=== PATIENT | female | born 1930 | race African-American/Black ===

== ENCOUNTER 2016-06-20 17:00 | Inpatient (IN) | payer OTHER, MEDICARE ==
--- NOTE | 2016-06-20 17:12 | PDOC ---
History of Present Illness - General History Source: Patient, Family, Old Records Exam Limitations: No Limitations <Ronda Ledbetter - Last Filed: 06/20/16 18:15> - General History Source: Patient, Care Provider, Family Exam Limitations: No Limitations - History of Present Illness Initial Comments: 06/20/16 18:24 The patient is a 86 year old female sent to the ED by her PCP, with a significant past medical history of hypertension, hyperlipidemia, diabetes, spinal stenosis, CHF, OH(1994) and DVT(on coumadin, but stopped treatment for the past 3 days due to upcoming procedure), who presents to the emergency department complaining of chest pain, shortness of breath, coughing, and generalized weakness for 1 week. The patient reports the pain is more pronounced on the left side than on the right side. She states the pain radiates into the right arm. She rates the pain as a 6/10, and reports associated tightness in her chest. The patient denies any diaphoresis or palpitations. As per daughters the patient presented to [facility] 6 days ago, for new onset of tremors in her face and hands, and was diagnosed with a UTI. The daughters report the patient has been experiencing increased weakness since February, and a progressively worsening cough for 1 week. The daughters state the patient was able to walk with a walker for the past 3 months ; however, lately she has not been able to stand and has a shuffled gait. They report the patient initially had a dry cough, but is now coughing up green sputum. They report presenting to her PCP, Dr. Bragg, with similar symptoms yesterday, where she was diagnosed with bronchitis. The patient reports decreased appetite and increased desire to sleep. She reports 2 episodes of black tarry diarrhea several days ago, and states she takes iron supplements. The patient reports vomiting, fever, and chills (5 days ago), but denies any headache or dizziness. The patient denies abdominal pain, nausea, constipation, dysuria, or changes in urination patterns. Allergies: Codeine Past Surgical History: None reported. Social History: Non-smoker. Denies alcohol or drug use. PCP: Dr. Mario Bragg ([phone]) Analysis Intern: Dr. Schofield <Valentina Abreu - Last Filed: 01/31/17 20:59> - General Chief Complaint: Weakness Stated Complaint: WEAKNESS Past History - Past Medical History Cardiac Disorders: Yes Diabetes: Yes HTN: Yes Hypercholesterolemia: Yes - Psycho/Social/Smoking Cessation Hx Suicidal Ideation: No Smoking History: Never smoked <Ronda Ledbetter - Last Filed: 06/20/16 18:15> <Valentina Abreu - Last Filed: 06/20/16 20:59> - Past Medical History Allergies/Adverse Reactions: Allergies Allergy/AdvReac Type Severity Reaction Status Date / Time codeine Allergy Verified 06/20/16 17:08 Home Medications: Ambulatory Orders Acetaminophen [Tylenol -] 1,000 mg PO TID PRN 06/20/16 Albuterol Sulfate Inhaler - [Ventolin Hfa Inhaler -] 1 - 2 inh PO QID PRN Amlodipine Besylate 10 mg PO DAILY 06/20/16 Cholecalciferol (Vitamin D3) [Vitamin D3] 2,000 unit PO DAILY 06/20/16 Diclofenac Sodium [Voltaren] 1 applic TP ASDIR 06/20/16 Donepezil HCl [Aricept] 10 mg PO DAILY 06/20/16 Ferrous Sulfate 325 mg PO DAILY 06/20/16 Furosemide [Lasix -] 40 mg PO DAILY 06/20/16 Gabapentin 100 mg PO TID 06/20/16 Glipizide/Metformin HCl [Glipizide-Metformin 5-500 mg] 1 each PO BID 06/20/16 Hydralazine HCl [Apresoline -] 25 mg PO BID 06/20/16 Hydroxychloroquine Sulfate 200 mg PO BID 06/20/16 Insulin Glargine,Hum.rec.anlog [Lantus Solostar PEN (NF)] 10 units SQ HS Labetalol HCl 300 mg PO BID 06/20/16 Lisinopril 10 mg PO DAILY 06/20/16 Simvastatin 20 mg PO DAILY 06/20/16 Warfarin Sodium [Coumadin] 5 mg PO DAILY 06/20/16 Review of Systems - Review of Systems Able to Perform ROS?: Yes Comments:: 06/20/16 18:25 GENERAL/CONSTITUTIONAL: +Fever, +chills, +generalized weakness. HEAD, EYES, EARS, NOSE AND THROAT: No change in vision. No ear pain or discharge. No sore throat. CARDIOVASCULAR: +Chest pain, +shortness of breath. RESPIRATORY: +Cough No wheezing or hemoptysis. GASTROINTESTINAL: +Vomiting, +diarrhea . No nausea or constipation. GENITOURINARY: No dysuria, frequency, or change in urination. MUSCULOSKELETAL: No joint or muscle swelling or pain. No neck or back pain. SKIN: No rash NEUROLOGIC: No headache, vertigo, loss of consciousness, or change in strength/ sensation. ENDOCRINE: No increased thirst. No abnormal weight change. HEMATOLOGIC/LYMPHATIC: +History of upper GI bleed. No anemia or history of blood clots. ALLERGIC/IMMUNOLOGIC: No hives or skin allergy. <Valentina Abreu - Last Filed: 06/20/16 20:59> *Physical Exam - Vital Signs Last Vital Signs Temp Pulse Resp BP Pulse Ox 98.5 F 82 16 140/53 94 L 06/20/16 17:00 06/20/16 17:00 06/20/16 17:00 06/20/16 17:00 06/20/16 17:00 - Physical Exam Comments: 06/20/16 18:25 GENERAL: Awake, alert, and fully oriented, in no acute distress HEAD: No signs of trauma EYES: PERRLA, EOMI, sclera anicteric, conjunctiva clear ENT: Auricles normal inspection, hearing grossly normal, nares patent, oropharynx clear without exudates. Moist mucosa NECK: Normal ROM, supple, no lymphadenopathy, JVD, or masses LUNGS: +Diffuse crackles bilaterally with expiratory wheezing, and fair air movement. HEART: Regular rate and rhythm, normal S1 and S2, no murmurs, rubs or gallops ABDOMEN: Soft, nontender, normoactive bowel sounds. No guarding, no rebound. No masses EXTREMITIES: Normal range of motion, no edema. No clubbing or cyanosis. No cords, erythema, or tenderness NEUROLOGICAL: Cranial nerves II through XII grossly intact. Normal speech. SKIN: Warm, Dry, normal turgor, no rashes or lesions noted. <Valentina Abreu - Last Filed: 06/20/16 20:59> Heart Score/ECG Review - ECG Impressions Comment:: 06/20/16 18:30 Vent. Rate: 80 bpm IMPRESSION: No old EKG for comparison. LVH by voltage. ST segment depression in 1 L v4-v6, with occasional PVC. <Valentina Abreu - Last Filed: 06/20/16 20:59> ED Treatment Course - LABORATORY CBC & Chemistry Diagram: 06/20/16 17:45 <Ronda Ledbetter - Last Filed: 06/20/16 18:15> - LABORATORY CBC & Chemistry Diagram: 06/20/16 17:45 06/20/16 17:45 - ADDITIONAL ORDERS Additional order review: 06/20/16 17:45 RBC 3.90 MCV 80.7 MCHC 31.3 L RDW 17.3 H D MPV 8.3 Neutrophils % 83.1 H Lymphocytes % 8.8 Monocytes % 7.8 Eosinophils % 0.1 Basophils % 0.2 - RADIOLOGY Radiograph Interpretation: 06/20/16 18:35 EXAM: CXR INTERPRETED BY: Dr. Conner REVIEWED BY: Dr. Ledbetter IMPRESSION: Mild enlargement of the cardiac silhouette likely due to magnification without evidence of acute lung disease. EXAM: HEAD CT INTERPRETED BY: Dr. Conner REVIEWED BY: Dr. Ledbetter IMPRESSION: Moderate atrophy and chronic microvascular ischemic changes without evidence of acute intracranial pathology. <Valentina Abreu - Last Filed: 06/20/16 20:59> Medical Decision Making - Medical Decision Making 06/20/16 18:15 86-year-old female with history of hypertension, diabetes, OH years ago, CHF F with diastolic dysfunction and DVTon Coumadin but has not taken it for the past several days due to an upcoming procedure presents to the emergency department with generalized weakness, shortness of breath, cough and chest pain ; she also had "facial twitching" 5 days ago. Differential diagnosis includes but is not limited to: Pneumonia, influenza, CHF, ACS, anemia, electrolyte abnormality, toxic/metabolic derangement, dehydration, UTI. Plan: 1. EKG 2. Labs 3. Chest x-ray 4. Urine 5. CT head to address this questionable seizure-like activity 6. Observe and reevaluate <Ronda Ledbetter - Last Filed: 06/20/16 18:15> - Medical Decision Making 06/20/16 19:42 First call placed to Dr. Schofield at 19:38. Case discussed with Dr. Matta at 19:42. <Valentina Abreu - Last Filed: 06/20/16 20:59> *DC/Admit/Observation/Transfer - Attestations Physician Attestion: 06/20/16 18:17 I, Dr. Ronda Ledbetter, attest that the scribes documentation that appears above has been prepared under my direction and personally reviewed by me in its entirety. I confirmed that the note above accurately reflects all work, treatment, procedures, and medical decision-making performed by me. <Ronda Ledbetter - Last Filed: 06/20/16 18:15> - Attestations Scribe Attestion: 06/20/16 18:29 Documentation prepared by Valentina Abreu, acting as medical physiologist for Ronda Ledbetter MD. <Valentina Abreu - Last Filed: 06/20/16 20:59> Diagnosis at time of Disposition: Weakness generalized, Shortness of breath, Hyponatremia, Hyperglycemia, Dehydration - Discharge Dispostion Condition at time of disposition: Stable - Referrals Referrals: Mario Bragg MD [Primary Care Provider] -
[2016-06-20 17:19] VITALS: BMI 33.0
[2016-06-20 18:19] LABS: BASOPHIL 0.2 % (0-2.0); EOSINOPHIL 0.1 % (0-4.5); MCH 25.3 pg (25.7-33.7); MCHC 31.3 g/dl (32.0-36.0); MEAN CELL VOLUME 80.7 fl (80-96); MEAN PLT VOLUME 8.3 fl (7.5-11.1); NEUTROPHILS 83.1 % (42.8-82.8); PLATELET COUNT 214 K/MM3 (134-434); RDW 17.3 % (11.6-15.6); WHITE BLOOD COUNT 11.5 K/mm3 (4.0-10.0)
[2016-06-20] MEDS ORDERED: ALBUTEROL SO4 0.083% IH SOL 2.5 MG/3 ML VIAL.NEB. NEB ONE ×2 (18:21→18:31)
[2016-06-20] MEDS ORDERED: IPRATROPIUM BR 0.02% 0.5 MG/2.5 ML VIAL.NEB. NEB ONE ×2 (18:21→18:31)
[2016-06-20] MEDS ORDERED: ACETAMINOPHEN 500 MG TABLET (FP) PO ONE (18:38)
[2016-06-20] MEDS ORDERED: ACETAMINOPHEN 325 MG TABLET (FP) ONE (18:41)
[2016-06-20 18:43] LABS: BILIRUBIN,TOTAL 0.2 mg/dl (0.2-1.0); CALCIUM 8.2 mg/dl (8.4-10.2); CREATININE 1.7 mg/dl (0.6-1.3); TOT PROT 6.3 g/dl (6.4-8.3)
[2016-06-20 18:51] LABS: CPK(DFH) 67 IU/L (26-140)
[2016-06-20 18:57] LABS: TROPONIN I (DFP) < 0.03 ng/ml (0.03-0.50)
[2016-06-20] MEDS ORDERED: SODIUM CHLORIDE 1,000 ML IV STA (19:04)
[2016-06-20 19:10] LABS: INR 2.12 (0.82-1.09); PROTHROMBIN TIME (PATIENT) 23.1 SEC (10.2-13.0)
[2016-06-20 19:12] LABS: URINE APPEARANCE Clear; URINE BILIRUBIN Negative (NEGATIVE); URINE BLOOD Negative (NEGATIVE); URINE GLUCOSE (UA) Trace (NEGATIVE); URINE KETONE Negative (NEGATIVE); URINE LEUK ESTERASE Negative (NEGATIVE); URINE NITRITE Negative (NEGATIVE); URINE UROBILINOGEN 0.2 E.U/dl (0.2-1.0)
[2016-06-20 19:13] LABS: URINE COLOR YELLOW; URINE PROTEIN 1+ (NEGATIVE)
--- NOTE | 2016-06-20 19:18 | PDOC ---
*Physical Exam - Vital Signs Last Vital Signs Temp Pulse Resp BP Pulse Ox 98.5 F 82 16 140/53 94 L 06/20/16 17:00 06/20/16 17:00 06/20/16 17:00 06/20/16 17:00 06/20/16 17:00 Heart Score/ECG Review - History History: Slightly suspicious - Electrocardiogram EKG: Non specific repolarization disturbance - Age Age: >/= 65 - Risk Factors Risk Factors Heart Score: Yes Hx Hypercholesterolemia, Yes Hx Hypertension, Yes Hx Diabetes Based on the list above the patient has:: >/=3 risk factors or Hx atherosclerotic disease - Troponin Troponin: </= normal limit - Score Heart Score - Total: 5 ED Treatment Course - LABORATORY CBC & Chemistry Diagram: 06/20/16 17:45 06/20/16 17:45 - ADDITIONAL ORDERS Additional order review: Laboratory Results 06/20/16 06/20/16 17:45 17:45 Sodium 131 L Potassium 3.9 Chloride 98 Carbon Dioxide 20 L D Anion Gap 13 BUN 50 H D Creatinine 1.7 H D Creat Clearance w eGFR 28.63 Random Glucose 374 H* D Calcium 8.2 L Total Bilirubin 0.2 AST 21 ALT 19 Alkaline Phosphatase 84 Creatine Kinase 67 Troponin I < 0.03 L Total Protein 6.3 L Albumin 3.0 L 06/20/16 17:45 RBC 3.90 MCV 80.7 MCHC 31.3 L RDW 17.3 H D MPV 8.3 Neutrophils % 83.1 H Lymphocytes % 8.8 Monocytes % 7.8 Eosinophils % 0.1 Basophils % 0.2 - Medications Given in the ED: ED Medications Discontinued Medications Generic Name Dose Route Start Last Admin Trade Name Teresa PRN Reason Stop Dose Admin Acetaminophen 1,000 mg 06/20/16 18:38 06/20/16 18:55 Tylenol - PO 06/20/16 18:39 1,000 mg ONCE ONE Administration Albuterol Sulfate 1 amp 06/20/16 18:21 06/20/16 18:30 Ventolin 0.083% Nebulizer Soln - NEB 06/20/16 18:22 1 amp ONCE ONE Administration Ipratropium Chana 1 amp 06/20/16 18:21 06/20/16 18:30 Atrovent 0.02% Nebulizer - NEB 06/20/16 18:22 1 amp ONCE ONE Administration Progress Note - Progress Note Progress Note: Care of this patient was transferred to sc from Dr. Ledbetter at 19:00 hrs. This is an 86-year-old female whose family brought her in because they were concerned that she was not doing well. Patient was noted to be somewhat lethargic on arrival here with a low-grade temp. Patient does have a mildly elevated white count with mild left shift. Patient's O2 sats are little on the low side however her chest x-ray was read as no acute disease. Patient is a little hyponatremic. Patient's glucose is elevated. Patient's urinalysis shows no infection. Patient's BUN and creatinine are mildly elevated she does not have a history of underlying renal insufficiency so most likely this is secondary to some dehydration which is probably contributing to her lethargy as well. Patient also at her baseline does have a history of some congestive heart failure. Patient will be admitted to an inpatient MedSurg bed. Antibiotics are not given at this time as I do not have an obvious source. Patient is being hydrated. Patient's cardiogram shows some lateral ischemic changes uncertain if these are new or old as we don't have one to compare it to so presume that it may be new the patient may well need to be admitted to a telemetry bed and ruled out. Patient will be admitted to the hospitalist service. Discussed admission with the hospitalist Dr. Cole from the hospitalist service. Patient will be admitted to a cardiac telemetry bed either here or at [facility]. Case Preparer And Liner is Kanwal. Discussed admission with DR. Matta who is covering for [facility]. Dr. Matta accepted pt to a cardiac tele bed. *DC/Admit/Observation/Transfer Diagnosis at time of Disposition: Weakness generalized, Shortness of breath, Hyponatremia, Hyperglycemia, Dehydration - Discharge Dispostion Condition at time of disposition: Stable Admit: Yes - Referrals Referrals: Mario Bragg MD [Primary Care Provider] - - Patient Instructions - Post Discharge Activity
[2016-06-20] MEDS ORDERED: INSULIN REGULAR HUMAN 100 UNITS/ML *VIAL IVPUSH ONE (19:32)
[2016-06-20] MEDS ORDERED: INSULIN REGULAR HUMAN 100 UNITS/ML *VIAL ONE (19:33)
[2016-06-20] MEDS ORDERED: HEMOQUE TEST 1 EACH EACH ONE ×2 (20:43→20:47)
[2016-06-20] MEDS ORDERED: SODIUM CHLORIDE 1,000 ML IV ONE (21:06)
--- NOTE | 2016-06-20 21:32 | HP ---
CHIEF COMPLAINT: chest pain/cough PCP: Sirisha HISTORY OF PRESENT ILLNESS: This is a 86 year old female with PMH HTN, HLD, DM, spinal stenosis, CHF, CO, DVT who presents with chest pain, SOB, cough, and weakness x 1 week. She was seen last week in [facility] ER and tx for a UTI, but upon review of lab results , Dr Grimm stopped antibiotic (nitrofurantoin) as no UTI noted as per family. Pt also reports LBM since Sunday, slightly better today, but still persisting. Pt reports cough was initially nonproductive, but now with greenish phlegm. Family and pt report subjective fever and chills over the past few days. Pt denies abdominal pain, nausea. ER course was notable for: (1) WBC 11.5 (2) CXR no acute disease (3) troponin negative Recent Travel: pt denies PAST MEDICAL HISTORY: HTN HLD DM spinal stenosis CHF CO DVT PAST SURGICAL HISTORY: B/L TKR R foot thrombectomy hysterectomy B/L cataracts Social History: Smoking: Quit 1994, 21pack years Alcohol: pt denies Drugs: pt denies Family History: mother age 61, HTN, DM, heart disease father in his 70s, DM, HTN sister age 55, unknown brother 60s, DM brother age 63, CA, unkown type, DM, HTN brother 50s, DM, Stomach CA brother 40s, throat CA 3 living siblings all with DM, HTN Allergies codeine Allergy (Verified 06/20/16 17:08) HOME MEDICATIONS: 3 Medication Instructions Recorded Acetaminophen [Tylenol -] 1,000 mg PO TID PRN 06/20/16 Albuterol Sulfate Inhaler - 1 - 2 inh PO QID PRN 06/20/16 [Ventolin Hfa Inhaler -] Amlodipine Besylate 10 mg PO DAILY 06/20/16 Cholecalciferol (Vitamin D3) 2,000 unit PO DAILY 06/20/16 [Vitamin D3] Diclofenac Sodium [Voltaren] 1 applic TP ASDIR 06/20/16 Donepezil HCl [Aricept] 10 mg PO DAILY 06/20/16 Ferrous Sulfate 325 mg PO DAILY 06/20/16 Furosemide [Lasix -] 40 mg PO DAILY 06/20/16 Gabapentin 100 mg PO TID 06/20/16 Glipizide/Metformin HCl 1 each PO BID 06/20/16 [Glipizide-Metformin 5-500 mg] Hydralazine HCl [Apresoline -] 25 mg PO BID 06/20/16 Hydroxychloroquine Sulfate 200 mg PO BID 06/20/16 Insulin Glargine,Hum.rec.anlog 10 units SQ HS 06/20/16 [Lantus Solostar PEN (NF)] Labetalol HCl 300 mg PO BID 06/20/16 Lisinopril 10 mg PO DAILY 06/20/16 Simvastatin 20 mg PO DAILY 06/20/16 Warfarin Sodium [Coumadin] 5 mg PO DAILY 06/20/16 REVIEW OF SYSTEMS CONSTITUTIONAL: Present:fever, chills Absent: diaphoresis, generalized weakness, malaise, loss of appetite, weight change HEENT: Absent: rhinorrhea, nasal congestion, throat pain, throat swelling, difficulty swallowing, mouth swelling, ear pain, eye pain, visual changes CARDIOVASCULAR: Present: chest pain Absent: syncope, palpitations, irregular heart rate, lightheadedness, peripheral edema RESPIRATORY: Present: cough, shortness of breath Absent: dyspnea with exertion, orthopnea, wheezing, stridor, hemoptysis GASTROINTESTINAL: Present: diarrhea Absent: abdominal pain, abdominal distension, nausea, vomiting, constipation, melena, hematochezia GENITOURINARY: Absent: dysuria, frequency, urgency, hesitancy, hematuria, flank pain, genital pain MUSCULOSKELETAL: Absent: myalgia, arthralgia, joint swelling, back pain, neck pain SKIN: Absent: rash, itching, pallor HEMATOLOGIC/IMMUNOLOGIC: Absent: easy bleeding, easy bruising, lymphadenopathy, frequent infections ENDOCRINE: Absent: unexplained weight gain, unexplained weight loss, heat intolerance, cold intolerance NEUROLOGIC: Absent: headache, focal weakness or paresthesias, dizziness, unsteady gait, seizure, mental status changes, bladder or bowel incontinence PSYCHIATRIC: Absent: anxiety, depression, suicidal or homicidal ideation, hallucinations. PHYSICAL EXAMINATION Vital Signs - 24 hr 3 06/20/16 06/20/16 06/20/16 17:00 17:05 20:38 Temperature 98.5 F 98.6 F Pulse Rate 82 75 Pulse Rate [ 68 Left Apical] Respiratory 16 18 Rate Blood Pressure 140/53 Blood Pressure 143/55 [Right Arm] O2 Sat by Pulse 94 L 98 99 Oximetry (%) 3 06/20/16 21:04 Temperature 98.6 F Pulse Rate 68 Pulse Rate [ Left Apical] Respiratory 18 Rate Blood Pressure 143/55 Blood Pressure [Right Arm] O2 Sat by Pulse Oximetry (%) GENERAL: Awake, alert, and fully oriented, in no acute distress. HEAD: Normal with no signs of trauma. EYES: Pupils equal, round and reactive to light, extraocular movements intact, sclera anicteric, conjunctiva clear. No lid lag. EARS, NOSE, THROAT: Ears normal, nares patent, oropharynx clear without exudates. Moist mucous membranes. NECK: Normal range of motion, supple without lymphadenopathy, JVD, or masses. LUNGS: Breath sounds equal. No accessory muscle use. + expiratory wheeze all lung trivedi, fine crackles bilat bases. HEART: Regular rate and rhythm, normal S1 and S2 without murmur, rub or gallop. ABDOMEN: Soft, nontender, not distended, normoactive bowel sounds, no guarding, no rebound, no masses. No hepatomegaly or splenomegaly. MUSCULOSKELETAL: Normal range of motion at all joints. No bony deformities or tenderness. No CVA tenderness. UPPER EXTREMITIES: 2+ pulses, warm, well-perfused. No cyanosis. No clubbing. Cap refill <2 seconds. No peripheral edema. LOWER EXTREMITIES: 2+ pulses, warm, well-perfused. No calf tenderness. No peripheral edema. NEUROLOGICAL: Cranial nerves II-XII intact. Normal speech. Normal gait. PSYCHIATRIC: Cooperative. Good eye contact. Appropriate mood and affect. SKIN: Warm, dry, normal turgor, no rashes or lesions noted. Laboratory Results - last 24 hr 3 06/20/16 06/20/16 06/20/16 17:45 17:45 17:45 WBC 11.5 H D RBC 3.90 Hgb 9.8 L D Hct 31.5 L MCV 80.7 MCHC 31.3 L RDW 17.3 H D Plt Count 214 MPV 8.3 Neutrophils % 83.1 H Lymphocytes % 8.8 Monocytes % 7.8 Eosinophils % 0.1 Basophils % 0.2 INR 2.12 H Sodium Potassium Chloride Carbon Dioxide Anion Gap BUN Creatinine Creat Clearance w eGFR Random Glucose Lactic Acid Calcium Total Bilirubin AST ALT Alkaline Phosphatase Creatine Kinase 67 Troponin I < 0.03 L B-Natriuretic Peptide Total Protein Albumin Urine Color Urine Appearance Urine pH Ur Specific [place] Urine Protein Urine Glucose (UA) Urine Ketones Urine Blood Urine Nitrite Urine Bilirubin Urine Urobilinogen Ur Leukocyte Esterase 3 06/20/16 06/20/16 06/20/16 17:45 17:45 18:30 WBC RBC Hgb Hct MCV MCHC RDW Plt Count MPV Neutrophils % Lymphocytes % Monocytes % Eosinophils % Basophils % INR Sodium 131 L Potassium 3.9 Chloride 98 Carbon Dioxide 20 L D Anion Gap 13 BUN 50 H D Creatinine 1.7 H D Creat Clearance w eGFR 28.63 Random Glucose 374 H* D Lactic Acid 1.612 Calcium 8.2 L Total Bilirubin 0.2 AST 21 ALT 19 Alkaline Phosphatase 84 Creatine Kinase Troponin I B-Natriuretic Peptide 1617.86 H Total Protein 6.3 L Albumin 3.0 L Urine Color Yellow Urine Appearance Clear Urine pH 5.0 Ur Specific [place] >= 1.030 H Urine Protein 1+ H Urine Glucose (UA) Trace Urine Ketones Negative Urine Blood Negative Urine Nitrite Negative Urine Bilirubin Negative Urine Urobilinogen 0.2 e.u/dl Ur Leukocyte Esterase Negative CXR: Impression: Mild enlargement of the cardiac silhouette likely due to magnification without evidence of acute lung disease. CT Head: Impression: Moderate atrophy and chronic microvascular ischemic changes without evidence of acute intracranial pathology. Correlate clinically to determine further evaluation and workup ECG: Sinus rhythm with PAC, rate 79, QTC 415, T wave inversions lead 1, v4-v6, flattended lead 2, no old ECG available for comparison ASSESSMENT/PLAN: 86 year old female with PMH HTN, HLD, DM, spinal stenosis, CHF, CO, DVT who presents with chest pain, SOB, cough, and weakness x 1 week. She is being admitted for further evaluation. Community acquired pneumonia - despite no acute changes on xray, clinically present on exam, likely xray lag - ceftriaxone and zithromax ordered - duoneb q6h for wheezing - consider steroids if no improvement, would defer if possible due to DM Chest pain - troponin neg x 1 - heart score 6, cardiology consult ordered, Dr Matta spoken to by ED MD as per note - trend trop x 2 more - echo ordered - repeat ECG in am HTN/CHF - cont home meds, BP stable - echo ordered DVT - restart warfarin as pt will not undergo planned epidural due to hospitalization - monitor INR daily on zithromax DM - hold oral hypoglycemics - home lantus changed to formulary levemir - FSBS TIDAC and HS with novolog sliding scale FEN - NS @ 100ml/hr x 1 liter - Repeat labs in am - sodium controlled/diabetic diet as tolerated Dispo: pt currently requires inpatient care. Visit type - Emergency Visit Emergency Visit: Yes ED Registration Date: 06/20/16 Care time: The patient presented to the Emergency Department on the above date and was hospitalized for further evaluation of their emergent condition. - New Patient This patient is new to me today: Yes Date on this admission: 06/20/16 - Critical Care Critical Care patient: No
[2016-06-20] MEDS ORDERED: CEFTRIAXONE 50 ML IVPB ONE (22:43)
[2016-06-20] MEDS ORDERED: AZITHROMYCIN IVPB 250 ML IVPB ONE (22:43)
[2016-06-20 23:11] LABS: URINE BACTERIA FEW /hpf (NEGATIVE); URINE RBC 0-1 /hpf (0-3); URINE WBC 0-2 (3-5)
[2016-06-20] MEDS: INSULIN DETEMIR 100 UNITS/ML MDV SQ SCH (23:32)
[2016-06-20] MEDS: GABAPENTIN 100 MG CAPSULE (FP) PO SCH (23:33)
[2016-06-20] MEDS: WARFARIN NA 5 MG TABLET (UD) PO SCH (23:33)
[2016-06-20] MEDS: ALBUTEROL SO4 2.5/IPRATROPIUM 0.5 INH SOL 3 ML VIAL.NEB. NEB SCH (23:56)
[2016-06-21 00:58] LABS: TROPONIN I < 0.02 ng/ml (0.00-0.05)
[2016-06-21] MEDS: GABAPENTIN 100 MG CAPSULE (FP) PO SCH ×3 (06:00→21:23)
[2016-06-21] MEDS: INSULIN SLIDING SCALE (NOVOLOG) 1 VIAL SQ SCH ×4 (06:02→21:24)
[2016-06-21] MEDS: ALBUTEROL SO4 2.5/IPRATROPIUM 0.5 INH SOL 3 ML VIAL.NEB. NEB SCH ×3 (06:15→18:10)
[2016-06-21 07:41] LABS: INR 2.36 (0.82-1.09); PROTHROMBIN TIME (PATIENT) 26.4 SEC (9.98-11.88)
[2016-06-21 07:42] LABS: TROPONIN I < 0.02 ng/ml (0.00-0.05)
[2016-06-21 07:54] LABS: MCH 26.4 pg (25.7-33.7); MEAN CELL VOLUME 82.4 fl (80-96); MEAN PLT VOLUME 8.1 fl (7.5-11.1); PLATELET COUNT 177 K/MM3 (134-434); RDW 17.8 % (11.6-15.6); WHITE BLOOD COUNT 11.1 K/mm3 (4.0-10.0)
[2016-06-21 07:55] LABS: BASOPHIL 0.1 % (0-2.0); EOSINOPHIL 0.1 % (0-4.5); NEUTROPHILS 80.7 % (42.8-82.8)
[2016-06-21] MEDS ORDERED: PT OWN MED DRAWER 7, Y5N ONE ×2 (10:15→21:19)
[2016-06-21] MEDS: LABETALOL HCL 100 MG TABLET (FP) PO SCH ×2 (10:22→21:24)
[2016-06-21] MEDS: hydrALAZINE HCL 25 MG TABLET (FP) PO SCH ×2 (10:22→21:23)
[2016-06-21] MEDS: CHOLECALCIFEROL (VITAMIN D3) 1,000 UNIT TABLET (FP) PO SCH (10:22)
[2016-06-21] MEDS: LISINOPRIL 10 MG TABLET (FP) PO SCH (10:22)
[2016-06-21] MEDS: HYDROXYCHLOROQUINE SO4 200 MG TABLET (FP) PO SCH ×2 (10:22→21:23)
[2016-06-21] MEDS: FUROSEMIDE 40 MG TABLET (FP) PO SCH (10:22)
[2016-06-21] MEDS: DONEPEZIL HCL 10 MG TABLET (FP) PO SCH (10:22)
[2016-06-21] MEDS: FERROUS SO4 325 MG TABLET (FP) PO SCH (10:22)
[2016-06-21] MEDS: amLODIPine BESYLATE 10 MG TABLET (FP) PO SCH (10:22)
[2016-06-21 11:31] LABS: ANION GAP 12 (8-16); CO2 24 mmol/L (21-32); CREATININE 1.3 mg/dL (0.55-1.02); GLUCOSE,RANDOM 90 mg/dL (74-106); MAGNESIUM 1.9 mg/dL (1.8-2.4); PHOSPHOROUS 2.8 mg/dL (2.5-4.9)
--- NOTE | 2016-06-21 12:25 | CON.CARD ---
Cardiology Consult (text) - Consultation Consultation Note: cc: sob, cough hpi: 86 f hx cad s/p mi 1994, htn, hld, dm, anemia (avm's), dchf, remote dvt on ac here with sob, cough. Past week she has had progressive cough and chest congestion. Cough mildly productive. [place] chills at home as well, did not check temp. With deep breaths or cough has pain in left lower chest/rib cage. No palps, dizzy, loc, pnd, orthopnea, le edema. Being treated for pna here. Sees dr river for cardio. pmh: per hpi psh: nc social: ex tob fam: no premature cad, scd ros: per hpi; no nvd, rash, muscle pain, hematuria, gib, mcadams, vision changes meds: Medication Instructions Recorded Acetaminophen [Tylenol -] 1,000 mg PO TID PRN 06/20/16 Albuterol Sulfate Inhaler - 1 - 2 inh PO QID PRN 06/20/16 [Ventolin Hfa Inhaler -] Amlodipine Besylate 10 mg PO DAILY 06/20/16 Cholecalciferol (Vitamin D3) 2,000 unit PO DAILY 06/20/16 [Vitamin D3] Diclofenac Sodium [Voltaren] 1 applic TP ASDIR 06/20/16 Donepezil HCl [Aricept] 10 mg PO DAILY 06/20/16 Ferrous Sulfate 325 mg PO DAILY 06/20/16 Furosemide [Lasix -] 40 mg PO DAILY 06/20/16 Gabapentin 100 mg PO TID 06/20/16 Glipizide/Metformin HCl 1 each PO BID 06/20/16 [Glipizide-Metformin 5-500 mg] Hydralazine HCl [Apresoline -] 25 mg PO BID 06/20/16 Hydroxychloroquine Sulfate 200 mg PO BID 06/20/16 Insulin Glargine,Hum.rec.anlog 10 units SQ HS 06/20/16 [Lantus Solostar PEN (NF)] Labetalol HCl 300 mg PO BID 06/20/16 Lisinopril 10 mg PO DAILY 06/20/16 Simvastatin 20 mg PO DAILY 06/20/16 Warfarin Sodium [Coumadin] 5 mg PO DAILY 06/20/16 pe: Vital Signs Period Temp Pulse Resp BP Sys/Curry Pulse Ox Last 24 Hr 98.0 F-98.6 F 62-82 16-18 105-143/46-55 94-99 nad, no jvd rrr s1s2 no mrg ; +chest wall tenderness that reproduces her cp scattered rhonchi, +wheeze bl, nl eff aaox3 no le e/c/c abd nt nd pos bs no jaundice diaphoresis pos dp pt no carotid bruits Laboratory Last Values WBC 11.1 K/mm3 (4.0-10.0) H 06/21/16 06:05 RBC 3.67 M/mm3 (3.60-5.2) 06/21/16 06:05 Hgb 9.7 GM/dL (10.7-15.3) L 06/21/16 06:05 Hct 30.3 % (32.4-45.2) L 06/21/16 06:05 MCV 82.4 fl (80-96) 06/21/16 06:05 MCHC 32.0 g/dl (32.0-36.0) 06/21/16 06:05 RDW 17.8 % (11.6-15.6) H 06/21/16 06:05 Plt Count 177 K/MM3 (134-434) 06/21/16 06:05 MPV 8.1 fl (7.5-11.1) 06/21/16 06:05 Neutrophils % 80.7 % (42.8-82.8) 06/21/16 06:05 Lymphocytes % 11.0 % (8-40) 06/21/16 06:05 Monocytes % 8.1 % (3.8-10.2) 06/21/16 06:05 Eosinophils % 0.1 % (0-4.5) 06/21/16 06:05 Basophils % 0.1 % (0-2.0) 06/21/16 06:05 INR 2.36 (0.82-1.09) H 06/21/16 06:05 Sodium 141 mmol/L (136-145) 06/21/16 06:05 Potassium 3.4 mmol/L (3.5-5.1) L 06/21/16 06:05 Chloride 105 mmol/L (98-107) 06/21/16 06:05 Carbon Dioxide 24 mmol/L (21-32) 06/21/16 06:05 Anion Gap 12 (8-16) 06/21/16 06:05 BUN 38 mg/dL (7-18) H 06/21/16 06:05 Creatinine 1.3 mg/dL (0.55-1.02) H 06/21/16 06:05 Creat Clearance w eGFR 28.63 (>60) 06/20/16 17:45 POC Glucometer 109 UNITS (()) 06/21/16 05:54 Random Glucose 90 mg/dL (74-106) 06/21/16 06:05 Hemoglobin A1c % 8.1 % (4.8-6.0) H D 06/21/16 06:05 Lactic Acid 1.612 mmol/L (0.4-2.0) 06/20/16 17:45 Calcium 8.0 mg/dL (8.5-10.1) L 06/21/16 06:05 Phosphorus 2.8 mg/dL (2.5-4.9) 06/21/16 06:05 Magnesium 1.9 mg/dL (1.8-2.4) 06/21/16 06:05 Total Bilirubin 0.2 mg/dl (0.2-1.0) 06/20/16 17:45 AST 21 U/L (10-42) 06/20/16 17:45 ALT 19 U/L (10-40) 06/20/16 17:45 Alkaline Phosphatase 84 U/L (32-92) 06/20/16 17:45 Creatine Kinase 81 IU/L (26-192) 06/21/16 06:05 Troponin I < 0.02 ng/ml (0.00-0.05) 06/21/16 06:05 B-Natriuretic Peptide 1617.86 pg/ml (5-450) H 06/20/16 17:45 Total Protein 6.3 g/dl (6.4-8.3) L 06/20/16 17:45 Albumin 3.0 g/dl (3.5-5.0) L 06/20/16 17:45 Urine Color Yellow 06/20/16 18:30 Urine Appearance Clear 06/20/16 18:30 Urine pH 5.0 (4.5-8) 06/20/16 18:30 Ur Specific [place] >= 1.030 (1.005-1.025) H 06/20/16 18:30 Urine Protein 1+ (NEGATIVE) H 06/20/16 18:30 Urine Glucose (UA) Trace (NEGATIVE) 06/20/16 18:30 Urine Ketones Negative (NEGATIVE) 06/20/16 18:30 Urine Blood Negative (NEGATIVE) 06/20/16 18:30 Urine Nitrite Negative (NEGATIVE) 06/20/16 18:30 Urine Bilirubin Negative (NEGATIVE) 06/20/16 18:30 Urine Urobilinogen 0.2 e.u/dl (0.2-1.0) 06/20/16 18:30 Ur Leukocyte Esterase Negative (NEGATIVE) 06/20/16 18:30 Urine RBC 0-1 /hpf (0-3) 06/20/16 18:30 Urine WBC 0-2 (3-5) 06/20/16 18:30 Ur Epithelial Cells Few /HPF 06/20/16 18:30 Urine Bacteria Few /hpf (NEGATIVE) 06/20/16 18:30 ecg 06/20/16: sr, pvc, nl intervals, twi v4-v6, i avl, no st changes, no sig change from 04/20/16 ecg cxr: clear lungs mibi 04/2016: no ischemia, lvef 75% echo 04/2016: tds; mild lvh, lvef>70%, g2dd, nl rv, mod lae, mild tr, mild-mod phtn sleep study 04/2016: no [facility] tele: sr, occ pvcs, brief atrial run, nsvt 7 beats a/p: 86 f hx cad s/p mi 1994, htn, hld, dm, anemia (avm's), dchf, remote dvt on ac here with sob, cough. sob: -no signs of vol overload or acs -recent mibi w/o ischemia, recent echo with nl lvef/no sig valve abnormality -symptoms seem to be due to uri/pna, would cont with abx per primary team chest pain: -very MSK in nature, seems related to coughing -ce's neg x3, no signs acs -ecg with twi's but these are old and have been seen on 04/20/16 office ecg as well -recent mibi w/o ischemia -monitor cp as pna/cough improves -monitor on tele for now cad s/p remote [place]: -stable, as above -cont home jeremy, ccb, bb, statin -no asa, on ac for dvt htn: -cont home meds hld: -cont statin diastolic chf: -stable, no signs vol overload -cont home lasix as doing -baseline office bun/cr was 23/1.19 in 05/2016, slightly higher now, possibly related to infection/poor po intake. monitor cr, if remains above baseline can hold lasix temporarily remote dvt: -on lifelong ac
--- NOTE | 2016-06-21 13:25 | EKG ---
Test Reason : Blood Pressure : / mmHG Vent. Rate : 079 BPM Atrial Rate : 079 BPM P-R Int : 170 ms QRS Dur : 092 ms QT Int : 362 ms P-R-T Axes : 056 018 149 degrees QTc Int : 415 ms SINUS RHYTHM WITH PREMATURE ATRIAL COMPLEXES WITH ABERRANT CONDUCTION ABNORMAL ECG NO PREVIOUS ECGS AVAILABLE Confirmed by CARMITA FIGUEROA MD ([id number]) on 06/21/2016 1:24:44 PM Referred By: MD LONGORIA Confirmed By:CARMITA FIGUEROA MD
[2016-06-21] MEDS: POTASSIUM CHLORIDE TABS 20 MEQ TABLET.ER (FP) PO SCH ×2 (15:06→18:47)
[2016-06-21] MEDS ORDERED: ALBUTEROL SO4 0.083% IH SOL 2.5 MG/3 ML VIAL.NEB. NEB PRN (15:26)
[2016-06-21] MEDS ORDERED: methylPREDNISolone NA SUCC 125 MG/2 ML VIAL IVPB ONE (16:09)
[2016-06-21] MEDS: WARFARIN NA 5 MG TABLET (UD) PO SCH (17:27)
[2016-06-21 19:21] LABS: MCH 26.3 pg (25.7-33.7); MCHC 32.2 g/dl (32.0-36.0); MEAN CELL VOLUME 81.6 fl (80-96); MEAN PLT VOLUME 7.9 fl (7.5-11.1); PLATELET COUNT 182 K/MM3 (134-434); RDW 18.4 % (11.6-15.6); WHITE BLOOD COUNT 12.7 K/mm3 (4.0-10.0)
[2016-06-21 20:18] LABS: PLATELET ESTIMATE ADEQUATE (NORMAL)
[2016-06-21 21:00] LABS: ALBUMIN 2.5 g/dl (3.4-5.0); BILIRUBIN,TOTAL 0.2 mg/dL (0.2-1.0); CALCIUM 8.1 mg/dL (8.5-10.1); CREATININE 1.2 mg/dL (0.55-1.02); MAGNESIUM 1.8 mg/dL (1.8-2.4); TOT PROT 5.8 g/dl (6.4-8.2)
[2016-06-21] MEDS ORDERED: INSULIN (NOVOLOG) ASPART 100 UNITS/ML 10ML VIAL ONE (21:19)
[2016-06-21] MEDS: ATORVASTATIN CA 10 MG TABLET (FP) PO SCH (21:23)
[2016-06-21] MEDS: CEFTRIAXONE 50 ML IVPB SCH (21:24)
[2016-06-21] MEDS: AZITHROMYCIN IVPB 250 ML IVPB SCH (21:24)
[2016-06-21] MEDS: INSULIN DETEMIR 100 UNITS/ML MDV SQ SCH (21:24)
--- NOTE | 2016-06-21 21:44 | PN ---
Physical Exam: SUBJECTIVE: Patient seen and examined at bedside. Feels tired and SOB. OBJECTIVE: Vital Signs Period Temp Pulse Resp BP Sys/Curry Pulse Ox Last 24 Hr 98.0 F-98.5 F 62-72 18-18 105-145/46-58 95-97 GENERAL: The patient is awake, alert, and fully oriented, in no acute distress. HEAD: Normal with no signs of trauma. EYES: PERRL, extraocular movements intact, sclera anicteric, conjunctiva clear. No ptosis. LUNGS: Diffuse inspiratory an expiratory wheezing and rhonchi. HEART: Regular rate and rhythm, S1, S2 without murmur, rub or gallop. ABDOMEN: Soft, nontender, nondistended, normoactive bowel sounds, no guarding, no rebound NEUROLOGICAL: Cranial nerves II through XII grossly intact. Normal speech, gait not observed. Laboratory Results - last 24 hr 06/21/16 06/21/16 06/21/16 00:10 05:54 06:05 WBC RBC Hgb Hct MCV MCHC RDW Plt Count MPV Neutrophils % Lymphocytes % Monocytes % Eosinophils % Basophils % Band Neutrophils Platelet Estimate RBC Morphology INR 2.36 H Sodium Potassium Chloride Carbon Dioxide Anion Gap BUN Creatinine Creat Clearance w eGFR POC Glucometer 109 Random Glucose Hemoglobin A1c % Calcium Phosphorus Magnesium Total Bilirubin AST ALT Alkaline Phosphatase Creatine Kinase 61 Troponin I < 0.02 Total Protein Albumin 06/21/16 06/21/16 06/21/16 06:05 06:05 06:05 WBC 11.1 H RBC 3.67 Hgb 9.7 L Hct 30.3 L MCV 82.4 MCHC 32.0 RDW 17.8 H Plt Count 177 MPV 8.1 Neutrophils % 80.7 Lymphocytes % 11.0 Monocytes % 8.1 Eosinophils % 0.1 Basophils % 0.1 Band Neutrophils Platelet Estimate RBC Morphology INR Sodium 141 Potassium 3.4 L Chloride 105 Carbon Dioxide 24 Anion Gap 12 BUN 38 H Creatinine 1.3 H Creat Clearance w eGFR POC Glucometer Random Glucose 90 Hemoglobin A1c % 8.1 H D Calcium 8.0 L Phosphorus 2.8 Magnesium 1.9 Total Bilirubin AST ALT Alkaline Phosphatase Creatine Kinase 81 Troponin I < 0.02 Total Protein Albumin 06/21/16 06/21/16 06/21/16 12:13 16:46 19:05 WBC 12.7 H RBC 3.49 L Hgb 9.2 L Hct 28.5 L MCV 81.6 MCHC 32.2 RDW 18.4 H Plt Count 182 MPV 7.9 Neutrophils % 83.0 H Lymphocytes % 10.0 Monocytes % 4.0 Eosinophils % Basophils % Band Neutrophils 3.0 Platelet Estimate Adequate RBC Morphology Appears normal INR Sodium Potassium Chloride Carbon Dioxide Anion Gap BUN Creatinine Creat Clearance w eGFR POC Glucometer 125 203 Random Glucose Hemoglobin A1c % Calcium Phosphorus Magnesium Total Bilirubin AST ALT Alkaline Phosphatase Creatine Kinase Troponin I Total Protein Albumin 06/21/16 06/21/16 19:05 20:38 WBC RBC Hgb Hct MCV MCHC RDW Plt Count MPV Neutrophils % Lymphocytes % Monocytes % Eosinophils % Basophils % Band Neutrophils Platelet Estimate RBC Morphology INR Sodium 141 Potassium 4.5 D Chloride 109 H Carbon Dioxide 22 Anion Gap 10 BUN 36 H Creatinine 1.2 H Creat Clearance w eGFR 42.80 POC Glucometer 219 Random Glucose 230 H D Hemoglobin A1c % Calcium 8.1 L Phosphorus Magnesium 1.8 Total Bilirubin 0.2 AST 18 ALT 21 Alkaline Phosphatase 86 Creatine Kinase Troponin I Total Protein 5.8 L Albumin 2.5 L Active Medications Generic Name Dose Route Start Last Admin Trade Name Freq PRN Reason Stop Dose Admin Albuterol Sulfate 1 amp 06/21/16 15:26 Ventolin 0.083% Nebulizer Soln - NEB Q4H PRN SHORT OF BREATH/WHEEZING Albuterol/Ipratropium 1 amp 06/21/16 00:00 06/21/16 18:10 Duoneb - NEB 1 amp QIDR MIKE Administration Amlodipine Besylate 10 mg 06/21/16 10:00 06/21/16 10:22 Norvasc - PO 10 mg DAILY MIKE Administration Atorvastatin Calcium 10 mg 06/21/16 22:00 06/21/16 21:23 Lipitor - PO 10 mg HS MIKE Administration Cholecalciferol 2,000 unit 06/21/16 10:00 06/21/16 10:22 Vitamin D3 - PO 2,000 unit DAILY MIKE Administration Donepezil HCl 10 mg 06/21/16 10:00 06/21/16 10:22 Aricept - PO 10 mg DAILY MIKE Administration Ferrous Sulfate 325 mg 06/21/16 10:00 06/21/16 10:22 Feosol - PO 325 mg DAILY MIKE Administration Furosemide 40 mg 06/21/16 10:00 06/21/16 10:22 Lasix - PO 40 mg DAILY MIKE Administration Gabapentin 100 mg 06/20/16 22:45 06/21/16 21:23 Neurontin - PO 100 mg TID MIKE Administration Hydralazine HCl 25 mg 06/21/16 10:00 06/21/16 21:23 Apresoline - PO 25 mg BID MIKE Administration Hydroxychloroquine Sulfate 200 mg 06/21/16 10:00 06/21/16 21:23 Plaquenil - PO 200 mg BID MIKE Administration Azithromycin 250 mls @ 250 mls/hr 06/21/16 22:00 06/21/16 21:24 Zithromax 500mg Ivpb (Pre-Docked) IVPB 250 mls/hr HS MIKE Administration Ceftriaxone Sodium 50 mls @ 100 mls/hr 06/21/16 22:00 06/21/16 21:24 Rocephin 1gm Ivpb (Pre-Docked) IVPB 100 mls/hr HS MIKE Administration Insulin Aspart 1 vial 06/21/16 07:00 06/21/16 21:24 Novolog Vial Sliding Scale - SQ 3 units ACHS MIKE Administration Protocol Insulin Detemir 10 units 06/20/16 22:45 06/21/16 21:24 Levemir Vial SQ 10 units HS [facility] Administration Labetalol HCl 300 mg 06/21/16 10:00 06/21/16 21:24 Normodyne - PO 300 mg BID MIKE Administration Lisinopril 10 mg 06/21/16 10:00 06/21/16 10:22 Prinivil PO 10 mg DAILY MIKE Administration Warfarin Sodium 5 mg 06/20/16 22:45 06/21/16 17:27 Coumadin - PO 5 mg DAILY@1800 MIKE Administration ASSESSMENT/PLAN: 86 year-old female with a PMH of HTN, HLD, CAD s/p [place], diastolic HF, anemia ( AVMs), DM, RA, spinal stenosis, h/o DVT on coumadin. Admitted for productive cough, SOB, and weakness x 1 week. Pneumonia --coughing up yellow green sputum, mild leukocytosis --azithromycin (day #1) and ceftriaxone (day #1) --duonebs QID scheduled --albuterol nebs PRN --will give solumedrol 125mg x 1 Chest pain r/o ACS - troponin neg x 1; two pending - ECG not suggestive of acute ischemic event - echo ordered - telemetry monitoring - cardiology consult requested Diastolic heart failure, chronic --continue Lasix Hypertension --BP well-controlled --continue lisinopril, labetalol, amlodipine, hydralazine, lasix Hyperlipidemia --continue Lipitor h/o DVT - restart warfarin DM - hold oral hypoglycemics - home lantus changed to formulary levemir - FSBS TIDAC and HS with novolog sliding scale FEN - NS @ 100ml/hr x 1 liter - Repeat labs in am - sodium controlled/diabetic diet as tolerated Dispo: pt currently requires inpatient care. Visit type - Emergency Visit Emergency Visit: Yes ED Registration Date: 06/20/16 Care time: The patient presented to the Emergency Department on the above date and was hospitalized for further evaluation of their emergent condition. - New Patient This patient is new to me today: Yes Date on this admission: 06/22/16 - Critical Care Critical Care patient: No
[2016-06-22] MEDS: ALBUTEROL SO4 2.5/IPRATROPIUM 0.5 INH SOL 3 ML VIAL.NEB. NEB SCH ×5 (00:16→23:10)
[2016-06-22] MEDS: GABAPENTIN 100 MG CAPSULE (FP) PO SCH ×3 (05:34→21:32)
[2016-06-22] MEDS ORDERED: INSULIN (NOVOLOG) ASPART 100 UNITS/ML 10ML VIAL ONE ×2 (06:18→12:27)
[2016-06-22] MEDS: INSULIN SLIDING SCALE (NOVOLOG) 1 VIAL SQ SCH ×4 (06:21→21:32)
[2016-06-22 07:24] LABS: BASOPHIL 0.1 % (0-2.0); MCH 26.9 pg (25.7-33.7); MCHC 32.8 g/dl (32.0-36.0); MEAN CELL VOLUME 81.9 fl (80-96); MEAN PLT VOLUME 8.2 fl (7.5-11.1); NEUTROPHILS 90.9 % (42.8-82.8); PLATELET COUNT 180 K/MM3 (134-434); WHITE BLOOD COUNT 10.7 K/mm3 (4.0-10.0)
[2016-06-22 08:04] LABS: ALBUMIN 2.5 g/dl (3.4-5.0); BILIRUBIN,TOTAL 0.2 mg/dL (0.2-1.0); CALCIUM 8.2 mg/dL (8.5-10.1); CREATININE 1.2 mg/dL (0.55-1.02); TOT PROT 5.8 g/dl (6.4-8.2)
[2016-06-22] MEDS: LABETALOL HCL 100 MG TABLET (FP) PO SCH ×2 (10:21→21:31)
[2016-06-22] MEDS: DONEPEZIL HCL 10 MG TABLET (FP) PO SCH (10:21)
[2016-06-22] MEDS: hydrALAZINE HCL 25 MG TABLET (FP) PO SCH ×2 (10:21→21:31)
[2016-06-22] MEDS: CHOLECALCIFEROL (VITAMIN D3) 1,000 UNIT TABLET (FP) PO SCH (10:22)
[2016-06-22] MEDS: amLODIPine BESYLATE 10 MG TABLET (FP) PO SCH (10:22)
[2016-06-22] MEDS: FERROUS SO4 325 MG TABLET (FP) PO SCH (10:22)
[2016-06-22] MEDS: HYDROXYCHLOROQUINE SO4 200 MG TABLET (FP) PO SCH ×2 (10:24→21:32)
[2016-06-22] MEDS: LISINOPRIL 10 MG TABLET (FP) PO SCH (10:24)
[2016-06-22] MEDS ORDERED: PT OWN MED DRAWER 7, Y5N ONE ×3 (10:24→21:27)
--- NOTE | 2016-06-22 10:27 | PN ---
Progress Note (short form) - Note Progress Note: s: no cp palps dizzy; sob and cough better o: Vital Signs Period Temp Pulse Resp BP Sys/Curry Pulse Ox Last 24 Hr 98.1 F-98.5 F 69-82 18-20 123-149/47-70 95-97 nad, no jvd rrr s1s2 no mrg ; +chest wall tenderness that reproduces her cp scattered rhonchi, +wheeze bl, nl eff aaox3 no le e/c/c no jaundice diaphoresis Current Medications Generic Name Dose Route Start Last Admin Trade Name Freq PRN Reason Stop Dose Admin Albuterol Sulfate 1 amp 06/21/16 15:26 Ventolin 0.083% Nebulizer Soln - NEB Q4H PRN SHORT OF BREATH/WHEEZING Albuterol/Ipratropium 1 amp 06/21/16 00:00 06/22/16 06:04 Duoneb - NEB 1 amp QIDR MIKE Administration Amlodipine Besylate 10 mg 06/21/16 10:00 06/21/16 10:22 Norvasc - PO 10 mg DAILY MIKE Administration Atorvastatin Calcium 10 mg 06/21/16 22:00 06/21/16 21:23 Lipitor - PO 10 mg HS MIKE Administration Cholecalciferol 2,000 unit 06/21/16 10:00 06/21/16 10:22 Vitamin D3 - PO 2,000 unit DAILY MIKE Administration Donepezil HCl 10 mg 06/21/16 10:00 06/21/16 10:22 Aricept - PO 10 mg DAILY MIKE Administration Ferrous Sulfate 325 mg 06/21/16 10:00 06/21/16 10:22 Feosol - PO 325 mg DAILY MIKE Administration Furosemide 40 mg 06/21/16 10:00 06/21/16 10:22 Lasix - PO 40 mg DAILY MIKE Administration Gabapentin 100 mg 06/20/16 22:45 06/22/16 05:34 Neurontin - PO 100 mg TID MIKE Administration Hydralazine HCl 25 mg 06/21/16 10:00 06/21/16 21:23 Apresoline - PO 25 mg BID MIKE Administration Hydroxychloroquine Sulfate 200 mg 06/21/16 10:00 06/21/16 21:23 Plaquenil - PO 200 mg BID MIKE Administration Azithromycin 250 mls @ 250 mls/hr 06/21/16 22:00 02/01/17 21:24 Zithromax 500mg Ivpb (Pre-Docked) IVPB 250 mls/hr HS MIKE Administration Ceftriaxone Sodium 50 mls @ 100 mls/hr 06/21/16 22:00 06/21/16 21:24 Rocephin 1gm Ivpb (Pre-Docked) IVPB 100 mls/hr HS MIKE Administration Insulin Aspart 1 vial 06/21/16 07:00 06/22/16 06:21 Novolog Vial Sliding Scale - SQ 4 units ACHS MIKE Administration Protocol Insulin Detemir 10 units 06/20/16 22:45 06/21/16 21:24 Levemir Vial SQ 10 units HS MIKE Administration Labetalol HCl 300 mg 06/21/16 10:00 06/21/16 21:24 Normodyne - PO 300 mg BID MIKE Administration Lisinopril 10 mg 06/21/16 10:00 06/21/16 10:22 Prinivil PO 10 mg DAILY MIKE Administration Warfarin Sodium 5 mg 06/20/16 22:45 06/21/16 17:27 Coumadin - PO 5 mg DAILY@1800 MIKE Administration CBC, BMP 06/22/16 06:00 06/22/16 06:00 ecg 06/20/16: sr, pvc, nl intervals, twi v4-v6, i avl, no st changes, no sig change from 04/20/16 ecg cxr: clear lungs mibi 04/2016: no ischemia, lvef 75% echo 04/2016: tds; mild lvh, lvef>70%, g2dd, nl rv, mod lae, mild tr, mild-mod phtn echo 06/2016: nl lv/rv, aiden, mild mr, sev tr, rvsp 40-50 sleep study 04/2016: no [facility] tele: sr, occ pvcs, brief atrial run a/p: 86 f hx cad s/p mi 1994, htn, hld, dm, anemia (avm's), dchf, remote dvt on ac here with sob, cough. sob: -no signs of vol overload or acs -recent mibi w/o ischemia, recent echo with nl lvef/no sig valve abnormality ( echo here reports severe TR, will review) -symptoms seem to be due to uri/pna, would cont with abx per primary team chest pain: -very MSK in nature, seems related to coughing -ce's neg x3, no signs acs -ecg with twi's but these are old and have been seen on 04/20/16 office ecg as well -recent mibi w/o ischemia cad s/p remote [place]: -stable, as above -cont home jeremy, ccb, bb, statin -no asa, on ac for dvt htn: -cont home meds hld: -cont statin diastolic chf: -stable, no signs vol overload -cont home lasix as doing remote dvt: -on lifelong ac can dc tele
[2016-06-22 16:05] LABS: INR 2.85 (0.82-1.09)
--- NOTE | 2016-06-22 16:10 | PN ---
Physical Exam: SUBJECTIVE: Patient seen and examined at bedside. Feels better. Was oob to chair , walking back and forth to bathroom. OBJECTIVE: Vital Signs Period Temp Pulse Resp BP Sys/Curry Pulse Ox Last 24 Hr 98.1 F-98.4 F 69-82 18-20 123-152/45-73 95-96 GENERAL: The patient is awake, alert, and fully oriented, in no acute distress. HEAD: Normal with no signs of trauma. EYES: PERRL, extraocular movements intact, sclera anicteric, conjunctiva clear. No ptosis. LUNGS: Diffuse inspiratory an expiratory wheezing and rhonchi. HEART: Regular rate and rhythm, S1, S2 without murmur, rub or gallop. ABDOMEN: Soft, nontender, nondistended, normoactive bowel sounds, no guarding, no rebound NEUROLOGICAL: Cranial nerves II through XII grossly intact. Normal speech, gait not observed. Laboratory Results - last 24 hr 06/21/16 06/21/16 06/21/16 16:46 19:05 19:05 WBC 12.7 H RBC 3.49 L Hgb 9.2 L Hct 28.5 L MCV 81.6 MCHC 32.2 RDW 18.4 H Plt Count 182 MPV 7.9 Neutrophils % 83.0 H Lymphocytes % 10.0 Monocytes % 4.0 Eosinophils % Basophils % Band Neutrophils 3.0 Platelet Estimate Adequate RBC Morphology Appears normal Sodium 141 Potassium 4.5 D Chloride 109 H Carbon Dioxide 22 Anion Gap 10 BUN 36 H Creatinine 1.2 H Creat Clearance w eGFR 42.80 POC Glucometer 203 Random Glucose 230 H D Calcium 8.1 L Magnesium 1.8 Total Bilirubin 0.2 AST 18 ALT 21 Alkaline Phosphatase 86 Total Protein 5.8 L Albumin 2.5 L 06/21/16 06/22/16 06/22/16 20:38 05:31 06:00 WBC 10.7 H RBC 3.42 L Hgb 9.2 L Hct 28.0 L MCV 81.9 MCHC 32.8 RDW 18.0 H Plt Count 180 MPV 8.2 Neutrophils % 90.9 H Lymphocytes % 7.2 L D Monocytes % 1.8 L Eosinophils % 0.0 D Basophils % 0.1 Band Neutrophils Platelet Estimate RBC Morphology Sodium Potassium Chloride Carbon Dioxide Anion Gap BUN Creatinine Creat Clearance w eGFR POC Glucometer 219 282 Random Glucose Calcium Magnesium Total Bilirubin AST ALT Alkaline Phosphatase Total Protein Albumin 06/22/16 06/22/16 06:00 12:25 WBC RBC Hgb Hct MCV MCHC RDW Plt Count MPV Neutrophils % Lymphocytes % Monocytes % Eosinophils % Basophils % Band Neutrophils Platelet Estimate RBC Morphology Sodium 138 Potassium 4.6 Chloride 106 Carbon Dioxide 22 Anion Gap 10 BUN 35 H Creatinine 1.2 H Creat Clearance w eGFR 42.80 POC Glucometer 315 Random Glucose 286 H D Calcium 8.2 L Magnesium 2.0 Total Bilirubin 0.2 AST 13 L D ALT 19 Alkaline Phosphatase 87 Total Protein 5.8 L Albumin 2.5 L Active Medications Generic Name Dose Route Start Last Admin Trade Name Freq PRN Reason Stop Dose Admin Albuterol Sulfate 1 amp 06/21/16 15:26 Ventolin 0.083% Nebulizer Soln - NEB Q4H PRN SHORT OF BREATH/WHEEZING Albuterol/Ipratropium 1 amp 06/21/16 00:00 06/22/16 11:10 Duoneb - NEB 1 amp QIDR MIKE Administration Amlodipine Besylate 10 mg 06/21/16 10:00 06/22/16 10:22 Norvasc - PO 10 mg DAILY MIKE Administration Atorvastatin Calcium 10 mg 06/21/16 22:00 06/21/16 21:23 Lipitor - PO 10 mg HS MIKE Administration Cholecalciferol 2,000 unit 06/21/16 10:00 06/22/16 10:22 Vitamin D3 - PO 2,000 unit DAILY MIKE Administration Donepezil HCl 10 mg 06/21/16 10:00 06/22/16 10:21 Aricept - PO 10 mg DAILY MIKE Administration Ferrous Sulfate 325 mg 06/21/16 10:00 06/22/16 10:22 Feosol - PO 325 mg DAILY MIKE Administration Furosemide 40 mg 06/21/16 10:00 06/21/16 10:22 Lasix - PO 40 mg DAILY MIKE Administration Gabapentin 100 mg 06/20/16 22:45 06/22/16 14:55 Neurontin - PO 100 mg TID MIKE Administration Hydralazine HCl 25 mg 06/21/16 10:00 06/22/16 10:21 Apresoline - PO 25 mg BID MIKE Administration Hydroxychloroquine Sulfate 200 mg 06/21/16 10:00 06/22/16 10:24 Plaquenil - PO 200 mg BID MIKE Administration Azithromycin 250 mls @ 250 mls/hr 06/21/16 22:00 06/21/16 21:24 Zithromax 500mg Ivpb (Pre-Docked) IVPB 250 mls/hr HS MIKE Administration Ceftriaxone Sodium 50 mls @ 100 mls/hr 06/21/16 22:00 06/21/16 21:24 Rocephin 1gm Ivpb (Pre-Docked) IVPB 100 mls/hr HS MIKE Administration Insulin Aspart 1 vial 06/21/16 07:00 06/22/16 12:43 Novolog Vial Sliding Scale - SQ 5 units ACHS MIKE Administration Protocol Insulin Detemir 10 units 06/20/16 22:45 06/21/16 21:24 Levemir Vial SQ 10 units HS MIKE Administration Labetalol HCl 300 mg 06/21/16 10:00 06/22/16 10:21 Normodyne - PO 300 mg BID MIKE Administration Lisinopril 10 mg 06/21/16 10:00 06/22/16 10:24 Prinivil PO 10 mg DAILY MIKE Administration Warfarin Sodium 5 mg 06/20/16 22:45 06/21/16 17:27 Coumadin - PO 5 mg DAILY@1800 MIKE Administration Imaging 06/20/16 ECG: sr, pvc, nl intervals, twi v4-v6, i avl, no st changes, no sig change from 04/20/16 ecg 06/20/16 CXR: unremarkable 06/20/16 CT head: no acute process 04/2016 MIBI: no ischemia, LVE 75% 04/2016 Echo: mild lvh, lvef>70%, g2dd, nl rv, mod lae, mild tr, mild-mod phtn 06/21/16 Echo: LV nl, RV nl, BLAE, mild MR, severe TR, RSVP 40-50, mild PI ASSESSMENT/PLAN 86 year-old female with a PMH of HTN, HLD, CAD s/p [place], diastolic HF, anemia ( AVMs), DM, RA, spinal stenosis, h/o DVT on coumadin. Admitted for productive cough, SOB, and weakness x 1 week. Pneumonia --coughing up yellow green sputum, mild leukocytosis --azithromycin (day #2) and ceftriaxone (day #2) --duonebs QID scheduled --albuterol nebs PRN --will give solumedrol 125mg x 1 UTI --UC growing LFGNB >100k Diarrhea --C.diff antigen positive, toxin negative Chest pain --ACS ruled out; troponins neg x 3; recent MIBI without ischemia; ECG not suggetive of acute ischemic event --Echo from 2 months ago showed no significant valve abnormality, stress yesterday showed severe TR; cardiology will review --can d/c tele per cardiology CAD s/p remote [place] --continue lisinopril, labetolol, amlodipine, hydralazine Diastolic heart failure, chronic --continue Lasix Hypertension --BP well-controlled --continue lisinopril, labetalol, amlodipine, hydralazine, lasix Hyperlipidemia --continue Lipitor h/o DVT on lifetime anticoagulation - INR therapeutic 2.82 - continue warfarin IDDM --continue Levemir --Novolog sliding scale coverage F/E/N - PO intake adequate - Electrolytes: replete as indicated - Nutrition: sodium/diabetic DVT prophylaxis: theraeutic on warfarin, oob, ambulation Rehab PT eval Daily PT Dispo: continues to require inpatient care. Full Code. Visit type - Emergency Visit Emergency Visit: Yes ED Registration Date: 06/20/16 Care time: The patient presented to the Emergency Department on the above date and was hospitalized for further evaluation of their emergent condition. - New Patient This patient is new to me today: No - Critical Care Critical Care patient: No
[2016-06-22] MEDS: WARFARIN NA 5 MG TABLET (UD) PO SCH (17:20)
--- NOTE | 2016-06-22 17:47 | CONSULT ---
Consult Consult Specialty:: infectious diseases Reason for Consultation:: pna,uti - History of Present Illness Chief Complaint: difficuilty in breathing History of Present Illness: his is a 86 year old female with PMH HTN, HLD, DM, spinal stenosis, CHF, [place], DVT who presents with chest pain, SOB, cough, and weakness x 1 week. She was seen last week in [facility] ER and tx for a UTI, but upon review of lab results , primary doctor as no UTI noted as per family. Pt also reports LBM since Sunday, slightly better today, but still persisting. Pt reports cough was initially nonproductive, but now with greenish phlegm. Family and pt report subjective fever and chills over the past few days. Pt denies abdominal pain, nausea. patient and daughter in the room and according to them they said that on discharge patient did not feel any better and cough increased and her sputum turned greenish patient now feels better and her urine does show she has uti no other issues and patient cough is still present but breathing has improved - History Source History Provided By: Patient, Family Member Limitations to Obtaining History: No Limitations - Alcohol/Substance Use Hx Alcohol Use: No - Smoking History Smoking history: Former smoker Have you smoked in the past 12 months: No If you are a former smoker, when did you quit?: 20 years ago Home Medications - Allergies Allergies/Adverse Reactions: Allergies Allergy/AdvReac Type Severity Reaction Status Date / Time codeine Allergy Verified 06/20/16 17:08 - Home Medications Home Medications: Ambulatory Orders Acetaminophen [Tylenol -] 1,000 mg PO TID PRN 06/20/16 Albuterol Sulfate Inhaler - [Ventolin Hfa Inhaler -] 1 - 2 inh PO QID PRN Amlodipine Besylate 10 mg PO DAILY 06/20/16 Cholecalciferol (Vitamin D3) [Vitamin D3] 2,000 unit PO DAILY 06/20/16 Diclofenac Sodium [Voltaren] 1 applic TP ASDIR 06/20/16 Donepezil HCl [Aricept] 10 mg PO DAILY 06/20/16 Ferrous Sulfate 325 mg PO DAILY 06/20/16 Furosemide [Lasix -] 40 mg PO DAILY 06/20/16 Gabapentin 100 mg PO TID 06/20/16 Glipizide/Metformin HCl [Glipizide-Metformin 5-500 mg] 1 each PO BID 06/20/16 Hydralazine HCl [Apresoline -] 25 mg PO BID 06/20/16 Hydroxychloroquine Sulfate 200 mg PO BID 06/20/16 Insulin Glargine,Hum.rec.anlog [Lantus Solostar PEN (NF)] 10 units SQ HS Labetalol HCl 300 mg PO BID 06/20/16 Lisinopril 10 mg PO DAILY 06/20/16 Simvastatin 20 mg PO DAILY 06/20/16 Warfarin Sodium [Coumadin] 5 mg PO DAILY 06/20/16 Review of Systems - Review of Systems Constitutional: reports: No Symptoms Eyes: reports: No Symptoms HENT: reports: No Symptoms Neck: reports: No Symptoms Cardiovascular: reports: No Symptoms Respiratory: reports: Cough, SOB on Exertion, Other Gastrointestinal: reports: No Symptoms Genitourinary: reports: No Symptoms Breasts: reports: No Symptoms Reported Musculoskeletal: reports: No Symptoms Integumentary: reports: No Symptoms Neurological: reports: No Symptoms Endocrine: reports: No Symptoms Hematology/Lymphatic: reports: No Symptoms Psychiatric: reports: No Symptoms Physical Exam Vital Signs: Vital Signs Temperature 98.2 F 06/22/16 14:00 Pulse Rate 78 06/22/16 14:00 Respiratory Rate 18 06/22/16 14:00 Blood Pressure 126/45 06/22/16 14:00 O2 Sat by Pulse Oximetry (%) 96 06/22/16 09:00 Constitutional: Yes: Well Nourished, Calm, Mild Distress, Obese Eyes: Yes: Conjunctiva Clear HENT: Yes: Atraumatic Neck: Yes: Supple, Trachea Midline Cardiovascular: Yes: Regular Rate and Rhythm Respiratory: Yes: Regular, On Nasal O2, Poor Air Entry (lower lobes), Rhonchi Gastrointestinal: Yes: Normal Bowel Sounds, Soft Musculoskeletal: Yes: WNL Extremities: Yes: WNL Integumentary: Yes: WNL Neurological: Yes: Alert, Oriented Psychiatric: Yes: Alert, Oriented Labs: CBC, BMP 06/22/16 06:00 06/22/16 06:00 Imaging - Results Chest X-ray: Report Reviewed, Image Reviewed Cat Scan: Report Reviewed, Image Reviewed Assessment/Plan 86 year old female with PMH HTN, HLD, DM, spinal stenosis, CHF, [place], DVT who presents with chest pain, SOB, cough, and weakness x 1 week. pneumonia Chest pain HTN/CHF DM UTI leukocytosis patient has been started on ceftriaxone and zithro plan I agree wiht the choice of abx will wait to see what organism shows if patients wbc goes up or spikes fever then we should switch to zosyn from ceftriaxone
[2016-06-22] MEDS: ATORVASTATIN CA 10 MG TABLET (FP) PO SCH (21:31)
[2016-06-22] MEDS: CEFTRIAXONE 50 ML IVPB SCH (21:31)
[2016-06-22] MEDS: INSULIN DETEMIR 100 UNITS/ML MDV SQ SCH (21:32)
[2016-06-22] MEDS: AZITHROMYCIN IVPB 250 ML IVPB SCH (21:32)
[2016-06-22] MEDS: VANCOMYCIN 250 MG/5 ML ORAL SOLUTION PO SCH ×2 (23:02→23:04)
[2016-06-23] MEDS: GABAPENTIN 100 MG CAPSULE (FP) PO SCH ×3 (05:20→21:22)
[2016-06-23] MEDS: VANCOMYCIN 250 MG/5 ML ORAL SOLUTION PO SCH ×4 (05:20→23:24)
[2016-06-23] MEDS ORDERED: INSULIN (NOVOLOG) ASPART 100 UNITS/ML 10ML VIAL ONE ×2 (06:03→12:34)
[2016-06-23] MEDS: INSULIN SLIDING SCALE (NOVOLOG) 1 VIAL SQ SCH ×4 (06:05→21:23)
[2016-06-23] MEDS: ALBUTEROL SO4 2.5/IPRATROPIUM 0.5 INH SOL 3 ML VIAL.NEB. NEB SCH ×4 (06:19→23:27)
[2016-06-23 07:12] LABS: BASOPHIL 0.1 % (0-2.0); MCH 26.1 pg (25.7-33.7); MCHC 32.1 g/dl (32.0-36.0); MEAN CELL VOLUME 81.5 fl (80-96); MEAN PLT VOLUME 8.1 fl (7.5-11.1); PLATELET COUNT 209 K/MM3 (134-434); RDW 17.9 % (11.6-15.6); WHITE BLOOD COUNT 13.3 K/mm3 (4.0-10.0)
[2016-06-23 07:34] LABS: ALBUMIN 2.3 g/dl (3.4-5.0); CALCIUM 8.1 mg/dL (8.5-10.1)
[2016-06-23 07:35] LABS: INR 3.93 (0.82-1.09); PROTHROMBIN TIME (PATIENT) 44.5 SEC (9.98-11.88)
[2016-06-23 07:39] LABS: BILIRUBIN,TOTAL 0.3 mg/dL (0.2-1.0); CREATININE 1.1 mg/dL (0.55-1.02); TOT PROT 5.6 g/dl (6.4-8.2)
[2016-06-23] MEDS ORDERED: PIPERACILLIN/TAZOB 3.375 GM/50 ML PRE-DOCKED IVPB ONE (09:00)
--- NOTE | 2016-06-23 10:11 | PN ---
Progress Note (short form) - Note Progress Note: s: no cp palps dizzy; sob and cough better but now with diarrhea o: Vital Signs Period Temp Pulse Resp BP Sys/Curry Pulse Ox Last 24 Hr 97.6 F-98.2 F 60-78 18-20 120-127/45-79 96 nad, no jvd rrr s1s2 no mrg ; +chest wall tenderness that reproduces her cp scattered rhonchi, +mild wheeze bl, nl eff aaox3 no le e/c/c no jaundice diaphoresis Current Medications Generic Name Dose Route Start Last Admin Trade Name Freq PRN Reason Stop Dose Admin Albuterol Sulfate 1 amp 06/21/16 15:26 Ventolin 0.083% Nebulizer Soln - NEB Q4H PRN SHORT OF BREATH/WHEEZING Albuterol/Ipratropium 1 amp 06/21/16 00:00 06/23/16 06:19 Duoneb - NEB 1 amp QIDR MIKE Administration Amlodipine Besylate 10 mg 06/21/16 10:00 06/22/16 10:22 Norvasc - PO 10 mg DAILY MIKE Administration Atorvastatin Calcium 10 mg 06/21/16 22:00 06/22/16 21:31 Lipitor - PO 10 mg HS MIKE Administration Cholecalciferol 2,000 unit 06/21/16 10:00 06/22/16 10:22 Vitamin D3 - PO 2,000 unit DAILY MIKE Administration Donepezil HCl 10 mg 06/21/16 10:00 06/22/16 10:21 Aricept - PO 10 mg DAILY MIKE Administration Ferrous Sulfate 325 mg 06/21/16 10:00 06/22/16 10:22 Feosol - PO 325 mg DAILY MIKE Administration Furosemide 40 mg 06/21/16 10:00 06/21/16 10:22 Lasix - PO 40 mg DAILY MIKE Administration Gabapentin 100 mg 06/20/16 22:45 06/23/16 05:20 Neurontin - PO 100 mg TID MIKE Administration Hydralazine HCl 25 mg 06/21/16 10:00 06/22/16 21:31 Apresoline - PO 25 mg BID MIKE Administration Hydroxychloroquine Sulfate 200 mg 06/21/16 10:00 06/22/16 21:32 Plaquenil - PO 200 mg BID MIKE Administration Insulin Aspart 1 vial 06/21/16 07:00 06/23/16 06:05 Novolog Vial Sliding Scale - SQ 3 units ACHS MIKE Administration Protocol Insulin Detemir 10 units 06/20/16 22:45 06/22/16 21:32 Levemir Vial SQ 10 units HS MIKE Administration Labetalol HCl 300 mg 06/21/16 10:00 06/22/16 21:31 Normodyne - PO 300 mg BID MIKE Administration Lisinopril 10 mg 06/21/16 10:00 06/22/16 10:24 Prinivil PO 10 mg DAILY MIKE Administration Piperacillin Sod/Tazobactam Sod 3.375 gm 06/23/16 18:00 Zosyn 3.375gm Ivpb (Pre-Docked) IVPB Q8H-IV MIKE Vancomycin HCl 125 mg 06/23/16 00:00 06/23/16 05:20 Vancomycin Oral Solution PO 125 mg Q6HPO MIKE Administration Warfarin Sodium 5 mg 06/20/16 22:45 06/22/16 17:20 Coumadin - PO 5 mg DAILY@1800 MIKE Administration CBC, BMP 06/23/16 05:35 06/23/16 05:35 ecg 06/20/16: sr, pvc, nl intervals, twi v4-v6, i avl, no st changes, no sig change from 04/20/16 ecg cxr: clear lungs mibi 04/2016: no ischemia, lvef 75% echo 04/2016: tds; mild lvh, lvef>70%, g2dd, nl rv, mod lae, mild tr, mild-mod phtn echo 06/2016: nl lv/rv, aiden, mild mr, sev tr, rvsp 40-50....TR moderate on my review sleep study 04/2016: no [facility] tele: sr a/p: 86 f hx cad s/p mi 1994, htn, hld, dm, anemia (avm's), dchf, remote dvt on ac here with sob, cough. sob: -no signs of vol overload or acs -recent mibi w/o ischemia, recent echo with nl lvef/no sig valve abnormality ( echo here reports severe TR, but upon my review appears only moderate) -symptoms seem to be due to uri/pna, would cont with abx per primary team chest pain: -very MSK in nature, seems related to coughing -ce's neg x3, no signs acs -ecg with twi's but these are old and have been seen on 04/20/16 office ecg as well -recent mibi w/o ischemia cad s/p remote [place]: -stable, as above -cont home jeremy, ccb, bb, statin -no asa, on ac for dvt htn: -cont home meds hld: -cont statin diastolic chf: -stable, no signs vol overload -cont home lasix as doing remote dvt: -on lifelong ac can dc tele
[2016-06-23] MEDS: DONEPEZIL HCL 10 MG TABLET (FP) PO SCH (10:17)
[2016-06-23] MEDS: amLODIPine BESYLATE 10 MG TABLET (FP) PO SCH (10:17)
[2016-06-23] MEDS: CHOLECALCIFEROL (VITAMIN D3) 1,000 UNIT TABLET (FP) PO SCH (10:17)
[2016-06-23] MEDS: LABETALOL HCL 100 MG TABLET (FP) PO SCH ×2 (10:17→21:22)
[2016-06-23] MEDS: LISINOPRIL 10 MG TABLET (FP) PO SCH (10:17)
[2016-06-23] MEDS: HYDROXYCHLOROQUINE SO4 200 MG TABLET (FP) PO SCH ×2 (10:18→21:22)
[2016-06-23] MEDS: hydrALAZINE HCL 25 MG TABLET (FP) PO SCH ×2 (10:28→21:21)
[2016-06-23] MEDS: FERROUS SO4 325 MG TABLET (FP) PO SCH (10:28)
--- NOTE | 2016-06-23 16:38 | PN ---
Physical Exam: SUBJECTIVE: Patient seen and examined oob to chair. Feeling better but still difficult to take a deep breath. OBJECTIVE: Vital Signs Period Temp Pulse Resp BP Sys/Curry Pulse Ox Last 24 Hr 97.6 F-98.2 F 54-71 20-56 119-156/48-79 96 GENERAL: The patient is awake, alert, and fully oriented, in no acute distress. HEAD: Normal with no signs of trauma. EYES: PERRL, extraocular movements intact, sclera anicteric, conjunctiva clear. No ptosis. LUNGS: Expiratory wheezing, no rhonchi HEART: Regular rate and rhythm, S1, S2 without murmur, rub or gallop. ABDOMEN: Soft, nontender, nondistended, normoactive bowel sounds, no guarding, no rebound NEUROLOGICAL: Cranial nerves II through XII grossly intact. Normal speech, gait not observed. Laboratory Results - last 24 hr 06/22/16 06/22/16 06/23/16 17:10 21:30 05:35 WBC 13.3 H RBC 3.29 L Hgb 8.6 L Hct 26.8 L MCV 81.5 MCHC 32.1 RDW 17.9 H Plt Count 209 MPV 8.1 Neutrophils % 83.0 H Lymphocytes % 10.6 D Monocytes % 6.3 D Eosinophils % 0.0 Basophils % 0.1 INR Sodium Potassium Chloride Carbon Dioxide Anion Gap BUN Creatinine Creat Clearance w eGFR POC Glucometer 311 346 Random Glucose Calcium Magnesium Total Bilirubin AST ALT Alkaline Phosphatase Total Protein Albumin 06/23/16 06/23/16 06/23/16 05:35 05:35 05:59 WBC RBC Hgb Hct MCV MCHC RDW Plt Count MPV Neutrophils % Lymphocytes % Monocytes % Eosinophils % Basophils % INR 3.93 H D Sodium 140 Potassium 4.6 Chloride 106 Carbon Dioxide 23 Anion Gap 11 BUN 30 H Creatinine 1.1 H Creat Clearance w eGFR 47.32 POC Glucometer 235 Random Glucose 242 H Calcium 8.1 L Magnesium 2.0 Total Bilirubin 0.3 D AST 14 L ALT 20 Alkaline Phosphatase 78 Total Protein 5.6 L Albumin 2.3 L 06/23/16 12:11 WBC RBC Hgb Hct MCV MCHC RDW Plt Count MPV Neutrophils % Lymphocytes % Monocytes % Eosinophils % Basophils % INR Sodium Potassium Chloride Carbon Dioxide Anion Gap BUN Creatinine Creat Clearance w eGFR POC Glucometer 170 Random Glucose Calcium Magnesium Total Bilirubin AST ALT Alkaline Phosphatase Total Protein Albumin Active Medications Generic Name Dose Route Start Last Admin Trade Name Freq PRN Reason Stop Dose Admin Albuterol Sulfate 1 amp 06/21/16 15:26 Ventolin 0.083% Nebulizer Soln - NEB Q4H PRN SHORT OF BREATH/WHEEZING Albuterol/Ipratropium 1 amp 06/21/16 00:00 06/23/16 11:22 Duoneb - NEB 1 amp QIDR MIKE Administration Amlodipine Besylate 10 mg 06/21/16 10:00 06/23/16 10:17 Norvasc - PO 10 mg DAILY MIKE Administration Atorvastatin Calcium 10 mg 06/21/16 22:00 06/22/16 21:31 Lipitor - PO 10 mg HS MIKE Administration Cholecalciferol 2,000 unit 06/21/16 10:00 06/23/16 10:17 Vitamin D3 - PO 2,000 unit DAILY MIKE Administration Donepezil HCl 10 mg 06/21/16 10:00 06/23/16 10:17 Aricept - PO 10 mg DAILY MIKE Administration Ferrous Sulfate 325 mg 06/21/16 10:00 06/23/16 10:28 Feosol - PO 325 mg DAILY MIKE Administration Furosemide 40 mg 06/21/16 10:00 06/21/16 10:22 Lasix - PO 40 mg DAILY MIKE Administration Gabapentin 100 mg 06/20/16 22:45 06/23/16 14:07 Neurontin - PO 100 mg TID MIKE Administration Hydralazine HCl 25 mg 06/21/16 10:00 06/23/16 10:28 Apresoline - PO 25 mg BID MIKE Administration Hydroxychloroquine Sulfate 200 mg 06/21/16 10:00 06/23/16 10:18 Plaquenil - PO 200 mg BID MIKE Administration Insulin Aspart 1 vial 06/21/16 07:00 06/23/16 12:38 Novolog Vial Sliding Scale - SQ 2 units ACHS MIKE Administration Protocol Insulin Detemir 10 units 06/20/16 22:45 06/22/16 21:32 Levemir Vial SQ 10 units HS MIKE Administration Labetalol HCl 300 mg 06/21/16 10:00 06/23/16 10:17 Normodyne - PO 300 mg BID MIKE Administration Lisinopril 10 mg 06/21/16 10:00 06/23/16 10:17 Prinivil PO 10 mg DAILY MIKE Administration Piperacillin Sod/Tazobactam Sod 3.375 gm 06/23/16 18:00 Zosyn 3.375gm Ivpb (Pre-Docked) IVPB Q8H-IV MIKE Vancomycin HCl 125 mg 06/23/16 00:00 06/23/16 12:39 Vancomycin Oral Solution PO 125 mg Q6HPO MIKE Administration ASSESSMENT/PLAN: Imaging 06/20/16 ECG: sr, pvc, nl intervals, twi v4-v6, i avl, no st changes, no sig change from 04/20/16 ecg 06/20/16 CXR: unremarkable 06/20/16 CT head: no acute process 04/2016 MIBI: no ischemia, LVE 75% 04/2016 Echo: mild lvh, lvef>70%, g2dd, nl rv, mod lae, mild tr, mild-mod phtn 06/21/16 Echo: LV nl, RV nl, BLAE, mild MR, moderate TR, RSVP 40-50, mild PI (see Dr. Matta's note dated today) ASSESSMENT/PLAN 86 year-old female with a PMH of HTN, HLD, CAD s/p [place], diastolic HF, anemia ( AVMs), DM, RA, spinal stenosis, h/o DVT on coumadin. Admitted for productive cough, SOB, and weakness x 1 week. Pneumonia --afebrile, WBC trending up 10.7-->13.3k --switch to Zosyn (day #1) --duonebs QID scheduled --albuterol nebs PRN E. coli UTI --continue Zosyn Diarrhea --C.diff antigen positive, toxin negative; start PO vanco since patient is on antibiotics Chest pain --ACS ruled out; troponins neg x 3; recent MIBI without ischemia; ECG not suggetive of acute ischemic event --Echo from 2 months ago showed no significant valve abnormality, stress yesterday showed severe TR; cardiology will review CAD s/p remote [place] --continue lisinopril, labetolol, amlodipine, hydralazine Diastolic heart failure, chronic --continue Lasix Hypertension --BP well-controlled --continue lisinopril, labetalol, amlodipine, hydralazine, lasix Hyperlipidemia --continue Lipitor 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 Full Code. Visit type - Emergency Visit Emergency Visit: Yes ED Registration Date: 06/20/16 Care time: The patient presented to the Emergency Department on the above date and was hospitalized for further evaluation of their emergent condition. - New Patient This patient is new to me today: No - Critical Care Critical Care patient: No
[2016-06-23] MEDS ORDERED: PT OWN MED DRAWER 7, Y5N ONE ×3 (17:36→22:56)
[2016-06-23] MEDS: AZITHROMYCIN 250 MG TABLET (FP) PO SCH (17:37)
--- NOTE | 2016-06-23 17:41 | PN ---
Progress Note, Physician History of Present Illness: patient still with lot of cough still c/o dirrhoea breathing better still very weak - Current Medication List Current Medications: Active Medications Albuterol Sulfate (Ventolin 0.083% Nebulizer Soln -) 1 amp NEB Q4H PRN PRN Reason: SHORT OF BREATH/WHEEZING Albuterol/Ipratropium (Duoneb -) 1 amp NEB QIDR [facility] Last Admin: 06/23/16 11:22 Dose: 1 amp Amlodipine Besylate (Norvasc -) 10 mg PO DAILY [facility] Last Admin: 06/23/16 10:17 Dose: 10 mg Atorvastatin Calcium (Lipitor -) 10 mg PO HS [facility] Last Admin: 06/22/16 21:31 Dose: 10 mg Azithromycin (Zithromax -) 500 mg PO DAILY [facility] Stop: 06/25/16 10:01 Cholecalciferol (Vitamin D3 -) 2,000 unit PO DAILY [facility] Last Admin: 06/23/16 10:17 Dose: 2,000 unit Ferrous Sulfate (Feosol -) 325 mg PO DAILY [facility] Last Admin: 06/23/16 10:28 Dose: 325 mg Furosemide (Lasix -) 40 mg PO DAILY [facility] Last Admin: 06/21/16 10:22 Dose: 40 mg Gabapentin (Neurontin -) 100 mg PO TID [facility] Last Admin: 06/23/16 14:07 Dose: 100 mg Hydralazine HCl (Apresoline -) 25 mg PO BID [facility] Last Admin: 06/23/16 10:28 Dose: 25 mg Hydroxychloroquine Sulfate (Plaquenil -) 200 mg PO BID [facility] Last Admin: 06/23/16 10:18 Dose: 200 mg Insulin Aspart (Novolog Vial Sliding Scale -) 1 vial SQ [facility] PRN Reason: Protocol Last Admin: 06/23/16 12:38 Dose: 2 units Insulin Detemir (Levemir Vial) 10 units SQ HS [facility] Last Admin: 06/22/16 21:32 Dose: 10 units Labetalol HCl (Normodyne -) 300 mg PO BID [facility] Last Admin: 06/23/16 10:17 Dose: 300 mg Lisinopril (Prinivil) 10 mg PO DAILY [facility] Last Admin: 06/23/16 10:17 Dose: 10 mg Piperacillin Sod/Tazobactam Sod (Zosyn 3.375gm Ivpb (Pre-Docked)) 3.375 gm IVPB Q8H-IV MIKE Vancomycin HCl (Vancomycin Oral Solution) 125 mg PO Q6HPO MIKE Last Admin: 06/23/16 12:39 Dose: 125 mg - Objective Vital Signs: Vital Signs Temperature 98.0 F 06/23/16 14:00 Pulse Rate 59 L 06/23/16 14:00 Respiratory Rate 56 H 06/23/16 14:00 Blood Pressure 119/54 06/23/16 14:00 O2 Sat by Pulse Oximetry (%) 96 06/22/16 21:00 Constitutional: Yes: No Distress, Calm, Obese Cardiovascular: Yes: Regular Rate and Rhythm Respiratory: Yes: Regular, On Nasal O2, Poor Air Entry, Rhonchi Gastrointestinal: Yes: Normal Bowel Sounds Musculoskeletal: Yes: WNL Extremities: Yes: WNL Neurological: Yes: Alert, Oriented Psychiatric: Yes: Alert Labs: CBC, BMP 06/23/16 05:35 06/23/16 05:35 INR, PTT INR 3.93 (0.82-1.09) H D 06/23/16 05:35 Assessment/Plan 86 year old female with PMH HTN, HLD, DM, spinal stenosis, CHF, [place], DVT who presents with chest pain, SOB, cough, and weakness x 1 week. pneumonia Chest pain HTN/CHF DM UTI leukocytosis wbc has increased plan agree with zosyn continue current mgmt i think we should start po vanc as patient having dirrhoea and is on abx monitor for fever or increase in wbc
[2016-06-23] MEDS ORDERED: PIPERACILLIN/TAZOB 3.375 GM/50 ML PRE-DOCKED IVPB SCH (18:00)
[2016-06-23] MEDS: PIPERACILLIN/TAZOB 3.375 GM 50 ML IVPB SCH (18:11)
[2016-06-23] MEDS: ATORVASTATIN CA 10 MG TABLET (FP) PO SCH (21:21)
[2016-06-23] MEDS: INSULIN DETEMIR 100 UNITS/ML MDV SQ SCH (21:22)
[2016-06-24] MEDS: PIPERACILLIN/TAZOB 3.375 GM 50 ML IVPB SCH ×3 (01:22→17:14)
[2016-06-24] MEDS: INSULIN SLIDING SCALE (NOVOLOG) 1 VIAL SQ SCH ×4 (06:01→22:57)
[2016-06-24] MEDS ORDERED: PT OWN MED DRAWER 7, Y5N ONE ×3 (06:05→21:58)
[2016-06-24] MEDS: ALBUTEROL SO4 2.5/IPRATROPIUM 0.5 INH SOL 3 ML VIAL.NEB. NEB SCH ×4 (06:07→23:45)
[2016-06-24] MEDS: VANCOMYCIN 250 MG/5 ML ORAL SOLUTION PO SCH ×3 (06:09→17:14)
[2016-06-24] MEDS: GABAPENTIN 100 MG CAPSULE (FP) PO SCH ×3 (06:09→22:01)
[2016-06-24 07:33] LABS: BASOPHIL 0.1 % (0-2.0); EOSINOPHIL 0.6 % (0-4.5); MCH 26.5 pg (25.7-33.7); MCHC 32.2 g/dl (32.0-36.0); MEAN CELL VOLUME 82.4 fl (80-96); MEAN PLT VOLUME 7.6 fl (7.5-11.1); NEUTROPHILS 72.1 % (42.8-82.8); PLATELET COUNT 230 K/MM3 (134-434); RDW 17.6 % (11.6-15.6); WHITE BLOOD COUNT 8.9 K/mm3 (4.0-10.0)
[2016-06-24 07:46] LABS: ALBUMIN 2.3 g/dl (3.4-5.0); BILIRUBIN,TOTAL 0.2 mg/dL (0.2-1.0); CALCIUM 8.2 mg/dL (8.5-10.1); CREATININE 1.1 mg/dL (0.55-1.02); TOT PROT 5.6 g/dl (6.4-8.2)
[2016-06-24 07:53] LABS: INR 4.58 (0.82-1.09)
--- NOTE | 2016-06-24 08:19 | PN ---
Physical Exam: SUBJECTIVE: Patient seen and examined at bedside. Patient huddled under covers, feels "chilled." Had 3 diarrheal movements today, last one was large and watery green. OBJECTIVE: Vital Signs Period Temp Pulse Resp BP Sys/Curry Pulse Ox Last 24 Hr 97.6 F-99 F 54-60 20-56 119-156/51-65 GENERAL: The patient is awake, alert, and fully oriented, in no acute distress. HEAD: Normal with no signs of trauma. EYES: PERRL, extraocular movements intact, sclera anicteric, conjunctiva clear. No ptosis. LUNGS: Diffuse expiratory wheezing and rhonchi HEART: Regular rate and rhythm, S1, S2 without murmur, rub or gallop. ABDOMEN: Soft, nontender, nondistended, normoactive bowel sounds, no guarding, no rebound NEUROLOGICAL: Cranial nerves II through XII grossly intact. Normal speech, gait not observed. Laboratory Results - last 24 hr 06/23/16 06/23/16 06/23/16 05:35 12:11 17:30 WBC RBC Hgb Hct MCV MCHC RDW Plt Count MPV Neutrophils % Lymphocytes % Monocytes % Eosinophils % Basophils % INR 3.93 H D Sodium Potassium Chloride Carbon Dioxide Anion Gap BUN Creatinine Creat Clearance w eGFR POC Glucometer 170 186 Random Glucose Calcium Magnesium Total Bilirubin AST ALT Alkaline Phosphatase Total Protein Albumin 06/23/16 06/24/16 06/24/16 21:04 05:24 06:00 WBC 8.9 D RBC 3.48 L Hgb 9.2 L Hct 28.7 L MCV 82.4 MCHC 32.2 RDW 17.6 H Plt Count 230 MPV 7.6 Neutrophils % 72.1 Lymphocytes % 17.5 D Monocytes % 9.7 Eosinophils % 0.6 D Basophils % 0.1 INR Sodium Potassium Chloride Carbon Dioxide Anion Gap BUN Creatinine Creat Clearance w eGFR POC Glucometer 264 88 Random Glucose Calcium Magnesium Total Bilirubin AST ALT Alkaline Phosphatase Total Protein Albumin 06/24/16 06/24/16 06:00 06:00 WBC RBC Hgb Hct MCV MCHC RDW Plt Count MPV Neutrophils % Lymphocytes % Monocytes % Eosinophils % Basophils % INR 4.58 H* Sodium 143 Potassium 4.6 Chloride 109 H Carbon Dioxide 24 Anion Gap 10 BUN 26 H Creatinine 1.1 H Creat Clearance w eGFR 47.32 POC Glucometer Random Glucose 76 D Calcium 8.2 L Magnesium 2.0 Total Bilirubin 0.2 D AST 28 D ALT 33 D Alkaline Phosphatase 81 Total Protein 5.6 L Albumin 2.3 L Active Medications Generic Name Dose Route Start Last Admin Trade Name Freq PRN Reason Stop Dose Admin Albuterol Sulfate 1 amp 06/21/16 15:26 Ventolin 0.083% Nebulizer Soln - NEB Q4H PRN SHORT OF BREATH/WHEEZING Albuterol/Ipratropium 1 amp 06/21/16 00:00 06/24/16 06:07 Duoneb - NEB 1 amp QIDR MIKE Administration Amlodipine Besylate 10 mg 06/21/16 10:00 06/23/16 10:17 Norvasc - PO 10 mg DAILY MIKE Administration Atorvastatin Calcium 10 mg 06/21/16 22:00 06/23/16 21:21 Lipitor - PO 10 mg HS MIKE Administration Azithromycin 500 mg 06/23/16 17:15 06/23/16 17:37 Zithromax - PO 06/25/16 10:01 500 mg DAILY MIKE Administration Cholecalciferol 2,000 unit 06/21/16 10:00 06/23/16 10:17 Vitamin D3 - PO 2,000 unit DAILY MIKE Administration Ferrous Sulfate 325 mg 06/21/16 10:00 06/23/16 10:28 Feosol - PO 325 mg DAILY MIKE Administration Furosemide 40 mg 06/21/16 10:00 06/21/16 10:22 Lasix - PO 40 mg DAILY MIKE Administration Gabapentin 100 mg 06/20/16 22:45 06/24/16 06:09 Neurontin - PO 100 mg TID MIKE Administration Hydralazine HCl 25 mg 06/21/16 10:00 06/23/16 21:21 Apresoline - PO 25 mg BID MIKE Administration Hydroxychloroquine Sulfate 200 mg 06/21/16 10:00 06/23/16 21:22 Plaquenil - PO 200 mg BID MIKE Administration Piperacillin Sod/Tazobactam Sod 50 mls @ 100 mls/hr 06/23/16 18:00 06/24/16 01: 22 Zosyn 3.375gm Ivpb (Pre-Docked) IVPB 100 mls/hr Q8H-IV MIKE Administration Insulin Aspart 1 vial 06/21/16 07:00 02/04/17 06:01 Novolog Vial Sliding Scale - SQ Not Given ACHS [facility] Protocol Insulin Detemir 10 units 06/20/16 22:45 06/23/16 21:22 Levemir Vial SQ 10 units HS MIKE Administration Labetalol HCl 300 mg 06/21/16 10:00 06/23/16 21:22 Normodyne - PO 300 mg BID MIKE Administration Lisinopril 10 mg 06/21/16 10:00 06/23/16 10:17 Prinivil PO 10 mg DAILY MIKE Administration Vancomycin HCl 125 mg 06/23/16 00:00 06/24/16 06:09 Vancomycin Oral Solution PO 125 mg Q6HPO MIKE Administration ASSESSMENT/PLAN: Imaging 06/20/16 ECG: sr, pvc, nl intervals, twi v4-v6, i avl, no st changes, no sig change from 04/20/16 ecg 06/20/16 CXR: unremarkable 06/20/16 CT head: no acute process 04/2016 MIBI: no ischemia, LVE 75% 04/2016 Echo: mild lvh, lvef>70%, g2dd, nl rv, mod lae, mild tr, mild-mod phtn 06/21/16 Echo: LV nl, RV nl, BLAE, mild MR, moderate TR, RSVP 40-50, mild PI (see Dr. Matta's note dated today) ASSESSMENT/PLAN 86 year-old female with a PMH of HTN, HLD, CAD s/p [place], diastolic HF, anemia ( AVMs), DM, RA, spinal stenosis, h/o DVT on coumadin. Admitted for productive cough, SOB, and weakness x 1 week. Pneumonia --afebrile, WBC wnl --continue Zosyn (day #3) --duonebs QID scheduled --albuterol nebs PRN E. 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 Full Code. Visit type - Emergency Visit Emergency Visit: Yes ED Registration Date: 06/20/16 Care time: The patient presented to the Emergency Department on the above date and was hospitalized for further evaluation of their emergent condition. - New Patient This patient is new to me today: No - Critical Care Critical Care patient: No
[2016-06-24] MEDS: FLUTICASONE/SALMETEROL 100 MCG/50 MCG DISKUS IH SCH ×2 (10:43→22:49)
[2016-06-24] MEDS: LISINOPRIL 10 MG TABLET (FP) PO SCH (10:46)
[2016-06-24] MEDS: FERROUS SO4 325 MG TABLET (FP) PO SCH (10:46)
[2016-06-24] MEDS: CHOLECALCIFEROL (VITAMIN D3) 1,000 UNIT TABLET (FP) PO SCH (10:46)
[2016-06-24] MEDS: AZITHROMYCIN 250 MG TABLET (FP) PO SCH (10:46)
[2016-06-24] MEDS: FUROSEMIDE 40 MG TABLET (FP) PO SCH (10:47)
[2016-06-24] MEDS: LABETALOL HCL 100 MG TABLET (FP) PO SCH ×2 (10:47→22:01)
[2016-06-24] MEDS: amLODIPine BESYLATE 10 MG TABLET (FP) PO SCH (10:47)
[2016-06-24] MEDS: hydrALAZINE HCL 25 MG TABLET (FP) PO SCH ×2 (10:47→22:01)
[2016-06-24] MEDS: HYDROXYCHLOROQUINE SO4 200 MG TABLET (FP) PO SCH ×2 (10:52→22:08)
[2016-06-24] MEDS ORDERED: INSULIN (NOVOLOG) ASPART 100 UNITS/ML 10ML VIAL ONE ×2 (11:56→22:30)
--- NOTE | 2016-06-24 12:33 | PN ---
Progress Note (short form) - Note Progress Note: CC: sob s: no palps dizzy; sob and cough, diarrhea better. still with ttp of chest wall. ambulating. o: Current Medications Albuterol Sulfate (Ventolin 0.083% Nebulizer Soln -) 1 amp NEB Q4H PRN PRN Reason: SHORT OF BREATH/WHEEZING Albuterol/Ipratropium (Duoneb -) 1 amp NEB QIDR [facility] Last Admin: 06/24/16 06:07 Dose: 1 amp Amlodipine Besylate (Norvasc -) 10 mg PO DAILY [facility] Last Admin: 06/24/16 10:47 Dose: 10 mg Atorvastatin Calcium (Lipitor -) 10 mg PO HS [facility] Last Admin: 06/23/16 21:21 Dose: 10 mg Azithromycin (Zithromax -) 500 mg PO DAILY [facility] Stop: 06/25/16 10:01 Last Admin: 06/24/16 10:46 Dose: 500 mg Cholecalciferol (Vitamin D3 -) 2,000 unit PO DAILY [facility] Last Admin: 06/24/16 10:46 Dose: 2,000 unit Ferrous Sulfate (Feosol -) 325 mg PO DAILY [facility] Last Admin: 06/24/16 10:46 Dose: 325 mg Furosemide (Lasix -) 40 mg PO DAILY [facility] Last Admin: 06/24/16 10:47 Dose: 40 mg Gabapentin (Neurontin -) 100 mg PO TID [facility] Last Admin: 06/24/16 06:09 Dose: 100 mg Hydralazine HCl (Apresoline -) 25 mg PO BID [facility] Last Admin: 06/24/16 10:47 Dose: 25 mg Hydroxychloroquine Sulfate (Plaquenil -) 200 mg PO BID [facility] Last Admin: 06/24/16 10:52 Dose: 200 mg Piperacillin Sod/Tazobactam Sod (Zosyn 3.375gm Ivpb (Pre-Docked)) 50 mls @ 100 mls/hr IVPB Q8H-IV [facility] Last Admin: 06/24/16 10:43 Dose: 100 mls/hr Insulin Aspart (Novolog Vial Sliding Scale -) 1 vial SQ ACHS [facility] PRN Reason: Protocol Last Admin: 06/24/16 12:19 Dose: Not Given Insulin Detemir (Levemir Vial) 10 units SQ [facility] Last Admin: 06/23/16 21:22 Dose: 10 units Labetalol HCl (Normodyne -) 300 mg PO BID [facility] Last Admin: 06/24/16 10:47 Dose: 300 mg Lisinopril (Prinivil) 10 mg PO DAILY [facility] Last Admin: 06/24/16 10:46 Dose: 10 mg Fluticasone/Salmeterol (Advair 100mcg/50mcg -) 1 puff IH BID [facility] Last Admin: 06/24/16 10:43 Dose: 1 puff Vancomycin HCl (Vancomycin Oral Solution) 125 mg PO Q6HPO [facility] Last Admin: 06/24/16 12:12 Dose: 125 mg Vital Signs - 24 hr 06/23/16 06/23/16 06/23/16 14:00 18:00 21:00 Temperature 98.0 F 98.7 F 97.6 F Pulse Rate 59 L 60 54 L Respiratory 56 H 20 20 Rate Blood Pressure 119/54 145/51 06/24/16 06/24/16 05:00 10:00 Temperature 99 F 98.2 F Pulse Rate 58 L 62 Respiratory 20 20 Rate Blood Pressure 132/57 157/59 Intake & Output 06/22/16 06/23/16 06/24/16 06/25/16 07:59 07:59 07:59 07:59 Intake Total 490 420 Balance 490 420 nad, no jvd rrr s1s2 no mrg ; +chest wall tenderness that reproduces her cp scattered rhonchi, +mild wheeze bl, nl eff aaox3 no le e/c/c no jaundice diaphoresis CBC, BMP 06/24/16 06:00 06/24/16 06:00 Laboratory Tests 06/24/16 06/24/16 06:00 06:00 INR 4.58 H* Magnesium 2.0 Total Bilirubin 0.2 D AST 28 D ALT 33 D Alkaline Phosphatase 81 Albumin 2.3 L ecg 06/20/16: sr, pvc, nl intervals, twi v4-v6, i avl, no st changes, no sig change from 04/20/16 ecg cxr: clear lungs mibi 04/2016: no ischemia, lvef 75% echo 04/2016: tds; mild lvh, lvef>70%, g2dd, nl rv, mod lae, mild tr, mild-mod phtn echo 06/2016: nl lv/rv, aiden, mild mr, sev tr, rvsp 40-50....TR moderate on my review sleep study 04/2016: no [facility] tele: sr/sb. 2 episodes of SVT (one initiated by NSVT) a/p: 86 f hx cad s/p mi 1994, htn, hld, dm, anemia (avm's), dchf, remote dvt on ac here with sob, cough. sob: -no signs of vol overload or acs -recent mibi w/o ischemia, recent echo with nl lvef/no sig valve abnormality ( echo here reports severe TR, but upon my review appears only moderate) -symptoms seem to be due to uri/pna, would cont with abx per primary team chest pain: -very MSK in nature, seems related to coughing -ce's neg x3, no signs acs -ecg with twi's but these are old and have been seen on 04/20/16 office ecg as well -recent mibi w/o ischemia cad s/p remote [place]: -stable, as above -cont home jeremy, ccb, bb, statin -no asa, on ac for dvt htn: -cont home meds hld: -cont statin diastolic chf: -stable, no signs vol overload -resumed home lasix. remote dvt: -on lifelong ac can dc tele
--- NOTE | 2016-06-24 18:12 | PN ---
Progress Note, Physician History of Present Illness: says breathing is better dirrhoea - Current Medication List Current Medications: Active Medications Albuterol Sulfate (Ventolin 0.083% Nebulizer Soln -) 1 amp NEB Q4H PRN PRN Reason: SHORT OF BREATH/WHEEZING Albuterol/Ipratropium (Duoneb -) 1 amp NEB QIDR [facility] Last Admin: 06/24/16 17:26 Dose: 1 amp Amlodipine Besylate (Norvasc -) 10 mg PO DAILY [facility] Last Admin: 06/24/16 10:47 Dose: 10 mg Atorvastatin Calcium (Lipitor -) 10 mg PO HS [facility] Last Admin: 06/23/16 21:21 Dose: 10 mg Azithromycin (Zithromax -) 500 mg PO DAILY [facility] Stop: 06/25/16 10:01 Last Admin: 06/24/16 10:46 Dose: 500 mg Cholecalciferol (Vitamin D3 -) 2,000 unit PO DAILY [facility] Last Admin: 06/24/16 10:46 Dose: 2,000 unit Ferrous Sulfate (Feosol -) 325 mg PO DAILY [facility] Last Admin: 06/24/16 10:46 Dose: 325 mg Furosemide (Lasix -) 40 mg PO DAILY [facility] Last Admin: 06/24/16 10:47 Dose: 40 mg Gabapentin (Neurontin -) 100 mg PO TID [facility] Last Admin: 06/24/16 14:13 Dose: 100 mg Hydralazine HCl (Apresoline -) 25 mg PO BID [facility] Last Admin: 06/24/16 10:47 Dose: 25 mg Hydroxychloroquine Sulfate (Plaquenil -) 200 mg PO BID [facility] Last Admin: 06/24/16 10:52 Dose: 200 mg Piperacillin Sod/Tazobactam Sod (Zosyn 3.375gm Ivpb (Pre-Docked)) 50 mls @ 100 mls/hr IVPB Q8H-IV [facility] Last Admin: 06/24/16 17:14 Dose: 100 mls/hr Insulin Aspart (Novolog Vial Sliding Scale -) 1 vial SQ ACHS [facility] PRN Reason: Protocol Last Admin: 06/24/16 17:14 Dose: 4 units Insulin Detemir (Levemir Vial) 10 units SQ HS [facility] Last Admin: 06/23/16 21:22 Dose: 10 units Labetalol HCl (Normodyne -) 300 mg PO BID [facility] Last Admin: 06/24/16 10:47 Dose: 300 mg Lisinopril (Prinivil) 10 mg PO DAILY [facility] Last Admin: 06/24/16 10:46 Dose: 10 mg Fluticasone/Salmeterol (Advair 100mcg/50mcg -) 1 puff IH BID [facility] Last Admin: 06/24/16 10:43 Dose: 1 puff Vancomycin HCl (Vancomycin Oral Solution) 125 mg PO Q6HPO [facility] Last Admin: 06/24/16 17:14 Dose: 125 mg - Objective Vital Signs: Vital Signs Temperature 98.4 F 06/24/16 17:00 Pulse Rate 61 06/24/16 14:28 Respiratory Rate 16 06/24/16 14:28 Blood Pressure 125/47 06/24/16 14:28 O2 Sat by Pulse Oximetry (%) 96 06/22/16 21:00 Constitutional: Yes: Calm, Mild Distress Cardiovascular: Yes: Regular Rate and Rhythm Respiratory: Yes: Regular, Poor Air Entry, Rhonchi Gastrointestinal: Yes: Normal Bowel Sounds, Soft Musculoskeletal: Yes: WNL Extremities: Yes: WNL Neurological: Yes: Alert, Oriented Psychiatric: Yes: Alert Labs: CBC, BMP 06/24/16 06:00 06/24/16 06:00 INR, PTT INR 4.58 (0.82-1.09) H* 06/24/16 06:00 Assessment/Plan 86 year old female with PMH HTN, HLD, DM, spinal stenosis, CHF, [place], DVT who presents with chest pain, SOB, cough, and weakness x 1 week. pneumonia Chest pain HTN/CHF DM UTI leukocytosis wbc has increased plan continue zosyn wbc has normalized patient going for ct of the abd will see what it shows
[2016-06-24] MEDS ORDERED: DEXTROSE 50%-WATER 50 ML DISP.SYRIN IVPUSH ONE (20:26)
[2016-06-24] MEDS ORDERED: DEXTROSE 50%-WATER 50 ML DISP.SYRIN ONE (20:28)
[2016-06-24] MEDS: ATORVASTATIN CA 10 MG TABLET (FP) PO SCH (22:02)
[2016-06-24 22:34] LABS: CALCIUM 8.9 mg/dL (8.5-10.1); CREATININE 1.1 mg/dL (0.55-1.02)
[2016-06-24] MEDS: INSULIN DETEMIR 100 UNITS/ML MDV SQ SCH (22:57)
[2016-06-25] MEDS: VANCOMYCIN 250 MG/5 ML ORAL SOLUTION PO SCH ×4 (00:23→17:05)
[2016-06-25] MEDS: PIPERACILLIN/TAZOB 3.375 GM 50 ML IVPB SCH ×4 (01:11→17:07)
[2016-06-25] MEDS ORDERED: PT OWN MED DRAWER 7, Y5N ONE ×4 (04:44→16:59)
[2016-06-25] MEDS: GABAPENTIN 100 MG CAPSULE (FP) PO SCH ×3 (05:11→21:46)
[2016-06-25] MEDS: ALBUTEROL SO4 2.5/IPRATROPIUM 0.5 INH SOL 3 ML VIAL.NEB. NEB SCH ×3 (06:01→17:10)
[2016-06-25] MEDS: INSULIN SLIDING SCALE (NOVOLOG) 1 VIAL SQ SCH ×4 (06:36→21:50)
[2016-06-25] MEDS ORDERED: INSULIN (NOVOLOG) ASPART 100 UNITS/ML 10ML VIAL ONE (06:39)
[2016-06-25 07:58] LABS: INR 3.86 (0.82-1.09); PROTHROMBIN TIME (PATIENT) 43.6 SEC (9.98-11.88)
[2016-06-25] MEDS: CHOLECALCIFEROL (VITAMIN D3) 1,000 UNIT TABLET (FP) PO SCH (09:21)
[2016-06-25] MEDS: LISINOPRIL 10 MG TABLET (FP) PO SCH (09:21)
[2016-06-25] MEDS: FUROSEMIDE 40 MG TABLET (FP) PO SCH (09:21)
[2016-06-25] MEDS: hydrALAZINE HCL 25 MG TABLET (FP) PO SCH ×2 (09:21→21:46)
[2016-06-25] MEDS: FERROUS SO4 325 MG TABLET (FP) PO SCH (09:21)
[2016-06-25] MEDS: AZITHROMYCIN 250 MG TABLET (FP) PO SCH (09:21)
[2016-06-25] MEDS: amLODIPine BESYLATE 10 MG TABLET (FP) PO SCH (09:21)
[2016-06-25] MEDS: HYDROXYCHLOROQUINE SO4 200 MG TABLET (FP) PO SCH ×2 (09:21→21:43)
[2016-06-25] MEDS: LABETALOL HCL 100 MG TABLET (FP) PO SCH ×2 (09:21→21:46)
[2016-06-25] MEDS: FLUTICASONE/SALMETEROL 100 MCG/50 MCG DISKUS IH SCH ×2 (09:22→21:50)
--- NOTE | 2016-06-25 13:12 | PN ---
Progress Note (short form) - Note Progress Note: CC: sob s: no palps dizzy; sob and cough, diarrhea better. still with ttp of chest wall. ambulating. o: Current Medications Albuterol Sulfate (Ventolin 0.083% Nebulizer Soln -) 1 amp NEB Q4H PRN PRN Reason: SHORT OF BREATH/WHEEZING Albuterol/Ipratropium (Duoneb -) 1 amp NEB QIDR [facility] Last Admin: 06/25/16 12:28 Dose: 1 amp Amlodipine Besylate (Norvasc -) 10 mg PO DAILY [facility] Last Admin: 06/25/16 09:21 Dose: 10 mg Atorvastatin Calcium (Lipitor -) 10 mg PO HS [facility] Last Admin: 06/24/16 22:02 Dose: 10 mg Cholecalciferol (Vitamin D3 -) 2,000 unit PO DAILY [facility] Last Admin: 06/25/16 09:21 Dose: 2,000 unit Ferrous Sulfate (Feosol -) 325 mg PO DAILY [facility] Last Admin: 06/25/16 09:21 Dose: 325 mg Furosemide (Lasix -) 40 mg PO DAILY [facility] Last Admin: 06/25/16 09:21 Dose: 40 mg Gabapentin (Neurontin -) 100 mg PO TID [facility] Last Admin: 06/25/16 05:11 Dose: 100 mg Hydralazine HCl (Apresoline -) 25 mg PO BID [facility] Last Admin: 06/25/16 09:21 Dose: 25 mg Hydroxychloroquine Sulfate (Plaquenil -) 200 mg PO BID [facility] Last Admin: 06/25/16 09:21 Dose: 200 mg Piperacillin Sod/Tazobactam Sod (Zosyn 3.375gm Ivpb (Pre-Docked)) 50 mls @ 100 mls/hr IVPB Q8H-IV [facility] Last Admin: 06/25/16 09:21 Dose: 100 mls/hr Insulin Aspart (Novolog Vial Sliding Scale -) 1 vial SQ ACHS [facility] PRN Reason: Protocol Last Admin: 06/25/16 11:15 Dose: 2 units Insulin Detemir (Levemir Vial) 10 units SQ HS [facility] Last Admin: 06/24/16 22:57 Dose: 10 units Labetalol HCl (Normodyne -) 300 mg PO BID [facility] Last Admin: 06/25/16 09:21 Dose: 300 mg Lisinopril (Prinivil) 10 mg PO DAILY [facility] Last Admin: 06/25/16 09:21 Dose: 10 mg Fluticasone/Salmeterol (Advair 100mcg/50mcg -) 1 puff IH BID [facility] Last Admin: 06/25/16 09:22 Dose: 1 puff Vancomycin HCl (Vancomycin Oral Solution) 125 mg PO Q6HPO [facility] Last Admin: 06/25/16 11:15 Dose: 125 mg Vital Signs - 24 hr 06/24/16 06/24/16 06/24/16 14:28 17:00 18:00 Temperature 97.7 F 98.4 F 98.3 F Pulse Rate 61 62 Respiratory 16 18 Rate Blood Pressure 125/47 140/56 O2 Sat by Pulse Oximetry (%) 06/24/16 06/24/16 06/25/16 21:00 23:00 06:08 Temperature 98.1 F 98.1 F Pulse Rate 62 62 Respiratory 18 18 18 Rate Blood Pressure 135/60 116/42 O2 Sat by Pulse Oximetry (%) 06/25/16 09:00 Temperature Pulse Rate Respiratory Rate Blood Pressure O2 Sat by Pulse 100 Oximetry (%) Intake & Output 06/23/16 06/24/16 06/25/16 06/26/16 07:59 07:59 07:59 07:59 Intake Total 420 1470 Balance 420 1470 nad, no jvd rrr s1s2 no mrg ; +chest wall tenderness that reproduces her cp scattered rhonchi, +mild wheeze bl, nl eff aaox3 no le e/c/c no jaundice diaphoresis no CBC, BMP Laboratory Tests 06/25/16 06:00 INR 3.86 H ecg 06/20/16: sr, pvc, nl intervals, twi v4-v6, i avl, no st changes, no sig change from 04/20/16 ecg cxr: clear lungs mibi 04/2016: no ischemia, lvef 75% echo 04/2016: tds; mild lvh, lvef>70%, g2dd, nl rv, mod lae, mild tr, mild-mod phtn echo 06/2016: nl lv/rv, aiden, mild mr, sev tr, rvsp 40-50....TR moderate on my review sleep study 04/2016: no [facility] tele: sr/sb. 2 episodes of SVT (one initiated by NSVT) a/p: 86 f hx cad s/p mi 1994, htn, hld, dm, anemia (avm's), dchf, remote dvt on ac here with sob, cough. sob: -no signs of vol overload or acs -recent mibi w/o ischemia, recent echo with nl lvef/no sig valve abnormality ( echo here reports severe TR, but upon my review appears only moderate) -symptoms seem to be due to uri/pna, would cont with abx per primary team chest pain: -very MSK in nature, seems related to coughing -ce's neg x3, no signs acs -ecg with twi's but these are old and have been seen on 04/20/16 office ecg as well -recent mibi w/o ischemia cad s/p remote [place]: -stable, as above -cont home jeremy, ccb, bb, statin -no asa, on ac for dvt htn: -cont home meds hld: -cont statin diastolic chf: -stable, no signs vol overload - home lasix resumed. remote dvt: -on lifelong ac. INR dosing per pmd. remains supratherapeutic
--- NOTE | 2016-06-25 15:03 | PN ---
Physical Exam: SUBJECTIVE: Patient seen and examined oob to chair. Has been oob most of today, feels much stronger. Diarrhea resolving. OBJECTIVE: Vital Signs Period Temp Pulse Resp BP Sys/Curry Pulse Ox Last 24 Hr 98.1 F-98.4 F 62-63 18-18 116-140/42-60 100 GENERAL: The patient is awake, alert, and fully oriented, in no acute distress. HEAD: Normal with no signs of trauma. EYES: PERRL, extraocular movements intact, sclera anicteric, conjunctiva clear. No ptosis. LUNGS: Mild expiratory wheezing, improved HEART: Regular rate and rhythm, S1, S2 without murmur, rub or gallop. ABDOMEN: Soft, nontender, nondistended, normoactive bowel sounds, no guarding, no rebound NEUROLOGICAL: Cranial nerves II through XII grossly intact. Normal speech, gait not observed. Laboratory Results - last 24 hr 06/24/16 06/24/16 06/24/16 17:01 20:18 21:08 INR Sodium Potassium Chloride Carbon Dioxide Anion Gap BUN Creatinine POC Glucometer 254 46 160 Random Glucose Calcium 06/24/16 06/24/16 06/25/16 21:50 22:33 01:21 INR Sodium 139 Potassium 4.3 Chloride 105 Carbon Dioxide 26 Anion Gap 8 BUN 24 H Creatinine 1.1 H POC Glucometer 184 305 Random Glucose 102 D Calcium 8.9 06/25/16 06/25/16 06/25/16 04:52 06:00 11:11 INR 3.86 H Sodium Potassium Chloride Carbon Dioxide Anion Gap BUN Creatinine POC Glucometer 178 206 Random Glucose Calcium Active Medications Generic Name Dose Route Start Last Admin Trade Name Freq PRN Reason Stop Dose Admin Albuterol Sulfate 1 amp 06/21/16 15:26 Ventolin 0.083% Nebulizer Soln - NEB Q4H PRN SHORT OF BREATH/WHEEZING Albuterol/Ipratropium 1 amp 06/21/16 00:00 06/25/16 12:28 Duoneb - NEB 1 amp QIDR [facility] Administration Amlodipine Besylate 10 mg 06/21/16 10:00 06/25/16 09:21 Norvasc - PO 10 mg DAILY [facility] Administration Atorvastatin Calcium 10 mg 06/21/16 22:00 06/24/16 22:02 Lipitor - PO 10 mg HS [facility] Administration Cholecalciferol 2,000 unit 06/21/16 10:00 06/25/16 09:21 Vitamin D3 - PO 2,000 unit DAILY [facility] Administration Ferrous Sulfate 325 mg 06/21/16 10:00 06/25/16 09:21 Feosol - PO 325 mg DAILY [facility] Administration Furosemide 40 mg 06/21/16 10:00 06/25/16 09:21 Lasix - PO 40 mg DAILY [facility] Administration Gabapentin 100 mg 06/20/16 22:45 06/25/16 05:11 Neurontin - PO 100 mg TID [facility] Administration Hydralazine HCl 25 mg 06/21/16 10:00 06/25/16 09:21 Apresoline - PO 25 mg BID [facility] Administration Hydroxychloroquine Sulfate 200 mg 06/21/16 10:00 06/25/16 09:21 Plaquenil - PO 200 mg BID [facility] Administration Piperacillin Sod/Tazobactam Sod 50 mls @ 100 mls/hr 06/23/16 18:00 06/25/16 09: 21 Zosyn 3.375gm Ivpb (Pre-Docked) IVPB 100 mls/hr Q8H-IV [facility] Administration Insulin Aspart 1 vial 06/21/16 07:00 06/25/16 11:15 Novolog Vial Sliding Scale - SQ 2 units ACHS [facility] Administration Protocol Insulin Detemir 10 units 06/20/16 22:45 06/24/16 22:57 Levemir Vial SQ 10 units HS [facility] Administration Labetalol HCl 300 mg 06/21/16 10:00 06/25/16 09:21 Normodyne - PO 300 mg BID [facility] Administration Lisinopril 10 mg 06/21/16 10:00 06/25/16 09:21 Prinivil PO 10 mg DAILY [facility] Administration Fluticasone/Salmeterol 1 puff 06/24/16 10:00 06/25/16 09:22 Advair 100mcg/50mcg - IH 1 puff BID [facility] Administration Vancomycin HCl 125 mg 06/23/16 00:00 06/25/16 11:15 Vancomycin Oral Solution PO 125 mg Q6HPO [facility] Administration Imaging 06/20/16 ECG: sr, pvc, nl intervals, twi v4-v6, i avl, no st changes, no sig change from 04/20/16 ecg 06/20/16 CXR: unremarkable 06/20/16 CT head: no acute process 04/2016 MIBI: no ischemia, LVE 75% 04/2016 Echo: mild lvh, lvef>70%, g2dd, nl rv, mod lae, mild tr, mild-mod phtn 06/21/16 Echo: LV nl, RV nl, BLAE, mild MR, moderate TR, RSVP 40-50, mild PI (see Dr. Matta's note) ASSESSMENT/PLAN 86 year-old female with a PMH of HTN, HLD, CAD s/p [place], diastolic HF, anemia ( AVMs), DM, RA, spinal stenosis, h/o DVT on coumadin. Admitted for productive cough, SOB, and weakness x 1 week. Pneumonia, improved --clinically improved --afebrile, WBC wnl --completed 5 days of Zosyn; start PO azithro --duonebs QID scheduled --albuterol nebs PRN E. coli UTI --completed Zosyn x 5 days Diarrhea, improved --1 episode overnight, two small ones today --C.diff antigen positive, toxin negative --CTAP shows small segment of transverse colon that might be thickened, possible localized colitis --continue PO vanco Chest pain --ACS ruled out; troponins neg x 3; recent MIBI without ischemia; ECG not suggestive of acute ischemic event CAD s/p remote [place] --continue lisinopril, labetolol, amlodipine Diastolic heart failure, chronic --continue Lasix Hypertension --BP well-controlled --continue lisinopril, labetalol, amlodipine, hydralazine, lasix Hyperlipidemia --continue Lipitor 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 Needs PT eval and pre-post assessment. Full Code. Visit type - Emergency Visit Emergency Visit: Yes ED Registration Date: 06/20/16 Care time: The patient presented to the Emergency Department on the above date and was hospitalized for further evaluation of their emergent condition. - New Patient This patient is new to me today: No - Critical Care Critical Care patient: No
--- NOTE | 2016-06-25 17:53 | PN ---
Progress Note, Physician History of Present Illness: stable c/o weakness - Current Medication List Current Medications: Active Medications Albuterol Sulfate (Ventolin 0.083% Nebulizer Soln -) 1 amp NEB Q4H PRN PRN Reason: SHORT OF BREATH/WHEEZING Albuterol/Ipratropium (Duoneb -) 1 amp NEB QIDR [facility] Last Admin: 06/25/16 17:10 Dose: 1 amp Amlodipine Besylate (Norvasc -) 10 mg PO DAILY [facility] Last Admin: 06/25/16 09:21 Dose: 10 mg Amoxicillin/Clavulanate Potassium (Augmentin - 500mg Tablet) 1 tab PO BID@0800, 1730 [facility] Atorvastatin Calcium (Lipitor -) 10 mg PO HS [facility] Last Admin: 06/24/16 22:02 Dose: 10 mg Cholecalciferol (Vitamin D3 -) 2,000 unit PO DAILY [facility] Last Admin: 06/25/16 09:21 Dose: 2,000 unit Ferrous Sulfate (Feosol -) 325 mg PO DAILY [facility] Last Admin: 06/25/16 09:21 Dose: 325 mg Furosemide (Lasix -) 40 mg PO DAILY [facility] Last Admin: 06/25/16 09:21 Dose: 40 mg Gabapentin (Neurontin -) 100 mg PO TID [facility] Last Admin: 06/25/16 15:35 Dose: 100 mg Hydralazine HCl (Apresoline -) 25 mg PO BID [facility] Last Admin: 06/25/16 09:21 Dose: 25 mg Hydroxychloroquine Sulfate (Plaquenil -) 200 mg PO BID [facility] Last Admin: 06/25/16 09:21 Dose: 200 mg Piperacillin Sod/Tazobactam Sod (Zosyn 3.375gm Ivpb (Pre-Docked)) 50 mls @ 100 mls/hr IVPB Q8H-IV [facility] Last Admin: 06/25/16 17:07 Dose: Not Given Insulin Aspart (Novolog Vial Sliding Scale -) 1 vial SQ ACHS [facility] PRN Reason: Protocol Last Admin: 06/25/16 17:07 Dose: 4 units Insulin Detemir (Levemir Vial) 10 units SQ HS [facility] Last Admin: 06/24/16 22:57 Dose: 10 units Labetalol HCl (Normodyne -) 300 mg PO BID [facility] Last Admin: 06/25/16 09:21 Dose: 300 mg Lisinopril (Prinivil) 10 mg PO DAILY [facility] Last Admin: 06/25/16 09:21 Dose: 10 mg Fluticasone/Salmeterol (Advair 100mcg/50mcg -) 1 puff IH BID [facility] Last Admin: 06/25/16 09:22 Dose: 1 puff Vancomycin HCl (Vancomycin Oral Solution) 125 mg PO Q6HPO [facility] Last Admin: 06/25/16 17:05 Dose: 125 mg - Objective Vital Signs: Vital Signs Temperature 98.0 F 06/25/16 14:00 Pulse Rate 62 06/25/16 14:00 Respiratory Rate 18 06/25/16 14:00 Blood Pressure 116/49 06/25/16 14:00 O2 Sat by Pulse Oximetry (%) 100 06/25/16 09:00 Constitutional: Yes: No Distress, Calm HENT: Yes: Atraumatic, Normocephalic Neck: Yes: Supple Cardiovascular: Yes: Regular Rate and Rhythm Gastrointestinal: Yes: Normal Bowel Sounds, Soft Musculoskeletal: Yes: WNL Extremities: Yes: WNL Labs: CBC, BMP 06/24/16 06:00 06/24/16 21:50 INR, PTT INR 3.86 (0.82-1.09) H 06/25/16 06:00 Assessment/Plan 86 year old female with PMH HTN, HLD, DM, spinal stenosis, CHF, [place], DVT who presents with chest pain, SOB, cough, and weakness x 1 week. pneumonia Chest pain HTN/CHF DM UTI leukocytosis wbc has increased plan changed abx to oral complete zithromax course of 5 days
[2016-06-25] MEDS: ATORVASTATIN CA 10 MG TABLET (FP) PO SCH (21:46)
[2016-06-25] MEDS: INSULIN DETEMIR 100 UNITS/ML MDV SQ SCH (21:47)
[2016-06-26] MEDS: ALBUTEROL SO4 2.5/IPRATROPIUM 0.5 INH SOL 3 ML VIAL.NEB. NEB SCH ×3 (00:05→11:53)
[2016-06-26] MEDS: VANCOMYCIN 250 MG/5 ML ORAL SOLUTION PO SCH ×3 (01:35→12:45)
[2016-06-26] MEDS: PIPERACILLIN/TAZOB 3.375 GM 50 ML IVPB SCH (04:45)
[2016-06-26] MEDS: GABAPENTIN 100 MG CAPSULE (FP) PO SCH ×2 (06:02→13:22)
[2016-06-26] MEDS: INSULIN SLIDING SCALE (NOVOLOG) 1 VIAL SQ SCH ×2 (06:04→12:27)
[2016-06-26] MEDS ORDERED: PT OWN MED DRAWER 7, Y5N ONE ×3 (06:06→12:07)
[2016-06-26 07:38] LABS: BASOPHIL 0.2 % (0-2.0); EOSINOPHIL 1.2 % (0-4.5); MCH 26.3 pg (25.7-33.7); MCHC 32.4 g/dl (32.0-36.0); MEAN CELL VOLUME 81.2 fl (80-96); MEAN PLT VOLUME 7.6 fl (7.5-11.1); NEUTROPHILS 69.4 % (42.8-82.8); PLATELET COUNT 241 K/MM3 (134-434); RDW 17.8 % (11.6-15.6); WHITE BLOOD COUNT 10.1 K/mm3 (4.0-10.0)
[2016-06-26 07:51] LABS: INR 2.5 (0.82-1.09)
[2016-06-26] MEDS ORDERED: AMOX TR/POT CLAV 500MG/125MG TABLETS (FP) PO SCH (08:00)
[2016-06-26 08:06] LABS: CALCIUM 8.4 mg/dL (8.5-10.1)
--- NOTE | 2016-06-26 09:03 | PN ---
Progress Note, Physician Chief Complaint: cp, sob, cough History of Present Illness: coughing still; not sob. no more cp. no leg swelling - Current Medication List Current Medications: Active Medications Albuterol Sulfate (Ventolin 0.083% Nebulizer Soln -) 1 amp NEB Q4H PRN PRN Reason: SHORT OF BREATH/WHEEZING Albuterol/Ipratropium (Duoneb -) 1 amp NEB QIDR [facility] Last Admin: 06/26/16 06:32 Dose: 1 amp Amlodipine Besylate (Norvasc -) 10 mg PO DAILY [facility] Last Admin: 06/25/16 09:21 Dose: 10 mg Amoxicillin/Clavulanate Potassium (Augmentin - 500mg Tablet) 1 tab PO BID@0800, 1730 [facility] Atorvastatin Calcium (Lipitor -) 10 mg PO HS [facility] Last Admin: 06/25/16 21:46 Dose: 10 mg Azithromycin (Zithromax -) 500 mg PO DAILY [facility] Stop: 06/27/16 10:01 Cholecalciferol (Vitamin D3 -) 2,000 unit PO DAILY [facility] Last Admin: 06/25/16 09:21 Dose: 2,000 unit Ferrous Sulfate (Feosol -) 325 mg PO DAILY [facility] Last Admin: 06/25/16 09:21 Dose: 325 mg Furosemide (Lasix -) 40 mg PO DAILY [facility] Last Admin: 06/25/16 09:21 Dose: 40 mg Gabapentin (Neurontin -) 100 mg PO TID [facility] Last Admin: 06/26/16 06:02 Dose: 100 mg Hydralazine HCl (Apresoline -) 25 mg PO BID [facility] Last Admin: 06/25/16 21:46 Dose: 25 mg Hydroxychloroquine Sulfate (Plaquenil -) 200 mg PO BID [facility] Last Admin: 06/25/16 21:43 Dose: 200 mg Insulin Aspart (Novolog Vial Sliding Scale -) 1 vial SQ ACHS [facility] PRN Reason: Protocol Last Admin: 06/26/16 06:04 Dose: Not Given Insulin Detemir (Levemir Vial) 10 units SQ HS [facility] Last Admin: 06/25/16 21:47 Dose: 10 units Labetalol HCl (Normodyne -) 300 mg PO BID [facility] Last Admin: 06/25/16 21:46 Dose: 300 mg Lisinopril (Prinivil) 10 mg PO DAILY [facility] Last Admin: 06/25/16 09:21 Dose: 10 mg Fluticasone/Salmeterol (Advair 100mcg/50mcg -) 1 puff IH BID [facility] Last Admin: 06/25/16 21:50 Dose: 1 puff Vancomycin HCl (Vancomycin Oral Solution) 125 mg PO Q6HPO [facility] Last Admin: 06/26/16 06:02 Dose: 125 mg - Objective Vital Signs: Vital Signs Temperature 98.1 F 06/26/16 06:00 Pulse Rate 88 06/26/16 06:00 Respiratory Rate 18 06/25/16 22:00 Blood Pressure 121/64 06/26/16 06:00 O2 Sat by Pulse Oximetry (%) 97 06/25/16 21:00 Constitutional: Yes: Well Nourished, No Distress, Calm Cardiovascular: Yes: Regular Rate and Rhythm, S1, S2. No: Gallop, Murmur Respiratory: Yes: Regular, Wheezes. No: Accessory Muscle Use, Rales Extremities: No: Cold Edema: No Neurological: Yes: Alert, Oriented Psychiatric: No: Agitated Labs: CBC, BMP 06/26/16 06:20 06/26/16 06:20 INR, PTT INR 2.50 (0.82-1.09) H D 06/26/16 06:20 Assessment/Plan Echo 06/2016: nl lv/rv, aiden, mild mr, sev tr, rvsp 40-50....TR moderate on my review Mibi 04/2016: no ischemia, lvef 75% a/p: 86 f hx cad s/p mi 1994, htn, hld, dm, anemia (avm's), dchf, remote dvt on ac here with sob, cough. sob: -no signs of vol overload or acs -recent mibi w/o ischemia, recent echo with nl lvef/no sig valve abnormality ( echo here reports severe TR, but upon my review appears only moderate) -symptoms seem to be due to uri/pna, would cont with abx per primary team-- improving chest pain: -very MSK in nature, related to coughing--resolved with improvement in coughing fits -ce's neg x3, no signs acs -ecg with twi's that are not new -recent mibi w/o ischemia -no further workup indicated cad s/p remote AK: -stable, as above -cont home jeremy, ccb, bb, statin -no asa, on ac for dvt htn: -cont home meds hld: -cont statin diastolic chf: -stable, no signs vol overload here - home lasix resumed. remote dvt: -on lifelong ac. - inr was high, now 2.5--resume prior coumadin dose and close inr f/u OFF TELE
[2016-06-26] MEDS ORDERED: AZITHROMYCIN 250 MG TABLET (FP) PO SCH (10:00)
--- NOTE | 2016-06-26 10:19 | DS ---
[id number] Rate 18 06/25/16 22:00 Blood Pressure 121/64 06/26/16 06:00 O2 Sat by Pulse Oximetry (%) 97 06/25/16 21:00 Findings/Remarks: GENERAL: The patient is awake, alert, and fully oriented, in no acute distress. HEAD: Normal with no signs of trauma. EYES: PERRL, extraocular movements intact, sclera anicteric, conjunctiva clear. No ptosis. LUNGS: Mild expiratory wheezing, improved HEART: Regular rate and rhythm, S1, S2 without murmur, rub or gallop. ABDOMEN: Soft, nontender, nondistended, normoactive bowel sounds, no guarding, no rebound NEUROLOGICAL: Cranial nerves II through XII grossly intact. Normal speech, gait not observed. Labs: CBC, BMP 06/26/16 06:20 06/26/16 06:20 Discharge Summary Reason For Visit: CHEST PAIN Current Active Problems Dehydration (Acute) Hyperglycemia (Acute) Hyponatremia (Acute) Shortness of breath (Acute) Weakness generalized (Acute) Hospital Course: This is an 86 year old female with PMHx of HTN, hyperlipidemia, DM, spinal stenosis, CHF, NV, DVT who presented to the ED with chest pain, shortness of breath, cough, weakness x1 week. 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 This discharge took 35 minutes to complete. Condition: Improved - Instructions Diet, Activity, Other Instructions: Please return to the ED with new, persistent, or worsening symptoms. Please follow-up with providers as indicated. Referrals: Carmelo Schofield MD [Staff Physician] - 1 Week Mario Bragg MD [Primary Care Provider] - 1 Week Disposition: VNS/HOME HEALTH CARE - Home Medications Comprehensive Discharge Medication List: Ambulatory Orders Acetaminophen [Tylenol -] 1,000 mg PO TID PRN 06/20/16 Albuterol Sulfate Inhaler - [Ventolin Hfa Inhaler -] 1 - 2 inh PO QID PRN Amlodipine Besylate 10 mg PO DAILY 06/20/16 Cholecalciferol (Vitamin D3) [Vitamin D3] 2,000 unit PO DAILY 06/20/16 Diclofenac Sodium [Voltaren] 1 applic TP ASDIR 06/20/16 Donepezil HCl [Aricept] 10 mg PO DAILY 06/20/16 Ferrous Sulfate 325 mg PO DAILY 06/20/16 Furosemide [Lasix -] 40 mg PO DAILY 06/20/16 Gabapentin 100 mg PO TID 06/20/16 Glipizide/Metformin HCl [Glipizide-Metformin 5-500 mg] 1 each PO BID 06/20/16 Hydralazine HCl [Apresoline -] 25 mg PO BID 06/20/16 Hydroxychloroquine Sulfate 200 mg PO BID 06/20/16 Insulin Glargine,Hum.rec.anlog [Lantus Solostar PEN (NF)] 10 units SQ HS Labetalol HCl 300 mg PO BID 06/20/16 Lisinopril 10 mg PO DAILY 06/20/16 Simvastatin 20 mg PO DAILY 06/20/16 Warfarin Sodium [Coumadin] 5 mg PO DAILY 06/20/16 This patient is new to me today: Yes Date on this admission: 06/25/16 Emergency Visit: Yes ED Registration Date: 06/20/16 Care time: The patient presented to the Emergency Department on the above date and was hospitalized for further evaluation of their emergent condition. Critical Care patient: No - Discharge Referral Referred to [facility] Yes Physician Referral: Mario Bragg MD (Int Med)
[2016-06-26] MEDS: LABETALOL HCL 100 MG TABLET (FP) PO SCH (10:34)
[2016-06-26] MEDS: FUROSEMIDE 40 MG TABLET (FP) PO SCH (10:34)
[2016-06-26] MEDS: amLODIPine BESYLATE 10 MG TABLET (FP) PO SCH (10:35)
[2016-06-26] MEDS: hydrALAZINE HCL 25 MG TABLET (FP) PO SCH (10:35)
[2016-06-26] MEDS: FLUTICASONE/SALMETEROL 100 MCG/50 MCG DISKUS IH SCH (10:35)
[2016-06-26] MEDS: CHOLECALCIFEROL (VITAMIN D3) 1,000 UNIT TABLET (FP) PO SCH (10:35)
[2016-06-26] MEDS: HYDROXYCHLOROQUINE SO4 200 MG TABLET (FP) PO SCH (10:35)
[2016-06-26] MEDS: LISINOPRIL 10 MG TABLET (FP) PO SCH (10:35)
[2016-06-26] MEDS: FERROUS SO4 325 MG TABLET (FP) PO SCH (10:35)
[2016-06-26 12:41] VITALS: BP 176/65; PULSE 74; TEMP 97.7
== END 2016-06-26 14:00 | disposition home health service (06) | DRG 194 ==
LOC: FER 17:00 → FM/S 20:24 → UNDOADMIN 20:24 → J4S 22:35
PROVIDERS: ADMIT Internal Medicine; ATTEND Registered Nurse
DX: J18.9 Pneumonia, unspecified organism (principal); N39.0 Urinary tract infection, site not specified; I50.32 Chronic diastolic (congestive) heart failure; E87.1 Hypo-osmolality and hyponatremia; R19.7 Diarrhea, unspecified; E11.9 Type 2 diabetes mellitus without complications; E86.0 Dehydration; Z79.01 Long term (current) use of anticoagulants; B96.20 Unspecified Escherichia coli [E. coli] as the cause of diseases classified elsewhere; Z79.84 Long term (current) use of oral hypoglycemic drugs; I11.0 Hypertensive heart disease with heart failure; Z87.891 Personal history of nicotine dependence; Z86.718 Personal history of other venous thrombosis and embolism; I25.10 Atherosclerotic heart disease of native coronary artery without angina pectoris; I25.2 Old myocardial infarction; E78.5 Hyperlipidemia, unspecified; D64.9 Anemia, unspecified
CPT/HCPCS: 36415; 70450-TC; 71010-TC; 74176-TC; 80048; 80053; 81003; 81015; 82550; 83036; 83605; 83735; 83880; 84100; 84484; 85025; 85610; 87040; 87045; 87046; 87070; 87081; 87086; 87186; 87205; 87254; 87324; 87449; 87804; 93005; 93306-TC; 94640; 94761; 97116-GP; 97161-GP; 99284-25

== ENCOUNTER 2017-11-23 20:05 | Emergency (ER) | payer OTHER, MEDICARE ==
--- NOTE | 2017-11-23 20:35 | PDOC ---
History of Present Illness - General History Source: Patient Exam Limitations: No Limitations - History of Present Illness Initial Comments: 11/24/17 00:02 The patient is an 87 year old female accompanied with her daughter, with a significant past medical history of hypertension, hyperlipidemia, diabetes, CHF , ND(1994), anemia, DVT(on Coumadin), spinal stenosis, left kidney mass, rheumatoid arthritis, and chronic bilateral lower extremity edema who presents to the emergency department for evaluation of right leg pain and swelling. She reports a 3 week history of worsening bilateral lower extremity swelling. The patient reports moderate right leg pain, radiating to her foot from her knee. She denies any modifying factors. She notes that her left leg normally hurts, but over the last few days she developed worsening right leg pain which prompted her to visit the emergency department for further evaluation secondary to her history of DVT on the right leg. Pt has recent decrease in dose of coumadin because she is anemic. The patients daughter notes she is seeing GI specialist for recent GI bleeding. As per daughter at bedside, Dr. Schofield has recently changed medication in an attempt to reduce bilateral lower extremity swelling. The patient denies chest pain, shortness of breath, headache, increase in cough , recent travel, and long period of immobilization. Denies fever, chills, nausea , vomiting, and any urinary/bowel symptoms. Denies history of gout and any changes in activity. Allergy: Codeine Social History: No reported alcohol, cigarette, or drug use. Surgical History: Bilateral knee replacement. PCP: Dr. Jerry Manager Life: Dr. Schofield <Arin Schmitt - Last Filed: 11/24/17 00:02> <Alma Mayers - Last Filed: 11/24/17 06:42> - General Stated Complaint: SWOLLEN LEGS Time Seen by Provider: 11/23/17 20:34 Past History <Arin Schmitt - Last Filed: 11/24/17 00:02> - Past Medical History Anemia: Yes Cardiac Disorders: Yes ([place]) CHF: Yes Diabetes: Yes HTN: Yes Hypercholesterolemia: Yes - Surgical History Orthopedic Surgery: Yes (bilateral knee replacement) - Suicide/Smoking/Psychosocial Hx Smoking History: Former smoker Have you smoked in the past 12 months: No If you are a former smoker, when did you quit?: many years ago Hx Alcohol Use: No Drug/Substance Use Hx: No Substance Use Type: None Hx Substance Use Treatment: No <Alma Mayers - Last Filed: 11/24/17 06:42> - Past Medical History Allergies/Adverse Reactions: Allergies Allergy/AdvReac Type Severity Reaction Status Date / Time codeine Allergy Verified 11/23/17 20:37 Home Medications: Ambulatory Orders Cholecalciferol (Vitamin D3) [Vitamin D3] 2,000 unit PO DAILY 06/20/16 Ferrous Sulfate 325 mg PO DAILY 06/20/16 Furosemide [Lasix -] 80 mg PO DAILY 06/20/16 Gabapentin 100 mg PO TID 06/20/16 Hydroxychloroquine Sulfate 400 mg PO BID 06/20/16 hydrALAZINE HCL [Apresoline -] 25 mg PO BID 06/20/16 Labetalol HCl 200 mg PO BID tablet 09/07/16 Simvastatin 10 mg PO DAILY tablet 09/07/16 Diclofenac Sodium [Voltaren] 0 gm TP ASDIR 03/19/17 Insulin Glargine,Hum.rec.anlog [Lantus Solostar PEN -] 0 units SQ ASDIR PRN Lisinopril [Prinivil] 10 mg PO DAILY 03/19/17 Prednisone 5 mg PO ASDIR PRN 03/19/17 Warfarin Sodium [Coumadin] 5 mg PO DAILY 03/19/17 levETIRAcetam [Keppra -] 125 mg PO BID 03/19/17 Pantoprazole Sodium [Protonix -] 40 mg PO DAILY #28 tab 03/23/17 Review of Systems - Review of Systems Able to Perform ROS?: Yes Comments:: GENERAL/CONSTITUTIONAL: No fever or chills. No weakness. HEAD, EYES, EARS, NOSE AND THROAT: No change in vision. No ear pain or discharge. No sore throat. CARDIOVASCULAR: No chest pain or shortness of breath. RESPIRATORY: No cough, wheezing, or hemoptysis. GASTROINTESTINAL: No nausea, vomiting, diarrhea or constipation. GENITOURINARY: No dysuria, frequency, or change in urination. MUSCULOSKELETAL: (+)right leg pain. (+)Bilateral leg swelling. (+)Left back discomfort. SKIN: No rash NEUROLOGIC: No headache, vertigo, loss of consciousness, or change in strength/ sensation. ENDOCRINE: No increased thirst. No abnormal weight change. HEMATOLOGIC/LYMPHATIC: No anemia, easy bleeding, or history of blood clots. ALLERGIC/IMMUNOLOGIC: No hives or skin allergy. <Arin Schmitt - Last Filed: 11/24/17 00:02> *Physical Exam - Vital Signs Last Vital Signs Temp Pulse Resp BP Pulse Ox 98.6 F 64 18 164/69 100 11/23/17 20:37 11/23/17 20:37 11/23/17 20:37 11/23/17 20:37 11/23/17 20:37 - Physical Exam Comments: GENERAL: Awake, alert, and fully oriented, in no acute distress HEAD: No signs of trauma EYES: PERRLA, EOMI, sclera anicteric, conjunctiva clear ENT: Auricles normal inspection, hearing grossly normal, nares patent, oropharynx clear without exudates. Moist mucosa NECK: Normal ROM, supple, no lymphadenopathy, JVD, or masses LUNGS: Breath sounds equal, clear to auscultation bilaterally. No wheezes, and no crackles HEART: Regular rate and rhythm, normal S1 and S2, no murmurs, rubs or gallops ABDOMEN: Soft, nontender, normoactive bowel sounds. No guarding, no rebound. No masses BACK: (+)Kypho scoliosis. EXTREMITIES: (+)2+ pitting edema bilaterally.(+)Fullness behind left popliteal fossa. Normal range of motion. NEUROLOGICAL: Cranial nerves II through XII grossly intact. Normal speech. SKIN: Warm, Dry, normal turgor, no rashes or lesions noted. <Arin Schmitt - Last Filed: 11/24/17 00:02> Medical Decision Making - Medical Decision Making 11/24/17 06:40 Pt comes with lower ext pitting edema bilat. She is worried that she has a blood clot. Exam is normal. No redness and minimal swelling, symmetric bilaterally. Duplex dopplers bilat are normal. Pt has no evidence of blood clot. She was reassured and asked to follow with her PMD. Incidentally, she has a cyst in the left popliteal fossa. Stable for d/c home. <Alma Mayers - Last Filed: 11/24/17 06:42> *DC/Admit/Observation/Transfer - Attestations Scribe Attestion: Documentation prepared by Arin Schmitt, acting as medical cash poster for Alma Mayers MD. <Arin Schmitt - Last Filed: 11/24/17 00:02> - Discharge Dispostion Decision to Admit order: No <Alma Mayers - Last Filed: 11/24/17 06:42> Diagnosis at time of Disposition: Edema extremities - Discharge Dispostion Disposition: HOME Condition at time of disposition: Stable - Referrals Referrals: Michelle Jerry MD [Primary Care Provider] - - Patient Instructions Printed Discharge Instructions: DI for Dependent Edema, DI for Peripheral Edema -- Bilateral
[2017-11-23 20:39] VITALS: BP 164/69; PULSE 64; TEMP 98.6; BMI 35.7
== END 2017-11-24 00:36 | disposition home or self-care (01) ==
LOC: JER 20:05
DX: R60.0 Localized edema (principal); M71.22 Synovial cyst of popliteal space [Baker], left knee; I25.2 Old myocardial infarction; I10 Essential (primary) hypertension; I50.9 Heart failure, unspecified; E11.9 Type 2 diabetes mellitus without complications; Z79.4 Long term (current) use of insulin; D64.9 Anemia, unspecified; E78.5 Hyperlipidemia, unspecified; N28.89 Other specified disorders of kidney and ureter; M06.9 Rheumatoid arthritis, unspecified; Z86.718 Personal history of other venous thrombosis and embolism; Z79.01 Long term (current) use of anticoagulants; Z88.8 Allergy status to other drugs, medicaments and biological substances
CPT/HCPCS: 93970-TC; 99283-25

== ENCOUNTER 2017-11-28 18:01 | Observation (INO) | payer OTHER, MEDICARE ==
--- NOTE | 2017-11-28 18:25 | PDOC ---
Rapid Medical Evaluation Time Seen by Provider: 11/28/17 18:20 Medical Evaluation: Allergies Allergy/AdvReac Type Severity Reaction Status Date / Time codeine Allergy Verified 11/23/17 20:37 I have performed a brief in-person evaluation of this patient. The patient presents with a chief complaint of: tingling in left arm for the past 2 days, worse today. fatigue today Pertinent physical exam findings: no facial drooping. No slurred speech. Normal roving winder strength in left hand I have ordered the following: EKG, labs, UA The patient will proceed to the ED for further evaluation. Discharge Disposition - Diagnosis Numbness and tingling in left arm - Referrals - Patient Instructions - Post Discharge Activity
--- NOTE | 2017-11-28 20:19 | PDOC ---
Attending Attestation - HPI HPI: 11/28/17 23:45 The patient is a 87 year old female with a significant PMH of dementia, hypertension, hyperlipidemia, arthritis, diabetes, CHF, VT, DVT(on coumadin), spinal stenosis,chronic bilateral lower extremity edema and left kidney mass, who presents to the emergency department with 3 days of left arm tingling and numbness. The patient reports that the feeling in her left arm feels like pins and needles. She states that she has a greater numbing sensation in her fingers than in her arm. The patient reports that she has had a similar episode like this in the past but it was when she was started on Kepra. The patient reports that she has been experiencing some weakness and she states that she noticed some left arm shaking about 2 weeks ago. The patient also reports having some vision change in her left eye that she describes as blurry. The patient denies any other symptoms. She denies any ever, chills, nausea, vomit, diarrhea, constipation or urinary symptoms. She denies any chest pain, shortness of breath , headache and dizziness. The patient denies any other complaints. Allergies:Codeine PCP: Dr. Jerry - Physicial Exam PE: 11/28/17 23:45 GENERAL: (+)pleasantly demented. Awake, alert, and fully oriented, in no acute distress HEAD: No signs of trauma EYES: PERRLA, EOMI, sclera anicteric, conjunctiva clear ENT: Auricles normal inspection, hearing grossly normal, nares patent, oropharynx clear without exudates. Moist mucosa NECK: Normal ROM, supple, no lymphadenopathy, JVD, or masses LUNGS: Breath sounds equal, clear to auscultation bilaterally. No wheezes, and no crackles HEART: Regular rate and rhythm, normal S1 and S2, no murmurs, rubs or gallops ABDOMEN: Soft, nontender, normoactive bowel sounds. No guarding, no rebound. No masses EXTREMITIES:(+)left arm strength 4 out of 5. Normal range of motion, no edema. No clubbing or cyanosis. No cords, erythema, or tenderness NEUROLOGICAL: (+)paraspinal and cervical spine tenderness. Cranial nerves II through XII grossly intact. Normal speech, normal gait SKIN: Warm, Dry, normal turgor, no rashes or lesions noted. Documentation prepared by Angelina Mae, acting as medical biller/coder for Minoo Elmore MD. <Angelina Mae - Last Filed: 11/28/17 23:45> - Resident Resident Name: Medina Lindsay - ED Attending Attestation I have performed the following: I have examined & evaluated the patient, The case was reviewed & discussed with the resident, I agree w/resident's findings & plan, Exceptions are as noted - Medical Decision Making 11/28/17 20:16 I, Dr. Minoo Elmore, DO, attest that this document has been prepared under my direction and personally reviewed by me in its entirety. I further attest, that it accurately reflects all work, treatment, procedures and medical decision -making performed by me. 11/28/17 20:16 a/p: 87yo female with L arm paresthesias -atypical for ACS, however will send trops -shaking recently - on keppra for seizures, however currently no shaking -mild weakness/paresthesias - concern for cva -will send labs, ekg, head ct -will monitor and reassess 11/28/17 21:[address] Holland from neurology who will see the patient in consult tonight 11/28/17 21:[address] Jerry who accepts pt to service 11/28/17 22:41 pt with uti on labs will start rocephin small b/l chronic infarcts - no acute infarct 11/28/17 23:[address] jerry to update on inr 1.6 <Minoo Elmore - Last Filed: 11/28/17 23:46>
--- NOTE | 2017-11-28 20:23 | PDOC ---
History of Present Illness - General Chief Complaint: Pain, Acute Stated Complaint: TINGLING SENSATION Time Seen by Provider: 11/28/17 18:20 Past History - Past Medical History Allergies/Adverse Reactions: Allergies Allergy/AdvReac Type Severity Reaction Status Date / Time codeine Allergy Verified 11/28/17 18:26 Home Medications: Ambulatory Orders Cholecalciferol (Vitamin D3) [Vitamin D3] 2,000 unit PO DAILY 06/20/16 Ferrous Sulfate 325 mg PO DAILY 06/20/16 Furosemide [Lasix -] 80 mg PO DAILY 06/20/16 Gabapentin 100 mg PO TID 06/20/16 Hydroxychloroquine Sulfate 400 mg PO BID 06/20/16 hydrALAZINE HCL [Apresoline -] 25 mg PO BID 06/20/16 Labetalol HCl 200 mg PO BID tablet 09/07/16 Simvastatin 10 mg PO DAILY tablet 09/07/16 Diclofenac Sodium [Voltaren] 0 gm TP ASDIR 03/19/17 Insulin Glargine,Hum.rec.anlog [Lantus Solostar PEN -] 0 units SQ ASDIR PRN Lisinopril [Prinivil] 10 mg PO DAILY 03/19/17 Prednisone 5 mg PO ASDIR PRN 03/19/17 Warfarin Sodium [Coumadin] 5 mg PO DAILY 03/19/17 levETIRAcetam [Keppra -] 125 mg PO BID 03/19/17 Pantoprazole Sodium [Protonix -] 40 mg PO DAILY #28 tab 03/23/17 Anemia: Yes Cardiac Disorders: Yes ([place]) COPD: No CHF: Yes Diabetes: Yes HTN: Yes Hypercholesterolemia: Yes - Surgical History Orthopedic Surgery: Yes (bilateral knee replacement) - Suicide/Smoking/Psychosocial Hx Smoking History: Never smoked Have you smoked in the past 12 months: No If you are a former smoker, when did you quit?: many years ago Information on smoking cessation initiated: No Hx Alcohol Use: No Drug/Substance Use Hx: No Substance Use Type: None Hx Substance Use Treatment: No *Physical Exam - Vital Signs Last Vital Signs Temp Pulse Resp BP Pulse Ox 98.0 F 62 16 142/66 100 11/28/17 18:24 11/28/17 18:24 11/28/17 18:24 11/28/17 18:24 11/28/17 18:24 ED Treatment Course - LABORATORY CBC & Chemistry Diagram: 11/28/17 21:07 Medical Decision Making - Medical Decision Making Keiry Zheng is an 87yo woman with a PMh of CHF, h/o [place], h/o seizures, h/o DVT on warfarin, DM, RA, dementia, and chronic anemia who presents today complaining of left arm tingling and weakness for 2 days. She says that the tingling has remained constant and unchanged during this time, but she also felt fatigued today and was brought to the ED by her daughter. She also endorses a feeling of weakness when asked, though per her daughter she was not complaining of this previously. Per Ms Zheng and her daughter, she is compliant with her medications and reports her blood glucose twice daily to her daughters. Symptoms are vague and could be neurologic including seizure or stroke, cardiac , musculoskeletal, or secondary to her diabetes, or related to an infectious process such as a UTI. - CBC, CMP, PTT, PT/INR, EKG, CT head, and UA ordered. - Exam unconcerning, no left sided weakness or facial droop, no slurred speech, no focal neurological deficits Will reasses and monitor labs. 11/28/17 22:25 CT head completed. Reviewed, no obvious pathology, radiology read pending. Labs drawn and pending. UA positive for leuk esterase Neurology consulted for LUE paresthesias. Plan to admit to obs for additional workup and evaluation once lab results return. Discussed with Dr Elmore. *DC/Admit/Observation/Transfer Diagnosis at time of Disposition: Numbness and tingling in left arm, Paresthesia of left arm - Discharge Dispostion Decision to Admit order: Yes - Referrals Referrals: Michelle Jerry MD [Primary Care Provider] - - Patient Instructions - Post Discharge Activity
[2017-11-28 21:48] LABS: URINE APPEARANCE CLEAR; URINE BILIRUBIN NEGATIVE (<2.0 mg/dL); URINE COLOR STRAW; URINE GLUCOSE (UA) NEGATIVE (NEGATIVE); URINE KETONE NEGATIVE (NEGATIVE); URINE NITRITE NEGATIVE (NEGATIVE); URINE PROTEIN NEGATIVE (NEGATIVE); URINE UROBILINOGEN NEGATIVE mg/dL (0.2-1.0)
[2017-11-28 21:50] LABS: URINE LEUK ESTERASE 2+ (NEGATIVE)
[2017-11-28 22:01] LABS: ALBUMIN 3.3 g/dl (3.4-5.0); ANION GAP 8 (8-16); BILIRUBIN,TOTAL 0.4 mg/dL (0.2-1.0); BLOOD UREA NITROGEN 18 mg/dL (7-18); CALCIUM 8.3 mg/dL (8.5-10.1); CHLORIDE 109 mmol/L (98-107); CO2 25 mmol/L (21-32); CREATININE 1.3 mg/dL (0.55-1.02); GLUCOSE,RANDOM 63 mg/dL (74-106); POTASSIUM 4.2 mmol/L (3.5-5.1); SGOT/AST 23 U/L (15-37); SGPT/ALT 19 U/L (12-78); SODIUM 142 mmol/L (136-145); TOT PROT 6.5 g/dl (6.4-8.2)
[2017-11-28 22:03] LABS: ALK PHOS 104 U/L (45-117)
[2017-11-28 22:33] LABS: EPI CELLS RARE /HPF (FEW); URINE BACTERIA FEW /hpf (NONE SEEN)
[2017-11-28] MEDS ORDERED: CEFTRIAXONE 1 GM in DEXTROSE 5%-WATER - 100 ML IVPB ONE (22:41)
[2017-11-28 22:56] LABS: BASO % 0.9 % (0-2.0); HEMATOCRIT 30.5 % (32.4-45.2); HEMOGLOBIN 9.5 GM/dL (10.7-15.3); LYMPH % 38.4 % (8-40); MCH 24.4 pg (25.7-33.7); MCHC 31.2 g/dl (32.0-36.0); MEAN CELL VOLUME 78.2 fl (80-96); MEAN PLT VOLUME 7.6 fl (7.5-11.1); MONO % 10.1 % (3.8-10.2); NEUT % 50.6 % (42.8-82.8); PLATELET COUNT 293 K/MM3 (134-434); RBC 3.91 M/mm3 (3.60-5.2); RDW 17.6 % (11.6-15.6); WHITE BLOOD COUNT 6.1 K/mm3 (4.0-10.0)
--- NOTE | 2017-11-28 23:03 | CON.NEURO ---
Consult Consult Specialty:: NEUROLOGY-NELL [facility] Reason for Consultation:: LUE numbness/tingling - History of Present Illness History of Present Illness: Keiry Zheng is an 87yo woman with a PMh of CHF, h/o RI, h/o seizures, h/o DVT on warfarin, DM, RA, dementia, and chronic anemia who presents today complaining of left arm tingling and weakness for 2 days. She says that the tingling has remained constant and unchanged during this time, but she also felt fatigued today and was brought to the ED by her daughter. She also endorses a feeling of weakness when asked, though per her daughter she was not complaining of this previously. Pt. tells me x 2 days she has had both numbness and tingling in her entire left arm, denies face/arm tingling(has intermittent paresthesias in left lat.foreleg intermittently x years due to "sciatica". She denies neck pain, ambulates with walker due to knee arthritis. Per Ms Zheng and her daughter, she is compliant with her medications and reports her blood glucose twice daily to her daughters. Symptoms are vague and could be neurologic including seizure or stroke, cardiac , musculoskeletal, or secondary to her diabetes, or related to an infectious process such as a UTI. - CBC, CMP, PTT, PT/INR, EKG, CT head, and UA ordered. - Exam unconcerning, no left sided weakness or facial droop, no slurred speech, no focal neurological deficits Will reasses and monitor labs. 11/28/17 22:25 CT head completed. Reviewed, no obvious pathology, radiology read pending. Labs drawn and pending. UA positive for leuk esterase Neurology consulted for LUE paresthesias. Plan to admit to obs for additional workup and evaluation once lab results return. - Past Medical History Cardio/Vascular: Yes: CHF, Deep Vein Thrombosis, HTN, Hyperlipdemia Endocrine: Yes: Diabetes Mellitus - Alcohol/Substance Use Hx Alcohol Use: No - Smoking History Smoking history: Never smoked Have you smoked in the past 12 months: No If you are a former smoker, when did you quit?: many years ago Home Medications - Allergies Allergies/Adverse Reactions: Allergies Allergy/AdvReac Type Severity Reaction Status Date / Time codeine Allergy Verified 11/28/17 18:26 - Home Medications Home Medications: Ambulatory Orders Cholecalciferol (Vitamin D3) [Vitamin D3] 2,000 unit PO DAILY 06/20/16 Ferrous Sulfate 325 mg PO DAILY 06/20/16 Furosemide [Lasix -] 80 mg PO DAILY 06/20/16 Gabapentin 100 mg PO TID 06/20/16 Hydroxychloroquine Sulfate 400 mg PO BID 06/20/16 hydrALAZINE HCL [Apresoline -] 25 mg PO BID 06/20/16 Labetalol HCl 200 mg PO BID tablet 09/07/16 Simvastatin 10 mg PO DAILY tablet 09/07/16 Diclofenac Sodium [Voltaren] 0 gm TP ASDIR 03/19/17 Insulin Glargine,Hum.rec.anlog [Lantus Solostar PEN -] 0 units SQ ASDIR PRN Lisinopril [Prinivil] 10 mg PO DAILY 03/19/17 Prednisone 5 mg PO ASDIR PRN 03/19/17 Warfarin Sodium [Coumadin] 5 mg PO DAILY 03/19/17 levETIRAcetam [Keppra -] 125 mg PO BID 03/19/17 Pantoprazole Sodium [Protonix -] 40 mg PO DAILY #28 tab 03/23/17 Physical Exam-Neuro Vital Signs: Vital Signs Temperature 98.0 F 11/28/17 18:24 Pulse Rate 62 11/28/17 18:24 Respiratory Rate 16 11/28/17 18:24 Blood Pressure 142/66 11/28/17 18:24 O2 Sat by Pulse Oximetry (%) 100 11/28/17 18:24 Labs: CBC, BMP 11/28/17 21:07 - Neuro Exam Level Of Consciousness: Yes: Alert, Oriented to Person, Oriented to Place Eyes: Yes: PERRL (No field cut) Cranial Nerves II-XII Intact: Yes DTR's: 0 Left Achilles (absent bilat knee jerks), 0 Right Achilles, 1+ Left Bicep, 1+ Right Bicep, 1+ Left Tricep, 1+ Right Tricep, 1+ Left Brachioradialis , 1+ Right Brachioradialis Babinski: Absent Response to light touch: Abnormal (diminished touch/pin entire left arm) Motor Strength: 4/5: Left Leg, Right Leg (testing of leg strength limited secondary to bilat knee pain), 5/5: Left Arm, Right Arm Gait: Deferred Imaging - Results Cat Scan: Report Reviewed (Chronic bilat. b/g infarcts, small amount of pvwmd. No acute infarct noted.) Assessment/Plan Pt. with multipole risk factors now with left arm sensory symptoms x 2 days, no new motor deficit. DDx. includes pure sensory right sided lacunar infarct, cervical radiculopathy. Suggest: MRI brain Cont. Coumadin. UTI being rx. I am not sure (neither is her daughter who i spoke to of why she is on Keppra, unclear what type of sz. she has, this is a very small dose of Keppra-would cont. for now, will call her PMD tomorrow for details). Further managemnet after MRI. Thank you, Rhona Holland MD
[2017-11-28] MEDS ORDERED: CEFTRIAXONE 1 GM/50 ML BAG ONE (23:17)
[2017-11-28 23:31] LABS: INR 1.6 (0.82-1.09); PROTHROMBIN TIME (PATIENT) 18.1 SEC (9.7-13.0)
[2017-11-28 23:34] LABS: ACTIVATED PTT 30.6 SECONDS (25.2-36.5)
[2017-11-29 04:37] VITALS: BMI 35.9
--- NOTE | 2017-11-29 09:22 | HP ---
Admitting History and Physical - Admission Chief Complaint: LUE paresthesias and weakness with mobilization History of Present Illness: 87 yo female with PMH of RA and dvt, was brought to ER by daughter for complaints of pain and weakness of the left upper extremity. The symptoms started 2 days prior to her presentation to ER and there is no increase or decrease in the intensity of her symptoms since then. Associated with the weakness the patient is complaining of left shoulder pain and inability to move the left upper extremity. The mobilization of the left shoulder increases the patient's paresthesias. Upon the patient's presentation to ER the stroke work up was started. History Source: Patient Limitations to Obtaining History: No Limitations - Past Medical History Cardiovascular: Yes: CHF, Deep Vein Thrombosis, HTN, Hyperlipdemia ...: No Heme/Onc: Yes: Anemia. No: Bleeding Disorder Rheumatology: Yes: Rheumatoid Arthritis Endocrine: Yes: Diabetes Mellitus - Advance Directives Advance Directives: Yes: Health Care Proxy, Living Will - Smoking History Smoking history: Former smoker Have you smoked in the past 12 months: No If you are a former smoker, when did you quit?: 2008 - Alcohol/Substance Use Hx Alcohol Use: No - Social History ADL: Family Assistance Home Medications - Allergies Allergies/Adverse Reactions: Allergies Allergy/AdvReac Type Severity Reaction Status Date / Time codeine Allergy Verified 11/28/17 18:26 - Home Medications Home Medications: Ambulatory Orders Cholecalciferol (Vitamin D3) [Vitamin D3] 4,000 unit PO DAILY 06/20/16 Ferrous Sulfate 325 mg PO DAILY 06/20/16 Hydroxychloroquine Sulfate 400 mg PO Q2D 06/20/16 hydrALAZINE HCL [Apresoline -] 25 mg PO BID 06/20/16 Labetalol HCl 200 mg PO BID tablet 09/07/16 Simvastatin 10 mg PO DAILY tablet 09/07/16 Insulin Glargine,Hum.rec.anlog [Lantus Solostar PEN -] 0 units SQ BIDAC PRN Prednisone 5 mg PO DAILY PRN 03/19/17 levETIRAcetam [Keppra -] 125 mg PO BID 03/19/17 Acetaminophen [Tylenol -] 1,000 mg PO Q8H PRN 11/29/17 Ascorbic Acid [C-500] 500 mg PO DAILY 11/29/17 Hydroxychloroquine Sulfate 600 mg PO Q2D 11/29/17 Lisinopril [Zestril] 2.5 mg PO DAILY 11/29/17 Spironolactone 25 mg PO DAILY 11/29/17 Torsemide [Demadex] 10 mg PO DAILY 11/29/17 Tramadol HCl 50 mg PO TID PRN 11/29/17 Warfarin Sodium 3 mg PO DAILY 11/29/17 Warfarin Sodium [Coumadin] 1.5 mg PO WEEKLY 11/29/17 Review of Systems - Review of Systems Constitutional: reports: No Symptoms Eyes: reports: No Symptoms HENT: reports: No Symptoms Neck: reports: No Symptoms Cardiovascular: reports: No Symptoms. denies: Chest Pain, Edema, Palpitations, Shortness of Breath Respiratory: reports: No Symptoms Gastrointestinal: reports: No Symptoms Genitourinary: reports: No Symptoms Integumentary: reports: No Symptoms Endocrine: reports: No Symptoms Psychiatric: reports: No Symptoms Physical Examination Vital Signs: Vital Signs Temperature 98.0 F 11/29/17 06:00 Pulse Rate 76 11/29/17 06:00 Respiratory Rate 20 11/29/17 06:00 Blood Pressure 145/72 11/29/17 06:00 O2 Sat by Pulse Oximetry (%) 97 11/29/17 04:38 Constitutional: Yes: Well Nourished, No Distress Eyes: Yes: Conjunctiva Clear, EOM Intact HENT: Yes: Atraumatic, Normocephalic Neck: Yes: Supple, Trachea Midline Cardiovascular: Yes: Regular Rate and Rhythm, S1, S2 Respiratory: Yes: Regular, CTA Bilaterally Gastrointestinal: Yes: Normal Bowel Sounds, Soft, Abdomen, Obese. No: Hepatomegaly, Splenomegaly ...Rectal Exam: Yes: WNL Breast(s): Yes: WNL Musculoskeletal: Yes: Back Pain, Joint Stiffness, Other (pain to mobilization of the left shoulder, paresthsisas to mobilization of the left shoulder) Extremities: No: Calf Tenderness Edema: No Peripheral Pulses WNL: Yes Neurological: Yes: Alert, Oriented Psychiatric: Yes: Alert, Oriented Labs: CBC, BMP 11/28/17 22:44 11/28/17 21:07 Imaging - Results X-ray: Other (left shoulder DJD and calcifications) Cat Scan: Other (Ct scan of [facility] C spine: multilevel discc hernias, osteophytes retrolisthesis of C3 over C4, and anterolisthesis of C4 over C5) Ultrasound: Other (carotid Doppler on significant stenosis) Other: Other (ECHO: no intracardiac thrombi) Problem List - Problems (1) Radiculitis of left cervical region Assessment/Plan: rule out intracardiac event Ct scan of the brain showed no acute changes 3 days after symptoms started, MRI of the brain is pending carotid Doppler, Echo cardiogram showed no carotid stenosis and respectively no intracardiac thrombus the patient is monitored in the telemetry unit, and no arrhythmias were recorded until now Code(s): M54.12 - RADICULOPATHY, CERVICAL REGION (2) Rheumatoid arthritis Assessment/Plan: with changes od RA and OA in the cervical spine area Code(s): M06.9 - RHEUMATOID ARTHRITIS, UNSPECIFIED Qualifiers: Rheumatoid arthritis location: multiple sites Rheumatoid factor presence: with rheumatoid factor Qualified Code(s): M05.79 - Rheumatoid arthritis with rheumatoid factor of multiple sites without organ or systems involvement (3) IDDM (insulin dependent diabetes mellitus) Assessment/Plan: continue accuchecks AC and HS with regular insulin coverage Code(s): E11.9 - TYPE 2 DIABETES MELLITUS WITHOUT COMPLICATIONS; Z79.4 - SHELTER (CURRENT) USE OF INSULIN (4) Anemia Assessment/Plan: chronic anemia probably a combination of iron deficit due to decreased po intake and and possble chronic loss Code(s): D64.9 - ANEMIA, UNSPECIFIED Qualifiers: Anemia type: iron deficiency Iron deficiency anemia type: chronic blood loss Qualified Code(s): D50.0 - Iron deficiency anemia secondary to blood loss (chronic) (5) H/O deep venous thrombosis Assessment/Plan: continue Coumadin,po, the patient is scheduled for an endoscopy next week and she will put on hold her Coumadin tomorrow Code(s): Z86.718 - PERSONAL HISTORY OF OTHER VENOUS THROMBOSIS AND EMBOLISM (6) HTN (hypertension) Assessment/Plan: blood pressure is controlled n the current medications Code(s): I10 - ESSENTIAL (PRIMARY) HYPERTENSION Qualifiers: Hypertension type: essential hypertension Qualified Code(s): I10 - Essential (primary) hypertension
[2017-11-29] MEDS ORDERED: predniSONE 5 MG TABLET (UD) PO SCH (10:00)
[2017-11-29] MEDS: INSULIN SLIDING SCALE (NOVOLOG) 1 VIAL SQ SCH ×3 (11:00→21:54)
[2017-11-29] MEDS: amLODIPine BESYLATE 10 MG TABLET (FP) PO SCH (11:54)
[2017-11-29] MEDS: HYDROXYCHLOROQUINE SO4 200 MG TABLET (FP) PO SCH (11:55)
[2017-11-29] MEDS: LABETALOL HCL 200 MG TABLET (FP) PO SCH ×2 (11:55→21:53)
[2017-11-29] MEDS: LISINOPRIL 5 MG TABLET (FP) PO SCH (11:55)
[2017-11-29] MEDS: levETIRAcetam 250 MG TABLET (FP) PO SCH ×2 (11:55→21:53)
[2017-11-29] MEDS: hydrALAZINE HCL 25 MG TABLET (FP) PO SCH ×2 (11:56→21:54)
[2017-11-29] MEDS: HEPARIN NA (PORCINE) 5,000 UNITS/ML 1ML VIAL SQ SCH ×2 (11:56→21:54)
--- NOTE | 2017-11-29 12:01 | EKG ---
Test Reason : Blood Pressure : / mmHG Vent. Rate : 057 BPM Atrial Rate : 057 BPM P-R Int : 186 ms QRS Dur : 092 ms QT Int : 422 ms P-R-T Axes : 078 042 123 degrees QTc Int : 410 ms SINUS BRADYCARDIA NONSPECIFIC T WAVE ABNORMALITY ABNORMAL ECG WHEN COMPARED WITH ECG OF 19-MAR-2017 10:55, NO SIGNIFICANT CHANGE WAS FOUND Confirmed by CHAPIN LANDRUM MD ([id number]) on 11/29/2017 12:01:13 PM Referred By: Confirmed By:CHAPIN LANDRUM MD
--- NOTE | 2017-11-29 13:17 | ECHO ---
Name: GUILLEN, RICHARD Exam:Adult Echocardiogram Study Date: 11/29/2017 11:03 AM Reason For Study: TIA Height: 58 in Weight: 171 lb BSA: 1.7 m2 MMode/2D Measurements & Calculations IVSd: 0.77 cm Ao root diam: 2.6 cm LVIDd: 4.3 cm LA dimension: 4.0 cm LVIDs: 2.8 cm LVPWd: 0.81 cm EDV(Teich): 83.8 ml LAV (MOD-bp): 75.0 ml ESV(Teich): 30.5 ml RV S Sumanth: 6.8 cm/sec Doppler Measurements & Calculations MV E max sumanth: 85.9 cm/sec Ao V2 max: 209.6 cm/sec MV A max sumanth: 63.2 cm/sec Ao max P.6 mmHg MV E/A: 1.4 Ao V2 mean: 137.9 cm/sec MV dec time: 0.23 sec Ao mean P.0 mmHg Ao V2 VTI: 50.5 cm LV V1 max P.9 mmHg MR max sumanth: 477.8 cm/sec LV V1 mean P.7 mmHg MR max P.3 mmHg LV V1 max: 110.4 cm/sec LV V1 mean: 77.7 cm/sec LV V1 VTI: 21.6 cm TV V2 max: 366.5 cm/sec TR max sumanth: 307.9 cm/sec TV max P.7 mmHg TR max P.3 mmHg TV V2 mean: 262.1 cm/sec TV mean P.8 mmHg TV V2 VTI: 118.1 cm Med Peak E' Sumanth: 4.0 cm/sec Med E/e': 21.5 Lat Peak E' Sumanth: 3.8 cm/sec Lat E/e': 22.6 Procedure A complete two-dimensional transthoracic echocardiogram was performed (2D, M-mode, Doppler and color flow Doppler). Left Ventricle The left ventricular size, thickness and function are normal. The left ventricular ejection fraction is normal. Ejection Fraction = 60-65%. Left Ventricular Filling pattern is normal for age. Right Ventricle The right ventricle is normal in size and function. Atria The left atrium is mildly dilated. Right atrial size is normal. Mitral Valve There is no mitral regurgitation noted. Tricuspid Valve There is moderate tricuspid regurgitation. There is mild pulmonary hypertension. Aortic Valve The aortic valve is trileaflet. No hemodynamically significant valvular aortic stenosis. No aortic regurgitation is present. Pulmonic Valve There is no pulmonic valvular regurgitation. Great Vessels The aortic root is normal size. Pericardium/Pleura There is no pericardial effusion. Interpretation Summary The left ventricular size, thickness and function are normal. The right ventricle is normal in size and function. The left atrium is mildly dilated. There is moderate tricuspid regurgitation. There is mild pulmonary hypertension. MD Puneet Matta 11/29/2017 01:17 PM
[2017-11-29] MEDS ORDERED: GABAPENTIN 300 MG CAPSULE (FP) PO SCH (14:00)
--- NOTE | 2017-11-29 17:25 | PN ---
Progress Note, Physician Chief Complaint: right arm paresthesias/numnbness History of Present Illness: right arm paresthesias and numbness persist without change. Whole arm, no radicular pattern. No obvious source on ct. - Current Medication List Current Medications: Active Medications Amlodipine Besylate (Norvasc -) 10 mg PO DAILY [facility] Last Admin: 11/29/17 11:54 Dose: 10 mg Atorvastatin Calcium (Lipitor -) 10 mg PO HS MIKE Donepezil HCl (Aricept -) 10 mg PO HS [facility] Heparin Sodium (Porcine) (Heparin -) 5,000 unit SQ BID [facility] Last Admin: 11/29/17 11:56 Dose: 5,000 unit Hydralazine HCl (Apresoline -) 25 mg PO BID [facility] Last Admin: 11/29/17 11:56 Dose: 25 mg Hydroxychloroquine Sulfate (Plaquenil -) 400 mg PO DAILY [facility] Last Admin: 11/29/17 11:55 Dose: 400 mg Insulin Aspart (Novolog Vial Sliding Scale -) 1 vial SQ [facility]; Protocol Last Admin: 11/29/17 11:00 Dose: Not Given Labetalol HCl (Normodyne -) 200 mg PO BID [facility] Last Admin: 11/29/17 11:55 Dose: 200 mg Levetiracetam (Keppra -) 125 mg PO BID [facility] Last Admin: 11/29/17 11:55 Dose: 125 mg Lisinopril (Prinivil) 2.5 mg PO DAILY [facility] Last Admin: 11/29/17 11:55 Dose: 2.5 mg Warfarin Sodium (Coumadin -) 5 mg PO ONCE@1800 ONE Stop: 11/29/17 18:01 - Objective Vital Signs: Vital Signs Temperature 98.4 F 11/29/17 09:14 Pulse Rate 68 11/29/17 09:14 Respiratory Rate 18 11/29/17 09:14 Blood Pressure 150/63 11/29/17 09:14 O2 Sat by Pulse Oximetry (%) 95 11/29/17 09:14 Neurological: Yes: Numbness (right arm, entirety), Tingling ...Motor Strength: WNL Labs: CBC, BMP 11/28/17 22:44 11/28/17 21:07 INR, PTT INR 1.60 (0.82-1.09) H 11/28/17 22:44 - ....Imaging Cat Scan: Report Reviewed, Image Reviewed (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 Await MRI brain ordered by Dr. Holland.
[2017-11-29] MEDS ORDERED: WARFARIN NA 5 MG TABLET (UD) PO ONE ×2 (18:00)
[2017-11-29] MEDS ORDERED: ATORVASTATIN CA 10 MG TABLET (FP) PO SCH (22:00)
[2017-11-29] MEDS ORDERED: DONEPEZIL HCL 10 MG TABLET (FP) PO SCH (22:00)
[2017-11-30] MEDS: INSULIN SLIDING SCALE (NOVOLOG) 1 VIAL SQ SCH (05:59)
[2017-11-30 07:19] LABS: INR 1.58 (0.82-1.09); PROTHROMBIN TIME (PATIENT) 17.9 SEC (9.7-13.0)
[2017-11-30] MEDS ORDERED: PT OWN MED DRAWER 7, Y5N ONE (08:37)
[2017-11-30] MEDS ORDERED: ACETAMINOPHEN 325 MG TABLET (FP) PO PRN (08:48)
[2017-11-30] MEDS: levETIRAcetam 250 MG TABLET (FP) PO SCH (09:26)
[2017-11-30] MEDS: LABETALOL HCL 200 MG TABLET (FP) PO SCH (09:26)
[2017-11-30] MEDS: LISINOPRIL 5 MG TABLET (FP) PO SCH (09:26)
[2017-11-30] MEDS: HYDROXYCHLOROQUINE SO4 200 MG TABLET (FP) PO SCH (09:26)
[2017-11-30] MEDS: HEPARIN NA (PORCINE) 5,000 UNITS/ML 1ML VIAL SQ SCH (09:27)
[2017-11-30] MEDS: hydrALAZINE HCL 25 MG TABLET (FP) PO SCH (09:27)
[2017-11-30] MEDS: amLODIPine BESYLATE 10 MG TABLET (FP) PO SCH (09:27)
[2017-11-30] MEDS ORDERED: ACETAMINOPHEN 500 MG TABLET (FP) PO PRN (09:34)
--- NOTE | 2017-11-30 09:58 | PN ---
Progress Note, Physician Chief Complaint: LEft shoulder and arm pain and left upper extremity paresthesias History of Present Illness: 87 yo female admitted for left upper extremity pain and paresthesias. Because her admission complaints were mostly of weakness and paresthesias acute CVA was ruled out. - Current Medication List Current Medications: Active Medications Acetaminophen (Tylenol -) 650 mg PO Q6H PRN PRN Reason: MODERATE PAIN Acetaminophen (Tylenol -) 1,000 mg PO Q8H PRN PRN Reason: PAIN Amlodipine Besylate (Norvasc -) 10 mg PO DAILY [facility] Last Admin: 11/30/17 09:27 Dose: 10 mg Amlodipine Besylate (Norvasc -) 10 mg PO DAILY [facility] Atorvastatin Calcium (Lipitor -) 10 mg PO HS [facility] Last Admin: 11/29/17 21:53 Dose: 10 mg Donepezil HCl (Aricept -) 10 mg PO HS [facility] Last Admin: 11/29/17 21:54 Dose: 10 mg Donepezil HCl (Aricept -) 10 mg PO DAILY [facility] Heparin Sodium (Porcine) (Heparin -) 5,000 unit SQ BID [facility] Last Admin: 11/30/17 09:27 Dose: 5,000 unit Hydralazine HCl (Apresoline -) 25 mg PO BID [facility] Last Admin: 11/30/17 09:27 Dose: 25 mg Hydralazine HCl (Apresoline -) 25 mg PO BID [facility] Hydroxychloroquine Sulfate (Plaquenil -) 400 mg PO DAILY [facility] Last Admin: 11/30/17 09:26 Dose: 400 mg Hydroxychloroquine Sulfate (Plaquenil -) 400 mg PO Q2D [facility] Hydroxychloroquine Sulfate (Plaquenil -) 600 mg PO Q2D [facility] Insulin Aspart (Novolog Vial Sliding Scale -) 1 vial SQ [facility]; Protocol Last Admin: 11/30/17 05:59 Dose: Not Given Labetalol HCl (Normodyne -) 200 mg PO BID [facility] Last Admin: 11/30/17 09:26 Dose: 200 mg Labetalol HCl (Normodyne -) 200 mg PO BID [facility] Levetiracetam (Keppra -) 125 mg PO BID [facility] Last Admin: 11/30/17 09:26 Dose: 125 mg Levetiracetam (Keppra -) 125 mg PO BID [facility] Lisinopril (Prinivil) 2.5 mg PO DAILY [facility] Last Admin: 11/30/17 09:26 Dose: 2.5 mg Non-Formulary Medication (Ascorbic Acid [C-500]) 500 mg PO DAILY [facility] Non-Formulary Medication (Cholecalciferol (Vitamin D3) [Vitamin D3]) 4,000 unit PO DAILY [facility] Non-Formulary Medication (Ferrous Sulfate [Ferrous Sulfate]) 325 mg PO DAILY [facility] Non-Formulary Medication (Insulin Glargine,Hum.Rec.Anlog) 4 units SQ DAILY@ 0800 [facility] Non-Formulary Medication (Lisinopril [Zestril]) 2.5 mg PO DAILY [facility] Non-Formulary Medication (Simvastatin [Simvastatin]) 10 mg PO DAILY [facility] Spironolactone (Aldactone -) 25 mg PO DAILY [facility] Torsemide (Demadex -) 10 mg PO DAILY [facility] Torsemide (Demadex -) 10 mg PO DAILY [facility] Warfarin Sodium (Coumadin -) 3 mg PO DAILY [facility] - Objective Vital Signs: Vital Signs Temperature 98.2 F 11/30/17 06:00 Pulse Rate 69 11/30/17 06:00 Respiratory Rate 18 11/30/17 06:00 Blood Pressure 134/45 11/30/17 06:00 O2 Sat by Pulse Oximetry (%) 95 11/30/17 01:00 Constitutional: Yes: No Distress, Calm Eyes: Yes: Conjunctiva Clear, EOM Intact HENT: Yes: Atraumatic, Normocephalic Neck: Yes: Supple, Trachea Midline Cardiovascular: Yes: Regular Rate and Rhythm, S1, S2 Respiratory: Yes: Regular, CTA Bilaterally Gastrointestinal: Yes: Normal Bowel Sounds, Soft, Abdomen, Obese. No: Hepatomegaly, Melena, Splenomegaly ...Rectal Exam: Yes: Deferred Breast(s): Yes: WNL Extremities: Yes: Other (pain to mobilization of the left upper extremity). No : Calf Tenderness Edema: No Peripheral Pulses: Left Radial: 2+, Right Radial: 2+ Integumentary: Yes: WNL Neurological: Yes: Alert, Oriented Psychiatric: Yes: Alert, Oriented Labs: CBC, BMP 11/28/17 22:44 11/28/17 21:07 INR, PTT INR 1.58 (0.82-1.09) H 11/30/17 05:30 - ....Imaging MRI: Other (no acuitye intracranial process, empty sella) Problem List - Problems (1) Radiculitis of left cervical region Assessment/Plan: acute cerebrovascula event ruled out, normal MRI of the brain Ct scan of the brain showed no acute changes 3 days after symptoms started, MRI of the brain was negative for acute changes carotid Doppler, Echo cardiogram showed no carotid stenosis and respectively no intracardiac thrombus the patient is monitored in the telemetry unit, and no arrhythmias were recorded until now Code(s): M54.12 - RADICULOPATHY, CERVICAL REGION (2) Rheumatoid arthritis Assessment/Plan: with changes of RA and OA in the cervical spine area or left shoulder MRI of the left shoulder PT /OT as outpatient discharge home today Code(s): M06.9 - RHEUMATOID ARTHRITIS, UNSPECIFIED Qualifiers: Rheumatoid arthritis location: multiple sites Rheumatoid factor presence: with rheumatoid factor Qualified Code(s): M05.79 - Rheumatoid arthritis with rheumatoid factor of multiple sites without organ or systems involvement (3) IDDM (insulin dependent diabetes mellitus) Assessment/Plan: continue accuchecks AC and HS with regular insulin coverage recommend LAntus 4 units daily continue accuchescks Code(s): E11.9 - TYPE 2 DIABETES MELLITUS WITHOUT COMPLICATIONS; Z79.4 - PRISON (CURRENT) USE OF INSULIN (4) Anemia Assessment/Plan: chronic anemia probably a combination of iron deficit due to decreased po intake and and possble chronic loss continue iron supplements Code(s): D64.9 - ANEMIA, UNSPECIFIED Qualifiers: Anemia type: iron deficiency Iron deficiency anemia type: chronic blood loss Qualified Code(s): D50.0 - Iron deficiency anemia secondary to blood loss (chronic) (5) H/O deep venous thrombosis Assessment/Plan: continue Coumadin,po, 5 mg tonight the patient is scheduled for an endoscopy next week and she will put on hold her Coumadin tomorrow Code(s): Z86.718 - PERSONAL HISTORY OF OTHER VENOUS THROMBOSIS AND EMBOLISM (6) HTN (hypertension) Assessment/Plan: blood pressure is controlled n the current medications Code(s): I10 - ESSENTIAL (PRIMARY) HYPERTENSION Qualifiers: Hypertension type: essential hypertension Qualified Code(s): I10 - Essential (primary) hypertension Assessment/Plan 87 yo female, admitted for left shoulder paresthesias ruled out acute cVA. She will be discharged home with OT/ PT and recommendation for a follow up MRI and orthopedy follow up.
[2017-11-30] MEDS ORDERED: PATIENT'S OWN MEDICATION (NON-FORMULARY) (Lisinopril [Zestril] 2.5 MG) PO SCH (10:00)
[2017-11-30] MEDS ORDERED: TORSEMIDE 10 MG TABLET PO SCH ×2 (10:00)
[2017-11-30] MEDS ORDERED: PATIENT'S OWN MEDICATION (NON-FORMULARY) (Simvastatin [Simvastatin] 10 MG) PO SCH (10:00)
[2017-11-30] MEDS ORDERED: HYDROXYCHLOROQUINE SO4 200 MG TABLET (FP) PO SCH ×2 (10:00)
[2017-11-30] MEDS ORDERED: levETIRAcetam 250 MG TABLET (FP) PO SCH (10:00)
[2017-11-30] MEDS ORDERED: SPIRONOLACTONE 25 MG TABLET (FP) PO SCH (10:00)
[2017-11-30] MEDS ORDERED: CHOLECALCIFEROL (VITAMIN D3) 1,000 UNIT TABLET (FP) PO SCH (10:00)
[2017-11-30] MEDS ORDERED: amLODIPine BESYLATE 10 MG TABLET (FP) PO SCH (10:00)
[2017-11-30] MEDS ORDERED: LABETALOL HCL 200 MG TABLET (FP) PO SCH (10:00)
[2017-11-30] MEDS ORDERED: DONEPEZIL HCL 10 MG TABLET (FP) PO SCH (10:00)
--- NOTE | 2017-11-30 10:13 | DS ---
Physical Examination Vital Signs: Vital Signs Temperature 98.2 F 11/30/17 06:00 Pulse Rate 69 11/30/17 06:00 Respiratory Rate 18 11/30/17 06:00 Blood Pressure 134/45 11/30/17 06:00 O2 Sat by Pulse Oximetry (%) 95 11/30/17 01:00 Constitutional: Yes: No Distress, Calm Eyes: Yes: Conjunctiva Clear, EOM Intact HENT: Yes: Atraumatic, Normocephalic Neck: Yes: Supple, Trachea Midline Cardiovascular: Yes: Regular Rate and Rhythm, S1, S2 Respiratory: Yes: Regular, CTA Bilaterally Gastrointestinal: Yes: Normal Bowel Sounds, Soft, Abdomen, Obese. No: Hepatomegaly, Melena, Splenomegaly ...Rectal Exam: Yes: Deferred Musculoskeletal: Yes: Joint Stiffness (left shoudler) Edema: No Peripheral Pulses WNL: Yes Neurological: Yes: Alert, Oriented, Numbness (left upper extremity) Psychiatric: Yes: Alert, Oriented Labs: CBC, BMP 11/28/17 22:44 11/28/17 21:07 Discharge Summary Reason For Visit: PARESTHESIA Current Active Problems Numbness and tingling in left arm (Acute) Paresthesia of left arm (Acute) Radiculitis of left cervical region (Acute) Condition: Fair - Instructions Referrals: Michelle Jerry MD [Primary Care Provider] - Disposition: HOME - Home Medications Comprehensive Discharge Medication List: Ambulatory Orders Cholecalciferol (Vitamin D3) [Vitamin D3] 4,000 unit PO DAILY 06/20/16 Ferrous Sulfate 325 mg PO DAILY 06/20/16 Hydroxychloroquine Sulfate 400 mg PO Q2D 06/20/16 hydrALAZINE HCL [Apresoline -] 25 mg PO BID 06/20/16 Labetalol HCl 200 mg PO BID tablet 09/07/16 Simvastatin 10 mg PO DAILY tablet 09/07/16 Insulin Glargine,Hum.rec.anlog [Lantus Solostar PEN -] 0 units SQ BIDAC PRN Prednisone 5 mg PO DAILY PRN 03/19/17 levETIRAcetam [Keppra -] 125 mg PO BID 03/19/17 Acetaminophen [Tylenol -] 1,000 mg PO Q8H PRN 11/29/17 Ascorbic Acid [C-500] 500 mg PO DAILY 11/29/17 Hydroxychloroquine Sulfate 600 mg PO Q2D 11/29/17 Lisinopril [Zestril] 2.5 mg PO DAILY 11/29/17 Spironolactone 25 mg PO DAILY 11/29/17 Torsemide [Demadex] 10 mg PO DAILY 11/29/17 Tramadol HCl 50 mg PO TID PRN 11/29/17 Warfarin Sodium 3 mg PO DAILY 11/29/17 Warfarin Sodium [Coumadin] 1.5 mg PO WEEKLY 11/29/17
[2017-11-30 10:19] VITALS: BP 147/70; PULSE 66; TEMP 97.8
[2017-11-30] MEDS ORDERED: hydrALAZINE HCL 25 MG TABLET (FP) PO SCH (11:15)
[2017-11-30] MEDS ORDERED: ASCORBIC ACID 500 MG TABLET (FP) PO SCH (11:30)
[2017-11-30] MEDS ORDERED: FERROUS SO4 325 MG TABLET (FP) PO SCH (11:30)
[2017-11-30] MEDS ORDERED: WARFARIN NA 3 MG TABLET PO SCH (18:00)
[2017-12-01] MEDS ORDERED: INSULIN (LEVEMIR) 100 UNITS/ML UNITS SQ SCH (08:00)
== END 2017-11-30 11:37 | disposition home or self-care (01) ==
LOC: JER 18:01 → JERBED 21:49 → UNDOADMOB 11-29 01:33 → JERBED 11-29 01:33 → J4S 11-29 03:30
PROVIDERS: ADMIT Internal Medicine; ATTEND Internal Medicine
PROC: 3E03329 Introduction of Other Anti-infective into Peripheral Vein, Percutaneous Approach (ICD-10-PCS; principal; 2017-11-28)
PROC: 3E013GC Introduction of Other Therapeutic Substance into Subcutaneous Tissue, Percutaneous Approach (ICD-10-PCS; 2017-11-28)
DX: R20.2 Paresthesia of skin (principal); R20.0 Anesthesia of skin; I10 Essential (primary) hypertension; I25.2 Old myocardial infarction; I50.9 Heart failure, unspecified; E11.9 Type 2 diabetes mellitus without complications; E78.5 Hyperlipidemia, unspecified; D50.0 Iron deficiency anemia secondary to blood loss (chronic); M05.79 Rheumatoid arthritis with rheumatoid factor of multiple sites without organ or systems involvement; F03.90 Unspecified dementia, unspecified severity, without behavioral disturbance, psychotic disturbance, mood disturbance, and anxiety; M54.12 Radiculopathy, cervical region; Z86.718 Personal history of other venous thrombosis and embolism; Z86.69 Personal history of other diseases of the nervous system and sense organs; Z79.4 Long term (current) use of insulin; Z88.5 Allergy status to narcotic agent; Z79.01 Long term (current) use of anticoagulants; Z96.653 Presence of artificial knee joint, bilateral
CPT/HCPCS: 36415; 70450-TC; 70551-TC; 72125-TC; 73030-TC-LT-FY; 80053; 81003; 81015; 82550; 82962; 84484; 85025; 85610; 85730; 93005; 93010; 93306-TC; 93880-TC; 96365; 96372; 97116-GP; 97161-GP; 99282-25; G0378; J1644

== ENCOUNTER 2017-12-06 06:55 | Day surgery (SDC) | payer OTHER, MEDICARE ==
[2017-12-06] MEDS ORDERED: LIDOCAINE HCL 2% (20ML MULTI-DOSE VIAL) NR ONE (07:52)
[2017-12-06] MEDS ORDERED: PROPOFOL 20 ML ONE (07:52)
[2017-12-06 08:00] VITALS: BMI 31.2
--- NOTE | 2017-12-06 08:30 | PROC ---
Endoscopy Procedure Endoscopy procedure completed. Please see scanned procedure report.
[2017-12-06 09:14] VITALS: BP 137/54
[2017-12-06 15:59] VITALS: PULSE 61; TEMP 98
--- NOTE | 2017-12-07 18:34 | PATH ---
Surgical Pathology Report Patient Name: RICHARD GUILLEN [facility]. Rec. #: [id number] /Age/Gender: 1930 (Age: 87) / F Account: [id number] Location: U-ENDOSCOPY Taken: 12/06/2017 Received: 12/06/2017 Reported: 12/07/2017 Physicians: Kirby Acosta M.D. 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 Electronically Signed David Hernández M.D. Gross Description Received in formalin, labeled "biopsy duodenal polyp" are 4 pérez, irregular portions of soft tissue ranging from 0.1-0.4 cm. in greatest dimension. The specimens are submitted in toto in one cassette. /12/06/2017 saudi/12/06/2017
== END 2017-12-06 10:30 | disposition home or self-care (01) ==
LOC: JASU-ENDO 06:55
PROVIDERS: ATTEND Internal Medicine Gastroenterology
PROC: 0DB98ZX Excision of Duodenum, Via Natural or Artificial Opening Endoscopic, Diagnostic (ICD-10-PCS; principal; 2017-12-06 08:00)
DX: Z13.810 Encounter for screening for upper gastrointestinal disorder (principal); K29.80 Duodenitis without bleeding; K31.89 Other diseases of stomach and duodenum; K31.7 Polyp of stomach and duodenum; I10 Essential (primary) hypertension; E78.5 Hyperlipidemia, unspecified; I48.91 Unspecified atrial fibrillation; Z90.710 Acquired absence of both cervix and uterus
CPT/HCPCS: 82962; 88305-TC

== ENCOUNTER 2017-12-21 22:21 | Inpatient (IN) | payer OTHER, MEDICARE ==
--- NOTE | 2017-12-21 22:37 | PDOC ---
History of Present Illness - General History Source: Patient Exam Limitations: No Limitations - History of Present Illness Initial Comments: 12/21/17 23:45 The patient is a 87 year old female, with a significant past medical history of mentia, hypertension, hyperlipidemia, arthritis, diabetes, CHF, [place] (1994), DVT( was on Coumadin until yesterday changing to Eliquis), spinal stenosis,chronic bilateral lower extremity edema and left kidney mass, who presents to the emergency department with, 2 weeks of left lower quadrant pain and diarrhea. She reports 5-8 episodes of brown, loose, nonbloody stool. She describes her pain as a constant soreness which is relieved after bowel movements. As per patient, her PCP, Dr. Jerry, advised her to report to the ED for imaging. She denies recent fevers, chills, headache or dizziness. She denies recent nausea, vomit, or constipation. She denies recent dysuria, frequency, urgency or hematuria. She denies recent chest pain or shortness of breath. Allergies: Codeine Past surgical history: Bilateral knee replacement. Hysterectomy. Social history: Nonsmoker. Denies EtOH use and recreational drug use. Primary Care Physician: Dr. Jerry Fleet Director: Dr. Schofield <Rosa Marinelli - Last Filed: 12/22/17 00:08> <Alma Mayers - Last Filed: 12/22/17 20:05> - General Chief Complaint: Pain Stated Complaint: PCP SENT Time Seen by Provider: 12/21/17 22:37 Past History <Rosa Marinelli - Last Filed: 12/22/17 00:08> - Past Medical History Anemia: Yes Cardiac Disorders: Yes ([place], heart murmur, DVT,A.FIBRILLATION) COPD: No CHF: Yes Dementia: Yes Diabetes: Yes GI Disorders: Yes (AVM, GASTRIC ULCER) Disorders: Yes (UTI) HTN: Yes Hypercholesterolemia: Yes - Surgical History Orthopedic Surgery: Yes (bilateral knee replacement) - Suicide/Smoking/Psychosocial Hx Smoking History: Former smoker Have you smoked in the past 12 months: No If you are a former smoker, when did you quit?: 2007 Information on smoking cessation initiated: No Hx Alcohol Use: No Drug/Substance Use Hx: No Substance Use Type: None Hx Substance Use Treatment: No <Alma Mayers - Last Filed: 12/22/17 20:05> - Past Medical History Allergies/Adverse Reactions: Allergies Allergy/AdvReac Type Severity Reaction Status Date / Time codeine Allergy Verified 12/21/17 22:22 Home Medications: Ambulatory Orders Cholecalciferol (Vitamin D3) [Vitamin D3] 4,000 unit PO DAILY 06/20/16 hydrALAZINE HCL [Apresoline -] 25 mg PO BID 06/20/16 Labetalol HCl 200 mg PO BID tablet 09/07/16 Simvastatin 10 mg PO DAILY tablet 09/07/16 levETIRAcetam [Keppra -] 125 mg PO BID 03/19/17 Acetaminophen [Tylenol .Extra-Strength -] 1,000 mg PO Q8H PRN 11/29/17 Hydroxychloroquine Sulfate 600 mg PO Q2D 11/29/17 Lisinopril [Zestril] 2.5 mg PO DAILY 11/29/17 Torsemide [Demadex -] 10 mg PO DAILY tablet 11/30/17 Amlodipine Besylate [Norvasc -] 10 mg PO DAILY 12/22/17 Ferrous Sulfate 325 mg PO AM 12/22/17 Glipizide [Glipizide ER] 2.5 mg PO BID 12/22/17 Hydroxychloroquine Sulfate 400 mg PO Q2D 12/22/17 Prednisone 5 mg PO PRN 12/22/17 Spironolactone 25 mg PO DAILY 12/22/17 Tramadol HCl 50 mg PO TID PRN 12/22/17 Review of Systems - Review of Systems Able to Perform ROS?: Yes Comments:: 12/21/17 23:45 GENERAL/CONSTITUTIONAL: No fever or chills. No weakness. HEAD, EYES, EARS, NOSE AND THROAT: No change in vision. No ear pain or discharge. No sore throat. CARDIOVASCULAR: No chest pain or shortness of breath. RESPIRATORY: No cough, wheezing, or hemoptysis. +GASTROINTESTINAL: Diarrhea. Left, lower quadrant abdominal pain.No nausea, vomiting, or constipation. GENITOURINARY: No dysuria, frequency, or change in urination. MUSCULOSKELETAL: No joint or muscle swelling or pain. No neck or back pain. SKIN: No rash NEUROLOGIC: No headache, vertigo, loss of consciousness, or change in strength/ sensation. ENDOCRINE: No increased thirst. No abnormal weight change. HEMATOLOGIC/LYMPHATIC: No anemia, easy bleeding, or history of blood clots. ALLERGIC/IMMUNOLOGIC: No hives or skin allergy. All Other Systems: Reviewed and Negative <Rosa Marinelli - Last Filed: 12/22/17 00:08> *Physical Exam - Vital Signs Last Vital Signs Temp Pulse Resp BP Pulse Ox 98.7 F 65 18 136/55 100 12/21/17 22:22 12/21/17 22:22 12/21/17 22:22 12/21/17 22:22 12/21/17 22:22 - Physical Exam Comments: 12/22/17 00:08 GENERAL: Awake, alert, and fully oriented, in no acute distress HEAD: No signs of trauma EYES: PERRLA, EOMI, sclera anicteric, conjunctiva clear ENT: Auricles normal inspection, hearing grossly normal, nares patent, oropharynx clear without exudates. Moist mucosa NECK: Normal ROM, supple, no lymphadenopathy, JVD, or masses LUNGS: Breath sounds equal, clear to auscultation bilaterally. No wheezes, and no crackles HEART: Regular rate and rhythm, normal S1 and S2, no murmurs, rubs or gallops +ABDOMEN: LUQ tenderness. Soft, normoactive bowel sounds. No guarding, no rebound. No masses EXTREMITIES: Normal range of motion, no edema. No clubbing or cyanosis. No cords, erythema, or tenderness NEUROLOGICAL: Cranial nerves II through XII grossly intact. Normal speech, normal gait SKIN: Warm, Dry, normal turgor, no rashes or lesions noted. <Rosa Marinelli - Last Filed: 12/22/17 00:08> - Vital Signs Last Vital Signs Temp Pulse Resp BP Pulse Ox 98.7 F 65 18 136/55 100 12/21/17 22:22 12/21/17 22:22 12/21/17 22:22 12/21/17 22:22 12/21/17 22:22 <Alma Mayers - Last Filed: 12/22/17 20:05> ED Treatment Course - LABORATORY CBC & Chemistry Diagram: 12/21/17 23:57 12/21/17 23:57 <Alma Mayers - Last Filed: 12/22/17 20:05> Medical Decision Making - Medical Decision Making 12/22/17 04:48 Pt was to go to CT @2:30; currently 4:30 and I am still awaiting CT scan to happen. 12/22/17 04:55 Pt was sent to the ER by her PMD Dr. Jerry for admission and imaging, as pt has 2 weeks of diarrhea and resulting weight loss and 12/22/17 05:57 Patient Name: RICHARD GUILLEN THIS IS A PRELIMINARY REPORT FROM [facility] DATE OF SERVICE: 2017-12-22 05:02:52 IMAGES: [id number] EXAM: CT ABDOMEN \T\ PELVIS CT W/O CONTR HISTORY: Concern for colitis COMPARISON: None. FINDINGS: Abdomen Liver: Normal Spleen: Normal Pancreas: Normal Gallbladder: Normal Stomach: Normal Small bowel: Some segments of left lower quadrant small bowel appear mildly thickened without pneumatosis or obstruction Large bowel: Some segments of sigmoid colon are subtly thickened without pneumatosis or obstruction Appendix: Normal Adrenals:Normal Kidneys: Normal Vascular: There are moderate atherosclerotic changes in the abdominal aorta Lymphatic: Normal Peritoneal: No free peritoneal air or fluid Pelvis: Uterus: normal Rectum: Normal Bladder: Normal The inferior thorax: Normal General: Skeletal: Normal Abdominal wall: Normal IMPRESSION: Nonspecific enterocolitis Individualized dose optimization techniques were used for this CT. THIS DOCUMENT HAS BEEN ELECTRONICALLY SIGNED 12/22/17 20:04 I spoke to PMD Rosalino who accepts the admission. <Alma Mayers - Last Filed: 12/22/17 20:05> *DC/Admit/Observation/Transfer - Attestations Scribe Attestion: 12/21/17 23:46 Documentation prepared by Rosa Marinelli, acting as medical and scientific illustrator for Alma Mayers MD. <Rosa Marinelli - Last Filed: 12/22/17 00:08> - Discharge Dispostion Decision to Admit order: Yes <Alma Mayers - Last Filed: 12/22/17 20:05> Diagnosis at time of Disposition: Colitis, Weight loss, Intractable diarrhea - Discharge Dispostion Condition at time of disposition: Guarded
[2017-12-22 00:42] LABS: BASO % 0.8 % (0-2.0); HEMATOCRIT 26.2 % (32.4-45.2); HEMOGLOBIN 8.2 GM/dL (10.7-15.3); LYMPH % 27.4 % (8-40); MCH 23.7 pg (25.7-33.7); MCHC 31.3 g/dl (32.0-36.0); MEAN CELL VOLUME 75.7 fl (80-96); MEAN PLT VOLUME 8.2 fl (7.5-11.1); MONO % 9.2 % (3.8-10.2); NEUT % 62.6 % (42.8-82.8); PLATELET COUNT 246 K/MM3 (134-434); RBC 3.46 M/mm3 (3.60-5.2); RDW 17.7 % (11.6-15.6); WHITE BLOOD COUNT 6.4 K/mm3 (4.0-10.0)
[2017-12-22 00:44] LABS: URINE APPEARANCE CLEAR; URINE BILIRUBIN NEGATIVE (<2.0 mg/dL); URINE COLOR LTYELLOW; URINE GLUCOSE (UA) NEGATIVE (NEGATIVE); URINE KETONE NEGATIVE (NEGATIVE); URINE LEUK ESTERASE NEGATIVE (NEGATIVE); URINE NITRITE NEGATIVE (NEGATIVE); URINE PROTEIN NEGATIVE (NEGATIVE); URINE UROBILINOGEN NEGATIVE mg/dL (0.2-1.0)
[2017-12-22 01:04] LABS: ALBUMIN 3.2 g/dl (3.4-5.0); ALK PHOS 91 U/L (45-117); ANION GAP 8 (8-16); BILIRUBIN,TOTAL 0.2 mg/dL (0.2-1.0); BLOOD UREA NITROGEN 39 mg/dL (7-18); CALCIUM 8.3 mg/dL (8.5-10.1); CHLORIDE 112 mmol/L (98-107); CO2 23 mmol/L (21-32); CREATININE 1.9 mg/dL (0.55-1.02); GLUCOSE,RANDOM 254 mg/dL (74-106); POTASSIUM 4.2 mmol/L (3.5-5.1); SGOT/AST 26 U/L (15-37); SGPT/ALT 20 U/L (12-78); SODIUM 143 mmol/L (136-145); TOT PROT 6.1 g/dl (6.4-8.2)
[2017-12-22 01:15] LABS: INR 2.81 (0.83-1.09); PROTHROMBIN TIME (PATIENT) 31.7 SEC (9.7-13.0)
[2017-12-22] MEDS ORDERED: LABETALOL HCL 200 MG TABLET (FP) PO ONE (07:35)
[2017-12-22] MEDS ORDERED: LISINOPRIL 5 MG TABLET (FP) PO ONE (07:35)
[2017-12-22] MEDS ORDERED: LISINOPRIL 5 MG TABLET (FP) ONE (07:37)
[2017-12-22] MEDS ORDERED: LABETALOL HCL 100 MG TABLET (FP) ONE (07:38)
[2017-12-22] MEDS ORDERED: D5-1/2NS+10 MEQ KCL - 10 MEQ/1,000 ML INFUS.BAG IV SCH (08:45)
[2017-12-22] MEDS ORDERED: HYDROXYCHLOROQUINE SO4 200 MG TABLET (FP) PO SCH ×2 (10:00)
[2017-12-22] MEDS ORDERED: INSULIN REGULAR HUMAN 100 UNITS/ML *VIAL ONE ×2 (11:04→11:09)
[2017-12-22] MEDS: INSULIN SLIDING SCALE (NOVOLOG) 1 VIAL SQ SCH ×3 (11:10→21:25)
[2017-12-22] MEDS: hydrALAZINE HCL 25 MG TABLET (FP) PO SCH ×2 (11:48→21:18)
[2017-12-22] MEDS: HYDROXYCHLOROQUINE SO4 200 MG TABLET (FP) PO SCH (11:48)
--- NOTE | 2017-12-22 17:58 | HP ---
Admitting History and Physical - Admission Chief Complaint: intractable diarrhea for 1 month History of Present Illness: 87 yo female living alone at home, was brought by daughter for diarrhea which did not which did not improve with diet. The patient's medications have been changed recently and it was thought that the diarrhea was due to these changes. There is no fever and no abdominal cramps , The stool did not change in color , there are no mucosities or blood in the stool. History Source: Patient, Family Member Limitations to Obtaining History: No Limitations - Past Medical History Cardiovascular: Yes: CHF, Deep Vein Thrombosis, HTN, Hyperlipdemia ...: No Heme/Onc: Yes: Anemia. No: Bleeding Disorder Rheumatology: Yes: Rheumatoid Arthritis Endocrine: Yes: Diabetes Mellitus - Advance Directives Advance Directives: Yes: Health Care Proxy - Smoking History Smoking history: Former smoker Have you smoked in the past 12 months: No If you are a former smoker, when did you quit?: 2007 - Alcohol/Substance Use Hx Alcohol Use: No - Social History ADL: Family Assistance Home Medications - Allergies Allergies/Adverse Reactions: Allergies Allergy/AdvReac Type Severity Reaction Status Date / Time codeine Allergy Verified 12/21/17 22:22 - Home Medications Home Medications: Ambulatory Orders Cholecalciferol (Vitamin D3) [Vitamin D3] 4,000 unit PO DAILY 06/20/16 hydrALAZINE HCL [Apresoline -] 25 mg PO BID 06/20/16 Labetalol HCl 200 mg PO BID tablet 09/07/16 Simvastatin 10 mg PO DAILY tablet 09/07/16 levETIRAcetam [Keppra -] 125 mg PO BID 03/19/17 Acetaminophen [Tylenol .Extra-Strength -] 1,000 mg PO Q8H PRN 11/29/17 Hydroxychloroquine Sulfate 600 mg PO Q2D 11/29/17 Lisinopril [Zestril] 2.5 mg PO DAILY 11/29/17 Torsemide [Demadex -] 10 mg PO DAILY tablet 11/30/17 Amlodipine Besylate [Norvasc -] 10 mg PO DAILY 12/22/17 Ferrous Sulfate 325 mg PO AM 12/22/17 Glipizide [Glipizide ER] 2.5 mg PO BID 12/22/17 Hydroxychloroquine Sulfate 400 mg PO Q2D 12/22/17 Prednisone 5 mg PO PRN 12/22/17 Spironolactone 25 mg PO DAILY 12/22/17 Tramadol HCl 50 mg PO TID PRN 12/22/17 Review of Systems - Review of Systems Constitutional: reports: Lethargy, Unintentional Wgt. Loss, Weakness. denies: Loss of Appetite Eyes: reports: No Symptoms HENT: reports: No Symptoms Neck: reports: No Symptoms Cardiovascular: reports: No Symptoms Gastrointestinal: reports: Diarrhea. denies: Abdominal Pain, Nausea, Rectal Bleeding, Vomiting Breasts: reports: No Symptoms Reported Physical Examination Vital Signs: Vital Signs Temperature 98.0 F 12/22/17 15:05 Pulse Rate 58 L 12/22/17 15:05 Respiratory Rate 16 12/22/17 15:05 Blood Pressure 147/56 12/22/17 15:05 O2 Sat by Pulse Oximetry (%) 100 12/22/17 15:31 Constitutional: Yes: Calm Eyes: Yes: Conjunctiva Clear, EOM Intact HENT: Yes: Atraumatic, Normocephalic Neck: Yes: Supple, Trachea Midline Cardiovascular: Yes: Regular Rate and Rhythm, S1, S2 Respiratory: Yes: Regular, CTA Bilaterally Gastrointestinal: Yes: Normal Bowel Sounds, Soft, Abdomen, Obese, Tenderness ( in zhen left lower quadrant and left upper quadrant). No: Hepatomegaly, Melena, Palpable Mass, Splenomegaly Musculoskeletal: No: Joint Stiffness Extremities: No: Calf Tenderness Edema: No Peripheral Pulses WNL: Yes Integumentary: Yes: WNL Neurological: Yes: Alert, Oriented Psychiatric: Yes: Alert, Oriented Labs: CBC, BMP 12/21/17 23:57 12/21/17 23:57 Imaging - Results Cat Scan: Other (CT scan of zhen abdomne: limited study,colitis) Problem List - Problems (1) Colitis Assessment/Plan: limited started Levaquin and Metronidazole iv antibiotic liquid diet iv hydration repeat MAgnesium and CMP in am Code(s): K52.9 - NONINFECTIVE GASTROENTERITIS AND COLITIS, UNSPECIFIED (2) Weight loss Assessment/Plan: secondary to dehydration Code(s): R63.4 - ABNORMAL WEIGHT LOSS (3) Acute on chronic diastolic (congestive) heart failure Assessment/Plan: patient is getting a limitted amount of fluids and has diarrhea, hold diuretic for now and repeat blood tests in am Code(s): I50.33 - ACUTE ON CHRONIC DIASTOLIC (CONGESTIVE) HEART FAILURE (4) Anemia Assessment/Plan: iron supplements are on hold due to diarrhea Code(s): D64.9 - ANEMIA, UNSPECIFIED Qualifiers: Anemia type: iron deficiency Iron deficiency anemia type: chronic blood loss Qualified Code(s): D50.0 - Iron deficiency anemia secondary to blood loss (chronic) (5) DVT prophylaxis Assessment/Plan: was on Coumadin and will start Eliquis 2.5 mg po bod in 2 days monitor INR until below 1.6 and start n Eliquis Code(s): [id number] - (6) H/O deep venous thrombosis Assessment/Plan: 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
[2017-12-22] MEDS ORDERED: PT OWN MED DRAWER 7, Y5N ONE (21:02)
[2017-12-22] MEDS: LABETALOL HCL 100 MG TABLET (FP) PO SCH (21:18)
[2017-12-23] MEDS: INSULIN SLIDING SCALE (NOVOLOG) 1 VIAL SQ SCH ×4 (06:16→21:10)
[2017-12-23] MEDS ORDERED: PT OWN MED DRAWER 7, Y5N ONE ×2 (07:00→10:52)
[2017-12-23 07:59] LABS: BASO % 0.8 % (0-2.0); HEMATOCRIT 25.5 % (32.4-45.2); LYMPH % 31.9 % (8-40); MCH 23.9 pg (25.7-33.7); MCHC 31.5 g/dl (32.0-36.0); MEAN CELL VOLUME 75.9 fl (80-96); MONO % 10.1 % (3.8-10.2); NEUT % 57.2 % (42.8-82.8); PLATELET COUNT 210 K/MM3 (134-434); RBC 3.35 M/mm3 (3.60-5.2); RDW 17.1 % (11.6-15.6); WHITE BLOOD COUNT 5.4 K/mm3 (4.0-10.0)
[2017-12-23 08:40] LABS: CHLORIDE 112 mmol/L (98-107); POTASSIUM 4.3 mmol/L (3.5-5.1); SODIUM 143 mmol/L (136-145)
[2017-12-23 08:57] LABS: ALBUMIN 2.9 g/dl (3.4-5.0); ALK PHOS 89 U/L (45-117); ANION GAP 10 (8-16); BILIRUBIN,TOTAL 0.3 mg/dL (0.2-1.0); BLOOD UREA NITROGEN 20 mg/dL (7-18); CALCIUM 8.5 mg/dL (8.5-10.1); CO2 21 mmol/L (21-32); CREATININE 1.3 mg/dL (0.55-1.02); GLUCOSE,RANDOM 111 mg/dL (74-106); SGOT/AST 20 U/L (15-37); SGPT/ALT 17 U/L (12-78); TOT PROT 5.5 g/dl (6.4-8.2)
--- NOTE | 2017-12-23 08:58 | EKG ---
Test Reason : Blood Pressure : / mmHG Vent. Rate : 072 BPM Atrial Rate : 072 BPM P-R Int : 184 ms QRS Dur : 092 ms QT Int : 366 ms P-R-T Axes : 082 029 148 degrees QTc Int : 400 ms NORMAL SINUS RHYTHM T WAVE ABNORMALITY, CONSIDER LATERAL ISCHEMIA ABNORMAL ECG WHEN COMPARED WITH ECG OF 28-NOV-2017 23:02, NO SIGNIFICANT CHANGE WAS FOUND Confirmed by CAROLINA PUGA, CARMITA ([id number]) on 12/23/2017 8:58:25 AM Referred By: Confirmed By:CARMITA FIGUEROA MD
[2017-12-23] MEDS ORDERED: HYDROXYCHLOROQUINE SO4 200 MG TABLET (FP) PO SCH (10:00)
[2017-12-23] MEDS: LISINOPRIL 5 MG TABLET (FP) PO SCH (11:32)
[2017-12-23] MEDS: LABETALOL HCL 100 MG TABLET (FP) PO SCH ×2 (11:32→21:10)
[2017-12-23] MEDS: HYDROXYCHLOROQUINE SO4 200 MG TABLET (FP) PO SCH (11:33)
[2017-12-23] MEDS: hydrALAZINE HCL 25 MG TABLET (FP) PO SCH ×2 (11:33→21:10)
--- NOTE | 2017-12-23 17:24 | PN ---
Progress Note, Physician Chief Complaint: Patient had numerous bowel movements since am , approximately 5 associated with left lower quadrant discomfort and increased has. History of Present Illness: Pateint admited for intractabel diarrhea, and colitis had inceased diarrhea today . She feels fatigued and weak - Current Medication List Current Medications: Active Medications Apixaban (Eliquis -) 2.5 mg PO BID [facility] Hydralazine HCl (Apresoline -) 25 mg PO BID [facility] Last Admin: 12/23/17 11:33 Dose: 25 mg Hydroxychloroquine Sulfate (Plaquenil -) 400 mg PO DAILY [facility] Last Admin: 12/23/17 11:33 Dose: 400 mg Metronidazole (Flagyl 500mg Premixed Ivpb -) 500 mg in 100 mls @ 100 mls/hr IVPB Q6H-IV [facility] Last Admin: 12/23/17 15:53 Dose: 100 mls/hr Levofloxacin (Levaquin 250 Mg Premixed Ivpb -) 250 mg in 50 mls @ 50 mls/hr IVPB DAILY [facility]; Protocol Last Admin: 12/23/17 11:32 Dose: 50 mls/hr Potassium Chloride/Dextrose/Sod Cl (D5-1/2ns+10 Meq Kcl -) 10 meq in 1,000 mls @ 42 mls/hr IV ASDIR [facility] Insulin Aspart (Novolog Vial Sliding Scale -) 1 vial SQ ACHS [facility]; Protocol Last Admin: 12/23/17 12:33 Dose: Not Given Labetalol HCl (Normodyne -) 300 mg PO BID [facility] Last Admin: 12/23/17 11:32 Dose: 300 mg Lisinopril (Prinivil) 2.5 mg PO DAILY [facility] Last Admin: 12/23/17 11:32 Dose: 2.5 mg - Objective Vital Signs: Vital Signs Temperature 99.0 F 12/23/17 15:14 Pulse Rate 67 12/23/17 15:14 Respiratory Rate 18 12/23/17 15:14 Blood Pressure 136/46 12/23/17 15:14 O2 Sat by Pulse Oximetry (%) 100 12/23/17 09:00 Constitutional: Yes: No Distress, Calm Eyes: Yes: Conjunctiva Clear, EOM Intact HENT: Yes: Atraumatic, Normocephalic Neck: Yes: Supple, Trachea Midline Cardiovascular: Yes: Regular Rate and Rhythm, S1, S2 Respiratory: Yes: Regular, CTA Bilaterally Gastrointestinal: Yes: Normal Bowel Sounds, Soft, Abdomen, Obese, Tenderness ( left upper an dlower quadrant) Musculoskeletal: Yes: Joint Stiffness (left shoulder) Extremities: No: Calf Tenderness Labs: CBC, BMP 12/23/17 06:15 12/23/17 06:15 INR, PTT INR 2.81 (0.83-1.09) H 12/21/17 23:57 Problem List - Problems (1) Colitis Assessment/Plan: limited started Levaquin and Metronidazole iv antibiotic liquid diet iv hydration repeat MAgnesium and CMP in am Code(s): K52.9 - NONINFECTIVE GASTROENTERITIS AND COLITIS, UNSPECIFIED (2) Intractable diarrhea Code(s): R19.7 - DIARRHEA, UNSPECIFIED (3) Acute on chronic diastolic (congestive) heart failure Assessment/Plan: pateint is getting a limitted amount of fluids and has diarrhea, hold diuretic for now and repeat blood tests in am Code(s): I50.33 - ACUTE ON CHRONIC DIASTOLIC (CONGESTIVE) HEART FAILURE (4) Anemia Assessment/Plan: iron supplements are on hold due to diarrhea Code(s): D64.9 - ANEMIA, UNSPECIFIED Qualifiers: Anemia type: iron deficiency Iron deficiency anemia type: chronic blood loss Qualified Code(s): D50.0 - Iron deficiency anemia secondary to blood loss (chronic) (5) H/O deep venous thrombosis Assessment/Plan: had repeated episodes in the past and requires intermediate manager anticoagulation will start Eliquis in am 2.5v mg po bid Code(s): Z86.718 - PERSONAL HISTORY OF OTHER VENOUS THROMBOSIS AND EMBOLISM (6) Hyperglycemia Assessment/Plan: accuchecks AV and HS with reduced insulin coverage Code(s): R73.9 - HYPERGLYCEMIA, UNSPECIFIED (7) Rheumatoid arthritis Assessment/Plan: on Plaquenil according to her Rheumatologit's recommnedations, the dose of 600 mg daily may need to be adjusted Code(s): M06.9 - RHEUMATOID ARTHRITIS, UNSPECIFIED Qualifiers: Rheumatoid arthritis location: multiple sites Rheumatoid factor presence: with rheumatoid factor Qualified Code(s): M05.79 - Rheumatoid arthritis with rheumatoid factor of multiple sites without organ or systems involvement
[2017-12-23] MEDS: D5-1/2NS+10 MEQ KCL - 10 MEQ/1,000 ML INFUS.BAG IV SCH (17:30)
[2017-12-24] MEDS: INSULIN SLIDING SCALE (NOVOLOG) 1 VIAL SQ SCH ×4 (06:17→22:13)
[2017-12-24 08:33] LABS: INR 2.19 (0.83-1.09); PROTHROMBIN TIME (PATIENT) 24.7 SEC (9.7-13.0)
[2017-12-24] MEDS ORDERED: APIXABAN 2.5 MG TABLET PO SCH (10:00)
[2017-12-24] MEDS ORDERED: PT OWN MED DRAWER 7, Y5N ONE (10:47)
[2017-12-24] MEDS: HYDROXYCHLOROQUINE SO4 200 MG TABLET (FP) PO SCH (10:57)
[2017-12-24] MEDS: LABETALOL HCL 100 MG TABLET (FP) PO SCH ×2 (10:57→22:10)
[2017-12-24] MEDS: hydrALAZINE HCL 25 MG TABLET (FP) PO SCH ×2 (10:58→22:10)
[2017-12-24] MEDS: LISINOPRIL 5 MG TABLET (FP) PO SCH (10:58)
[2017-12-24 14:15] VITALS: BMI 29.6
[2017-12-24] MEDS: D5-1/2NS+10 MEQ KCL - 10 MEQ/1,000 ML INFUS.BAG IV SCH ×2 (17:46→19:00)
--- NOTE | 2017-12-24 18:34 | PN ---
Progress Note, Physician Chief Complaint: Patient continued to have numerous bowel movements since am, approximately 6. Her left lower quadrant discomfort persists. History of Present Illness: Patient admitted for colitis continues to have diarrhea today . She is fatigued. Stool color seemed to be black in zhen morning according to the patient , the nurse though noticed only dark brown stool . The patent continues to have abdominal pain. - Current Medication List Current Medications: Active Medications Hydralazine HCl (Apresoline -) 25 mg PO BID [facility] Last Admin: 12/24/17 10:58 Dose: 25 mg Hydroxychloroquine Sulfate (Plaquenil -) 400 mg PO DAILY [facility] Last Admin: 12/24/17 10:57 Dose: 400 mg Metronidazole (Flagyl 500mg Premixed Ivpb -) 500 mg in 100 mls @ 100 mls/hr IVPB Q6H-IV [facility] Last Admin: 12/24/17 14:48 Dose: 100 mls/hr Levofloxacin (Levaquin 250 Mg Premixed Ivpb -) 250 mg in 50 mls @ 50 mls/hr IVPB DAILY [facility]; Protocol Last Admin: 12/24/17 10:57 Dose: 50 mls/hr Potassium Chloride/Dextrose/Sod Cl (D5-1/2ns+10 Meq Kcl -) 10 meq in 1,000 mls @ 42 mls/hr IV ASDIR [facility] Last Admin: 12/24/17 17:46 Dose: Not Given Insulin Aspart (Novolog Vial Sliding Scale -) 1 vial SQ ACHS [facility]; Protocol Last Admin: 12/24/17 17:45 Dose: Not Given Labetalol HCl (Normodyne -) 300 mg PO BID [facility] Last Admin: 12/24/17 10:57 Dose: 300 mg Lisinopril (Prinivil) 2.5 mg PO DAILY [facility] Last Admin: 12/24/17 10:58 Dose: 2.5 mg - Objective Vital Signs: Vital Signs Temperature 98.1 F 12/24/17 15:27 Pulse Rate 79 12/24/17 15:27 Respiratory Rate 20 12/24/17 15:27 Blood Pressure 125/56 12/24/17 15:27 O2 Sat by Pulse Oximetry (%) 97 12/24/17 09:00 Constitutional: Yes: No Distress, Calm Eyes: Yes: Conjunctiva Clear, EOM Intact HENT: Yes: Atraumatic, Normocephalic Neck: Yes: Supple, Trachea Midline Cardiovascular: Yes: Regular Rate and Rhythm, S1, S2, Other (systolic murmur in the left 4th intercostal space.) Respiratory: Yes: Regular, CTA Bilaterally Gastrointestinal: Yes: Soft, Abdomen, Obese, Hyperactive Bowel Sounds, Tenderness (in the left upper and lower quadrant and suprapubic area) Breast(s): Yes: WNL Extremities: No: Calf Tenderness Edema: No Peripheral Pulses WNL: Yes Neurological: Yes: Alert, Oriented Psychiatric: Yes: Alert, Oriented Labs: CBC, BMP 12/23/17 06:15 12/23/17 06:15 INR, PTT INR 2.19 (0.83-1.09) H 12/24/17 06:45 Problem List - Problems (1) Colitis Assessment/Plan: limited started Levaquin and Metronidazole iv antibiotic d/c liquid diet NPO iv hydration guaiac all stools start Protonix iv 40 mg daily transfuse 1 unit PRBC GI consult Code(s): K52.9 - NONINFECTIVE GASTROENTERITIS AND COLITIS, UNSPECIFIED (2) Acute on chronic diastolic (congestive) heart failure Assessment/Plan: patient is getting a limitted amount of fluids and has diarrhea, hold diuretic for now and repeat blood tests in am Code(s): I50.33 - ACUTE ON CHRONIC DIASTOLIC (CONGESTIVE) HEART FAILURE (3) DVT prophylaxis Assessment/Plan: stopped Eliquis repeat INR in am Code(s): [id number] - (4) H/O deep venous thrombosis Assessment/Plan: the patient refuses SCD INR therapeutic for now repeat INR in am hold Eliquis Code(s): Z86.718 - PERSONAL HISTORY OF OTHER VENOUS THROMBOSIS AND EMBOLISM (5) Diabetes 1.5, managed as type 2 Assessment/Plan: off Glipizide use reduced insulin coveraget Code(s): E10.9 - TYPE 1 DIABETES MELLITUS WITHOUT COMPLICATIONS (6) Anemia Assessment/Plan: transfuse 1 unit PRBC Code(s): D64.9 - ANEMIA, UNSPECIFIED Qualifiers: Anemia type: iron deficiency
[2017-12-24] MEDS: PANTOPRAZOLE SODIUM 40 MG VIAL IVPUSH SCH (20:29)
[2017-12-24 20:55] LABS: BASO % 0.7 % (0-2.0); HEMATOCRIT 26.6 % (32.4-45.2); HEMOGLOBIN 8.4 GM/dL (10.7-15.3); LYMPH % 29.1 % (8-40); MCH 23.8 pg (25.7-33.7); MCHC 31.5 g/dl (32.0-36.0); MEAN CELL VOLUME 75.4 fl (80-96); MONO % 10.1 % (3.8-10.2); NEUT % 60.1 % (42.8-82.8); PLATELET COUNT 237 K/MM3 (134-434); RBC 3.53 M/mm3 (3.60-5.2); RDW 17.2 % (11.6-15.6); WHITE BLOOD COUNT 6.6 K/mm3 (4.0-10.0)
[2017-12-25] MEDS: D5-1/2NS+10 MEQ KCL - 10 MEQ/1,000 ML INFUS.BAG IV SCH (06:06)
[2017-12-25] MEDS: INSULIN SLIDING SCALE (NOVOLOG) 1 VIAL SQ SCH ×4 (06:07→22:04)
[2017-12-25 09:03] LABS: BASO % 0.4 % (0-2.0); HEMATOCRIT 28.4 % (32.4-45.2); HEMOGLOBIN 9.2 GM/dL (10.7-15.3); LYMPH % 25.3 % (8-40); MCH 24.7 pg (25.7-33.7); MCHC 32.3 g/dl (32.0-36.0); MEAN CELL VOLUME 76.6 fl (80-96); MEAN PLT VOLUME 8.2 fl (7.5-11.1); MONO % 9.7 % (3.8-10.2); NEUT % 64.6 % (42.8-82.8); PLATELET COUNT 164 K/MM3 (134-434); RBC 3.71 M/mm3 (3.60-5.2); RDW 17.2 % (11.6-15.6); WHITE BLOOD COUNT 7.3 K/mm3 (4.0-10.0)
[2017-12-25 09:06] LABS: ALBUMIN 2.9 g/dl (3.4-5.0); ANION GAP 9 (8-16); BLOOD UREA NITROGEN 12 mg/dL (7-18); CALCIUM 8.5 mg/dL (8.5-10.1); CHLORIDE 112 mmol/L (98-107); CO2 21 mmol/L (21-32); GLUCOSE,RANDOM 140 mg/dL (74-106); POTASSIUM 4.6 mmol/L (3.5-5.1); SODIUM 142 mmol/L (136-145)
[2017-12-25 09:09] LABS: ALK PHOS 91 U/L (45-117); BILIRUBIN,TOTAL 0.6 mg/dL (0.2-1.0); CREATININE 1.1 mg/dL (0.55-1.02); SGOT/AST 21 U/L (15-37); SGPT/ALT 16 U/L (12-78); TOT PROT 5.4 g/dl (6.4-8.2)
[2017-12-25] MEDS: hydrALAZINE HCL 25 MG TABLET (FP) PO SCH ×2 (09:50→22:04)
[2017-12-25] MEDS: LABETALOL HCL 100 MG TABLET (FP) PO SCH ×2 (09:50→22:04)
[2017-12-25] MEDS: LISINOPRIL 5 MG TABLET (FP) PO SCH (09:50)
[2017-12-25] MEDS: PANTOPRAZOLE SODIUM 40 MG VIAL IVPUSH SCH (09:51)
[2017-12-25] MEDS: HYDROXYCHLOROQUINE SO4 200 MG TABLET (FP) PO SCH (09:52)
[2017-12-25] MEDS ORDERED: PT OWN MED DRAWER 7, Y5N ONE (13:44)
--- NOTE | 2017-12-25 14:24 | CON.GI ---
Consult Consult Specialty:: GI: For Dr. Acosta who resumes care 12/26 Referred by:: Dr. Jerry Reason for Consultation:: Diarrhea - History of Present Illness Chief Complaint: Diarrhea History of Present Illness: 87F admitted through [facility] for evaluation of diarrhea. Daughter present at bedside. She describes 3 weeks of loose bowel movements throughout the day described. No overt rectal bleeding or melena. She describes occasional abdominal cramping. Diarrhea has not woken her from sleep. She had her diabetic regimen adjusted lately (stoped insulin and started on glybuide per patient and family) however this occurred after the diarrhea began. She also states that the iron supplementation was started some time back and has never caused GI symptoms in the past. She was hospitalized recently however stool C. Diff study was negative on admission. She denies any change in dietary patterns or travel. She denies fevers/chills or unintentional weight loss. In terms of recent GI work-up, she underwent EGD and colonoscopy with Dr. Acosta 03/22/17 for evaluation of anemia: EGD revealed ulcers in the gastric body/ antrum. Biopsies were negative for malignancy or h. pylori. Colonoscopy at the same time led to removal of a right colon tubular adenoma. She had a follow- up EGD with Dr. acosta 12/06/17 that revealed normal esophagus, stomach and small duodenal bulb polyp. 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 An MRI of the abdomen ordered by Dr. Kemal Joe perfomred with and withoout contrast revealed adenomyomatosis of the gallbladder and ? gallbladder polyp, left renal pole cyst, and subscentimeter pancreatic cysts raising the question of an IMPNT of the pancreas. The radiologist recommended a gallbladder US was advised to evaluate gallbladder findings and a repeat MRI in 6 months. There is no family history of colorectal cancer or other GI malignancy. Ms. Zheng describes some loose bowel movements this morning. She received 1 U PRBC for Hgb of 8.1 and appears to have a history of chronic anemia. - History Source History Provided By: Patient, Family Member Limitations to Obtaining History: No Limitations - Past Medical History Cardio/Vascular: Yes: CHF, Deep Vein Thrombosis, HTN, Hyperlipdemia ...: No Rheumatology: Yes: Rheumatoid Arthritis Endocrine: Yes: Diabetes Mellitus - Past Surgical History Past Surgical History: Yes: Hysterectomy (LOREE/BSO), Joint Replacement ( Bilateral TKR) Additional Surgical History: IVC filter - Alcohol/Substance Use Hx Alcohol Use: No - Smoking History Smoking history: Former smoker Have you smoked in the past 12 months: No If you are a former smoker, when did you quit?: 2007 - Social History ADL: Family Assistance Occupation: Unemployed Place of : [place] History of Recent Travel: No Home Medications - Allergies Allergies/Adverse Reactions: Allergies Allergy/AdvReac Type Severity Reaction Status Date / Time codeine Allergy Verified 12/21/17 22:22 - Home Medications Home Medications: Ambulatory Orders Cholecalciferol (Vitamin D3) [Vitamin D3] 4,000 unit PO DAILY 06/20/16 hydrALAZINE HCL [Apresoline -] 25 mg PO BID 06/20/16 Labetalol HCl 200 mg PO BID tablet 09/07/16 Simvastatin 10 mg PO DAILY tablet 09/07/16 levETIRAcetam [Keppra -] 125 mg PO BID 03/19/17 Acetaminophen [Tylenol .Extra-Strength -] 1,000 mg PO Q8H PRN 11/29/17 Hydroxychloroquine Sulfate 600 mg PO Q2D 11/29/17 Lisinopril [Zestril] 2.5 mg PO DAILY 11/29/17 Torsemide [Demadex -] 10 mg PO DAILY tablet 11/30/17 Amlodipine Besylate [Norvasc -] 10 mg PO DAILY 12/22/17 Ferrous Sulfate 325 mg PO AM 12/22/17 Glipizide [Glipizide ER] 2.5 mg PO BID 12/22/17 Hydroxychloroquine Sulfate 400 mg PO Q2D 12/22/17 Prednisone 5 mg PO PRN 12/22/17 Spironolactone 25 mg PO DAILY 12/22/17 Tramadol HCl 50 mg PO TID PRN 12/22/17 Family Disease History - Family Disease History Family Disease History: Other: Father (: 75: PNA), Mother (: 80: CHF) Other Family History: 9 siblings: 1 brother, 1 sister alive. : 1 brother w/ thymus cancer, 2 brother CVA, 1 bother: diabetic complications. No family history of colorectal cancer or other GI malignancy. No family history of IBD Review of Systems - Review of Systems Constitutional: denies: Fever, Unintentional Wgt. Loss Cardiovascular: denies: Chest Pain Respiratory: denies: Cough, SOB Gastrointestinal: reports: Diarrhea. denies: Abdominal Pain, Constipation, Dysphagia, Melena, Rectal Bleeding, Vomiting Physical Exam-GI Vital Signs: Vital Signs Temperature 98.1 F 12/25/17 06:00 Pulse Rate 70 12/25/17 06:00 Respiratory Rate 20 12/25/17 09:00 Blood Pressure 144/50 12/25/17 06:00 O2 Sat by Pulse Oximetry (%) 97 12/25/17 09:00 Constitutional: Yes: Calm Eyes: No: Sclera Icterus Cardiovascular: Yes: Regular Rate and Rhythm, Murmur (2/6 Systolic murmur at RSB ) Respiratory: Yes: CTA Bilaterally Gastrointestinal Inspection: Yes: Scars (2 vertical pelvic surgical scars and 1 horizontal pelvic surgical scar) ...Auscultate: Yes: Normoactive Bowel Sounds ...Palpate: No: Hepatomegaly, Splenomegaly, Tenderness ...Percussion: No: Tympanitic ...Rectal Exam: Yes: Other (+ external skin tags, no masses, no stool / blood / melena in rectal vault) Edema: No (No LE edema) Neurological: Yes: Alert, Oriented Labs: CBC, BMP 12/25/17 07:40 12/25/17 07:40 INR, PTT INR 2.19 (0.83-1.09) H 12/24/17 06:45 Microbiology 12/23/17 18:38 Stool Gram Stain - Neg 12/23/17 18:38 Stool Escherichia coli 0157 Culture - Final NO GROWTH OF VIBRIO SPECIES OBTAINED NO GROWTH OF E COLI 0157 OBTAINED 12/23/17 18:38 Stool Salmonella/Shigella Culture - Preliminary 12/23/17 18:38 Stool Yersinia Culture - Preliminary NO ENTERIC PATHOGENS, 24 HOURS, ON PRIMARY PLATES NO ENTERIC PATHOGENS, 24 HOURS, ON PRIMARY PLATES 12/23/17 18:38 Stool Clostridium difficile Antigen (OBED) - Neg 12/23/17 18:38 Stool Clostridium difficile Toxin Assay - Neg Hepatic Panel Total Bilirubin 0.6 mg/dL (0.2-1.0) 12/25/17 07:40 AST 21 U/L (15-37) 12/25/17 07:40 ALT 16 U/L (12-78) 12/25/17 07:40 Alkaline Phosphatase 91 U/L (45-117) 12/25/17 07:40 Albumin 2.9 g/dl (3.4-5.0) L 12/25/17 07:40 Imaging - Results Cat Scan: Report Reviewed (Reading by Dr. Conner: cannot exclude bowel wall thickening of the mid small bowel / sigmoid colon) MRI: Report Reviewed Problem List - Problems (1) Diarrhea Assessment/Plan: Persistent Diarrhea: Question of thickened small bowel and sigmoid colon on imaging vs. over reading / artifact: ? enterocolitis Medical elimination as feasible Stopped IV Abx for now Stopped PPI Await O&P Await complete stool culture studies Advanced to Full liquids / lactose free diet If continued diarrhea, ? flex sig to evaluate CT scan findings of thickened colon Code(s): R19.7 - DIARRHEA, UNSPECIFIED
--- NOTE | 2017-12-25 17:45 | PN ---
Progress Note, Physician Chief Complaint: Patient had 3 bowel movements today, still has no appetite. Her left lower quadrant discomfort persists. Tolerated full liquid diet. History of Present Illness: Patient admitted for colitis continues to have diarrhea today . She is fatigued The patent continues to have abdominal pain. - Current Medication List Current Medications: Active Medications Hydralazine HCl (Apresoline -) 25 mg PO BID [facility] Last Admin: 12/25/17 09:50 Dose: 25 mg Hydroxychloroquine Sulfate (Plaquenil -) 400 mg PO DAILY [facility] Last Admin: 12/25/17 09:52 Dose: 400 mg Potassium Chloride/Dextrose/Sod Cl (D5-1/2ns+10 Meq Kcl -) 10 meq in 1,000 mls @ 75 mls/hr IV ASDIR [facility] Last Admin: 12/25/17 06:06 Dose: 75 mls/hr Insulin Aspart (Novolog Vial Sliding Scale -) 1 vial SQ ACHS [facility]; Protocol Last Admin: 12/25/17 17:17 Dose: Not Given Labetalol HCl (Normodyne -) 300 mg PO BID [facility] Last Admin: 12/25/17 09:50 Dose: 300 mg Lisinopril (Prinivil) 2.5 mg PO DAILY [facility] Last Admin: 12/25/17 09:50 Dose: 2.5 mg - Objective Vital Signs: Vital Signs Temperature 98.0 F 12/25/17 15:10 Pulse Rate 66 12/25/17 15:10 Respiratory Rate 16 12/25/17 15:10 Blood Pressure 142/53 12/25/17 15:10 O2 Sat by Pulse Oximetry (%) 97 12/25/17 09:00 Constitutional: Yes: No Distress, Calm Eyes: Yes: Conjunctiva Clear, EOM Intact HENT: Yes: Atraumatic, Normocephalic Neck: Yes: Supple, Trachea Midline Cardiovascular: Yes: Regular Rate and Rhythm, S1, S2 Respiratory: Yes: Regular, CTA Bilaterally Gastrointestinal: Yes: Normal Bowel Sounds, Soft, Abdomen, Obese ...Rectal Exam: Yes: Deferred Genitourinary: Yes: WNL Musculoskeletal: Yes: Joint Stiffness (left shoulder) Edema: No Neurological: Yes: Alert, Oriented Psychiatric: Yes: Alert, Oriented Labs: CBC, BMP 12/25/17 07:40 12/25/17 07:40 INR, PTT INR 2.19 (0.83-1.09) H 12/24/17 06:45 Problem List - Problems (1) Colitis Assessment/Plan: limited Levaquin and Metronidazole iv antibiotic were stopped full liquid diet start Protonix iv 40 mg daily Code(s): K52.9 - NONINFECTIVE GASTROENTERITIS AND COLITIS, UNSPECIFIED (2) Acute on chronic diastolic (congestive) heart failure Assessment/Plan: patient is getting a limited amount of fluids and has diarrhea,diuretic on hold Code(s): I50.33 - ACUTE ON CHRONIC DIASTOLIC (CONGESTIVE) HEART FAILURE (3) DVT prophylaxis Assessment/Plan: restart Eliquis repeat INR in am Code(s): [id number] - (4) H/O deep venous thrombosis Assessment/Plan: the patient refuses SCD INR was therapeutic repeat INR in am restart Eliquis Code(s): Z86.718 - PERSONAL HISTORY OF OTHER VENOUS THROMBOSIS AND EMBOLISM (5) Diabetes 1.5, managed as type 2 Assessment/Plan: off Glipizide use reduced insulin coveraget Code(s): E10.9 - TYPE 1 DIABETES MELLITUS WITHOUT COMPLICATIONS (6) Anemia Assessment/Plan: received 1 unit PRBC Code(s): D64.9 - ANEMIA, UNSPECIFIED Qualifiers: Anemia type: iron deficiency
[2017-12-26] MEDS: INSULIN SLIDING SCALE (NOVOLOG) 1 VIAL SQ SCH ×4 (06:46→21:39)
[2017-12-26 07:12] LABS: BASO % 0.5 % (0-2.0); HEMATOCRIT 28.4 % (32.4-45.2); HEMOGLOBIN 9.3 GM/dL (10.7-15.3); LYMPH % 24.1 % (8-40); MCH 25.1 pg (25.7-33.7); MCHC 32.6 g/dl (32.0-36.0); MEAN CELL VOLUME 76.8 fl (80-96); MEAN PLT VOLUME 7.8 fl (7.5-11.1); MONO % 13.5 % (3.8-10.2); NEUT % 61.9 % (42.8-82.8); PLATELET COUNT 193 K/MM3 (134-434); RBC 3.69 M/mm3 (3.60-5.2); RDW 17.5 % (11.6-15.6); WHITE BLOOD COUNT 7.2 K/mm3 (4.0-10.0)
[2017-12-26 07:24] LABS: INR 1.92 (0.83-1.09); PROTHROMBIN TIME (PATIENT) 21.7 SEC (9.7-13.0)
[2017-12-26 08:33] LABS: CHLORIDE 111 mmol/L (98-107); POTASSIUM 4.3 mmol/L (3.5-5.1); SODIUM 140 mmol/L (136-145)
[2017-12-26 08:54] LABS: ALBUMIN 2.9 g/dl (3.4-5.0); ALK PHOS 91 U/L (45-117); ANION GAP 9 (8-16); BILIRUBIN,TOTAL 0.4 mg/dL (0.2-1.0); BLOOD UREA NITROGEN 9 mg/dL (7-18); CALCIUM 8.7 mg/dL (8.5-10.1); CO2 20 mmol/L (21-32); GLUCOSE,RANDOM 122 mg/dL (74-106); SGOT/AST 16 U/L (15-37); SGPT/ALT 14 U/L (12-78); TOT PROT 5.4 g/dl (6.4-8.2)
[2017-12-26] MEDS: LABETALOL HCL 100 MG TABLET (FP) PO SCH ×2 (11:38→21:33)
[2017-12-26] MEDS: APIXABAN 2.5 MG TABLET PO SCH ×2 (11:39→21:33)
[2017-12-26] MEDS: hydrALAZINE HCL 25 MG TABLET (FP) PO SCH ×2 (11:39→21:33)
[2017-12-26] MEDS: LISINOPRIL 5 MG TABLET (FP) PO SCH (11:39)
[2017-12-26] MEDS: HYDROXYCHLOROQUINE SO4 200 MG TABLET (FP) PO SCH (11:40)
--- NOTE | 2017-12-26 13:18 | PN ---
Progress Note, Physician History of Present Illness: Clinically better. NO bms overnight. Had semi-formed stool this am. Stool work up negative so far - Current Medication List Current Medications: Active Medications Apixaban (Eliquis -) 2.5 mg PO BID [facility] Last Admin: 12/26/17 11:39 Dose: 2.5 mg Hydralazine HCl (Apresoline -) 25 mg PO BID [facility] Last Admin: 12/26/17 11:39 Dose: 25 mg Hydroxychloroquine Sulfate (Plaquenil -) 400 mg PO DAILY [facility] Last Admin: 12/26/17 11:40 Dose: 400 mg Insulin Aspart (Novolog Vial Sliding Scale -) 1 vial SQ ACHS [facility]; Protocol Last Admin: 12/26/17 11:58 Dose: Not Given Labetalol HCl (Normodyne -) 300 mg PO BID [facility] Last Admin: 12/26/17 11:38 Dose: 300 mg Lisinopril (Prinivil) 2.5 mg PO DAILY [facility] Last Admin: 12/26/17 11:39 Dose: 2.5 mg - Objective Vital Signs: Vital Signs Temperature 99.2 F 12/26/17 11:53 Pulse Rate 63 12/26/17 11:53 Respiratory Rate 18 12/26/17 11:53 Blood Pressure 152/59 12/26/17 11:53 O2 Sat by Pulse Oximetry (%) 97 12/25/17 21:00 Constitutional: Yes: Well Nourished, No Distress, Calm Eyes: Yes: Conjunctiva Clear HENT: Yes: Atraumatic Neck: Yes: Supple Cardiovascular: Yes: Regular Rate and Rhythm Respiratory: Yes: Regular Gastrointestinal: Yes: Normal Bowel Sounds, Soft. No: Tenderness, Vomiting Labs: CBC, BMP 12/26/17 06:00 12/26/17 07:00 INR, PTT INR 1.92 (0.83-1.09) H 12/26/17 07:00 Laboratory Last Values WBC 7.2 K/mm3 (4.0-10.0) 12/26/17 06:00 RBC 3.69 M/mm3 (3.60-5.2) 12/26/17 06:00 Hgb 9.3 GM/dL (10.7-15.3) L 12/26/17 06:00 Hct 28.4 % (32.4-45.2) L 12/26/17 06:00 MCV 76.8 fl (80-96) L 12/26/17 06:00 MCH 25.1 pg (25.7-33.7) L 12/26/17 06:00 MCHC 32.6 g/dl (32.0-36.0) 12/26/17 06:00 RDW 17.5 % (11.6-15.6) H 12/26/17 06:00 Plt Count 193 K/MM3 (134-434) 12/26/17 06:00 MPV 7.8 fl (7.5-11.1) 12/26/17 06:00 Absolute Neuts (auto) 4.5 # 12/26/17 06:00 Neutrophils % 61.9 % (42.8-82.8) 12/26/17 06:00 Lymphocytes % 24.1 % (8-40) 12/26/17 06:00 Monocytes % 13.5 % (3.8-10.2) H 12/26/17 06:00 Eosinophils % 0.0 % (0-4.5) 12/26/17 06:00 Basophils % 0.5 % (0-2.0) 12/26/17 06:00 Nucleated RBC % 0 % (0-0) 12/26/17 06:00 PT with INR 21.70 SEC (9.7-13.0) H 12/26/17 07:00 INR 1.92 (0.83-1.09) H 12/26/17 07:00 PTT (Actin FS) 35.1 SECONDS (25.2-36.5) 12/21/17 23:57 Sodium 140 mmol/L (136-145) 12/26/17 07:00 Potassium 4.3 mmol/L (3.5-5.1) 12/26/17 07:00 Chloride 111 mmol/L (98-107) H 12/26/17 07:00 Carbon Dioxide 20 mmol/L (21-32) L 12/26/17 07:00 Anion Gap 9 (8-16) 12/26/17 07:00 BUN 9 mg/dL (7-18) 12/26/17 07:00 Creatinine 1.0 mg/dL (0.55-1.02) 12/26/17 07:00 Creat Clearance w eGFR 52.69 (>60) 12/26/17 07:00 POC Glucometer 119 UNITS (80-120) 12/26/17 11:58 Random Glucose 122 mg/dL (74-106) H 12/26/17 07:00 Calcium 8.7 mg/dL (8.5-10.1) 12/26/17 07:00 Magnesium 1.9 mg/dL (1.8-2.4) 12/24/17 06:45 Total Bilirubin 0.4 mg/dL (0.2-1.0) 12/26/17 07:00 AST 16 U/L (15-37) 12/26/17 07:00 ALT 14 U/L (12-78) 12/26/17 07:00 Alkaline Phosphatase 91 U/L (45-117) 12/26/17 07:00 Total Protein 5.4 g/dl (6.4-8.2) L 12/26/17 07:00 Albumin 2.9 g/dl (3.4-5.0) L 12/26/17 07:00 Urine Color Ltyellow 12/22/17 00:20 Urine Appearance Clear 12/22/17 00:20 Urine pH 5.0 (5.0-8.0) D 12/22/17 00:20 Ur Specific Swan 1.012 (1.001-1.035) 12/22/17 00:20 Urine Protein Negative (NEGATIVE) 12/22/17 00:20 Urine Glucose (UA) Negative (NEGATIVE) 12/22/17 00:20 Urine Ketones Negative (NEGATIVE) 12/22/17 00:20 Urine Blood Negative (NEGATIVE) 12/22/17 00:20 Urine Nitrite Negative (NEGATIVE) 12/22/17 00:20 Urine Bilirubin Negative (<2.0 mg/dL) 12/22/17 00:20 Urine Urobilinogen Negative mg/dL (0.2-1.0) 12/22/17 00:20 Ur Leukocyte Esterase Negative (NEGATIVE) 12/22/17 00:20 Blood Type B POSITIVE 12/24/17 19:00 Antibody Screen Negative 12/24/17 19:00 Crossmatch See Detail 12/24/17 19:00 Problem List - Problems (1) Colitis Code(s): K52.9 - NONINFECTIVE GASTROENTERITIS AND COLITIS, UNSPECIFIED Assessment/Plan Improving. Continue current care, BRAT diet and advance as tolerated. Discussed with the patient
--- NOTE | 2017-12-26 20:06 | PN ---
Progress Note, Physician Chief Complaint: Patient had 2 bowel movements explosive and loose. associated with abdominal cramps. She does not feel hungry and she did not have any fever. - Current Medication List Current Medications: Active Medications Apixaban (Eliquis -) 2.5 mg PO BID [facility] Last Admin: 12/26/17 11:39 Dose: 2.5 mg Hydralazine HCl (Apresoline -) 25 mg PO BID [facility] Last Admin: 12/26/17 11:39 Dose: 25 mg Hydroxychloroquine Sulfate (Plaquenil -) 400 mg PO DAILY [facility] Last Admin: 12/26/17 11:40 Dose: 400 mg Insulin Aspart (Novolog Vial Sliding Scale -) 1 vial SQ ACHS [facility]; Protocol Last Admin: 12/26/17 17:40 Dose: Not Given Labetalol HCl (Normodyne -) 300 mg PO BID [facility] Last Admin: 12/26/17 11:38 Dose: 300 mg Lisinopril (Prinivil) 2.5 mg PO DAILY [facility] Last Admin: 12/26/17 11:39 Dose: 2.5 mg - Objective Vital Signs: Vital Signs Temperature 98.8 F 12/26/17 16:30 Pulse Rate 101 H 12/26/17 16:30 Respiratory Rate 20 12/26/17 16:30 Blood Pressure 163/60 12/26/17 16:30 O2 Sat by Pulse Oximetry (%) 97 12/25/17 21:00 Constitutional: Yes: No Distress, Calm Eyes: Yes: Conjunctiva Clear, EOM Intact HENT: Yes: Atraumatic, Normocephalic Neck: Yes: Supple, Trachea Midline Cardiovascular: Yes: Regular Rate and Rhythm, S1, S2 Gastrointestinal: Yes: Normal Bowel Sounds, Soft, Abdomen, Obese. No: Hepatomegaly, Splenomegaly ...Rectal Exam: Yes: Deferred Extremities: No: Calf Tenderness Edema: No Peripheral Pulses WNL: Yes Psychiatric: Yes: Alert, Oriented Labs: CBC, BMP 12/26/17 06:00 12/26/17 07:00 INR, PTT INR 1.92 (0.83-1.09) H 12/26/17 07:00 Problem List - Problems (1) Colitis Assessment/Plan: limited Levaquin and Metronidazole iv antibiotic were stopped full liquid diet on Protonix Code(s): K52.9 - NONINFECTIVE GASTROENTERITIS AND COLITIS, UNSPECIFIED (2) Acute on chronic diastolic (congestive) heart failure Assessment/Plan: patient is getting a limited amount of fluids and has diarrhea,diuretic on hold Code(s): I50.33 - ACUTE ON CHRONIC DIASTOLIC (CONGESTIVE) HEART FAILURE (3) DVT prophylaxis Assessment/Plan: the patient had unprovoked venous embolus and s S/P thrombectomy restart Eliquis Code(s): [id number] - (4) H/O deep venous thrombosis Assessment/Plan: the patient refuses SCD restart Eliquis Code(s): Z86.718 - PERSONAL HISTORY OF OTHER VENOUS THROMBOSIS AND EMBOLISM (5) Diabetes 1.5, managed as type 2 Assessment/Plan: off Glipizide 2.5 mg po bid can restart Glipizide once po resumed 100% Code(s): E10.9 - TYPE 1 DIABETES MELLITUS WITHOUT COMPLICATIONS (6) Anemia Assessment/Plan: received 1 unit PRBC was on iron sulfate which she can restart after resuming po intake Code(s): D64.9 - ANEMIA, UNSPECIFIED Qualifiers: Anemia type: iron deficiency
[2017-12-26] MEDS ORDERED: PT OWN MED DRAWER 7, Y5N ONE (21:38)
[2017-12-26] MEDS ORDERED: INSULIN (NOVOLOG) ASPART 100 UNITS/ML 10ML VIAL ONE (21:39)
[2017-12-27] MEDS: INSULIN SLIDING SCALE (NOVOLOG) 1 VIAL SQ SCH ×4 (07:01→21:07)
[2017-12-27 07:58] LABS: BASO % 0.6 % (0-2.0); EOS % 0.2 % (0-4.5); HEMATOCRIT 29.9 % (32.4-45.2); HEMOGLOBIN 9.7 GM/dL (10.7-15.3); LYMPH % 22.2 % (8-40); MCH 24.9 pg (25.7-33.7); MCHC 32.5 g/dl (32.0-36.0); MEAN CELL VOLUME 76.7 fl (80-96); MEAN PLT VOLUME 7.8 fl (7.5-11.1); MONO % 10.5 % (3.8-10.2); NEUT % 66.5 % (42.8-82.8); PLATELET COUNT 204 K/MM3 (134-434); RBC 3.89 M/mm3 (3.60-5.2); RDW 17.9 % (11.6-15.6); WHITE BLOOD COUNT 7.3 K/mm3 (4.0-10.0)
[2017-12-27 08:05] LABS: INR 1.97 (0.83-1.09); PROTHROMBIN TIME (PATIENT) 22.3 SEC (9.7-13.0)
[2017-12-27 09:10] LABS: ALBUMIN 2.9 g/dl (3.4-5.0); ANION GAP 11 (8-16); BLOOD UREA NITROGEN 13 mg/dL (7-18); CALCIUM 8.6 mg/dL (8.5-10.1); CHLORIDE 110 mmol/L (98-107); CO2 20 mmol/L (21-32); CREATININE 0.9 mg/dL (0.55-1.02); GLUCOSE,RANDOM 103 mg/dL (74-106); POTASSIUM 4.8 mmol/L (3.5-5.1); SGOT/AST 15 U/L (15-37); SGPT/ALT 13 U/L (12-78); SODIUM 141 mmol/L (136-145)
[2017-12-27 09:15] LABS: ALK PHOS 93 U/L (45-117); BILIRUBIN,TOTAL 0.5 mg/dL (0.2-1.0); TOT PROT 5.5 g/dl (6.4-8.2)
[2017-12-27] MEDS ORDERED: PT OWN MED DRAWER 7, Y5N ONE ×3 (09:46→21:09)
[2017-12-27] MEDS: LABETALOL HCL 100 MG TABLET (FP) PO SCH ×2 (09:51→21:05)
[2017-12-27] MEDS: HYDROXYCHLOROQUINE SO4 200 MG TABLET (FP) PO SCH (09:51)
[2017-12-27] MEDS: APIXABAN 2.5 MG TABLET PO SCH (09:51)
[2017-12-27] MEDS: hydrALAZINE HCL 25 MG TABLET (FP) PO SCH ×2 (09:51→21:05)
[2017-12-27] MEDS: LISINOPRIL 5 MG TABLET (FP) PO SCH (09:52)
[2017-12-27] MEDS: CHOLESTYRAMINE/SUCROSE 4 GM PACKET PO SCH ×2 (12:55→21:10)
--- NOTE | 2017-12-27 17:44 | PN ---
Progress Note, Physician Chief Complaint: The patient has h/o CHF, RA, adrenal mass, renal mass, OA, DVT was admitted for acute colitis. She received 3 days of iv antibiotics which were discontinued by gastroenterology. Stool cultures were negative. Since she was NPO most of the days or with very little caloric intake her Glipizide was on hold. Today the patient had 2 semi formed bowel movements. She does not feel hungry and she did not have any fever. Her diet today was advanced to lactose free diet and she tolerated it well. History of Present Illness: Patient admitted for colitis. Her symptoms started approximately 1.5 months ago. She's been off and on different degrees of diet restrictions and she started to improve since yesterday. She is fatigued. The patient continues to have abdominal pain. - Current Medication List Current Medications: Active Medications Apixaban (Eliquis -) 2.5 mg PO BID [facility] Last Admin: 12/27/17 09:51 Dose: 2.5 mg Cholestyramine Resin (Questran Packet -) 4 gm PO BID [facility] Last Admin: 12/27/17 12:55 Dose: 4 gm Hydralazine HCl (Apresoline -) 25 mg PO BID [facility] Last Admin: 12/27/17 09:51 Dose: 25 mg Hydroxychloroquine Sulfate (Plaquenil -) 400 mg PO DAILY [facility] Last Admin: 12/27/17 09:51 Dose: 400 mg Insulin Aspart (Novolog Vial Sliding Scale -) 1 vial SQ [facility]; Protocol Last Admin: 12/27/17 16:42 Dose: Not Given Labetalol HCl (Normodyne -) 300 mg PO BID [facility] Last Admin: 12/27/17 09:51 Dose: 300 mg Lisinopril (Prinivil) 2.5 mg PO DAILY [facility] Last Admin: 12/27/17 09:52 Dose: 2.5 mg - Objective Vital Signs: Vital Signs Temperature 98.0 F 12/27/17 15:05 Pulse Rate 71 12/27/17 15:05 Respiratory Rate 16 12/27/17 15:05 Blood Pressure 158/69 12/27/17 15:05 O2 Sat by Pulse Oximetry (%) 97 12/25/17 21:00 Constitutional: Yes: No Distress, Calm Eyes: Yes: Conjunctiva Clear, EOM Intact HENT: Yes: Atraumatic, Normocephalic Neck: Yes: Supple, Trachea Midline Cardiovascular: Yes: Regular Rate and Rhythm Respiratory: Yes: Regular, CTA Bilaterally Gastrointestinal: Yes: Normal Bowel Sounds, Soft, Tenderness (descending colon and left suprapubic area) ...Rectal Exam: Yes: Deferred Extremities: No: Calf Tenderness Edema: No Peripheral Pulses WNL: Yes Neurological: Yes: Alert, Oriented Psychiatric: Yes: Alert, Oriented Labs: CBC, BMP 12/27/17 07:30 12/27/17 07:30 INR, PTT INR 1.97 (0.83-1.09) H 12/27/17 07:30 Problem List - Problems (1) Colitis Assessment/Plan: limited Levaquin and Metronidazole iv antibiotic were stopped full liquid diet yesterday, was started on lactose free diet today she feels better on Protonix Code(s): K52.9 - NONINFECTIVE GASTROENTERITIS AND COLITIS, UNSPECIFIED (2) Anemia Assessment/Plan: received 1 unit PRBC was on iron sulfate which she can restart after resuming po intake Code(s): D64.9 - ANEMIA, UNSPECIFIED Qualifiers: Anemia type: iron deficiency (3) DVT prophylaxis Assessment/Plan: the patient had unprovoked venous embolus and s S/P thrombectomy restart Eliquis Code(s): [id number] - (4) H/O deep venous thrombosis Assessment/Plan: the patient refuses SCD INR was therapeutic repeat INR in am restart Eliquis Code(s): Z86.718 - PERSONAL HISTORY OF OTHER VENOUS THROMBOSIS AND EMBOLISM (5) Diabetes 1.5, managed as type 2 Assessment/Plan: off Glipizide 2.5 mg po bid can restart Glipizide once po resumed 100% Code(s): E10.9 - TYPE 1 DIABETES MELLITUS WITHOUT COMPLICATIONS (6) CHF (congestive heart failure) Assessment/Plan: stable and chronic with no signs of fludis overload the patient has been off diuretic, HCTZ while NPO Code(s): I50.9 - HEART FAILURE, UNSPECIFIED
[2017-12-27] MEDS ORDERED: INSULIN (NOVOLOG) ASPART 100 UNITS/ML 10ML VIAL ONE (20:44)
[2017-12-28] MEDS: INSULIN SLIDING SCALE (NOVOLOG) 1 VIAL SQ SCH ×4 (06:29→22:34)
[2017-12-28 08:12] LABS: CHLORIDE 113 mmol/L (98-107); POTASSIUM 4.6 mmol/L (3.5-5.1); SODIUM 143 mmol/L (136-145)
[2017-12-28 08:28] LABS: ALBUMIN 2.8 g/dl (3.4-5.0); ALK PHOS 88 U/L (45-117); ANION GAP 11 (8-16); BILIRUBIN,TOTAL 0.5 mg/dL (0.2-1.0); BLOOD UREA NITROGEN 18 mg/dL (7-18); CALCIUM 8.3 mg/dL (8.5-10.1); CO2 19 mmol/L (21-32); CREATININE 1.1 mg/dL (0.55-1.02); GLUCOSE,RANDOM 134 mg/dL (74-106); SGOT/AST 15 U/L (15-37); SGPT/ALT 16 U/L (12-78); TOT PROT 5.4 g/dl (6.4-8.2)
[2017-12-28] MEDS ORDERED: PT OWN MED DRAWER 7, Y5N ONE ×2 (09:18→22:18)
[2017-12-28] MEDS: LABETALOL HCL 100 MG TABLET (FP) PO SCH ×2 (09:21→22:32)
[2017-12-28] MEDS: HYDROXYCHLOROQUINE SO4 200 MG TABLET (FP) PO SCH (09:21)
[2017-12-28] MEDS: LISINOPRIL 5 MG TABLET (FP) PO SCH (09:21)
[2017-12-28] MEDS: hydrALAZINE HCL 25 MG TABLET (FP) PO SCH ×2 (09:21→22:32)
[2017-12-28] MEDS: CHOLESTYRAMINE/SUCROSE 4 GM PACKET PO SCH ×2 (09:22→22:33)
--- NOTE | 2017-12-28 10:51 | PN ---
Progress Note, Physician History of Present Illness: (Covering Dr Jerry) Pt still with lose stool last night and LLQ pain; pt reports no vomitting, no blood in stool. Pt w/o SOB, CP, palp. - Current Medication List Current Medications: Active Medications Apixaban (Eliquis -) 2.5 mg PO BID [facility] Last Admin: 12/27/17 09:51 Dose: 2.5 mg Cholestyramine Resin (Questran Packet -) 4 gm PO BID [facility] Last Admin: 12/28/17 09:22 Dose: 4 gm Hydralazine HCl (Apresoline -) 25 mg PO BID [facility] Last Admin: 12/28/17 09:21 Dose: 25 mg Hydroxychloroquine Sulfate (Plaquenil -) 400 mg PO DAILY [facility] Last Admin: 12/28/17 09:21 Dose: 400 mg Insulin Aspart (Novolog Vial Sliding Scale -) 1 vial SQ [facility]; Protocol Last Admin: 12/28/17 06:29 Dose: Not Given Labetalol HCl (Normodyne -) 300 mg PO BID [facility] Last Admin: 12/28/17 09:21 Dose: 300 mg Lisinopril (Prinivil) 2.5 mg PO DAILY [facility] Last Admin: 12/28/17 09:21 Dose: 2.5 mg - Objective Vital Signs: Vital Signs Temperature 98.4 F 12/28/17 06:00 Pulse Rate 65 12/28/17 06:00 Respiratory Rate 20 12/28/17 06:00 Blood Pressure 148/58 12/28/17 06:00 O2 Sat by Pulse Oximetry (%) 100 12/27/17 21:00 Constitutional: Yes: No Distress, Calm Cardiovascular: Yes: Regular Rate and Rhythm, S1, S2 Respiratory: Yes: Regular, CTA Bilaterally. No: Rales Gastrointestinal: Yes: Normal Bowel Sounds, Soft, Tenderness (midly in LLQ). No : Tenderness, Rebound Edema: No Neurological: Yes: Alert, Oriented Labs: CBC, BMP 12/27/17 07:30 12/28/17 07:00 INR, PTT INR 1.97 (0.83-1.09) H 12/27/17 07:30 Problem List - Problems (1) Acute colitis Code(s): K52.9 - NONINFECTIVE GASTROENTERITIS AND COLITIS, UNSPECIFIED (2) Diabetes mellitus Code(s): E11.9 - TYPE 2 DIABETES MELLITUS WITHOUT COMPLICATIONS (3) Anemia Code(s): D64.9 - ANEMIA, UNSPECIFIED Qualifiers: Anemia type: iron deficiency (4) CHF (congestive heart failure) Code(s): I50.9 - HEART FAILURE, UNSPECIFIED (5) H/O deep venous thrombosis Code(s): Z86.718 - PERSONAL HISTORY OF OTHER VENOUS THROMBOSIS AND EMBOLISM Assessment/Plan Cont current treatment To monitor pt for new episodes of diarrhea To f/u with GI. Consider DC tomorrow if pt w/o diarhea, tolerates PO intake, cleared by GI. (Covering Dr. Jerry)
[2017-12-28] MEDS ORDERED: INSULIN (NOVOLOG) ASPART 100 UNITS/ML 10ML VIAL ONE ×2 (11:57→22:19)
--- NOTE | 2017-12-28 12:19 | PN ---
Progress Note (short form) - Note Progress Note: No BMs overnight and this am. Tolerating diet. Comfortable. OK to d/c home from GI standpoint. Follow up with GI in 1 week. Discussed with the patient. Problem List - Problems (1) Colitis Code(s): K52.9 - NONINFECTIVE GASTROENTERITIS AND COLITIS, UNSPECIFIED
[2017-12-28] MEDS: APIXABAN 2.5 MG TABLET PO SCH (22:33)
[2017-12-29] MEDS: INSULIN SLIDING SCALE (NOVOLOG) 1 VIAL SQ SCH ×2 (06:07→11:54)
[2017-12-29] MEDS ORDERED: PT OWN MED DRAWER 7, Y5N ONE (09:29)
[2017-12-29] MEDS: LISINOPRIL 5 MG TABLET (FP) PO SCH (09:32)
[2017-12-29] MEDS: LABETALOL HCL 100 MG TABLET (FP) PO SCH (09:32)
[2017-12-29] MEDS: HYDROXYCHLOROQUINE SO4 200 MG TABLET (FP) PO SCH (09:33)
[2017-12-29] MEDS: APIXABAN 2.5 MG TABLET PO SCH (09:33)
[2017-12-29] MEDS: hydrALAZINE HCL 25 MG TABLET (FP) PO SCH (09:33)
[2017-12-29] MEDS: CHOLESTYRAMINE/SUCROSE 4 GM PACKET PO SCH (09:34)
[2017-12-29] MEDS ORDERED: INSULIN (NOVOLOG) ASPART 100 UNITS/ML 10ML VIAL ONE (11:51)
--- NOTE | 2017-12-29 11:55 | PN ---
Progress Note, Physician History of Present Illness: (Covering Dr Jerry) Pt normal BM; pt reports no vomitting, no blood in stool; LLQ pain resolving Pt w/o SOB, CP, palpitations, dizziness, STOREY. Pt wants to go home today. - Current Medication List Current Medications: Active Medications Apixaban (Eliquis -) 2.5 mg PO BID [facility] Last Admin: 12/29/17 09:33 Dose: 2.5 mg Cholestyramine Resin (Questran Packet -) 4 gm PO BID [facility] Last Admin: 12/29/17 09:34 Dose: 4 gm Hydralazine HCl (Apresoline -) 25 mg PO BID [facility] Last Admin: 12/29/17 09:33 Dose: 25 mg Hydroxychloroquine Sulfate (Plaquenil -) 400 mg PO DAILY [facility] Last Admin: 12/29/17 09:33 Dose: 400 mg Insulin Aspart (Novolog Vial Sliding Scale -) 1 vial SQ [facility]; Protocol Last Admin: 12/29/17 06:07 Dose: Not Given Labetalol HCl (Normodyne -) 300 mg PO BID [facility] Last Admin: 12/29/17 09:32 Dose: 300 mg Lisinopril (Prinivil) 2.5 mg PO DAILY [facility] Last Admin: 12/29/17 09:32 Dose: 2.5 mg - Objective Vital Signs: Vital Signs Temperature 98.2 F 12/29/17 06:00 Pulse Rate 70 12/29/17 06:00 Respiratory Rate 20 12/29/17 06:00 Blood Pressure 163/68 12/29/17 06:00 O2 Sat by Pulse Oximetry (%) 100 12/28/17 21:00 Constitutional: Yes: No Distress, Calm Cardiovascular: Yes: Regular Rate and Rhythm, S1, S2 Respiratory: Yes: Regular, CTA Bilaterally. No: Rales Gastrointestinal: Yes: Normal Bowel Sounds, Soft, Tenderness. No: Tenderness, Rebound Edema: No Neurological: Yes: Alert, Oriented Labs: CBC, BMP 12/27/17 07:30 12/28/17 07:00 INR, PTT INR 1.97 (0.83-1.09) H 12/27/17 07:30 Problem List - Problems (1) Acute colitis Code(s): K52.9 - NONINFECTIVE GASTROENTERITIS AND COLITIS, UNSPECIFIED (2) Diabetes mellitus Code(s): E11.9 - TYPE 2 DIABETES MELLITUS WITHOUT COMPLICATIONS (3) Anemia Code(s): D64.9 - ANEMIA, UNSPECIFIED Qualifiers: Anemia type: iron deficiency (4) CHF (congestive heart failure) Code(s): I50.9 - HEART FAILURE, UNSPECIFIED (5) H/O deep venous thrombosis Code(s): Z86.718 - PERSONAL HISTORY OF OTHER VENOUS THROMBOSIS AND EMBOLISM Assessment/Plan Cont current treatment GI f/u appreciated. To [place] home. (Covering Dr. Jerry)
--- NOTE | 2017-12-29 12:01 | DS ---
Physical Examination Vital Signs: Vital Signs Temperature 98.2 F 12/29/17 06:00 Pulse Rate 70 12/29/17 06:00 Respiratory Rate 20 12/29/17 06:00 Blood Pressure 163/68 12/29/17 06:00 O2 Sat by Pulse Oximetry (%) 100 12/28/17 21:00 Findings/Remarks: See Progress Note for ROS, PE, Dg. Labs: CBC, BMP 12/27/17 07:30 12/28/17 07:00 Discharge Summary Reason For Visit: COLITIS, INTRACTABLE DIARRHEA Current Active Problems Acute colitis (Acute) Anemia (Acute) CHF (congestive heart failure) (Acute) Colitis (Acute) Diabetes 1.5, managed as type 2 (Acute) Diabetes mellitus (Acute) Diarrhea (Acute) Intractable diarrhea (Acute) Procedures: Principal: Abd/ pelvis CT scan Hospital Course: Pt came to Er with diarrhea, had abd/ pelvis CT scan c/w thickening of sigmoid colon wall. Pt was admitted for acute colitis, started on abtx, seen by GI (Dr. Acosta). Pt improved with abtx; after few days abtx were DC'ed by GI and pt was observed as she had few lose stools (resolved); pt was cleared by GI for DC home with outpatient f/u. Condition: Guarded - Instructions Diet, Activity, Other Instructions: Resume diet. TO follow-up with Dr. Garcia next week Disposition: HOME - Home Medications Comprehensive Discharge Medication List: Ambulatory Orders
[2017-12-29 12:16] VITALS: BP 159/67; PULSE 66; TEMP 97.8
== END 2017-12-29 17:47 | disposition home or self-care (01) | DRG 392 ==
LOC: JER 22:21 → JERBED 12-22 06:17 → J8W 12-22 14:30
PROVIDERS: ADMIT Internal Medicine; ATTEND Internal Medicine
DX: K52.9 Noninfective gastroenteritis and colitis, unspecified (principal); I50.32 Chronic diastolic (congestive) heart failure; E78.5 Hyperlipidemia, unspecified; F03.90 Unspecified dementia, unspecified severity, without behavioral disturbance, psychotic disturbance, mood disturbance, and anxiety; R63.4 Abnormal weight loss; I11.0 Hypertensive heart disease with heart failure; I25.2 Old myocardial infarction; M48.00 Spinal stenosis, site unspecified; D50.0 Iron deficiency anemia secondary to blood loss (chronic); M06.9 Rheumatoid arthritis, unspecified; E86.0 Dehydration; N28.89 Other specified disorders of kidney and ureter; E11.65 Type 2 diabetes mellitus with hyperglycemia; M19.90 Unspecified osteoarthritis, unspecified site; E27.8 Other specified disorders of adrenal gland; I48.91 Unspecified atrial fibrillation; K25.9 Gastric ulcer, unspecified as acute or chronic, without hemorrhage or perforation; Z87.440 Personal history of urinary (tract) infections; Z96.653 Presence of artificial knee joint, bilateral; Z86.718 Personal history of other venous thrombosis and embolism; Z87.891 Personal history of nicotine dependence; Z68.29 Body mass index [BMI] 29.0-29.9, adult
CPT/HCPCS: 36415; 36430; 71045-TC-FY; 74176-TC; 80053; 81003; 82962; 83735; 85025; 85610; 85730; 86850; 86900; 86901; 86922; 87045; 87046; 87177; 87205; 87209; 87324; 87449; 93005; 93010; 97116-GP; 97161-GP; 99285-25; P9038; P9058

== ENCOUNTER 2018-12-14 21:39 | Inpatient (IN) | payer OTHER, MEDICARE ==
[2018-12-14 09:15] LABS: HEMATOCRIT 24.6 % (32.4-45.2); HEMOGLOBIN 7.4 GM/dl (10.7-15.3); MCH 21.1 pg (25.7-33.7); MEAN CELL VOLUME 70.5 fl (80-96); MEAN PLT VOLUME 7.7 fl (7.5-11.1); PLATELET COUNT 305 K/MM3 (134-434); RBC 3.49 M/mm3 (3.60-5.2); RDW 17.6 % (11.6-15.6); WHITE BLOOD COUNT 5.4 K/mm3 (4.0-10.8)
--- NOTE | 2018-12-14 16:29 | ED.PROV ---
Physicial Exam I saw and examined the patient. - Vital Signs Last Vital Signs Temp Pulse Resp BP Pulse Ox 98.0 F 62 19 187/67 H 100 12/14/18 14:33 12/14/18 14:33 12/14/18 14:33 12/14/18 14:33 12/14/18 14:33 Procedures - Central Line Central Line Lumen: triple Central Line Position: internal jugular (R) Anesthesia: 1% Lidocaine Amount of anesthesia (ccs): 3 Complications: none Post Central Line Insertion: sutured, good blood return, position confirmed w/ CXR Critical Care Time/MDM Note - Medical Decision Making Note: 12/14/18 16:24 Initially called to floor by RN this morning for assistance with IV placement. Attempted to both EJVs, unsuccessful (infiltrated each time). I subsequently placed a 20G to L upper arm using ultrasound guidance, however, this line infiltrated as well. Returned to floor at request of Dr. Jerry, as she still does not have access. Exhausted all other options, and therefore I was called to place a central line. I evaluated multiple sites including both femoral veins (they were beneath arteries on ultrasound. Ultimately placed IJ CVC without difficulty using ultrasound guidance. Will confirm with CXR. 12/14/18 17:20 CXR reviewed, line is in place and safe to use. Endorsed to floor team.
[2018-12-14] MEDS: LISINOPRIL 5 MG TABLET (FP) PO SCH (16:45)
[2018-12-14] MEDS: glipiZIDE 5 MG TABLET (FP) PO SCH (16:45)
--- NOTE | 2018-12-14 19:56 | HP ---
Admitting History and Physical - Admission Chief Complaint: dyspnea, and weakness History of Present Illness: 88 yo female with PMH of chronic anemia, GI AVM recurrently bleeding and CHF, developed over the past few days increased dyspnea, and weakness. The patient was on anticoagulation with Eliquis for h/o DVT. Eliquis was held due to the recent drop in Hematocrit. Records that were made available to me in referrnce to the hypercoagulation background are not consistent and each source of information lists a different vascular problem: DVT, right saphenous vein thrombectomy and right peroneal artery stenting for PAD. The patient has poor peripheral vein access and a central line had to be inserted for transfusion. I will investigate the possibility of placing a [place] filter during this admission and discontinuation of chronic anticoagulation. I will discuss with family colonoscopy to possibly cauterize actively bleeding AVM's. Last colonoscopy was 2 years ago, last endoscopy last year identified a gastric benign, non bleeding polyp(Dr. Acosta). History Source: Family Member, Medical Record - Past Medical History Cardiovascular: Yes: CHF, Deep Vein Thrombosis, HTN, Hyperlipdemia, NM Gastrointestinal: Yes: Other (AVM) Renal/: Yes: Other (renal mass) Heme/Onc: Yes: Anemia. No: Bleeding Disorder Rheumatology: Yes: Rheumatoid Arthritis Endocrine: Yes: Diabetes Mellitus - Past Surgical History Past Surgical History: Yes: Hysterectomy (LOREE/BSO), Joint Replacement ( Bilateral TKR) - Smoking History Smoking history: Never smoked Have you smoked in the past 12 months: No If you are a former smoker, when did you quit?: 2007 - Alcohol/Substance Use Hx Alcohol Use: No - Social History ADL: Family Assistance Occupation: Unemployed History of Recent Travel: No Home Medications - Allergies Allergies/Adverse Reactions: Allergies Allergy/AdvReac Type Severity Reaction Status Date / Time codeine Allergy Verified 01/27/18 15:27 - Home Medications Home Medications: Ambulatory Orders Cholecalciferol (Vitamin D3) [Vitamin D3] 4,000 unit PO DAILY 06/20/16 hydrALAZINE HCL [Apresoline -] 25 mg PO BID 06/20/16 Simvastatin 10 mg PO DAILY tablet 09/07/16 levETIRAcetam [Keppra -] 125 mg PO BID 03/19/17 Acetaminophen [Tylenol .Extra-Strength -] 1,000 mg PO Q8H PRN 11/29/17 Hydroxychloroquine Sulfate 600 mg PO Q2D 11/29/17 Lisinopril [Zestril] 10 mg PO DAILY 11/29/17 Torsemide [Demadex -] 10 mg PO DAILY tablet 11/30/17 Amlodipine Besylate [Norvasc -] 2.5 mg PO DAILY 12/22/17 Glipizide [Glipizide ER] 2.5 mg PO BID 12/22/17 Hydroxychloroquine Sulfate 400 mg PO Q2D 12/22/17 Apixaban [Eliquis -] 2.5 mg PO BID tablet 12/29/17 Cholestyramine/Sucrose [Questran Packet -] 4 gm PO BID #20 packet MDD 2 Labetalol HCl [Normodyne -] 300 mg PO BID tablet 12/29/17 Family Disease History - Family Disease History Family Disease History: Other: Father (: 75: PNA), Mother (: 80: CHF) Review of Systems - Review of Systems Constitutional: reports: Weakness Eyes: reports: No Symptoms HENT: reports: No Symptoms Neck: reports: No Symptoms Cardiovascular: reports: Edema, Shortness of Breath. denies: Chest Pain Gastrointestinal: reports: Other (intermittent loose stools) Genitourinary: reports: No Symptoms Musculoskeletal: reports: Extremity Pain (right upper extremity pain) Neurological: reports: Parasthesia (in the lower extremities) Hematology/Lymphatic: reports: No Symptoms Psychiatric: reports: No Symptoms Physical Examination Vital Signs: Vital Signs Temperature 98.0 F 12/14/18 14:33 Pulse Rate 62 12/14/18 14:33 Respiratory Rate 19 12/14/18 14:33 Blood Pressure 187/67 H 12/14/18 14:33 O2 Sat by Pulse Oximetry (%) 100 12/14/18 14:33 Constitutional: Yes: No Distress, Calm Eyes: Yes: Conjunctiva Clear, EOM Intact HENT: Yes: Atraumatic, Normocephalic Cardiovascular: Yes: Regular Rate and Rhythm, S1, S2 Respiratory: Yes: WNL, Regular Gastrointestinal: Yes: Normal Bowel Sounds, Soft. No: Hepatomegaly, Melena, Rectal Bleeding, Splenomegaly, Tenderness ...Rectal Exam: Yes: Deferred Musculoskeletal: Yes: Back Pain, Joint Stiffness, Muscle Weakness Extremities: No: Calf Tenderness Edema: Yes Edema: LLE: 1+, RLE: 1+ Neurological: Yes: Alert, Oriented Labs: CBC, BMP 12/14/18 08:55 Imaging - Results X-ray: Other (apical congestion, bilaterllay, CJV n place, no infiltrates) Problem List - Problems (1) Acute anemia Assessment/Plan: transfuse 2 u PRBC administer LAsix between units GI evaluationmj Code(s): D64.9 - ANEMIA, UNSPECIFIED (2) GI bleed Code(s): K92.2 - GASTROINTESTINAL HEMORRHAGE, UNSPECIFIED Qualifiers: GI bleed type/associated pathology: unspecified gastrointestinal hemorrhage type Qualified Code(s): K92.2 - Gastrointestinal hemorrhage, unspecified (3) Colon AV malformation Assessment/Plan: transfuse monitor CBC. GI eval Code(s): K55.20 - ANGIODYSPLASIA OF COLON WITHOUT HEMORRHAGE (4) H/O deep venous thrombosis Assessment/Plan: off Eliquis Vascular eval for [place] filter Code(s): Z86.718 - PERSONAL HISTORY OF OTHER VENOUS THROMBOSIS AND EMBOLISM (5) CHF (congestive heart failure) Assessment/Plan: continue Torsemide low salt diet Code(s): I50.9 - HEART FAILURE, UNSPECIFIED Qualifiers: Heart failure type: combined systolic and diastolic Heart failure chronicity: chronic Qualified Code(s): I50.42 - Chronic combined systolic ( congestive) and diastolic (congestive) heart failure (6) Diabetes mellitus Assessment/Plan: continue Glipizide Code(s): E11.9 - TYPE 2 DIABETES MELLITUS WITHOUT COMPLICATIONS (7) HTN (hypertension) Assessment/Plan: continue Hydralazine and Labetalol Code(s): I10 - ESSENTIAL (PRIMARY) HYPERTENSION (8) Rheumatoid arthritis Assessment/Plan: on myelosupressive treatment with Hydoxychloroquine to be discussed with Rheumatoogy Code(s): M06.9 - RHEUMATOID ARTHRITIS, UNSPECIFIED
[2018-12-14] MEDS: FUROSEMIDE 40 MG/4 ML INJECTABLE VIAL IVPUSH SCH (20:17)
[~2018-12-14 21:39] MED LIST: LABETALOL HCL 200 MG TABLET (FP) PO STA; hydrALAZINE HCL 25 MG TABLET (FP) PO STA
[2018-12-14] MEDS: hydrALAZINE HCL 25 MG TABLET (FP) PO SCH (23:07)
[2018-12-14] MEDS: levETIRAcetam 250 MG TABLET (FP) PO SCH (23:12)
[2018-12-14] MEDS: HYDROXYCHLOROQUINE SO4 200 MG TABLET (FP) PO SCH (23:13)
[2018-12-14] MEDS: LABETALOL HCL 200 MG TABLET (FP) PO SCH (23:13)
[2018-12-14] MEDS: ATORVASTATIN CA 10 MG TABLET (FP) PO SCH (23:13)
[2018-12-15] MEDS ORDERED: FUROSEMIDE 40 MG/4 ML INJECTABLE VIAL ONE (06:56)
[2018-12-15] MEDS: hydrALAZINE HCL 25 MG TABLET (FP) PO SCH ×3 (06:59→21:12)
[2018-12-15] MEDS: LABETALOL HCL 200 MG TABLET (FP) PO SCH ×3 (06:59→21:13)
[2018-12-15] MEDS: glipiZIDE 5 MG TABLET (FP) PO SCH ×2 (06:59→16:09)
[2018-12-15] MEDS: FUROSEMIDE 40 MG/4 ML INJECTABLE VIAL IVPUSH SCH (07:00)
[2018-12-15] MEDS ORDERED: hydrALAZINE HCL 25 MG TABLET (FP) PO ONE (08:30)
[2018-12-15] MEDS ORDERED: LABETALOL HCL 200 MG TABLET (FP) PO ONE (08:30)
[2018-12-15 09:16] VITALS: BMI 62.8
[2018-12-15] MEDS: levETIRAcetam 250 MG TABLET (FP) PO SCH ×2 (09:53→21:10)
[2018-12-15] MEDS: DONEPEZIL HCL 10 MG TABLET (FP) PO SCH (09:54)
[2018-12-15] MEDS: HYDROXYCHLOROQUINE SO4 200 MG TABLET (FP) PO SCH ×2 (09:54→21:10)
[2018-12-15] MEDS: amLODIPine BESYLATE 10 MG TABLET (FP) PO SCH (09:54)
[2018-12-15] MEDS: FERROUS SO4 325 MG TABLET (FP) PO SCH (09:54)
[2018-12-15] MEDS: LISINOPRIL 5 MG TABLET (FP) PO SCH (09:54)
[2018-12-15] MEDS: TORSEMIDE 10 MG TABLET PO SCH (11:06)
[2018-12-15 12:50] LABS: BASO % 0.4 % (0-2.0); EOS % 0.2 % (0-4.5); HEMATOCRIT 31.8 % (32.4-45.2); HEMOGLOBIN 9.7 GM/dl (10.7-15.3); LYMPH % 15.8 % (8-40); MCH 23.1 pg (25.7-33.7); MCHC 30.5 g/dl (32.0-36.0); MEAN CELL VOLUME 75.9 fl (80-96); MEAN PLT VOLUME 7.9 fl (7.5-11.1); MONO % 9.8 % (3.8-10.2); NEUT % 73.8 % (42.8-82.8); PLATELET COUNT 286 K/MM3 (134-434); RBC 4.19 M/mm3 (3.60-5.2); RDW 19.8 % (11.6-15.6); WHITE BLOOD COUNT 7.3 K/mm3 (4.0-10.8)
[2018-12-15 12:51] LABS: ADD RBC MORPHOLOGY YES
--- NOTE | 2018-12-15 12:54 | PN ---
Progress Note, Physician Chief Complaint: patient feels better, received transfusion, weight 160 lbs History of Present Illness: 88 yo female with PMH of DM type 2, CAD, CHF,colon AVM and RA was admitted for symptomatic anemia. She received 2 u PRBC and now she feels better. PAtient was for many years on chronic anticoagulation for one episode of DVT. She never had a recurrence of the episode. Since this patient is 88 yo , has h/o colon AVM 's and is on Plaquenil I am evaluating the need for chronic anticoagulation versus risk of bleeding and the possibility of placing a [place] filter if necessary. - Current Medication List Current Medications: Active Medications Amlodipine Besylate (Norvasc -) 10 mg PO DAILY [facility] Last Admin: 12/15/18 09:54 Dose: 10 mg Atorvastatin Calcium (Lipitor -) 10 mg PO HS [facility] Last Admin: 12/14/18 23:13 Dose: 10 mg Donepezil HCl (Aricept -) 10 mg PO DAILY [facility] Last Admin: 12/15/18 09:54 Dose: 10 mg Ferrous Sulfate (Feosol -) 325 mg PO DAILY [facility] Last Admin: 12/15/18 09:54 Dose: 325 mg Glipizide (Glucotrol -) 2.5 mg PO BID@0700,1630 [facility] Last Admin: 12/15/18 06:59 Dose: 2.5 mg Hydralazine HCl (Apresoline -) 25 mg PO BID [facility] Last Admin: 12/15/18 09:46 Dose: Not Given Hydroxychloroquine Sulfate (Plaquenil -) 400 mg PO BID [facility] Last Admin: 12/15/18 09:54 Dose: 400 mg Labetalol HCl (Normodyne -) 200 mg PO BID [facility] Last Admin: 12/15/18 09:48 Dose: Not Given Levetiracetam (Keppra -) 125 mg PO BID [facility] Last Admin: 12/15/18 09:53 Dose: 125 mg Lisinopril (Prinivil) 2.5 mg PO DAILY [facility] Last Admin: 12/15/18 09:54 Dose: 2.5 mg Torsemide (Demadex -) 10 mg PO DAILY [facility] Last Admin: 12/15/18 11:06 Dose: 10 mg - Objective Vital Signs: Vital Signs Temperature 98.5 F 12/15/18 09:01 Pulse Rate 64 12/15/18 09:01 Respiratory Rate 20 12/15/18 09:01 Blood Pressure 164/60 12/15/18 09:01 O2 Sat by Pulse Oximetry (%) 100 12/15/18 09:01 Constitutional: Yes: No Distress, Calm Eyes: Yes: Conjunctiva Clear, EOM Intact HENT: Yes: Atraumatic, Normocephalic Neck: Yes: Supple, Trachea Midline Cardiovascular: Yes: Regular Rate and Rhythm, S1, S2 Respiratory: No: On BiPap, SOB Gastrointestinal: Yes: Normal Bowel Sounds, Soft. No: Splenomegaly ...Rectal Exam: Yes: Deferred Extremities: No: Calf Tenderness Edema: Yes Edema: LLE: 1+, RLE: 1+ Neurological: Yes: Alert, Oriented Psychiatric: Yes: Alert, Oriented Labs: CBC, BMP 12/15/18 07:00 Problem List - Problems (1) Acute anemia Assessment/Plan: transfused 2 u PRBC administered LAsix between units GI evaluation in am Code(s): D64.9 - ANEMIA, UNSPECIFIED (2) GI bleed Assessment/Plan: colon AVM, not sure how extensive will obtain record from Natali Acosta's office in am chronic anticoagulation increasing the risk for bleeding Code(s): K92.2 - GASTROINTESTINAL HEMORRHAGE, UNSPECIFIED Qualifiers: GI bleed type/associated pathology: unspecified gastrointestinal hemorrhage type Qualified Code(s): K92.2 - Gastrointestinal hemorrhage, unspecified (3) Colon AV malformation Assessment/Plan: transfused monitor CBC. GI eval Code(s): K55.20 - ANGIODYSPLASIA OF COLON WITHOUT HEMORRHAGE (4) CHF (congestive heart failure) Assessment/Plan: continue Torsemide low salt diet Code(s): I50.9 - HEART FAILURE, UNSPECIFIED Qualifiers: Heart failure type: combined systolic and diastolic Heart failure chronicity: chronic Qualified Code(s): I50.42 - Chronic combined systolic ( congestive) and diastolic (congestive) heart failure (5) H/O deep venous thrombosis Assessment/Plan: off Eliquis, Lovenox 60 mg subcut bid until decision is made regarding anticoagulation Vascular eval for [place] filter Code(s): Z86.718 - PERSONAL HISTORY OF OTHER VENOUS THROMBOSIS AND EMBOLISM (6) Diabetes mellitus Assessment/Plan: continue Glipizide Code(s): E11.9 - TYPE 2 DIABETES MELLITUS WITHOUT COMPLICATIONS (7) HTN (hypertension) Assessment/Plan: continue Hydralazine and Labetalol Code(s): I10 - ESSENTIAL (PRIMARY) HYPERTENSION (8) Rheumatoid arthritis Assessment/Plan: on myelosupressive treatment with Hydoxychloroquine to be discussed with Rheumatology Code(s): M06.9 - RHEUMATOID ARTHRITIS, UNSPECIFIED Qualifiers: Rheumatoid arthritis location: shoulder
[2018-12-15 13:14] LABS: ALBUMIN 3.2 g/dl (3.4-5.0); BILIRUBIN,TOTAL 1.1 mg/dl (0.2-1); CALCIUM 8.4 mg/dl (8.5-10); CREATININE 0.8 mg/dl (0.55-1.3); POTASSIUM 3.6 mmol/L (3.5-5.1)
[2018-12-15 14:16] LABS: ANISOCYTOSIS 2+; OVALOCYTE 2+
[2018-12-15] MEDS: ENOXAPARIN NA (PORCINE) 60 MG/0.6 ML DISP.SYRIN SQ SCH (17:36)
[2018-12-15] MEDS: ATORVASTATIN CA 10 MG TABLET (FP) PO SCH (21:10)
[2018-12-16] MEDS: ENOXAPARIN NA (PORCINE) 60 MG/0.6 ML DISP.SYRIN SQ SCH ×2 (06:06→18:28)
[2018-12-16] MEDS: glipiZIDE 5 MG TABLET (FP) PO SCH ×2 (08:31→17:02)
[2018-12-16] MEDS ORDERED: PT OWN MED DRAWER 7, Y5N ONE (09:29)
[2018-12-16] MEDS: LABETALOL HCL 200 MG TABLET (FP) PO SCH ×2 (10:40→21:50)
[2018-12-16] MEDS: amLODIPine BESYLATE 10 MG TABLET (FP) PO SCH (10:40)
[2018-12-16] MEDS: hydrALAZINE HCL 25 MG TABLET (FP) PO SCH ×2 (10:41→21:49)
[2018-12-16] MEDS: LISINOPRIL 5 MG TABLET (FP) PO SCH (10:42)
[2018-12-16] MEDS: FERROUS SO4 325 MG TABLET (FP) PO SCH (10:42)
[2018-12-16] MEDS: HYDROXYCHLOROQUINE SO4 200 MG TABLET (FP) PO SCH ×2 (10:43→21:50)
[2018-12-16] MEDS: DONEPEZIL HCL 10 MG TABLET (FP) PO SCH (10:43)
[2018-12-16] MEDS: TORSEMIDE 10 MG TABLET PO SCH (10:51)
[2018-12-16] MEDS: TORSEMIDE 5 MG TABLET PO SCH (10:52)
[2018-12-16] MEDS: levETIRAcetam 250 MG TABLET (FP) PO SCH ×3 (12:38→21:49)
--- NOTE | 2018-12-16 14:29 | CONS ---
DATE OF CONSULTATION: DATE OF DICTATION: 12/16/2018 ADMITTING DIAGNOSIS: Blood clot, right lower extremity, with anemia. This is an 88-year-old female, was asked to be seen by me for a possible placement of a filter, and the patient is known to have DVT of the right lower extremity. Either that or the patient had an angioplasty for an embolism, which she is not able to tell me either way and has been on anticoagulation for a long period of time, for over 1 year. The patient now comes in with severe anemia and patient required hospitalization for the anemia, symptomatic. She has received 2 units of packed cells so far. I was asked to see if the patient requires IVC filter. Patient denies any history of pulmonary embolism or history of bleeding. No history of shortness of breath on ambulation. Patient has had bilateral knee replacements done at [facility] and has been doing well with that, able to ambulate with a walker. Besides that, patient is asymptomatic. PHYSICAL EXAMINATION: General: Patient is fully oriented, alert. Cardiovascular: Regular sinus rhythm. No murmurs. Chest: Within normal limits. Abdomen: Soft. Lower Extremities: Bilateral femoral distal pulses are felt, and bilateral knee replacements identified. Both the legs are thin with no evidence of any swelling. There is some mild tenderness in the muscle on the medial aspect of both the legs. At the present time, since the patient has severe bleeding, I would recommend not resuming any anticoagulation, which she has been on for more than 1 year, and probably elastic stockings to prevent any swelling in the future. Since the patient is allergic to ASPIRIN, because of gastritis, even that is out of the question of giving it to her. Patient just asked to ambulate and exercise when in bed. At the present time, I do not recommend putting a filter because it is not a major blood clot and she has been on anticoagulation for over 1 year and with no symptoms of pulmonary embolism. ARNULFO STRONG M.D. [id number]
[2018-12-16] MEDS ORDERED: ACETAMINOPHEN 500 MG TABLET (FP) PO PRN (16:21)
[2018-12-16] MEDS: ATORVASTATIN CA 10 MG TABLET (FP) PO SCH (21:49)
--- NOTE | 2018-12-16 23:19 | PN ---
Progress Note, Physician Chief Complaint: patient is sill weak, received transfusion, complaining of sore throat, weight 160 lbs History of Present Illness: 88 yo female with PMH of DM type 2, CAD, CHF and RA was admitted for symptomatic anemia. She received 2 u PRB. PAtient was for many years on chronic anticoagulation for one episode of "DVT" . Records in [facility] dated back to 2007 do not document any DVT episode. Patient is 88 yo on Plaquenil fro RA and required repeated blood transfusions in the past. I am evaluating the need for chronic anticoagulation versus risk of bleeding and the possibility of placing a [place] filter if necessary. According to [employer] animal nutrition consultant since patient had no recurrence of DVT episodes there is no indication for a [place] filter placement. Hypercoagulable work up is in progress. - Current Medication List Current Medications: Active Medications Acetaminophen (Tylenol -) 500 mg PO Q6H PRN PRN Reason: PAIN LEVEL 7 - 10 Amlodipine Besylate (Norvasc -) 10 mg PO DAILY [facility] Last Admin: 12/16/18 10:40 Dose: 10 mg Atorvastatin Calcium (Lipitor -) 10 mg PO HS [facility] Last Admin: 12/16/18 21:49 Dose: 10 mg Donepezil HCl (Aricept -) 10 mg PO DAILY [facility] Last Admin: 12/16/18 10:43 Dose: 10 mg Enoxaparin Sodium (Lovenox -) 60 mg SQ Q12H [facility] Last Admin: 12/16/18 18:28 Dose: 60 mg Ferrous Sulfate (Feosol -) 325 mg PO DAILY [facility] Last Admin: 12/16/18 10:42 Dose: 325 mg Glipizide (Glucotrol -) 2.5 mg PO BID@0700,1630 [facility] Last Admin: 12/16/18 17:02 Dose: 2.5 mg Hydralazine HCl (Apresoline -) 25 mg PO BID [facility] Last Admin: 12/16/18 21:49 Dose: 25 mg Hydroxychloroquine Sulfate (Plaquenil -) 400 mg PO BID [facility] Last Admin: 12/16/18 21:50 Dose: 400 mg Labetalol HCl (Normodyne -) 200 mg PO BID [facility] Last Admin: 12/16/18 21:50 Dose: 200 mg Levetiracetam (Keppra -) 250 mg PO BID [facility] Last Admin: 12/16/18 21:49 Dose: 250 mg Lisinopril (Prinivil) 2.5 mg PO DAILY [facility] Last Admin: 12/16/18 10:42 Dose: 2.5 mg Torsemide (Demadex -) 10 mg PO DAILY [facility] Last Admin: 12/16/18 10:52 Dose: Not Given - Objective Vital Signs: Vital Signs Temperature 98.4 F 12/16/18 13:49 Pulse Rate 62 12/16/18 13:49 Respiratory Rate 18 12/16/18 13:49 Blood Pressure 141/55 L 12/16/18 13:49 O2 Sat by Pulse Oximetry (%) 99 12/16/18 13:49 Constitutional: Yes: No Distress, Calm Eyes: Yes: Conjunctiva Clear, EOM Intact Cardiovascular: Yes: Regular Rate and Rhythm, S1, S2 Respiratory: Yes: Regular, CTA Bilaterally Gastrointestinal: Yes: Normal Bowel Sounds, Soft, Abdomen, Obese Musculoskeletal: Yes: Muscle Weakness Extremities: No: Calf Tenderness Integumentary: Yes: WNL Psychiatric: Yes: Alert, Oriented Labs: CBC, BMP 12/15/18 07:00 12/15/18 07:00 Problem List - Problems (1) Acute anemia Assessment/Plan: transfused 2 u PRBC administered LAsix between units GI evaluation pending Code(s): D64.9 - ANEMIA, UNSPECIFIED (2) GI bleed Assessment/Plan: obtained record from Natali Acosta's office and there is h/o gastric polyp and intestinal polyp Code(s): K92.2 - GASTROINTESTINAL HEMORRHAGE, UNSPECIFIED Qualifiers: GI bleed type/associated pathology: unspecified gastrointestinal hemorrhage type Qualified Code(s): K92.2 - Gastrointestinal hemorrhage, unspecified (3) CHF (congestive heart failure) Assessment/Plan: low salt diet Lasix 4 mg iv once Code(s): I50.9 - HEART FAILURE, UNSPECIFIED Qualifiers: Heart failure type: combined systolic and diastolic Heart failure chronicity: chronic Qualified Code(s): I50.42 - Chronic combined systolic ( congestive) and diastolic (congestive) heart failure (4) H/O deep venous thrombosis Assessment/Plan: h/o was not confirmed by records from 2007 until present, hypercoaguable work up in progress patient had only an arterial stent of the right peroneal artery off Eliquis, Lovenox 60 mg subcut bid until decision is made regarding anticoagulation Code(s): Z86.718 - PERSONAL HISTORY OF OTHER VENOUS THROMBOSIS AND EMBOLISM (5) Diabetes mellitus Assessment/Plan: continue Glipizide accuchecks Code(s): E11.9 - TYPE 2 DIABETES MELLITUS WITHOUT COMPLICATIONS (6) HTN (hypertension) Code(s): I10 - ESSENTIAL (PRIMARY) HYPERTENSION (7) Rheumatoid arthritis Code(s): M06.9 - RHEUMATOID ARTHRITIS, UNSPECIFIED Qualifiers: Rheumatoid arthritis location: shoulder
[2018-12-17] MEDS: glipiZIDE 5 MG TABLET (FP) PO SCH ×2 (06:39→17:05)
[2018-12-17] MEDS: ENOXAPARIN NA (PORCINE) 60 MG/0.6 ML DISP.SYRIN SQ SCH ×2 (06:39→17:53)
[2018-12-17] MEDS ORDERED: POTASSIUM CHLORIDE ORAL LIQUID 20 MEQ/15 ML PO ONE (08:00)
[2018-12-17] MEDS ORDERED: FUROSEMIDE 40 MG/4 ML INJECTABLE VIAL IVPUSH ONE (08:00)
[2018-12-17] MEDS ORDERED: PT OWN MED DRAWER 7, Y5N ONE (09:01)
[2018-12-17] MEDS: HYDROXYCHLOROQUINE SO4 200 MG TABLET (FP) PO SCH ×2 (09:20→21:09)
[2018-12-17] MEDS: LISINOPRIL 5 MG TABLET (FP) PO SCH (09:21)
[2018-12-17] MEDS: hydrALAZINE HCL 25 MG TABLET (FP) PO SCH ×2 (09:22→21:09)
[2018-12-17] MEDS: amLODIPine BESYLATE 10 MG TABLET (FP) PO SCH (09:26)
[2018-12-17] MEDS: DONEPEZIL HCL 10 MG TABLET (FP) PO SCH (09:26)
[2018-12-17] MEDS: levETIRAcetam 250 MG TABLET (FP) PO SCH ×2 (09:28→21:10)
[2018-12-17] MEDS: FERROUS SO4 325 MG TABLET (FP) PO SCH (09:28)
[2018-12-17] MEDS: LABETALOL HCL 200 MG TABLET (FP) PO SCH ×2 (09:29→21:09)
--- NOTE | 2018-12-17 10:10 | CON.CARD ---
Consult Consult Specialty:: cardiology Referred by:: Medicine Reason for Consultation:: anemia - History of Present Illness Chief Complaint: shortness of breath, fatigue History of Present Illness: 88F h/o anemia, GI AVM, chronic diastolic HF p/w dyspnea, weakness, anemia. Eliquis was held. Still feels short of breath today, received transfusion of PRBC. No chest pain, palps, dizziness, orthopnea. Sees Dr. Schofield for cardio - Past Medical History Cardio/Vascular: Yes: CHF, Deep Vein Thrombosis, HTN, Hyperlipdemia, [place] Gastrointestinal: Yes: Other (AVM) Renal/: Yes: Other (renal mass) ...: No Rheumatology: Yes: Rheumatoid Arthritis Endocrine: Yes: Diabetes Mellitus - Past Surgical History Past Surgical History: Yes: Hysterectomy (LOREE/BSO), Joint Replacement ( Bilateral TKR) - Alcohol/Substance Use Hx Alcohol Use: No - Smoking History Smoking history: Never smoked Have you smoked in the past 12 months: No If you are a former smoker, when did you quit?: 2007 - Social History ADL: Family Assistance Occupation: Unemployed History of Recent Travel: No Home Medications - Allergies Allergies/Adverse Reactions: Allergies Allergy/AdvReac Type Severity Reaction Status Date / Time codeine Allergy Verified 01/27/18 15:27 - Home Medications Home Medications: Ambulatory Orders Cholecalciferol (Vitamin D3) [Vitamin D3] 4,000 unit PO DAILY 06/20/16 hydrALAZINE HCL [Apresoline -] 25 mg PO BID 06/20/16 Simvastatin 10 mg PO DAILY tablet 09/07/16 levETIRAcetam [Keppra -] 125 mg PO BID 03/19/17 Acetaminophen [Tylenol .Extra-Strength -] 1,000 mg PO Q8H PRN 11/29/17 Hydroxychloroquine Sulfate 600 mg PO Q2D 11/29/17 Lisinopril [Zestril] 10 mg PO DAILY 11/29/17 Torsemide [Demadex -] 10 mg PO DAILY tablet 11/30/17 Amlodipine Besylate [Norvasc -] 2.5 mg PO DAILY 12/22/17 Glipizide [Glipizide ER] 2.5 mg PO BID 12/22/17 Hydroxychloroquine Sulfate 400 mg PO Q2D 12/22/17 Apixaban [Eliquis -] 2.5 mg PO BID tablet 12/29/17 Cholestyramine/Sucrose [Questran Packet -] 4 gm PO BID #20 packet MDD 2 Labetalol HCl [Normodyne -] 300 mg PO BID tablet 12/29/17 Family Disease History - Family Disease History Family Disease History: Other: Father (: 75: PNA), Mother (: 80: CHF) Review of Systems - Review of Systems Constitutional: reports: No Symptoms Eyes: reports: No Symptoms HENT: reports: No Symptoms Neck: reports: No Symptoms Cardiovascular: reports: No Symptoms Respiratory: reports: No Symptoms Gastrointestinal: reports: No Symptoms Genitourinary: reports: No Symptoms Musculoskeletal: reports: No Symptoms Integumentary: reports: No Symptoms Neurological: reports: No Symptoms Endocrine: reports: No Symptoms Hematology/Lymphatic: reports: No Symptoms Psychiatric: reports: No Symptoms Vital Signs: Vital Signs Temperature 99.0 F 12/17/18 09:31 Pulse Rate 66 12/17/18 09:31 Respiratory Rate 19 12/17/18 09:31 Blood Pressure 144/46 L 12/17/18 09:31 O2 Sat by Pulse Oximetry (%) 100 12/17/18 09:00 Constitutional: Yes: Well Nourished, No Distress, Calm Eyes: Yes: Conjunctiva Clear, EOM Intact HENT: Yes: Atraumatic, Normocephalic Neck: Yes: Supple, Trachea Midline Respiratory: Yes: Regular, CTA Bilaterally Gastrointestinal: Yes: Normal Bowel Sounds, Soft Cardiovascular: Yes: Regular Rate and Rhythm JVD: No Carotid Bruit: No Heart Sounds: Yes: S1, S2 Musculoskeletal: No: Back Pain Extremities: No: Cold Edema: No Peripheral Pulses WNL: Yes Peripheral Pulses: 2+ Left Doralis Pedis, 2+ Right Dorsalis Pedis Integumentary: No: Jaundice Neurological: Yes: Alert, Oriented Psychiatric: No: Agitated - Other Data Labs, Other Data: CBC, BMP 12/15/18 07:00 12/15/18 07:00 Assessment/Plan MPI 05/06 (jillian):No STs. No evidence of ischemia.Hyperdynamic LVEF. Normal LV cavity size with no transient dilation pattern present. MPI 12 (jillian): No ischemic ST-T changes. No evidence of ischemia. Normal LVEF. Normal LV cavity size with no transient dilation present. Echo 06/08: 1. The left ventricular size is normal. 2. Left ventricular systolic function is hyperdynamic with an estimated EF of > 70%. LV mid-cavitary gradient present at rest = approximately 22 mmHg, increasing to 35 mmHg with Valsalva maneuver. 3. Sigmoid shaped septum with moderate focal hypertrophy of the basal septum. The remaining wall thickness is probably normal. No systolic anterior motion of the mitral valve or LV outflow tract obstruction present. 4. LA pressure is elevated. 5. The right ventricle is normal in size and function. 6. Left atrium is moderately dilated by volume. 7. Mild mitral regurgitation is present. 8. [id number] tricuspid regurgitation present. 9. There is moderate pulmonary hypertension. 10. The right ventricular systolic pressure is 53 mmHg (assuming RA pressure of 3). EKG: sinus, nl intervals, no ischemic changes anemia - received PRBC - eliquis held - indication is history of DVT, possible history of hypercoaguability. no history of afib - hematology consult for input on holding AC for anemia - GI consult for workup of AVM chronic diastolic HF - euvolemic - received IV lasix with PRBC transfusions - continue torsemide, lisinopril, labetalol CAD, remote [place] - cont statin, lisinopril DM - manage per primary HLD - cont statin RA - manage per primary
[2018-12-17 11:41] LABS: BASO % 0.3 % (0-2.0); EOS % 0.2 % (0-4.5); HEMOGLOBIN 9.5 GM/dl (10.7-15.3); LYMPH % 17.9 % (8-40); MCH 23.2 pg (25.7-33.7); MCHC 30.7 g/dl (32.0-36.0); MEAN CELL VOLUME 75.7 fl (80-96); MEAN PLT VOLUME 8.2 fl (7.5-11.1); MONO % 10.8 % (3.8-10.2); NEUT % 70.8 % (42.8-82.8); PLATELET COUNT 245 K/MM3 (134-434); RBC 4.09 M/mm3 (3.60-5.2); WHITE BLOOD COUNT 7.5 K/mm3 (4.0-10.8)
[2018-12-17] MEDS ORDERED: CALCIUM CHLORIDE 1 GM/10 ML *DISP.SYRIN IVPB ONE (15:16)
--- NOTE | 2018-12-17 17:58 | CONSULT ---
Consult Consult Specialty:: hematology Referred by:: kobi Reason for Consultation:: chronic anemia - History of Present Illness Chief Complaint: weakness History of Present Illness: PATIENT IS AN 88 YEAR OLD FEMALE WITH HISTORY OF CORONARY ARTERY DISEASE, DIABETES, COLON AVM, AND RA. WAS ADMITTED FOR ANEMIA. PATIENT HAS BEEN ON ANTICOAGULATION FOR AT LEAST 6 YEARS FOR A DVT OF RIGHT LEG. ETIOLOGY OF ANEMIA IS UNCLEAR BUT MOST LIKELY RELATED TO BLEEDING FROM AVM. HAS BEEN EVAL. FOR JUANITA FILTER, AND DECIDED NOT TO DO IT. PT RECEIVED APPROX. 6 UNITS OF BLOOD OVER THE LAST FEW YEARS. NO EVIDENCE OF DVT AT PRESENT. ON LOVENOX 60MG Q12H. PT REPORTS SHE FEELS BETTER POST TRANSFUSION. PE: PLEASANT FEMALE, CHEST CLEAR, REG. SINUS RHYTHM, ADB; SOFT, AWAKE, ALERT AND ORIENTED, FROM X 4 EXT. , NO PERIPH. EDEMA. WBC: 7.5, H/H:9.5/31.0, ON ADMISSION 7.4/24.6. IMP: MY FEELING IS THAT PATIENT SHOULD NOT BE ANTICOAGULATED, SHE HAS NO EVIDENCE OF A BLOOD CLOT AT THIS TIME, AND WITH HER HISTORY OF GI BLEED. ETIOLOGY OF ANEMIA IS LIKELY FROM HER GI BLEEDING, BUT OTHER POSSIBILITIES MUST BE R/O. WOULD OBTAIN IRON, FERRITIN, TIBC, PERCENT SATURATION, AND SERUM PROTEIN ELECTROPHERISIS. WOULD CONSIDER IV IRON INFUSIONS AN OUTPATIENT. ADDENDUM: PT HAD AN ARTERIAL STENT OF THE RIGHT PERINEAL ARTERY IN THE PAST, THIS IS AN ADDITIONAL REASON WHY NOT TO ANTICOAGULATE, BECAUSE ASA IS MORE EFFECTIVE THAN LMWH OR 10A INHIBITOR. AT PRESENT WOULD NOT CONSIDER ASA, UNTIL CLEARED BY GI. THANK YOU FOR THE CONSULT. - Past Medical History Cardio/Vascular: Yes: CHF, Deep Vein Thrombosis, HTN, Hyperlipdemia, [place] Gastrointestinal: Yes: Other (AVM) Renal/: Yes: Other (renal mass) ...: No Rheumatology: Yes: Rheumatoid Arthritis Endocrine: Yes: Diabetes Mellitus - Past Surgical History Past Surgical History: Yes: Hysterectomy (LOREE/BSO), Joint Replacement ( Bilateral TKR) - Alcohol/Substance Use Hx Alcohol Use: No - Smoking History Smoking history: Never smoked Have you smoked in the past 12 months: No If you are a former smoker, when did you quit?: 2007 - Social History ADL: Family Assistance Occupation: Unemployed History of Recent Travel: No Home Medications - Allergies Allergies/Adverse Reactions: Allergies Allergy/AdvReac Type Severity Reaction Status Date / Time codeine Allergy Verified 01/27/18 15:27 - Home Medications Home Medications: Ambulatory Orders Cholecalciferol (Vitamin D3) [Vitamin D3] 4,000 unit PO DAILY 06/20/16 hydrALAZINE HCL [Apresoline -] 25 mg PO BID 06/20/16 Simvastatin 10 mg PO DAILY tablet 09/07/16 levETIRAcetam [Keppra -] 125 mg PO BID 03/19/17 Acetaminophen [Tylenol .Extra-Strength -] 1,000 mg PO Q8H PRN 11/29/17 Hydroxychloroquine Sulfate 600 mg PO Q2D 11/29/17 Lisinopril [Zestril] 10 mg PO DAILY 11/29/17 Torsemide [Demadex -] 10 mg PO DAILY tablet 11/30/17 Amlodipine Besylate [Norvasc -] 2.5 mg PO DAILY 12/22/17 Glipizide [Glipizide ER] 2.5 mg PO BID 12/22/17 Hydroxychloroquine Sulfate 400 mg PO Q2D 12/22/17 Apixaban [Eliquis -] 2.5 mg PO BID tablet 12/29/17 Cholestyramine/Sucrose [Questran Packet -] 4 gm PO BID #20 packet MDD 2 Labetalol HCl [Normodyne -] 300 mg PO BID tablet 12/29/17 Family Disease History - Family Disease History Family Disease History: Other: Father (: 75: PNA), Mother (: 80: CHF) Physical Exam Vital Signs: Vital Signs Temperature 99.0 F 12/17/18 09:31 Pulse Rate 66 12/17/18 09:31 Respiratory Rate 19 12/17/18 09:31 Blood Pressure 144/46 L 12/17/18 09:31 O2 Sat by Pulse Oximetry (%) 100 12/17/18 09:00 Labs: CBC, BMP 12/17/18 10:48 12/15/18 07:00
--- NOTE | 2018-12-17 18:57 | PN ---
Progress Note, Physician Chief Complaint: complaining of weakness, weight 160 lbs History of Present Illness: 88 yo female with PMH of DM type 2, CAD, CHF and RA was admitted for symptomatic anemia. She received 2 u PRBC which were given via a central line since peripheral access was not possible. DVT/PAD: PAtient was for many years on chronic anticoagulation for one episode of "DVT". Records in [facility] dated back to 2007 do not document any DVT episode. PAtient had though thrombectomy and angioplasty of the right peroneal artery in 2008 and she does not recollect any other vascular events. AVM's: There is also history of GI bleed, and AVM's but the endoscopy and colonoscopy performed in 2017 and respectively 2106 found only one colonic polyp and one gastric polyp and normal gastric and colon mucosa.. Both were removed. The colonoscopy did not visualize the small intestine and therefore the possibility of small intestine AVM's is not totally excluded. RA: Patient is 88 yo on Plaquenil for RA and required repeated blood transfusions in the past. I am evaluating the need for chronic anticoagulation versus risk of bleeding, repeated colonoscopies with risk perforation and the possibility of placing a Jordan filter if necessary. SInce there was no DVT in the past there is no need for Jordan filter. According to [employer] outside solar sales consultant there is no indication for anticoagulation for arterial emboli at this time due to h/o frequent gi bleed. - Current Medication List Current Medications: Active Medications Acetaminophen (Tylenol -) 500 mg PO Q6H PRN PRN Reason: PAIN LEVEL 7 - 10 Amlodipine Besylate (Norvasc -) 10 mg PO DAILY [facility] Last Admin: 12/17/18 09:26 Dose: 10 mg Atorvastatin Calcium (Lipitor -) 10 mg PO [facility] Last Admin: 12/16/18 21:49 Dose: 10 mg Calcium Gluconate (Calcium Gluconate 10% -) 1,000 mg IVPB ONCE ONE Stop: 12/17/18 23:01 Donepezil HCl (Aricept -) 10 mg PO DAILY [facility] Last Admin: 12/17/18 09:26 Dose: 10 mg Enoxaparin Sodium (Lovenox -) 40 mg SQ DAILY [facility] Ferrous Sulfate (Feosol -) 325 mg PO DAILY [facility] Last Admin: 12/17/18 09:28 Dose: 325 mg Glipizide (Glucotrol -) 2.5 mg PO BID@0700,1630 [facility] Last Admin: 12/17/18 17:05 Dose: 2.5 mg Hydralazine HCl (Apresoline -) 25 mg PO BID [facility] Last Admin: 12/17/18 09:22 Dose: 25 mg Hydroxychloroquine Sulfate (Plaquenil -) 400 mg PO BID [facility] Last Admin: 12/17/18 09:20 Dose: 400 mg Labetalol HCl (Normodyne -) 200 mg PO BID [facility] Last Admin: 12/17/18 09:29 Dose: 200 mg Levetiracetam (Keppra -) 250 mg PO BID [facility] Last Admin: 12/17/18 09:28 Dose: 250 mg Lisinopril (Prinivil) 2.5 mg PO DAILY [facility] Last Admin: 12/17/18 09:21 Dose: 2.5 mg Torsemide (Demadex -) 10 mg PO DAILY [facility] Last Admin: 12/16/18 10:52 Dose: Not Given - Objective Vital Signs: Vital Signs Temperature 99.0 F 12/17/18 09:31 Pulse Rate 66 12/17/18 09:31 Respiratory Rate 19 12/17/18 09:31 Blood Pressure 144/46 L 12/17/18 09:31 O2 Sat by Pulse Oximetry (%) 100 12/17/18 09:00 Constitutional: Yes: No Distress, Calm Eyes: Yes: Conjunctiva Clear, EOM Intact HENT: Yes: Atraumatic, Normocephalic Neck: Yes: Supple, Trachea Midline Cardiovascular: Yes: Regular Rate and Rhythm, S1, S2 Respiratory: Yes: Regular, CTA Bilaterally Gastrointestinal: Yes: Normal Bowel Sounds, Soft. No: Hepatomegaly, Splenomegaly Genitourinary: Yes: WNL Breast(s): Yes: WNL Extremities: No: Amputation, Calf Tenderness Edema: Yes Edema: LLE: 1+, RLE: 1+ Peripheral Pulses WNL: Yes Neurological: Yes: Alert, Oriented Psychiatric: Yes: Alert, Oriented Labs: CBC, BMP 12/17/18 10:48 12/15/18 07:00 Problem List - Problems (1) Acute anemia Assessment/Plan: transfused 2 u PRBC transfuse one dditional unit of PRBC administer LAsix in am GI evaluation pending Code(s): D64.9 - ANEMIA, UNSPECIFIED (2) GI bleed Assessment/Plan: obtained record from / Karla's office and there is h/o gastric polyp and intestinal polyp gastric and colon mucosa were normal Code(s): K92.2 - GASTROINTESTINAL HEMORRHAGE, UNSPECIFIED Qualifiers: GI bleed type/associated pathology: unspecified gastrointestinal hemorrhage type Qualified Code(s): K92.2 - Gastrointestinal hemorrhage, unspecified (3) Arterial embolism Assessment/Plan: 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 need for anticoagulation being evaluated Code(s): I74.9 - EMBOLISM AND THROMBOSIS OF UNSPECIFIED ARTERY (4) CHF (congestive heart failure) Assessment/Plan: low salt diet Lasix 40 mg iv once Code(s): I50.9 - HEART FAILURE, UNSPECIFIED Qualifiers: Heart failure type: combined systolic and diastolic Heart failure chronicity: chronic Qualified Code(s): I50.42 - Chronic combined systolic ( congestive) and diastolic (congestive) heart failure (5) Diabetes mellitus Assessment/Plan: continue Glipizide accuchecks Code(s): E11.9 - TYPE 2 DIABETES MELLITUS WITHOUT COMPLICATIONS (6) HTN (hypertension) Code(s): I10 - ESSENTIAL (PRIMARY) HYPERTENSION (7) Rheumatoid arthritis Code(s): M06.9 - RHEUMATOID ARTHRITIS, UNSPECIFIED Qualifiers: Rheumatoid arthritis location: shoulder
[2018-12-17 20:36] LABS: IRON SERUM 16 ug/dL (50-175); TOTAL IRON BINDING CAPACITY 280 ug/dL (250-450)
[2018-12-17] MEDS: ATORVASTATIN CA 10 MG TABLET (FP) PO SCH (21:09)
[2018-12-17] MEDS ORDERED: CALCIUM GLUCONATE 10% - 1,000 MG/10 ML VIAL IVPB ONE (23:00)
[2018-12-18] MEDS: glipiZIDE 5 MG TABLET (FP) PO SCH (06:54)
[2018-12-18] MEDS ORDERED: PT OWN MED DRAWER 7, Y5N ONE (09:03)
--- NOTE | 2018-12-18 09:04 | PN ---
Progress Note, Physician Chief Complaint: weak and NPO for possible endoscopy History of Present Illness: 88 yo female with PMH of DM type 2, CAD, CHF and RA was admitted for symptomatic anemia. She received 2 u PRBC which were given via a central line since peripheral access was not possible. PAD: I confirmed with Dr. Bragg, patient's previous PCP the patient's anticoagulation. 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 Following that event the patient continued to have "ischemic toes" and was placed by Dr. Salas at [facility] on termite helper Coumadin treatment. AVM's: There is also history of GI bleed endoscopy and colonoscopy performed in 2018 and respectively 2017 found only one colonic polyp and one gastric polyp and normal gastric and colon mucosa.. Both polyps were removed. The colonoscopy did not visualize the small intestine and therefore the possibility of small intestine AVM's is not totally excluded. RA: Patient is 88 yo on Plaquenil for RA and required repeated blood transfusions in the past. I am evaluating the need for chronic anticoagulation versus risk of bleeding, repeated colonoscopies with risk for perforation. I requested the Vascular Surgeon to re evaluate the case in light of new information obtained by me. - Current Medication List Current Medications: Active Medications Acetaminophen (Tylenol -) 500 mg PO Q6H PRN PRN Reason: PAIN LEVEL 7 - 10 Amlodipine Besylate (Norvasc -) 10 mg PO DAILY [facility] Last Admin: 12/17/18 09:26 Dose: 10 mg Atorvastatin Calcium (Lipitor -) 10 mg PO HS [facility] Last Admin: 12/17/18 21:09 Dose: 10 mg Donepezil HCl (Aricept -) 10 mg PO DAILY [facility] Last Admin: 12/17/18 09:26 Dose: 10 mg Enoxaparin Sodium (Lovenox -) 40 mg SQ DAILY [facility] Ferrous Sulfate (Feosol -) 325 mg PO DAILY [facility] Last Admin: 12/17/18 09:28 Dose: 325 mg Glipizide (Glucotrol -) 2.5 mg PO BID@0700,1630 [facility] Last Admin: 12/18/18 06:54 Dose: 2.5 mg Hydralazine HCl (Apresoline -) 25 mg PO BID [facility] Last Admin: 12/17/18 21:09 Dose: 25 mg Hydroxychloroquine Sulfate (Plaquenil -) 400 mg PO BID [facility] Last Admin: 12/17/18 21:09 Dose: 400 mg Labetalol HCl (Normodyne -) 200 mg PO BID [facility] Last Admin: 12/17/18 21:09 Dose: 200 mg Levetiracetam (Keppra -) 250 mg PO BID [facility] Last Admin: 12/17/18 21:10 Dose: 250 mg Lisinopril (Prinivil) 2.5 mg PO DAILY [facility] Last Admin: 12/17/18 09:21 Dose: 2.5 mg Torsemide (Demadex -) 10 mg PO DAILY [facility] Last Admin: 12/16/18 10:52 Dose: Not Given - Objective Vital Signs: Vital Signs Temperature 98.7 F 12/18/18 06:00 Pulse Rate 65 12/18/18 06:00 Respiratory Rate 19 12/18/18 06:00 Blood Pressure 148/49 L 12/18/18 06:00 O2 Sat by Pulse Oximetry (%) 95 12/18/18 06:00 Constitutional: Yes: No Distress, Calm Eyes: Yes: Conjunctiva Clear, EOM Intact HENT: Yes: Atraumatic, Normocephalic Neck: Yes: Supple, Trachea Midline Cardiovascular: Yes: Regular Rate and Rhythm Respiratory: Yes: Regular, CTA Bilaterally Gastrointestinal: Yes: Normal Bowel Sounds, Soft, Abdomen, Obese. No: Hepatomegaly, Splenomegaly Extremities: No: Calf Tenderness Edema: No Peripheral Pulses WNL: Yes Neurological: Yes: Alert, Oriented Psychiatric: Yes: Alert, Oriented Labs: CBC, BMP 12/17/18 10:48 12/15/18 07:00 Problem List - Problems (1) Acute anemia Assessment/Plan: transfused 2 u PRBC transfuse one additional unit of PRBC administer LAsix in am GI evaluation pending Code(s): D64.9 - ANEMIA, UNSPECIFIED (2) GI bleed Assessment/Plan: obtained record from Natali Acosta's office and there is h/o gastric polyp and intestinal polyp gastric and colon mucosa were normal Code(s): K92.2 - GASTROINTESTINAL HEMORRHAGE, UNSPECIFIED Qualifiers: GI bleed type/associated pathology: unspecified gastrointestinal hemorrhage type Qualified Code(s): K92.2 - Gastrointestinal hemorrhage, unspecified (3) Arterial embolism Assessment/Plan: 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 need for anticoagulation being evaluated Code(s): I74.9 - EMBOLISM AND THROMBOSIS OF UNSPECIFIED ARTERY (4) CHF (congestive heart failure) Assessment/Plan: low salt diet Lasix 40 mg iv once if blood pressure allows electrolytes check ,post transfusion calcium being administered Code(s): I50.9 - HEART FAILURE, UNSPECIFIED Qualifiers: Heart failure type: combined systolic and diastolic Heart failure chronicity: chronic Qualified Code(s): I50.42 - Chronic combined systolic ( congestive) and diastolic (congestive) heart failure (5) Diabetes mellitus Assessment/Plan: continue Glipizide accuchecks Code(s): E11.9 - TYPE 2 DIABETES MELLITUS WITHOUT COMPLICATIONS (6) HTN (hypertension) Code(s): I10 - ESSENTIAL (PRIMARY) HYPERTENSION (7) Rheumatoid arthritis Code(s): M06.9 - RHEUMATOID ARTHRITIS, UNSPECIFIED Qualifiers: Rheumatoid arthritis location: shoulder
[2018-12-18] MEDS: HYDROXYCHLOROQUINE SO4 200 MG TABLET (FP) PO SCH ×2 (09:05→21:27)
[2018-12-18] MEDS: amLODIPine BESYLATE 10 MG TABLET (FP) PO SCH (09:05)
[2018-12-18] MEDS: levETIRAcetam 250 MG TABLET (FP) PO SCH ×2 (09:05→21:27)
[2018-12-18] MEDS: LABETALOL HCL 200 MG TABLET (FP) PO SCH ×2 (09:05→21:27)
[2018-12-18] MEDS: FERROUS SO4 325 MG TABLET (FP) PO SCH (09:05)
[2018-12-18] MEDS: DONEPEZIL HCL 10 MG TABLET (FP) PO SCH (09:05)
[2018-12-18] MEDS: hydrALAZINE HCL 25 MG TABLET (FP) PO SCH ×2 (09:05→21:27)
[2018-12-18] MEDS: TORSEMIDE 5 MG TABLET PO SCH (09:06)
[2018-12-18] MEDS: LISINOPRIL 5 MG TABLET (FP) PO SCH (09:06)
--- NOTE | 2018-12-18 09:38 | PN ---
Progress Note (short form) - Note Progress Note: s: feels tired. no chest pain, palps, dizziness, dyspnea Constitutional: Yes: Well Nourished, No Distress, Calm Eyes: Yes: Conjunctiva Clear, EOM Intact HENT: Yes: Atraumatic, Normocephalic Neck: Yes: Supple, Trachea Midline Respiratory: Yes: Regular, CTA Bilaterally Gastrointestinal: Yes: Normal Bowel Sounds, Soft Cardiovascular: Yes: Regular Rate and Rhythm JVD: No Carotid Bruit: No Heart Sounds: Yes: S1, S2 Musculoskeletal: No: Back Pain Extremities: No: Cold Edema: No Peripheral Pulses WNL: Yes Peripheral Pulses: 2+ Left Doralis Pedis, 2+ Right Dorsalis Pedis Integumentary: No: Jaundice Neurological: Yes: Alert, Oriented Psychiatric: No: Agitated Assessment/Plan MPI 05/06 (jillian):No STs. No evidence of ischemia.Hyperdynamic LVEF. Normal LV cavity size with no transient dilation pattern present. MPI 05/05 (jillian): No ischemic ST-T changes. No evidence of ischemia. Normal LVEF. Normal LV cavity size with no transient dilation present. Echo 06/08: 1. The left ventricular size is normal. 2. Left ventricular systolic function is hyperdynamic with an estimated EF of > 70%. LV mid-cavitary gradient present at rest = approximately 22 mmHg, increasing to 35 mmHg with Valsalva maneuver. 3. Sigmoid shaped septum with moderate focal hypertrophy of the basal septum. The remaining wall thickness is probably normal. No systolic anterior motion of the mitral valve or LV outflow tract obstruction present. 4. LA pressure is elevated. 5. The right ventricle is normal in size and function. 6. Left atrium is moderately dilated by volume. 7. Mild mitral regurgitation is present. 8. Cote-[id number] tricuspid regurgitation present. 9. There is moderate pulmonary hypertension. 10. The right ventricular systolic pressure is 53 mmHg (assuming RA pressure of 3). EKG: sinus, nl intervals, no ischemic changes anemia, GI AVM - received PRBC - eliquis held - indication is history of ?DVT, possible history of hypercoaguability. no history of afib. also note history of PAD with history of arterial embolism s/p embolectomy and angioplasty - hematology consult for input on holding AC for anemia as well as vascular consulted to evaluate need for intermediate AC - GI consult for workup of AVM chronic diastolic HF - euvolemic - received IV lasix with PRBC transfusions - continue torsemide, lisinopril, labetalol CAD, remote [place] - cont statin, lisinopril DM - manage per primary HLD - cont statin RA - manage per primary
[2018-12-18] MEDS: ENOXAPARIN NA (PORCINE) 40 MG/0.4 ML DISP.SYRIN SQ SCH (09:51)
[2018-12-18 10:59] LABS: BASO % 0.4 % (0-2.0); EOS % 0.6 % (0-4.5); HEMATOCRIT 33.3 % (32.4-45.2); HEMOGLOBIN 10.4 GM/dl (10.7-15.3); LYMPH % 18.9 % (8-40); MCH 24.5 pg (25.7-33.7); MCHC 31.4 g/dl (32.0-36.0); MEAN CELL VOLUME 77.9 fl (80-96); MEAN PLT VOLUME 7.2 fl (7.5-11.1); MONO % 12.2 % (3.8-10.2); NEUT % 67.9 % (42.8-82.8); PLATELET COUNT 220 K/MM3 (134-434); RBC 4.27 M/mm3 (3.60-5.2); RDW 21.3 % (11.6-15.6); WHITE BLOOD COUNT 6.9 K/mm3 (4.0-10.8)
[2018-12-18 11:15] LABS: ALBUMIN 2.9 g/dl (3.4-5.0); BILIRUBIN,TOTAL 0.7 mg/dl (0.2-1); CALCIUM 8.4 mg/dl (8.5-10); CREATININE 0.8 mg/dl (0.55-1.3); MAGNESIUM 1.5 mg/dL (1.8-2.4); POTASSIUM 3.8 mmol/L (3.5-5.1); TOT PROT 5.4 g/dl (6.4-8.2)
--- NOTE | 2018-12-18 11:39 | PN ---
Progress Note (short form) - Note Progress Note: Pt's past history discussed with Dr. Jerry, who clarified details with Dr. Bragg, her prior PMD. My office records reviewed. Patient provides history of remote "heart attack" in 1994, does not recall she had cath then. This was prior to Dr. Bragg caring for her. No details available. No scar on nuclear stress tests done since. She has history of lower extremity stent by Dr. Abdi here. She had seen Dr. Burgess, vascular surgery at [facility], for recurrent ischemia of her feet/toes, and he recommended starting warfarin at that time, which she had remained on since, until she was changed to NOAC recently. No prior history of DVT/PE. Based on all of the above, she has no cardiac indication for anticoagulation. Her indication for anti-platelet meds for prevention of GA and CVA is largely based on equivocal history of GA, and on significant history of PAD which is a risk-equivalent and substantially increases risk of atherosclerotic GA/CVA. Anti -platelets can safely be held temporarily if she is to have definitive GI workup of small bowel source for recurrent occult bleeding. She appears to have a more compelling PAD indication for AC (recurrent ischemic events, ? were embolic in Dr. Burgess's opinion), unclear to me whether she broke through aspirin, plavix, or both at that time and whether these would be suitable alternatives. She will be referred to see Dr. Burgess as outpatient for his rec.s in this regard. The options seem to be: 1) if ok with vascular surgery, trial of aspirin, plavix, or both while observe CBCs closely for recurrent acute anemia vs 2) aggressive small bowel studies (capsule +/- enteroscopy) to try to identify AVMs or other recurrent bleeding source and definitively treat them Option #1 is limited by poor IV access with need for central line the last time transfusions were required. The above was d/w'd Dr. Jerry
--- NOTE | 2018-12-18 13:19 | CONS ---
DATE OF CONSULTATION: DATE OF DICTATION: 12/18/2018 HISTORY OF PRESENT ILLNESS: The patient is an 88-year-old female with a past medical history of chronic anemia, CHF, history of DVT anticoagulated with Eliquis, who was noted to have a drop in her hemoglobin. Apparently in the past, she had a colonoscopy done a year ago which revealed as per the report a polyp which was removed and endoscopy was done about a year ago that identified a benign polyp. During this hospitalization, she has not had any melena, hematochezia, abdominal pain, nausea, vomiting, or hematemesis. 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 PAST MEDICAL AND SURGICAL: HISTORY: As listed in the HPI. Additional surgical history of hysterectomy, bilateral salpingo-oophorectomy, bilateral TKR. Also with rheumatoid arthritis, diabetes, NV in the past. ALLERGIES: CODEINE. SOCIAL HISTORY: She does not drink, smoke, or use drugs. FAMILY HISTORY: No history of GI or gynecological malignancy. HOME MEDICATIONS: Vitamin D, hydralazine, simvastatin, Keppra, acetaminophen, hydroxychloroquine, lisinopril, torsemide, amlodipine, glipizide, , Eliquis, cholestyramine, and labetalol. REVIEW OF SYSTEMS: As per the HPI. PHYSICAL EXAMINATION: Vital signs: Temperature 98, pulse 60, blood pressure 156/62, pulse oximetry 100% on nasal cannula 2 L, respiratory rate respirations 18. General: In no acute distress. HEENT: Anicteric sclerae. Cardiovascular: S1, S2, regular rate and rhythm. Lungs: Bilaterally clear to auscultation. Abdomen: Soft, nontender. Extremities: No edema. LABORATORIES: White blood cell count 6.9, hemoglobin 10, hematocrit 33, MCV 77, platelet count 220. INR is pending. Also her coagulopathic workup is pending. Resolves the protein as an antithrombin 3. Sodium 138, potassium 3.8, BUN 19, creatinine 0.8, iron 16, saturation 5, TIBC 280. Transferrin is pending. Liver tests are within normal limits. She had a chest x-ray on the , which revealed no pneumothorax, mild pulmonary vascular congestion. IMPRESSION: Iron deficiency anemia suspicious for gastrointestinal blood loss. There is no sign of an overt gastrointestinal bleed at this time. RECOMMENDATION: Continue to hold anticoagulation, follow up hypercoagulable workup, PPI therapy 40 mg p.o. daily, monitor hemoglobin and hematocrit q.12 while hospitalized, will plan for diagnostic upper endoscopy to rule out angioectasia as the etiology of this patients anemia. Will also obtain any previous reports for colonoscopy. If she has a history of AVMs and GI bleed in the past, she may not be the best candidate for anticoagulation. Further recommendations following upper endoscopy. Will follow. DO BRENTON LUX/[id number]
[2018-12-18] MEDS: ATORVASTATIN CA 10 MG TABLET (FP) PO SCH (21:27)
[2018-12-19] MEDS: FERROUS SO4 325 MG TABLET (FP) PO SCH (10:19)
[2018-12-19] MEDS: DONEPEZIL HCL 10 MG TABLET (FP) PO SCH (10:19)
[2018-12-19] MEDS: ENOXAPARIN NA (PORCINE) 40 MG/0.4 ML DISP.SYRIN SQ SCH (10:19)
[2018-12-19] MEDS: HYDROXYCHLOROQUINE SO4 200 MG TABLET (FP) PO SCH ×2 (10:19→21:45)
[2018-12-19] MEDS: amLODIPine BESYLATE 10 MG TABLET (FP) PO SCH (10:20)
[2018-12-19] MEDS: hydrALAZINE HCL 25 MG TABLET (FP) PO SCH ×2 (10:20→21:45)
[2018-12-19] MEDS: LABETALOL HCL 200 MG TABLET (FP) PO SCH ×2 (10:20→21:45)
[2018-12-19] MEDS: levETIRAcetam 250 MG TABLET (FP) PO SCH ×2 (10:20→21:45)
[2018-12-19] MEDS: LISINOPRIL 5 MG TABLET (FP) PO SCH (10:20)
[2018-12-19] MEDS ORDERED: PT OWN MED DRAWER 7, Y5N ONE (11:52)
[2018-12-19] MEDS: TORSEMIDE 5 MG TABLET PO SCH (11:53)
[2018-12-19] MEDS ORDERED: MAGNESIUM SULF 50% (8.12 MEQ/2 ML-1 GM VIAL) IVPB ONE (16:04)
[2018-12-19] MEDS: glipiZIDE 5 MG TABLET (FP) PO SCH (17:25)
[2018-12-19] MEDS: MAGNESIUM OXIDE 400 MG TABLET (FP) PO SCH (21:45)
[2018-12-19] MEDS: ATORVASTATIN CA 10 MG TABLET (FP) PO SCH (21:45)
--- NOTE | 2018-12-19 22:22 | PN ---
Progress Note, Physician Chief Complaint: had endoscopy which detected gastritis and no acute bleeding History of Present Illness: 88 yo female with PMH of DM type 2, CAD, CHF and RA was admitted for symptomatic anemia. She received 2 u PRBC which were given via a central line since peripheral access was not possible. PAD: I confirmed with Dr. Bragg, patient's previous PCP the patient's anticoagulation history. 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 Following that event the patient continued to have "ischemic toes" and was placed by Dr. Salas at [facility] on penitentiary Coumadin treatment since she could not tolerate aspirin. AVM's: There is also history of GI bleed endoscopy and colonoscopy performed in 2018 and respectively 2017 which found only one colonic polyp, one gastric polyp and normal gastric and colon mucosa.. Both polyps were removed. The colonoscopy did not visualize the small intestine and therefore the possibility of small intestine AVM's is not totally excluded. RA: Patient is 88 yo on Plaquenil for RA and required repeated blood transfusions in the past. I am evaluating the need for chronic anticoagulation versus risk of bleeding, repeated colonoscopies with risk for perforation. I requested the Vascular Surgeon to re evaluate the case in light of new information obtained by me. - Current Medication List Current Medications: Active Medications Acetaminophen (Tylenol -) 500 mg PO Q6H PRN PRN Reason: PAIN LEVEL 7 - 10 Last Admin: 12/19/18 22:14 Dose: 500 mg Amlodipine Besylate (Norvasc -) [address] [facility] Last Admin: 12/19/18 10:20 Dose: 10 mg Atorvastatin Calcium (Lipitor -) [address] [facility] Last Admin: 12/19/18 21:45 Dose: 10 mg Donepezil HCl (Aricept -) [address] [facility] Last Admin: 12/19/18 10:19 Dose: 10 mg Enoxaparin Sodium (Lovenox -) [address] [facility] Last Admin: 12/19/18 10:19 Dose: 40 mg Ferrous Sulfate (Feosol -) [address] [facility] Last Admin: 12/19/18 10:19 Dose: 325 mg Glipizide (Glucotrol -) 2.5 mg PO BID@0700,1630 [facility] Last Admin: 12/19/18 17:25 Dose: 2.5 mg Hydralazine HCl (Apresoline -) [address] [facility] Last Admin: 12/19/18 21:45 Dose: 25 mg Hydroxychloroquine Sulfate (Plaquenil -) [address] [facility] Last Admin: 12/19/18 21:45 Dose: 400 mg Labetalol HCl (Normodyne -) [address] [facility] Last Admin: 12/19/18 21:45 Dose: 200 mg Levetiracetam (Keppra -) [address] [facility] Last Admin: 12/19/18 21:45 Dose: 250 mg Lisinopril (Prinivil) 2.[address] [facility] Last Admin: 12/19/18 10:20 Dose: 2.5 mg Magnesium Oxide (Mag-Ox -) [address] [facility] Last Admin: 12/19/18 21:45 Dose: 400 mg Torsemide (Demadex -) [address] [facility] Last Admin: 12/19/18 11:53 Dose: 10 mg - Objective Vital Signs: Vital Signs Temperature 98.1 F 12/19/18 13:56 Pulse Rate 63 12/19/18 13:56 Respiratory Rate 17 12/19/18 13:56 Blood Pressure 135/53 L 12/19/18 13:56 O2 Sat by Pulse Oximetry (%) 99 12/19/18 13:56 Constitutional: Yes: No Distress, Calm Neck: Yes: Supple, Trachea Midline Cardiovascular: Yes: Regular Rate and Rhythm, S1, S2 Respiratory: Yes: Regular Gastrointestinal: Yes: Normal Bowel Sounds, Soft, Abdomen, Obese ...Rectal Exam: Yes: Deferred Breast(s): Yes: WNL Musculoskeletal: Yes: Joint Stiffness Extremities: No: Calf Tenderness Edema: No Peripheral Pulses WNL: Yes Neurological: Yes: Alert, Oriented Psychiatric: Yes: Alert, Oriented Labs: CBC, BMP 12/18/18 11:02 12/18/18 10:40 Problem List - Problems (1) Acute anemia Assessment/Plan: transfused 3 u PRBC in total GI evaluation had endoscopy which showed gastritis but no acute bleeding Code(s): D64.9 - ANEMIA, UNSPECIFIED (2) GI bleed Assessment/Plan: obtained record from Natali Acosta's office and there is h/o gastric polyp and intestinal polyp gastric and colon mucosa were normal Code(s): K92.2 - GASTROINTESTINAL HEMORRHAGE, UNSPECIFIED Qualifiers: GI bleed type/associated pathology: unspecified gastrointestinal hemorrhage type Qualified Code(s): K92.2 - Gastrointestinal hemorrhage, unspecified (3) Arterial embolism Assessment/Plan: 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 followed by a vague history of ischemic toes events As of now the only indication for AC would be aspirin but in the context of GI bleed and acute blood loss anemia, I will hold off Aspirin until GI work up is complete Code(s): I74.9 - EMBOLISM AND THROMBOSIS OF UNSPECIFIED ARTERY (4) CHF (congestive heart failure) Assessment/Plan: low salt diet electrolytes check ,post transfusion calcium being administered Code(s): I50.9 - HEART FAILURE, UNSPECIFIED Qualifiers: Heart failure type: combined systolic and diastolic Heart failure chronicity: chronic Qualified Code(s): I50.42 - Chronic combined systolic ( congestive) and diastolic (congestive) heart failure (5) Diabetes mellitus Assessment/Plan: continue Glipizide accuchecks Code(s): E11.9 - TYPE 2 DIABETES MELLITUS WITHOUT COMPLICATIONS (6) HTN (hypertension) Assessment/Plan: continue Hydralazine and Labetalol Code(s): I10 - ESSENTIAL (PRIMARY) HYPERTENSION (7) Rheumatoid arthritis Assessment/Plan: on myelosupressive treatment with Hydoxychloroquine to be discussed with Rheumatology Code(s): M06.9 - RHEUMATOID ARTHRITIS, UNSPECIFIED Qualifiers: Rheumatoid arthritis location: shoulder (8) Hypomagnesemia Assessment/Plan: Magnesium sulfate 2 gm iv add Magnesium oxide 400 mg po bid repeat level in am Code(s): E83.42 - HYPOMAGNESEMIA
[2018-12-20] MEDS: glipiZIDE 5 MG TABLET (FP) PO SCH (06:17)
[2018-12-20] MEDS ORDERED: PT OWN MED DRAWER 7, Y5N ONE (10:12)
[2018-12-20] MEDS: ENOXAPARIN NA (PORCINE) 40 MG/0.4 ML DISP.SYRIN SQ SCH (10:16)
[2018-12-20] MEDS: TORSEMIDE 5 MG TABLET PO SCH (10:18)
[2018-12-20] MEDS: amLODIPine BESYLATE 10 MG TABLET (FP) PO SCH (10:18)
[2018-12-20] MEDS: hydrALAZINE HCL 25 MG TABLET (FP) PO SCH (10:19)
[2018-12-20] MEDS: LISINOPRIL 5 MG TABLET (FP) PO SCH (10:20)
[2018-12-20] MEDS: HYDROXYCHLOROQUINE SO4 200 MG TABLET (FP) PO SCH (10:21)
[2018-12-20] MEDS: LABETALOL HCL 200 MG TABLET (FP) PO SCH (10:21)
[2018-12-20] MEDS: MAGNESIUM OXIDE 400 MG TABLET (FP) PO SCH (10:21)
[2018-12-20] MEDS: FERROUS SO4 325 MG TABLET (FP) PO SCH (10:21)
[2018-12-20] MEDS: levETIRAcetam 250 MG TABLET (FP) PO SCH (10:21)
[2018-12-20] MEDS: DONEPEZIL HCL 10 MG TABLET (FP) PO SCH (10:22)
[2018-12-20 14:23] VITALS: BP 136/53; PULSE 64; TEMP 98.7
[2018-12-20 15:13] LABS: BILIRUBIN,TOTAL 0.7 mg/dl (0.2-1); CALCIUM 8.2 mg/dl (8.5-10); MAGNESIUM 1.9 mg/dL (1.8-2.4); POTASSIUM 4.4 mmol/L (3.5-5.1); TOT PROT 5.6 g/dl (6.4-8.2)
--- NOTE | 2018-12-20 16:47 | PATH ---
Surgical Pathology Report Patient Name: RICHARD GUILLEN [facility]. Rec. #: [id number] /Age/Gender: 1930 (Age: 88) / F Account: [id number] Location: [facility] MED-SURG Taken: 12/18/2018 Received: 12/18/2018 Reported: 12/20/2018 Physicians: Radha Zapata M.D. Specimen(s) Received ANTRUM Clinical History Anemia Postoperative diagnosis: Gastric erosion, gastritis Final Diagnosis GASTRIC ANTRUM, BIOPSY: MODERATE CHRONIC GASTRITIS. IMMUNOSTAIN IS NEGATIVE FOR H.PYLORI ORGANISMS. Electronically Signed Beth Jensen M.D. Gross Description Received in formalin, labeled "biopsy gastric antrum" is a pérez, irregular portion of soft tissue measuring 0.5 cm. in greatest dimension. The specimen is submitted in toto in one cassette. 12/19/201812/19/2018
--- NOTE | 2018-12-20 22:10 | DS ---
Physical Examination Vital Signs: Vital Signs Temperature 98.7 F 12/20/18 14:21 Pulse Rate 64 12/20/18 14:21 Respiratory Rate 20 12/20/18 14:21 Blood Pressure 136/53 L 12/20/18 14:21 O2 Sat by Pulse Oximetry (%) 99 12/20/18 14:21 Constitutional: Yes: No Distress, Anxious Labs: CBC, BMP 12/18/18 11:02 12/20/18 14:15 Discharge Summary Reason For Visit: DYSPENIA, WEAKNESS Condition: Good - Instructions Referrals: Alexander Sweet MD [Staff Physician] - Disposition: HOME - Home Medications Comprehensive Discharge Medication List: Ambulatory Orders Cholecalciferol (Vitamin D3) [Vitamin D3] 4,000 unit PO DAILY 06/20/16 hydrALAZINE HCL [Apresoline -] 25 mg PO BID 06/20/16 Simvastatin 10 mg PO DAILY tablet 09/07/16 levETIRAcetam [Keppra -] 125 mg PO BID 03/19/17 Acetaminophen [Tylenol .Extra-Strength -] 1,000 mg PO Q8H PRN 11/29/17 Hydroxychloroquine Sulfate 600 mg PO Q2D 11/29/17 Lisinopril [Zestril] 10 mg PO DAILY 11/29/17 Torsemide [Demadex -] 10 mg PO DAILY tablet 11/30/17 Amlodipine Besylate [Norvasc -] 2.5 mg PO DAILY 12/22/17 Glipizide [Glipizide ER] 2.5 mg PO BID 12/22/17 Hydroxychloroquine Sulfate 400 mg PO Q2D 12/22/17 Cholestyramine/Sucrose [Questran Packet -] 4 gm PO BID #20 packet MDD 2 Labetalol HCl [Normodyne -] 300 mg PO BID tablet 12/29/17 Acetaminophen [Tylenol .Extra-Strength -] 500 mg PO Q6H PRN tablet 12/20/18 Amlodipine Besylate [Norvasc -] 10 mg PO DAILY tablet 12/20/18 Donepezil HCl [Aricept -] 10 mg PO DAILY tablet 12/20/18 Ferrous Sulfate [Feosol] 325 mg PO DAILY ud 12/20/18 Glipizide [Glucotrol -] 2.5 mg PO BID@0700,1630 tablet 12/20/18 Hydroxychloroquine So4 [Plaquenil -] 400 mg PO BID tablet 12/20/18 Labetalol HCl [Normodyne -] 300 mg PO BID tablet 12/20/18 Lisinopril [Prinivil] 2.5 mg PO DAILY tablet 12/20/18 Magnesium Oxide [Mag-Ox -] 400 mg PO BID #60 tablet 12/20/18 Pantoprazole Sodium [Protonix -] 40 mg PO DAILY #30 tablet.ec 12/20/18 Torsemide [Demadex -] 10 mg PO DAILY tablet 12/20/18 hydrALAZINE HCL [Apresoline -] 25 mg PO BID tablet 12/20/18 levETIRAcetam [Keppra -] 250 mg PO BID tablet 12/20/18
[2018-12-21] MEDS ORDERED: PANTOPRAZOLE 40 MG TABLET (FP) PO SCH (07:00)
== END 2018-12-20 16:39 | disposition home or self-care (01) | DRG 812 ==
LOC: FM/S 21:39 → FINFUSION 21:39 → UNDOADMIN 21:40 → FM/S 21:40 → FINFUSION 12-15 08:20 → FM/S 12-15 08:24 → UNDOADMIN 12-15 08:24
PROVIDERS: ADMIT Internal Medicine; ATTEND Internal Medicine
PROC: 05HM33Z Insertion of Infusion Device into Right Internal Jugular Vein, Percutaneous Approach (ICD-10-PCS; principal; 2018-12-14)
PROC: B513ZZA Fluoroscopy of Right Jugular Veins, Guidance (ICD-10-PCS; 2018-12-14)
PROC: B543ZZA Ultrasonography of Right Jugular Veins, Guidance (ICD-10-PCS; 2018-12-14)
PROC: 30233N1 Transfusion of Nonautologous Red Blood Cells into Peripheral Vein, Percutaneous Approach (ICD-10-PCS; 2018-12-14)
DX: D64.9 Anemia, unspecified (principal); I50.32 Chronic diastolic (congestive) heart failure; I11.0 Hypertensive heart disease with heart failure; E83.42 Hypomagnesemia; E11.9 Type 2 diabetes mellitus without complications; Z86.718 Personal history of other venous thrombosis and embolism; Z79.01 Long term (current) use of anticoagulants; E78.5 Hyperlipidemia, unspecified; I25.2 Old myocardial infarction; M06.9 Rheumatoid arthritis, unspecified; Z90.710 Acquired absence of both cervix and uterus; Z96.653 Presence of artificial knee joint, bilateral; Z87.891 Personal history of nicotine dependence; Z79.84 Long term (current) use of oral hypoglycemic drugs; I25.10 Atherosclerotic heart disease of native coronary artery without angina pectoris; Z86.010 Personal history of colon polyps
CPT/HCPCS: 36415; 36430; 36511; 71045-TC-FY; 80053; 82136; 82728; 82962; 83540; 83550; 83735; 83918; 84155; 84165; 84466; 85025; 85027; 85300; 85303; 85306; 85730; 86850; 86900; 86901; 86922; 88305-TC; 88342-TC; 97116-GP; 97161-GP; P9038; P9058

== ENCOUNTER 2019-02-23 16:45 | Emergency (ER) | payer OTHER, MEDICARE ==
[2019-02-23 17:01] VITALS: TEMP 98.4; BMI 26.5
--- NOTE | 2019-02-23 17:33 | PDOC ---
History of Present Illness - General Chief Complaint: Pain Stated Complaint: TOE PAIN Time Seen by Provider: 02/23/19 17:32 History Source: Patient Exam Limitations: No Limitations - History of Present Illness Initial Comments: 02/23/19 18:02 Keiry Zheng is a 88yF w PMHx Dementia, HTN, HLD, CHF, RA, DVT not anticoagulated presenting w L 1st toe pain. Sudden onset pain at base of 1st MTP radiating distal L 1st toe while lying in bed last night. Tried ice and elevation without pain relief. Had DVT in R MTP causing R toe necrosis years ago , describes today's toe pain similar. Denies fever, nausea/vomiting, SOB, chest pain, leg swelling, recent travel/surgery. Past History - Past Medical History Allergies/Adverse Reactions: Allergies Allergy/AdvReac Type Severity Reaction Status Date / Time codeine Allergy Verified 02/23/19 17:01 Home Medications: Ambulatory Orders Cholecalciferol (Vitamin D3) [Vitamin D3] 4,000 unit PO DAILY 06/20/16 hydrALAZINE HCL [Apresoline -] 25 mg PO BID 06/20/16 Simvastatin 10 mg PO DAILY tablet 09/07/16 levETIRAcetam [Keppra -] 125 mg PO BID 03/19/17 Acetaminophen [Tylenol .Extra-Strength -] 1,000 mg PO Q8H PRN 11/29/17 Hydroxychloroquine Sulfate 600 mg PO Q2D 11/29/17 Lisinopril [Zestril] 10 mg PO DAILY 11/29/17 Torsemide [Demadex -] 10 mg PO DAILY tablet 11/30/17 Amlodipine Besylate [Norvasc -] 2.5 mg PO DAILY 12/22/17 Glipizide [Glipizide ER] 2.5 mg PO BID 12/22/17 Hydroxychloroquine Sulfate 400 mg PO Q2D 12/22/17 Cholestyramine/Sucrose [Questran Packet -] 4 gm PO BID #20 packet MDD 2 Labetalol HCl [Normodyne -] 300 mg PO BID tablet 12/29/17 Acetaminophen [Tylenol .Extra-Strength -] 500 mg PO Q6H PRN tablet 12/20/18 Amlodipine Besylate [Norvasc -] 10 mg PO DAILY tablet 12/20/18 Donepezil HCl [Aricept -] 10 mg PO DAILY tablet 12/20/18 Ferrous Sulfate [Feosol] 325 mg PO DAILY ud 12/20/18 Glipizide [Glucotrol -] 2.5 mg PO BID@0700,1630 tablet 12/20/18 Hydroxychloroquine So4 [Plaquenil -] 400 mg PO BID tablet 12/20/18 Labetalol HCl [Normodyne -] 300 mg PO BID tablet 12/20/18 Lisinopril [Prinivil] 2.5 mg PO DAILY tablet 12/20/18 Magnesium Oxide [Mag-Ox -] 400 mg PO BID #60 tablet 12/20/18 Pantoprazole Sodium [Protonix -] 40 mg PO DAILY #30 tablet.ec 12/20/18 Torsemide [Demadex -] 10 mg PO DAILY tablet 12/20/18 hydrALAZINE HCL [Apresoline -] 25 mg PO BID tablet 12/20/18 levETIRAcetam [Keppra -] 250 mg PO BID tablet 12/20/18 Anemia: Yes Cardiac Disorders: Yes (NE, heart murmur, DVT,A.FIBRILLATION) COPD: No CHF: Yes Dementia: Yes Diabetes: Yes GI Disorders: Yes (AVM, GASTRIC ULCER) Disorders: Yes (UTI) HTN: Yes Hypercholesterolemia: Yes Seizures: Yes (last one 3 months ago) Other medical history: DVT right LE, right foot surgery - Surgical History Orthopedic Surgery: Yes (bilateral knee replacement) - Psycho Social/Smoking Cessation Hx Smoking History: Former smoker Have you smoked in the past 12 months: No If you are a former smoker, when did you quit?: 15 years Information on smoking cessation initiated: No Hx Alcohol Use: No Drug/Substance Use Hx: No Substance Use Type: None Hx Substance Use Treatment: No Review of Systems - Review of Systems Constitutional: No: Chills, Fever HEENTM: No: Eye Pain, Nose Pain, Throat Pain, Mouth Pain Respiratory: No: Cough, Shortness of Breath Cardiac (ROS): No: Chest Pain, Palpitations, Syncope ABD/GI: No: Abdominal Distended, Constipated, Diarrhea, Nausea, Vomiting : No: Burning, Dysuria, Discharge, Frequency, Flank Pain, Hematuria Musculoskeletal: Yes: Joint Pain (L 1st MTP). No: Back Pain, Joint Swelling Integumentary: No: Bruising, Dryness, Erythema Neurological: No: Headache, Numbness, Seizure, Tingling, Tremors Psychiatric: No: Anxiety, Depression, Stressors Endocrine: No: Excessive Sweating, Flushing, Intolerance to Cold, Intolerance to Heat Hematologic/Lymphatic: No: Anemia, Easy Bleeding *Physical Exam - Vital Signs Last Vital Signs Temp Pulse Resp BP Pulse Ox 98.4 F 54 L 18 171/58 H 100 02/23/19 16:56 02/23/19 16:56 02/23/19 16:56 02/23/19 16:56 02/23/19 16:56 - Physical Exam General Appearance: Yes: Nourished, Appropriately Dressed, Mild Distress HEENT: positive: EOMI, DEBBY, Normal Voice, Hearing Grossly Normal. negative: Scleral Icterus (R), Scleral Icterus (L), Nasal Congestion, Rhinorrhea Respiratory/Chest: positive: Lungs Clear, Normal Breath Sounds. negative: Chest Tender, Respiratory Distress, Crackles, Rales, Rhonchi, Stridor, Wheezing Cardiovascular: positive: Regular Rhythm, S1, S2, Bradycardia. negative: Edema , Murmur Extremity: positive: Other. negative: Swelling, Calf Tenderness Integumentary: positive: Normal Color (L 1st toe - moderate tenderness w movement, tender from MTP distal, 5/5 strength and full ROM, normal sensation bilaterally, normal cap refill, no swelling/warmth/erythema/open wounds) Neurologic: positive: Fully Oriented, Alert, Normal Response, Motor Strength 5/5 , Respond to painful stimul, Responsive. negative: Numbness, Confused, Disoriented Medical Decision Making - Medical Decision Making 02/23/19 18:09 L foot XR showed arthritis changes, no fracture/dislocation Arterial ultrasound showed mild plaquing, no occlusion, minimal flow in posterior tibial artery Given tylenol, naproxen for pain Keiry Zheng is a 88yF w PMHx Dementia, HTN, HLD, CHF, RA, DVT not anticoagulated presenting w L 1st toe pain likely d/t rheumatoid arthritis exacerbation. Neurovascular intact. L foot XR showed arthritis changes, no fracture/dislocation. Arterial US did not show occlusion. Low concern for compartment syndrome (retained sensation, not edematous) vs cellulitis (not warm /edematous/no source of infection). Given tylenol, naproxen for pain. D/c home w floorman f/u and supportive care instructions. Discharge - Discharge Information Problems reviewed: Yes Clinical Impression/Diagnosis: Toe pain Qualifiers: Laterality: left Qualified Code(s): M79.675 - Pain in left toe(s) Condition: Stable Disposition: HOME - Admission No - Follow up/Referral Referrals: Esteban Jo MD [Staff Physician] - - Patient Discharge Instructions Patient Printed Discharge Instructions: DI for Rheumatoid Arthritis Additional Instructions: You were seen for toe pain. Your imaging did not show any fracture or vessel blockage. You were given medication for your pain Please make an appointment to see your floorman or the referred Dr Jo regarding your toe. You can apply head and cold or take 400mg ibuprofen 3x per day if you continue to have pain. Come back to the ED if you cannot walk, have a fever, or lose sensation in your toe. - Post Discharge Activity
--- NOTE | 2019-02-23 17:45 | PDOC ---
Attending Attestation - Resident Resident Name: Jean-Pierre Lopez - ED Attending Attestation I have performed the following: I have examined & evaluated the patient, The case was reviewed & discussed with the resident, I agree w/resident's findings & plan, Exceptions are as noted - HPI HPI: 02/23/19 17:44 She has sudden left big toe pain that started last night. She does have a h/o clot in her toes before. - Physicial Exam PE: alert 89-year-old female presents with left toe pain that started last evening. She denies any recent trauma Head is normocephalic atraumatic Neck no midline cervical vertebral tenderness, no bruits Lungs are clear to auscultation abdomen is soft nontender extremities on both legs there is no erythema, no open wounds no purulence. In the left toe she has pain between the left toe and the adjacent toe but the foot is warm sensation is intact there is no appreciable swelling Skin is warm and dry Neuro alert and conversant - Medical Decision Making 02/23/19 18:18 there is no evidence for dvt, no leg swelling Arterrial doppler order for left leg imp: could be arthritis flare vs occlusion 02/23/19 20:37 Ultrasound arterial duplex of left lower extremity impression Mild plaquing is present throughout but no large arterial occlusion is seen. There is only minimal flow seen in the posterior tibial artery incidentally 02/23/19 20:39 pt to followup with her PCP or fur dry cleaner hand imp DJD RX Naproxen
[2019-02-23] MEDS ORDERED: ACETAMINOPHEN 500 MG TABLET (FP) PO ONE (17:52)
[2019-02-23] MEDS ORDERED: ACETAMINOPHEN 325 MG TABLET (FP) ONE (18:58)
[2019-02-23] MEDS ORDERED: NAPROXEN 500 MG TABLET (FP) PO ONE (20:38)
[2019-02-23] MEDS ORDERED: NAPROXEN 500 MG TABLET (FP) ONE (20:56)
[2019-02-23 21:43] VITALS: BP 167/60; PULSE 56
== END 2019-02-23 21:42 | disposition home or self-care (01) ==
LOC: JER 16:45
DX: M13.872 Other specified arthritis, left ankle and foot (principal); I11.0 Hypertensive heart disease with heart failure; I50.9 Heart failure, unspecified; D64.9 Anemia, unspecified; E78.00 Pure hypercholesterolemia, unspecified; G40.909 Epilepsy, unspecified, not intractable, without status epilepticus; E11.9 Type 2 diabetes mellitus without complications; Z79.84 Long term (current) use of oral hypoglycemic drugs; I48.91 Unspecified atrial fibrillation; F03.90 Unspecified dementia, unspecified severity, without behavioral disturbance, psychotic disturbance, mood disturbance, and anxiety; Z87.19 Personal history of other diseases of the digestive system; Z87.440 Personal history of urinary (tract) infections; Z87.891 Personal history of nicotine dependence; Z96.653 Presence of artificial knee joint, bilateral; Z88.5 Allergy status to narcotic agent
CPT/HCPCS: 73630-TC-LT; 93926-TC; 99282-25

== ENCOUNTER 2020-01-15 16:25 | Inpatient (IN) | payer OTHER ==
--- NOTE | 2020-01-15 16:52 | PDOC ---
History of Present Illness - General Chief Complaint: Revisit, Lab Variance Stated Complaint: DVT, LEFT LEG SWELLING, PAIN Time Seen by Provider: 01/15/20 16:28 History Source: Family, Primary Care Provider Exam Limitations: Dementia - History of Present Illness Initial Comments: Pt is an 89 yo F, with PMH of dementia, HTN, HLD, CHF, RA (on plaquenil), DVT (on ASA, not on AC 2/2 UGIB), who is presenting with L leg DVT. Pt was sent by her PCP after having a positive lower extremity doppler study. Pt states she noticed increased swelling of her L foot over the past 2 weeks. Pt has had a prior R peroneal artery clot, with subsequent embolectomy and angioplasty, however had difficulty with GIB requiring multiple transfusions. Pt denies any fevers/chills, headache, vision changes, syncope, chest pain, palpitations, SOB, nausea/vomiting, abdominal pain, urinary symptoms, diarrhea/constipation, or rash. Allergies: NKDA PCP: Dr. Jerry Social: Pt denies any cigarette, alcohol, or drug use. Pt lives with her daughters and has a home health aide. Pt denies any recent travel or sick contacts. Surgical: R peroneal embolectomy/angioplasty done at [facility] (2008) Family: no relevant history. 01/15/20 18:47 Past History - Travel History Traveled outside of the country in the last 30 days: No Close contact w/someone who was outside of country & ill: No - Medical History Allergies/Adverse Reactions: Allergies Allergy/AdvReac Type Severity Reaction Status Date / Time codeine Allergy Verified 01/15/20 16:26 Home Medications: Ambulatory Orders Acetaminophen [Tylenol] 500 mg PO TID 01/15/20 Amitriptyline HCl [Elavil -] 10 mg PO HS 01/15/20 Amlodipine Besylate 2.5 mg PO DAILY 01/15/20 Aspirin [Aspirin EC] 81 mg PO DAILY 01/15/20 Cholecalciferol (Vitamin D3) [Vitamin D3] 4,000 unit PO DAILY 01/15/20 Donepezil HCl 10 mg PO HS 01/15/20 Ferrous Sulfate 325 mg PO DAILY 01/15/20 Glipizide 10 mg PO BID 01/15/20 Hydralazine HCl 25 mg PO BID 01/15/20 Hydroxychloroquine Sulfate [Plaquenil] 2 tab PO ASDIR 01/15/20 Insulin Glargine,Hum.rec.anlog [Lantus] 14 unit SQ AM 01/15/20 Labetalol HCl 300 mg PO BID 01/15/20 Levetiracetam 250 mg PO BID 01/15/20 Lisinopril 10 mg PO DAILY 01/15/20 Magnesium Oxide 400 mg PO BID 01/15/20 Prednisone 5 mg PO DAILY 01/15/20 Repaglinide 4 mg PO TID 01/15/20 Torsemide 40 mg PO DAILY 01/15/20 Anemia: Yes Cardiac Disorders: Yes (PA, heart murmur, DVT,A.FIBRILLATION) COPD: No CHF: Yes Dementia: Yes Diabetes: Yes GI Disorders: Yes (AVM, GASTRIC ULCER) Disorders: Yes (UTI) HTN: Yes Hypercholesterolemia: Yes Seizures: Yes (last one 3 months ago) - Surgical History Orthopedic Surgery: Yes (bilateral knee replacement) - Psycho-Social/Smoking History Smoking History: Former smoker Have you smoked in the past 12 months: No If you are a former smoker, when did you quit?: 15 years Information on smoking cessation initiated: No - Substance Abuse Hx (Audit-C & DAST Scrn) How often the patient has a drink containing alcohol: Never Score: In Men: 4 or > Positive; In Women: 3 or > Positive: 0 Screen Result (Pos requires Nsg. Audit-10AR): Negative In the last yr the pt used illegal drug/Rx for NonMed reason: No Score: Yes response is considered Positive: 0 Screen Result (Positive result requires Nsg. DAST-10): Negative Review of Systems - Review of Systems Able to Perform ROS?: Yes Is the patient limited Cypriot proficient: No Constitutional: Yes: Weight Stable. No: Chills, Diaphoresis, Fever, Loss of Appetite, Malaise, Weakness HEENTM: No: Recent change in vision, Nose Congestion, Throat Pain, Throat Swelling, Difficulty Swallowing Respiratory: No: Cough, Orthopnea, Shortness of Breath Cardiac (ROS): Yes: Edema. No: Chest Pain, Irregular Heart Rate, Light headedness, Palpitations, Syncope, Chest Tightness ABD/GI: No: Constipated, Diarrhea, Nausea, Poor Appetite, Poor Fluid Intake, Vomiting : No: Burning, Dysuria, Frequency, Hematuria, Pain, Urgency Musculoskeletal: No: Back Pain, Joint Pain, Joint Swelling, Muscle Pain, Muscle Weakness Integumentary: No: Change in Color, Pallor, Rash Neurological: No: Headache, Numbness, Weakness, Unsteady Gait, Dizziness Psychiatric: No: Sleep Pattern Change, Change in Appetite Endocrine: No: Increased Urine, Change in Weight Hematologic/Lymphatic: Yes: See HPI, Anemia, Easy Bleeding. No: Blood Clots, Easy Bruising All Other Systems: Reviewed and Negative *Physical Exam - Vital Signs Last Vital Signs Temp Pulse Resp BP Pulse Ox 98.5 F 74 18 182/76 H 100 01/15/20 16:25 01/15/20 16:25 01/15/20 16:25 01/15/20 16:25 01/15/20 16:25 - Physical Exam HTN, VS otherwise stable, pt afebrile. Pt in NAD, obese body habitus. Pt alert and oriented x3. 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 No midline spinal tenderness, step-offs, or crepitus. Head normocephalic, atraumatic. Eyes PERRLA, EOMI. Oropharynx without erythema or exudates, no LAD b/l. No nasal congestion. Hearing intact. Clear heart sounds, S1/S2, no JVD, or heart murmur. +LLE edema with pitting in the foot. Clear lung sounds, no respiratory distress, wheezes, crackles, or accessory muscle use. No abdominal or CVA tenderness to palpation, no rebound, no guarding. Abdomen s oft, non-distended, and with normoactive bowel sounds. +strong DP pulses b/l. Skin without jaundice or rash. 01/15/20 18:51 ED Treatment Course - LABORATORY CBC & Chemistry Diagram: 01/15/20 17:30 01/15/20 17:30 Medical Decision Making - Medical Decision Making 89 yo F, presenting with confirmed L-leg DVT via doppler study. Pt has had prior arterial clot with complex history of anti-coagulation given GIB and requirement for transfusion. Pt also has difficult IV access and has required central line placement in the past. Duplex showed DVT of L femoral, popliteal, and posterior tibial veins. Started heparin drip. Provided night-time HTN medications, as systolic BP still increased. Provided SQ insulin due to hyperglycemia. Pt admitted to Dr. Jerry for further management of extensive DVT and complex anti-coagulation history. Pt requires inpatient hospitalization to be monitored during initial anti-coagulation due to hx of anemia and requirements of transfusion. 01/15/20 18:52 Discharge - Discharge Information Problems reviewed: Yes Clinical Impression/Diagnosis: DVT of popliteal vein Qualifiers: Chronicity: acute Laterality: left Qualified Code(s): I82.432 - Acute embolism and thrombosis of left popliteal vein DVT, femoral, acute Qualifiers: Laterality: left Qualified Code(s): I82.412 - Acute embolism and thrombosis of left femoral vein Condition: Stable - Admission Yes - Follow up/Referral Referrals: Michelle Jerry MD [Primary Care Provider] - - Patient Discharge Instructions - Post Discharge Activity
--- NOTE | 2020-01-15 16:57 | PDOC ---
Attending Attestation - Resident Resident Name: Rachael Hancock - ED Attending Attestation I have performed the following: I have examined & evaluated the patient, The case was reviewed & discussed with the resident, I agree w/resident's findings & plan - HPI HPI: 01/15/20 16:56 89 YOF accompanied w/ her daughter at bedside with a pmhx of dementia, HTN, HLD, diabetes, CHF, OR (1994), GIB/AVM, DVT(previously on Eliquis) however was found to have right peroneal artery embolism s/p embolectomy and angioplasty in 2008, PAD, rheumatoid arthritis, osteoarthritis, seizure disorder ( on Keppra), spinal stenosis, bilateral TKR, left kidney mass, and LE edema presenting with LLE pain and swelling, found outpatient to have acute DVT in left femoral, popliteal and tibial vein. 01/15/20 16:59 - Physicial Exam PE: 01/15/20 16:56 Agree with the resident's HPI and PE as documented in the electronic medical record. NAD, well appearing, EOMI, PERRL, nl conjunctiva, anicteric; neck supple. lungs clear, RRR, abdomen soft nontender. no rebound, guarding. Back nontender. [place] x4, no focal neuro deficits. +LLE peripheral edema. normal color for ethnicity, WWP. +left calf tenderness,+left lower leg warmth, no erythema, mild swelling. 01/15/20 17:34 - Medical Decision Making 01/15/20 16:57 Vital Signs Temp Pulse Resp BP Pulse Ox 98.5 F 74 18 182/76 H 100 01/15/20 16:25 01/15/20 16:25 01/15/20 16:25 01/15/20 16:25 01/15/20 16:25 vitals wnl, reassuring no respiratory distress no cp outpatient duplex with LLE dvt, proximally and extending from femoral vein to the popliteal and tibial vein warrants anticoagulation heparin gtt admit to Dr Jerry for acute proximal DVT, high risk of embolization, anticoagulation and bleeding risk/monitoring warranted 01/15/20 17:35 Heart Score/ECG Review #1 ECG reviewed & interpreted by me at: 17:50 General ECG Interpretation: Sinus Rhythm, Normal Rate, Normal Intervals Compared to previous ECG there are: No significant change 01/15/20 17:57 EKG normal sinus rhythm 75 bpm, no interval abnormalities, narrow QRS, ST and T wave segments and morphology normal. Nonspecific T wave abnormalities Discharge - Discharge Information Problems reviewed: Yes Clinical Impression/Diagnosis: DVT of popliteal vein Qualifiers: Chronicity: acute Laterality: left Qualified Code(s): I82.432 - Acute embolism and thrombosis of left popliteal vein DVT, femoral, acute Qualifiers: Laterality: left Qualified Code(s): I82.412 - Acute embolism and thrombosis of left femoral vein Condition: Guarded - Admission Yes - Follow up/Referral Referrals: Michelle Jerry MD [Primary Care Provider] - - Patient Discharge Instructions - Post Discharge Activity
[2020-01-15] MEDS ORDERED: HEPARIN NA (PORCINE) 5,000 UNITS/ML 1ML VIAL IVPUSH PRN ×2 (17:45)
[2020-01-15] MEDS ORDERED: HEPARIN INFUSION - 25,000 UNITS/500 ML INFUS.BAG IVPB ONE (17:49)
[2020-01-15 17:58] LABS: BASO % 0.7 % (0-2.0); EOS % 0.2 % (0-4.5); HEMATOCRIT 27.2 % (32.4-45.2); HEMOGLOBIN 8.6 GM/dl (10.7-15.3); LYMPH % 16.7 % (8-40); MCH 26.8 pg (25.7-33.7); MCHC 31.5 g/dl (32.0-36.0); MEAN PLT VOLUME 8.6 fl (7.5-11.1); MONO % 6.6 % (3.8-10.2); NEUT % 75.8 % (42.8-82.8); PLATELET COUNT 199 K/MM3 (134-434)
[2020-01-15] MEDS: HEPARIN - 25,000 UNIT in SODIUM CHLORIDE 495 ML IV SCH (18:05)
[2020-01-15 18:07] LABS: ACTIVATED PTT 22.2 SECONDS (25.2-36.5); ALBUMIN 3.1 g/dl (3.4-5.0); BILIRUBIN,TOTAL 0.3 mg/dl (0.2-1); CALCIUM 8.7 mg/dl (8.5-10); POTASSIUM 4.5 mmol/L (3.5-5.1); TOT PROT 5.8 g/dl (6.4-8.2)
[2020-01-15 18:11] LABS: INR 1.08 (0.82-1.09); PROTHROMBIN TIME (PATIENT) 12.1 SEC (10.2-13.0)
[2020-01-15] MEDS ORDERED: INSULIN REGULAR HUMAN 100 UNITS/ML *VIAL SQ ONE (18:11)
[2020-01-15] MEDS ORDERED: hydrALAZINE HCL 25 MG TABLET (FP) PO ONE (18:13)
[2020-01-15] MEDS ORDERED: LABETALOL HCL 100 MG TABLET (FP) PO ONE (18:13)
[2020-01-15] MEDS ORDERED: levETIRAcetam 250 MG TABLET PO ONE (18:14)
[2020-01-15] MEDS ORDERED: INSULIN REGULAR HUMAN 100 UNITS/ML *VIAL ONE (18:17)
[2020-01-15] MEDS ORDERED: LABETALOL HCL 200 MG TABLET (FP) ONE (18:21)
[2020-01-15] MEDS ORDERED: LABETALOL HCL 100 MG TABLET (FP) ONE (18:21)
[2020-01-15] MEDS ORDERED: INSULIN SLIDING SCALE (NOVOLOG) 1 VIAL SQ SCH (22:00)
[2020-01-15] MEDS: LABETALOL HCL 100 MG TABLET (FP) PO SCH (23:32)
[2020-01-16] MEDS: HEPARIN - 25,000 UNIT in SODIUM CHLORIDE 495 ML IV SCH (04:46)
[2020-01-16] MEDS: predniSONE 5 MG TABLET (UD) PO SCH (10:05)
[2020-01-16] MEDS: LABETALOL HCL 100 MG TABLET (FP) PO SCH ×2 (10:05→21:58)
[2020-01-16] MEDS: TORSEMIDE 20 MG TABLET (FP) PO SCH (10:05)
[2020-01-16] MEDS: APIXABAN 5 MG TABLET PO SCH ×2 (10:05→21:57)
--- NOTE | 2020-01-16 10:09 | PN ---
Progress Note (short form) - Note Progress Note: PULMONARY CONSULTATION DICTATED 01/16/20 IMP ACUTE LLE DVT H/O R PERONEAL ARTERY EMBOLISM S/P EMBOLECTOMY/ANGIOPLASTY H/O DVT RA CHF ASHD S/P KS HTN HLD DM H/O GIB/AVM ACUTE ON CKD RECENT COVID-07 SEPTEMBER 2019 PLAN O2 AC CONSIDER IVC FILTER IN VIEW H/O GIB MONITOR LYTES,RENAL FUNCTION STOOL GUAIACS DR RAY Problem List - Problems (1) DVT of popliteal vein Code(s): I82.439 - ACUTE EMBOLISM AND THROMBOSIS OF UNSPECIFIED POPLITEAL VEIN Qualifiers: Chronicity: acute Laterality: left Qualified Code(s): I82.432 - Acute embolism and thrombosis of left popliteal vein (2) DVT, femoral, acute Code(s): I82.419 - ACUTE EMBOLISM AND THROMBOSIS OF UNSPECIFIED FEMORAL VEIN Qualifiers: Laterality: left Qualified Code(s): I82.412 - Acute embolism and thrombosis of left femoral vein (3) Arterial embolism Code(s): I74.9 - EMBOLISM AND THROMBOSIS OF UNSPECIFIED ARTERY (4) CHF (congestive heart failure) Code(s): I50.9 - HEART FAILURE, UNSPECIFIED Qualifiers: (5) Dementia Code(s): F03.90 - UNSPECIFIED DEMENTIA WITHOUT BEHAVIORAL DISTURBANCE Qualifiers: (6) Diabetes mellitus Code(s): E11.9 - TYPE 2 DIABETES MELLITUS WITHOUT COMPLICATIONS (7) HLD (hyperlipidemia) Code(s): E78.5 - HYPERLIPIDEMIA, UNSPECIFIED Qualifiers: (8) HTN (hypertension) Code(s): I10 - ESSENTIAL (PRIMARY) HYPERTENSION Qualifiers: (9) Microcytic hypochromic anemia Code(s): D50.9 - IRON DEFICIENCY ANEMIA, UNSPECIFIED
--- NOTE | 2020-01-16 10:54 | EKG ---
Test Reason : Blood Pressure : / mmHG Vent. Rate : 075 BPM Atrial Rate : 075 BPM P-R Int : 184 ms QRS Dur : 086 ms QT Int : 374 ms P-R-T Axes : 080 038 162 degrees QTc Int : 417 ms NORMAL SINUS RHYTHM LEFT VENTRICULAR HYPERTROPHY WITH REPOLARIZATION ABNORMALITY WHEN COMPARED WITH ECG OF 22-DEC-2017 07:41, NO SIGNIFICANT CHANGE WAS FOUND Confirmed by PILAR ZURITA MD ([id number]) on 01/16/2020 10:54:44 AM Referred By: DR CLEMENTE Confirmed By:PILAR ZURITA MD
--- NOTE | 2020-01-16 13:51 | CONS ---
DATE OF CONSULTATION: 01/16/2020 PULMONARY CONSULTATION REFERRING PHYSICIAN: Michelle Jerry MD Patient is an 89-year-old female past medical history which includes dementia, hypertension, hyperlipidemia, diabetes, history of CHF, ASHD, status post RI in 1994, history of GI bleed/AVMs, history of DVT, previously on Eliquis, history of a right peroneal artery embolism status post embolectomy and angioplasty, peripheral artery disease, rheumatoid arthritis, seizure disorder, spinal stenosis, history of bilateral total knee replacement, left kidney mass, COVID-19 infection in August 2019, admitted to [facility] secondary to left lower extremity edema and pain. It should be noted on an outside outpatient ultrasound to have acute left lower extremity DVT. She was subsequently admitted and started on heparin and changed to Eliquis. Patient denies any shortness of breath. Denies any chest pains or palpitations. She denies any history of tobacco use. PAST MEDICAL HISTORY: Again, includes dementia, hypertension, hyperlipidemia, diabetes, CHF, ASHD, status post RI, GI bleed, DVT, right peroneal artery embolism status post embolectomy, PAD, rheumatoid arthritis, seizure disorder, spinal stenosis. CURRENT MEDICATIONS: Include prednisone, Eliquis, Normodyne, NovoLog, and Demadex. REVIEW OF SYSTEMS: No orthopnea. No PND. No chest pain. No palpitations. No cough. No hemoptysis. No abdominal pain. Left lower extremity swelling. PHYSICAL EXAMINATION: General: Patient is an elderly female, awake, alert, in no acute distress. Vital Signs: She is afebrile, blood pressure is 156/62, respiratory rate is 18, and O2 saturation is 98% on room air. HEENT: Exam is normocephalic, atraumatic. Neck: Supple. Heart: Regular, S1, S2. Chest: Diminished breath sounds bilaterally. Abdomen: Soft. Bowel sounds positive. Extremities: There are swelling and tenderness to the left calf. LABORATORIES: WBC is 8, hemoglobin 8.6, hematocrit 27.2, and a platelet count 199,000. INR is 1.08. BUN 51, creatinine 2.0. IMAGING: Chest x-ray poor inspiratory effort and no infiltrates and no effusions. IMPRESSION: 1. Left lower extremity deep vein thrombosis possibly secondary to recent COVID infection with sedentary lifestyle. 2. Right peritoneal artery embolism status post an embolectomy angioplasty. 3. History of deep vein thrombosis. 4. Rheumatoid arthritis. 5. Congestive heart failure, stable. 6. 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 7. Hypertension. 8. Hyperlipidemia. 9. Diabetes. 10. History of gastrointestinal bleed/arteriovenous malformation. 11. Acute on chronic kidney disease. 12. Recent COVID-19 infection. RECOMMENDATIONS: Suggest supplemental O2. Anticoagulation. Monitor electrolytes, renal function, as well as hemoglobin and hematocrit, stool guaiac. Also, consider IVC filter in view of patient's history of GI bleed. Patient is noted to have decreased hematocrit without evidence of any bleed or GI bleed. DIONNE RAY M.D. [id number]
[2020-01-16 15:49] VITALS: BMI 30.2
--- NOTE | 2020-01-16 17:07 | HP ---
Admitting History and Physical - Admission Chief Complaint: patient sent from my office with complaints of edema of the l eft lower extremity and left calf pain History of Present Illness: I confirmed with Dr. Bragg, patient's previous PCP the patient's anticoagulation history. 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 Following that event the patient continued to have "ischemic toes" and was placed by Dr. Salas at [facility] on manager terminal Coumadin treatment since she could not tolerate aspirin. AVM's: There is also history of GI bleed endoscopy and colonoscopy performed in 2018 and respectively 2017 which found only one colonic polyp, one gastric polyp and normal gastric and colon mucosa.. Both polyps were removed. The colonoscopy did not visualize the small intestine and therefore the possibility of small intestine AVM's is not totally excluded. - Past Medical History Cardiovascular: Yes: CHF, Deep Vein Thrombosis, HTN, Hyperlipdemia, [place] Gastrointestinal: Yes: Other (AVM) Renal/: Yes: Other (renal mass) ...: No Heme/Onc: Yes: Anemia. No: Bleeding Disorder Rheumatology: Yes: Rheumatoid Arthritis Endocrine: Yes: Diabetes Mellitus - Past Surgical History Past Surgical History: Yes: Hysterectomy (LOREE/BSO), Joint Replacement (Bilateral TKR) - Advance Directives Advance Directives: Yes: Health Care Proxy - Smoking History Smoking history: Former smoker Have you smoked in the past 12 months: No If you are a former smoker, when did you quit?: 15 years - Alcohol/Substance Use Hx Alcohol Use: No - Social History ADL: Family Assistance Occupation: Unemployed History of Recent Travel: No Home Medications - Allergies Allergies/Adverse Reactions: Allergies Allergy/AdvReac Type Severity Reaction Status Date / Time codeine Allergy Verified 01/15/20 16:26 - Home Medications Home Medications: Ambulatory Orders Acetaminophen [Tylenol] 500 mg PO TID 01/15/20 Amitriptyline HCl [Elavil -] 10 mg PO HS 01/15/20 Amlodipine Besylate 2.5 mg PO DAILY 01/15/20 Aspirin [Aspirin EC] 81 mg PO DAILY 01/15/20 Cholecalciferol (Vitamin D3) [Vitamin D3] 4,000 unit PO DAILY 01/15/20 Donepezil HCl 10 mg PO HS 01/15/20 Ferrous Sulfate 325 mg PO DAILY 01/15/20 Glipizide 10 mg PO BID 01/15/20 Hydralazine HCl 25 mg PO BID 01/15/20 Hydroxychloroquine Sulfate [Plaquenil] 2 tab PO ASDIR 01/15/20 Insulin Glargine,Hum.rec.anlog [Lantus] 14 unit SQ AM 01/15/20 Labetalol HCl 300 mg PO BID 01/15/20 Levetiracetam 250 mg PO BID 01/15/20 Lisinopril 10 mg PO DAILY 01/15/20 Magnesium Oxide 400 mg PO BID 01/15/20 Prednisone 5 mg PO DAILY 01/15/20 Repaglinide 4 mg PO TID 01/15/20 Torsemide 40 mg PO DAILY 01/15/20 Physical Examination Vital Signs: Vital Signs Temperature 98.4 F 01/16/20 14:10 Pulse Rate 69 01/16/20 14:10 Respiratory Rate 16 01/16/20 14:10 Blood Pressure 147/59 L 01/16/20 14:10 O2 Sat by Pulse Oximetry (%) 98 01/16/20 14:10 Labs: CBC, BMP 01/15/20 17:30 01/15/20 17:30
[2020-01-16] MEDS: INSULIN SLIDING SCALE (NOVOLOG) 1 VIAL SQ SCH ×3 (17:13→22:31)
--- NOTE | 2020-01-16 17:55 | HP ---
Admitting History and Physical - Admission Chief Complaint: edema of the left lower extremity, pain in the left lower ext remity. shortness of breath History of Present Illness: 89 yo female who was referred from my office for edema and pain of the left lower extremity. In July of 2019 she was diagnosed and admitted with COVID-19 pneumonia. Since then her mobility has been decreased compared to her baseline and she started noticing lower extremity edema only 2 weeks ago. ER venous Doppler showed extensive DVT of the left lower extremity. Patient was see I confirmed with Dr. Bragg, patient's previous PCP the patient's anticoagulation history. 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 Following that event the patient continued to have "ischemic toes" and was placed by Dr. Salas at [facility] on adjunct faculty for medical terminology Coumadin treatment since she could not tolerate aspirin. There is also history of "AVM' and GI bleed. Endoscopy and colonoscopy performed in 2017 and respectively 2017 found only one colonic polyp, one gastric polyp and normal gastric and colon mucosa. Both polyps were removed. The colonoscopy did not visualize the small intestine and therefore the possibility of small intestine AVM's is not totally excluded. In general patient has h/o of poor venous access. History Source: Patient - Past Medical History Cardiovascular: Yes: CHF, HTN, Hyperlipdemia, [place] Gastrointestinal: Yes: Other (AVM) Renal/: Yes: Other (renal mass) ...: No Heme/Onc: Yes: Anemia. No: Bleeding Disorder Rheumatology: Yes: Rheumatoid Arthritis Endocrine: Yes: Diabetes Mellitus - Past Surgical History Past Surgical History: Yes: Hysterectomy (LOREE/BSO), Joint Replacement (Bilateral TKR) - Advance Directives Advance Directives: Yes: Health Care Proxy - Smoking History Smoking history: Former smoker Have you smoked in the past 12 months: No If you are a former smoker, when did you quit?: 15 years - Alcohol/Substance Use Hx Alcohol Use: No - Social History ADL: Family Assistance Occupation: Unemployed History of Recent Travel: No Home Medications - Allergies Allergies/Adverse Reactions: Allergies Allergy/AdvReac Type Severity Reaction Status Date / Time codeine Allergy Verified 01/15/20 16:26 - Home Medications Home Medications: Ambulatory Orders Acetaminophen [Tylenol] 500 mg PO TID 01/15/20 Amitriptyline HCl [Elavil -] 10 mg PO HS 01/15/20 Amlodipine Besylate 2.5 mg PO DAILY 01/15/20 Aspirin [Aspirin EC] 81 mg PO DAILY 01/15/20 Cholecalciferol (Vitamin D3) [Vitamin D3] 4,000 unit PO DAILY 01/15/20 Donepezil HCl 10 mg PO HS 01/15/20 Ferrous Sulfate 325 mg PO DAILY 01/15/20 Glipizide 10 mg PO BID 01/15/20 Hydralazine HCl 25 mg PO BID 01/15/20 Hydroxychloroquine Sulfate [Plaquenil] 2 tab PO ASDIR 01/15/20 Insulin Glargine,Hum.rec.anlog [Lantus] 14 unit SQ AM 01/15/20 Labetalol HCl 300 mg PO BID 01/15/20 Levetiracetam 250 mg PO BID 01/15/20 Lisinopril 10 mg PO DAILY 01/15/20 Magnesium Oxide 400 mg PO BID 01/15/20 Prednisone 5 mg PO DAILY 01/15/20 Repaglinide 4 mg PO TID 01/15/20 Torsemide 40 mg PO DAILY 01/15/20 Review of Systems - Review of Systems Constitutional: reports: Weakness Eyes: reports: No Symptoms HENT: reports: No Symptoms Cardiovascular: reports: Edema (of the left lower extremity) Respiratory: reports: SOB on Exertion, Wheezing. denies: Cough Genitourinary: reports: No Symptoms Integumentary: reports: No Symptoms Neurological: reports: No Symptoms Endocrine: reports: No Symptoms Hematology/Lymphatic: reports: No Symptoms Psychiatric: reports: No Symptoms Physical Examination Vital Signs: Vital Signs Temperature 98.4 F 01/16/20 14:10 Pulse Rate 69 01/16/20 14:10 Respiratory Rate 16 01/16/20 14:10 Blood Pressure 147/59 L 01/16/20 14:10 O2 Sat by Pulse Oximetry (%) 98 01/16/20 14:10 Constitutional: Yes: No Distress, Calm Eyes: Yes: Conjunctiva Clear, EOM Intact HENT: Yes: Atraumatic, Normocephalic Neck: Yes: Supple, Trachea Midline Cardiovascular: Yes: Regular Rate and Rhythm, S1, S2 Respiratory: Yes: Regular, Wheezes Gastrointestinal: Yes: Normal Bowel Sounds, Soft ...Rectal Exam: Yes: Deferred Extremities: Yes: Amputation Edema: Yes Edema: LLE: Trace Wound/Incision: Yes: Clean/Dry, Well Approximated Neurological: Yes: Alert, Oriented Psychiatric: Yes: Alert, Oriented Labs: CBC, BMP 01/15/20 17:30 01/15/20 17:30 Imaging - Results Other: Other (DVT of left femoral vein popliteal) Problem List - Problems (1) DVT, femoral, acute Assessment/Plan: anticoagulation with E liquis awaiting VAscular consult Problems reviewed: No Code(s): I82.419 - ACUTE EMBOLISM AND THROMBOSIS OF UNSPECIFIED FEMORAL VEIN Qualifiers: Laterality: left Qualified Code(s): I82.412 - Acute embolism and thrombosis of left femoral vein (2) Dyspnea Assessment/Plan: ALbuterol nebs d/w Pulmonary , Code(s): R06.00 - DYSPNEA, UNSPECIFIED (3) Diabetes mellitus Assessment/Plan: [facility]'s AC and HS Code(s): E11.9 - TYPE 2 DIABETES MELLITUS WITHOUT COMPLICATIONS (4) CHF (congestive heart failure) Assessment/Plan: controlled, continue LAsix Code(s): I50.9 - HEART FAILURE, UNSPECIFIED
[2020-01-16] MEDS: ALBUTEROL SO4 0.083% IH SOL 2.5 MG/3 ML VIAL.NEB. NEB PRN (22:22)
[2020-01-17] MEDS: INSULIN SLIDING SCALE (NOVOLOG) 1 VIAL SQ SCH ×4 (06:20→22:10)
[2020-01-17 08:27] LABS: BASO % 0.4 % (0-2.0); EOS % 0.6 % (0-4.5); HEMOGLOBIN 8.3 GM/dl (10.7-15.3); MCH 26.6 pg (25.7-33.7); MCHC 31.9 g/dl (32.0-36.0); MEAN CELL VOLUME 83.4 fl (80-96); MEAN PLT VOLUME 7.7 fl (7.5-11.1); MONO % 11.3 % (3.8-10.2); NEUT % 62.7 % (42.8-82.8); PLATELET COUNT 227 K/MM3 (134-434); RBC 3.12 M/mm3 (3.60-5.2); RDW 15.2 % (11.6-15.6); WHITE BLOOD COUNT 7.4 K/mm3 (4.0-10.8)
[2020-01-17 08:39] LABS: ALBUMIN 2.8 g/dl (3.4-5.0); BILIRUBIN,TOTAL 0.5 mg/dl (0.2-1); CALCIUM 8.4 mg/dl (8.5-10); CREATININE 1.5 mg/dl (0.55-1.3); TOT PROT 5.3 g/dl (6.4-8.2)
[2020-01-17] MEDS: predniSONE 5 MG TABLET (UD) PO SCH (10:28)
[2020-01-17] MEDS: LABETALOL HCL 100 MG TABLET (FP) PO SCH ×2 (10:29→21:10)
[2020-01-17] MEDS: APIXABAN 5 MG TABLET PO SCH ×2 (10:31→21:09)
[2020-01-17] MEDS: TORSEMIDE 20 MG TABLET (FP) PO SCH (10:31)
[2020-01-17] MEDS: HYDROXYCHLOROQUINE SO4 200 MG TABLET (FP) PO SCH (15:40)
[2020-01-17] MEDS: FERROUS SO4 325 MG TABLET (FP) PO SCH (15:40)
[2020-01-17] MEDS: LISINOPRIL 10 MG TABLET (FP) PO SCH (15:40)
[2020-01-17] MEDS ORDERED: glipiZIDE 5 MG TABLET (FP) ONE (16:54)
[2020-01-17] MEDS ORDERED: PT OWN MED DRAWER 7, Y5N ONE (16:55)
[2020-01-17] MEDS ORDERED: REPAGLINIDE 2 MG TABLET (FP) PO SCH (17:00)
[2020-01-17] MEDS: glipiZIDE 10 MG TABLET (FP) PO SCH (17:01)
[2020-01-17] MEDS ORDERED: REPAGLINIDE 1 MG TABLET PO SCH (17:59)
[2020-01-17] MEDS: ALBUTEROL SO4 0.083% IH SOL 2.5 MG/3 ML VIAL.NEB. NEB PRN (18:23)
--- NOTE | 2020-01-17 19:34 | PN ---
Progress Note, Physician Chief Complaint: DVT of the right lower extremity History of Present Illness: 89 yo diabetic patient s/p COVID-19 in July 2019 was admitted for DVT rachel the right lower extremity. Luke patient has PMH od DM yesenia 2, HTN, CHF, CAD, RA and had numerous transfusions on the past while on Coumadin after an arterial embolism of the left lower extremity. - Current Medication List Current Medications: Active Medications Albuterol Sulfate (Ventolin 0.083% Nebulizer Soln -) 1 amp NEB Q6H PRN PRN Reason: SHORT OF BREATH/WHEEZING Last Admin: 01/17/20 18:23 Dose: 1 amp Documented by: Apixaban (Eliquis -) 10 mg PO BID [facility] Stop: 01/22/20 22:01 Last Admin: 01/17/20 10:31 Dose: 10 mg Documented by: Atorvastatin Calcium (Lipitor -) 10 mg PO [facility] Ferrous Sulfate (Feosol -) 325 mg PO DAILY [facility] Last Admin: 01/17/20 15:40 Dose: 325 mg Documented by: Glipizide (Glucotrol -) 10 mg PO BID@0700,1630 [facility] Last Admin: 01/17/20 17:01 Dose: 10 mg Documented by: Hydroxychloroquine Sulfate (Plaquenil -) 400 mg PO DAILY [facility] Hydroxychloroquine Sulfate (Plaquenil -) 600 mg PO DAILY [facility] Last Admin: 01/17/20 15:40 Dose: 600 mg Documented by: Insulin Aspart (Novolog Vial Sliding Scale -) 1 vial SQ [facility]; Protocol Last Admin: 01/17/20 17:01 Dose: 8 units Documented by: Labetalol HCl (Normodyne -) 300 mg PO BID [facility] Last Admin: 01/17/20 10:29 Dose: 300 mg Documented by: Levetiracetam (Keppra -) 250 mg PO BID [facility] Lisinopril (Prinivil) 10 mg PO DAILY [facility] Last Admin: 01/17/20 15:40 Dose: 10 mg Documented by: Prednisone (Deltasone -) 5 mg PO DAILY [facility] Last Admin: 01/17/20 10:28 Dose: 5 mg Documented by: Repaglinide (Prandin -) 4 mg PO TID@0700,1100,1700 [facility] Torsemide (Demadex -) 40 mg PO DAILY [facility] Last Admin: 01/17/20 10:31 Dose: 40 mg Documented by: - Objective Vital Signs: Vital Signs Temperature 98.6 F 01/17/20 18:00 Pulse Rate 73 01/17/20 18:00 Respiratory Rate 18 01/17/20 18:00 Blood Pressure 146/57 L 01/17/20 18:00 O2 Sat by Pulse Oximetry (%) 100 01/17/20 18:00 Constitutional: Yes: No Distress, Calm Eyes: Yes: Conjunctiva Clear, EOM Intact HENT: Yes: Atraumatic, Normocephalic Neck: Yes: Supple, Trachea Midline Cardiovascular: Yes: Regular Rate and Rhythm, S1, S2 Gastrointestinal: Yes: Normal Bowel Sounds, Soft. No: Hepatomegaly, Splenomegaly Breast(s): Yes: WNL Extremities: No: Calf Tenderness Peripheral Pulses WNL: Yes Labs: CBC, BMP 01/17/20 07:50 01/17/20 07:50 INR, PTT INR 1.08 (0.82-1.09) 01/15/20 17:30 Problem List - Problems (1) DVT, femoral, acute Assessment/Plan: anticoagulation with E liquis awaiting VAscular consult the possibility of inserting a Tyler filter because of the risk of bleeding while on anticoagulation will be assessed and discussed with patient Code(s): I82.419 - ACUTE EMBOLISM AND THROMBOSIS OF UNSPECIFIED FEMORAL VEIN Qualifiers: Laterality: left Qualified Code(s): I82.412 - Acute embolism and thrombosis of left femoral vein (2) Dyspnea Assessment/Plan: ALbuterol nebs are helping d/w Pulmonary , Code(s): R06.00 - DYSPNEA, UNSPECIFIED (3) Diabetes mellitus Assessment/Plan: [facility] AC and HS Code(s): E11.9 - TYPE 2 DIABETES MELLITUS WITHOUT COMPLICATIONS (4) CHF (congestive heart failure) Code(s): I50.9 - HEART FAILURE, UNSPECIFIED
[2020-01-17] MEDS: REPAGLINIDE 1 MG TABLET PO SCH (20:29)
[2020-01-17] MEDS: levETIRAcetam 250 MG TABLET PO SCH (21:10)
[2020-01-17] MEDS: ATORVASTATIN CA 10 MG TABLET (FP) PO SCH (21:10)
[2020-01-18] MEDS ORDERED: glipiZIDE 5 MG TABLET (FP) ONE (05:59)
[2020-01-18] MEDS ORDERED: PT OWN MED DRAWER 7, Y5N ONE ×3 (06:00→16:45)
[2020-01-18] MEDS: REPAGLINIDE 1 MG TABLET PO SCH ×3 (06:53→17:16)
[2020-01-18] MEDS: glipiZIDE 10 MG TABLET (FP) PO SCH ×2 (06:53→16:32)
[2020-01-18] MEDS: INSULIN SLIDING SCALE (NOVOLOG) 1 VIAL SQ SCH ×4 (06:53→21:25)
[2020-01-18 08:15] LABS: HEMATOCRIT 27.8 % (32.4-45.2); HEMOGLOBIN 8.4 GM/dl (10.7-15.3); MCH 26.1 pg (25.7-33.7); MCHC 30.3 g/dl (32.0-36.0); MEAN CELL VOLUME 86.2 fl (80-96); MEAN PLT VOLUME 8.6 fl (7.5-11.1); PLATELET COUNT 195 K/MM3 (134-434); RBC 3.23 M/mm3 (3.60-5.2); RDW 14.9 % (11.6-15.6); WHITE BLOOD COUNT 8.1 K/mm3 (4.0-10.8)
--- NOTE | 2020-01-18 08:42 | PN ---
Progress Note, Physician Chief Complaint: DVT of the right lower extremity History of Present Illness: 89 yo diabetic patient s/p COVID-19 in July 2019 was admitted for DVT rachel the right lower extremity. Luke patient has PMH od DM yesenia 2, HTN, CHF, CAD, RA and had numerous transfusions on the past while on Coumadin after an arterial embolism of the left lower extremity. - Current Medication List Current Medications: Active Medications Albuterol Sulfate (Ventolin 0.083% Nebulizer Soln -) 1 amp NEB Q6H PRN PRN Reason: SHORT OF BREATH/WHEEZING Last Admin: 01/17/20 18:23 Dose: 1 amp Documented by: Apixaban (Eliquis -) 10 mg PO BID [facility] Stop: 01/22/20 22:01 Last Admin: 01/17/20 21:09 Dose: 10 mg Documented by: Atorvastatin Calcium (Lipitor -) 10 mg PO HS [facility] Last Admin: 01/17/20 21:10 Dose: 10 mg Documented by: Ferrous Sulfate (Feosol -) 325 mg PO DAILY [facility] Last Admin: 01/17/20 15:40 Dose: 325 mg Documented by: Glipizide (Glucotrol -) 10 mg PO BID@0700,1630 [facility] Last Admin: 01/18/20 06:53 Dose: 10 mg Documented by: Hydroxychloroquine Sulfate (Plaquenil -) 400 mg PO DAILY [facility] Hydroxychloroquine Sulfate (Plaquenil -) 600 mg PO DAILY [facility] Last Admin: 01/17/20 15:40 Dose: 600 mg Documented by: Insulin Aspart (Novolog Vial Sliding Scale -) 1 vial SQ [facility]; Protocol Last Admin: 01/18/20 06:53 Dose: Not Given Documented by: Labetalol HCl (Normodyne -) 300 mg PO BID [facility] Last Admin: 01/17/20 21:10 Dose: 300 mg Documented by: Levetiracetam (Keppra -) 250 mg PO BID [facility] Last Admin: 01/17/20 21:10 Dose: 250 mg Documented by: Lisinopril (Prinivil) 10 mg PO DAILY [facility] Last Admin: 01/17/20 15:40 Dose: 10 mg Documented by: Prednisone (Deltasone -) 5 mg PO DAILY [facility] Last Admin: 01/17/20 10:28 Dose: 5 mg Documented by: Repaglinide (Prandin -) 4 mg PO TID@0700,1100,1700 [facility] Last Admin: 01/18/20 06:53 Dose: 4 mg Documented by: Torsemide (Demadex -) 40 mg PO DAILY [facility] Last Admin: 01/17/20 10:31 Dose: 40 mg Documented by: - Objective Vital Signs: Vital Signs Temperature 98.8 F 01/18/20 06:00 Pulse Rate 64 01/18/20 06:00 Respiratory Rate 18 01/18/20 06:00 Blood Pressure 158/51 L 01/18/20 06:00 O2 Sat by Pulse Oximetry (%) 97 01/18/20 06:00 Constitutional: Yes: No Distress, Calm Eyes: Yes: Conjunctiva Clear, EOM Intact HENT: Yes: Atraumatic, Normocephalic Neck: Yes: Supple, Trachea Midline Cardiovascular: Yes: Regular Rate and Rhythm, Murmur (systolic), S1, S2 Respiratory: Yes: Regular Gastrointestinal: Yes: Normal Bowel Sounds, Soft Extremities: Yes: Calf Tenderness (left) Neurological: Yes: Alert, Oriented Psychiatric: Yes: Alert, Oriented Labs: CBC, BMP 01/18/20 07:54 01/17/20 07:50 INR, PTT INR 1.08 (0.82-1.09) 01/15/20 17:30 Problem List - Problems (1) DVT, femoral, acute Assessment/Plan: anticoagulation with E liquis awaiting VAscular consult the possibility of inserting a Jordan filter because of the risk of bleeding while on anticoagulation will be assessed and discussed with patient Code(s): I82.419 - ACUTE EMBOLISM AND THROMBOSIS OF UNSPECIFIED FEMORAL VEIN Qualifiers: Laterality: left Qualified Code(s): I82.412 - Acute embolism and thrombosis of left femoral vein (2) Dyspnea Assessment/Plan: ALbuterol nebs are helping d/w Pulmonary , Code(s): R06.00 - DYSPNEA, UNSPECIFIED (3) Diabetes mellitus Assessment/Plan: [facility]'s AC and HS Code(s): E11.9 - TYPE 2 DIABETES MELLITUS WITHOUT COMPLICATIONS (4) CHF (congestive heart failure) Assessment/Plan: controlled, continue LAsix Code(s): I50.9 - HEART FAILURE, UNSPECIFIED
[2020-01-18] MEDS: FERROUS SO4 325 MG TABLET (FP) PO SCH (09:34)
[2020-01-18] MEDS: predniSONE 5 MG TABLET (UD) PO SCH (09:34)
[2020-01-18] MEDS: APIXABAN 5 MG TABLET PO SCH ×2 (09:34→21:25)
[2020-01-18] MEDS: levETIRAcetam 250 MG TABLET PO SCH ×2 (09:34→21:25)
[2020-01-18] MEDS: LISINOPRIL 10 MG TABLET (FP) PO SCH (09:34)
[2020-01-18] MEDS: TORSEMIDE 20 MG TABLET (FP) PO SCH (09:35)
[2020-01-18] MEDS: HYDROXYCHLOROQUINE SO4 200 MG TABLET (FP) PO SCH (09:35)
[2020-01-18] MEDS: LABETALOL HCL 100 MG TABLET (FP) PO SCH (09:36)
--- NOTE | 2020-01-18 15:00 | CONS ---
DATE OF CONSULTATION: 01/18/2020 ADMITTING DIAGNOSIS: Deep vein thrombosis of the left lower extremity. Patient is well known to me, had a history of embolism to the leg 10 years back, for which an embolectomy was done of the anterior tibial artery with salvage of the leg. The patient has been on anticoagulation since then. Patient also has history of DVT in the past and has been treated with anticoagulation, and apparently after some years, it was stopped and now the patient is admitted with left femoral vein, popliteal vein thrombosis. Patient has no history suggestive of pulmonary embolism. Patient has history of colonic polyp, which has been removed successfully and has had no GI bleeding in the past month or years, and a history of some epistaxis but that also is well controlled. No history suggestive of chronic anemia. PHYSICAL EXAMINATION: General: Patient looks comfortable, sitting in the chair. Left leg is mildly swollen but thigh is soft. There is tenderness in the posterior calf area. Pulses are felt in the popliteal bilaterally. CLINICAL DIAGNOSIS: Deep vein thrombosis, left femoral vein, and since the patient has no acute contraindication to anticoagulation, I prefer the patient to stay on anticoagulation unless causing some major bleeding, and will probably think of putting a filter at this stage. For the time being, the patient can be discharged on Eliquis for lifelong and support stockings for the left lower extremity. ARNULFO STRONG M.D. /[id number] cc: Michelle Jerry MD
[2020-01-18] MEDS ORDERED: LABETALOL HCL 200 MG TABLET (FP) PO SCH (21:16)
[2020-01-18] MEDS: LABETALOL HCL 200 MG TABLET (FP) PO SCH (21:24)
[2020-01-18] MEDS: ATORVASTATIN CA 10 MG TABLET (FP) PO SCH (21:24)
[2020-01-19] MEDS ORDERED: glipiZIDE 5 MG TABLET (FP) ONE ×2 (06:20→18:08)
[2020-01-19] MEDS: INSULIN SLIDING SCALE (NOVOLOG) 1 VIAL SQ SCH ×2 (06:29→18:11)
[2020-01-19] MEDS: REPAGLINIDE 1 MG TABLET PO SCH ×2 (06:29→16:25)
[2020-01-19] MEDS: glipiZIDE 10 MG TABLET (FP) PO SCH ×2 (06:29→16:30)
[2020-01-19 08:27] LABS: BASO % 0.8 % (0-2.0); EOS % 1.1 % (0-4.5); HEMATOCRIT 27.1 % (32.4-45.2); HEMOGLOBIN 8.6 GM/dl (10.7-15.3); LYMPH % 23.4 % (8-40); MCH 26.6 pg (25.7-33.7); MCHC 31.7 g/dl (32.0-36.0); NEUT % 63.7 % (42.8-82.8); PLATELET COUNT 192 K/MM3 (134-434); RBC 3.23 M/mm3 (3.60-5.2); RDW 15.2 % (11.6-15.6); WHITE BLOOD COUNT 8.3 K/mm3 (4.0-10.8)
[2020-01-19] MEDS: HYDROXYCHLOROQUINE SO4 200 MG TABLET (FP) PO SCH ×2 (09:07→09:10)
[2020-01-19] MEDS: APIXABAN 5 MG TABLET PO SCH (09:07)
[2020-01-19] MEDS: TORSEMIDE 20 MG TABLET (FP) PO SCH (09:08)
[2020-01-19] MEDS: LISINOPRIL 10 MG TABLET (FP) PO SCH (09:09)
[2020-01-19] MEDS: FERROUS SO4 325 MG TABLET (FP) PO SCH (09:09)
[2020-01-19] MEDS: LABETALOL HCL 200 MG TABLET (FP) PO SCH (09:09)
[2020-01-19] MEDS: levETIRAcetam 250 MG TABLET PO SCH (09:09)
[2020-01-19] MEDS: predniSONE 5 MG TABLET (UD) PO SCH (09:09)
[2020-01-19] MEDS ORDERED: PT OWN MED DRAWER 7, Y5N ONE (09:11)
[2020-01-19 13:56] VITALS: BP 152/71; PULSE 67; TEMP 98.6
--- NOTE | 2020-01-19 14:20 | PN ---
Progress Note (short form) - Note Progress Note: PULMONARY OOB TO CHAIR FEELS "OK" STATES SHE IS GOING HOME TODAY VSS/AFEBRILE ANICTERIC MINIMAL SCATTERED RHONCHI BASES BILATERALLY S1S2 BS+ OBESE MINIMAL LEFT ANKLE EDEMA LABS/MEDS/NOTES/IMAGES REVIEWED IMP ACUTE LLE DVT H/O R PERONEAL ARTERY EMBOLISM S/P EMBOLECTOMY/ANGIOPLASTY H/O DVT RA CHF ASHD S/P OH HTN HLD DM H/O GIB/AVM ACUTE ON CKD RECENT COVID-07 SEPTEMBER 2019 PLAN O2 AC MONITOR LYTES,RENAL FUNCTION STOOL GUAIACS DR BAZZI
[2020-01-19] MEDS ORDERED: hydrALAZINE HCL 25 MG TABLET (FP) PO SCH (16:00)
--- NOTE | 2020-01-19 16:52 | DS ---
Physical Examination Vital Signs: Vital Signs Temperature 98.6 F 01/19/20 13:53 Pulse Rate 67 01/19/20 13:53 Respiratory Rate 18 01/19/20 13:53 Blood Pressure 152/71 01/19/20 13:53 O2 Sat by Pulse Oximetry (%) 99 01/19/20 13:53 Constitutional: Yes: No Distress, Calm Eyes: Yes: Conjunctiva Clear, EOM Intact, Ptosis HENT: Yes: Atraumatic Neck: Yes: Supple, Trachea Midline Cardiovascular: Yes: Regular Rate and Rhythm, S1, S2 Respiratory: Yes: Regular, SOB Gastrointestinal: Yes: Normal Bowel Sounds, Soft Breast(s): Yes: WNL Musculoskeletal: Yes: Other (joint pain) Extremities: Yes: Calf Tenderness (left calf) Neurological: Yes: Alert, Oriented Psychiatric: Yes: Alert, Oriented Labs: CBC, BMP 01/19/20 07:00 01/17/20 07:50 Discharge Summary Problems reviewed: Yes Reason For Visit: DVT, LEFT LEG SWELLING, PAIN Current Active Problems CHF (congestive heart failure) (Acute) DVT of popliteal vein (Acute) DVT, femoral, acute (Acute) Dyspnea (Acute) Hospital Course: uneventful hospital course was started on Eliquis bid for 3 months Condition: Stable - Instructions Referrals: Michelle Jerry MD [Primary Care Provider] - - Home Medications Comprehensive Discharge Medication List: Ambulatory Orders Acetaminophen [Tylenol] 500 mg PO TID 01/15/20 Amitriptyline HCl [Elavil -] 10 mg PO HS 01/15/20 Amlodipine Besylate 2.5 mg PO DAILY 01/15/20 Cholecalciferol (Vitamin D3) [Vitamin D3] 4,000 unit PO DAILY 01/15/20 Donepezil HCl 10 mg PO HS 01/15/20 Ferrous Sulfate 325 mg PO DAILY 01/15/20 Glipizide 10 mg PO BID 01/15/20 Hydralazine HCl 25 mg PO BID 01/15/20 Hydroxychloroquine Sulfate [Plaquenil] 2 tab PO ASDIR 01/15/20 Insulin Glargine,Hum.rec.anlog [Lantus] 14 unit SQ AM 01/15/20 Labetalol HCl 300 mg PO BID 01/15/20 Levetiracetam 250 mg PO BID 01/15/20 Lisinopril 10 mg PO DAILY 01/15/20 Magnesium Oxide 400 mg PO BID 01/15/20 Prednisone 5 mg PO DAILY 01/15/20 Repaglinide 4 mg PO TID 01/15/20 Torsemide 40 mg PO DAILY 01/15/20 Albuterol 0.083% Nebulizer Stephani [Ventolin 0.083% Nebulizer Soln -] 1 amp NEB Q6H PRN amp 01/19/20 Apixaban [Eliquis -] 10 mg PO BID tablet 01/19/20 Atorvastatin Ca [Lipitor] 10 mg PO HS tablet 01/19/20 Glipizide [Glucotrol -] 10 mg PO BID@0700,1630 tablet 01/19/20 Hydroxychloroquine So4 [Plaquenil -] 400 mg PO DAILY tablet 01/19/20 Hydroxychloroquine So4 [Plaquenil -] 600 mg PO DAILY tablet 01/19/20 Labetalol HCl [Normodyne -] 300 mg PO BID tablet 01/19/20 Lisinopril [Prinivil] 10 mg PO DAILY tablet 01/19/20 Repaglinide [Prandin -] 4 mg PO TID@0700,1100,1700 tablet 01/19/20 Torsemide [Demadex -] 40 mg PO Q48H #30 tablet 01/19/20 hydrALAZINE HCL [Apresoline -] 25 mg PO TID tablet 01/19/20 levETIRAcetam [Keppra -] 250 mg PO BID tablet 01/19/20 predniSONE [Deltasone -] 5 mg PO DAILY tablet 01/19/20
== END 2020-01-19 18:15 | disposition home or self-care (01) | DRG 300 ==
LOC: FER 16:25 → INTOOBSV 17:43 → UNDOADMOB 17:43 → FM/S 17:43 → OBSVTOIN 01-16 19:49
PROVIDERS: ADMIT Internal Medicine; ATTEND Internal Medicine
DX: I82.412 Acute embolism and thrombosis of left femoral vein (principal); I13.0 Hypertensive heart and chronic kidney disease with heart failure and stage 1 through stage 4 chronic kidney disease, or unspecified chronic kidney disease; F03.90 Unspecified dementia, unspecified severity, without behavioral disturbance, psychotic disturbance, mood disturbance, and anxiety; I50.9 Heart failure, unspecified; Z09 Encounter for follow-up examination after completed treatment for conditions other than malignant neoplasm; Z86.718 Personal history of other venous thrombosis and embolism; M06.9 Rheumatoid arthritis, unspecified; Z87.891 Personal history of nicotine dependence; I25.2 Old myocardial infarction; G40.909 Epilepsy, unspecified, not intractable, without status epilepticus; E11.51 Type 2 diabetes mellitus with diabetic peripheral angiopathy without gangrene; I25.10 Atherosclerotic heart disease of native coronary artery without angina pectoris; E11.22 Type 2 diabetes mellitus with diabetic chronic kidney disease; N18.9 Chronic kidney disease, unspecified; D50.9 Iron deficiency anemia, unspecified; Z79.4 Long term (current) use of insulin
CPT/HCPCS: 36415; 71045-TC-FY; 80053; 82962; 85025; 85027; 85610; 85730; 86850; 86900; 86901; 93005; 94640; 97116-GP; 97162-GP; 99285-25; G0378; J1644; U0003

== ENCOUNTER 2020-03-30 14:01 | Inpatient (IN) | payer OTHER ==
[2020-03-30 17:09] LABS: BASO % 0.4 % (0-2.0); EOS % 0.1 % (0-4.5); HEMATOCRIT 38.3 % (32.4-45.2); MCHC 31.2 g/dl (32.0-36.0); MEAN CELL VOLUME 83.2 fl (80-96); MEAN PLT VOLUME 9.1 fl (7.5-11.1); MONO % 6.2 % (3.8-10.2); NEUT % 75.3 % (42.8-82.8); PLATELET COUNT 279 K/MM3 (134-434); RBC 4.61 M/mm3 (3.60-5.2); RDW 18.1 % (11.6-15.6); WHITE BLOOD COUNT 8.9 K/mm3 (4.0-10.8)
[2020-03-30 17:25] LABS: ALBUMIN 3.5 g/dl (3.4-5.0); BILIRUBIN,TOTAL 0.5 mg/dl (0.2-1); CALCIUM 8.6 mg/dl (8.5-10); CREATININE 2.4 mg/dl (0.55-1.3); POTASSIUM 4.6 mmol/L (3.5-5.1); TOT PROT 6.6 g/dl (6.4-8.2)
[2020-03-30] MEDS ORDERED: INSULIN (NOVOLOG) ASPART 100 UNITS/ML 10ML VIAL SQ ONE (17:28)
[2020-03-30] MEDS ORDERED: ACETAMINOPHEN 1000 MG/100 ML VIAL (NON FORMULARY) IVPB ONE (17:28)
[2020-03-30] MEDS ORDERED: ACETAMINOPHEN INJECTION 100 ML IVPB ONE (17:40)
[2020-03-30] MEDS ORDERED: INSULIN (NOVOLOG) ASPART 100 UNITS/ML 10ML VIAL ONE (17:42)
[2020-03-30] MEDS ORDERED: ACETAMINOPHEN 325 MG TABLET (FP) PO ONE (19:02)
[2020-03-30] MEDS ORDERED: ACETAMINOPHEN 325 MG TABLET (FP) ONE (19:03)
[2020-03-30 20:18] LABS: EPITHELIAL CELLS RARE /hpf
[2020-03-30] MEDS ORDERED: predniSONE 5 MG TABLET (UD) PO ONE (20:39)
[2020-03-30] MEDS: LABETALOL HCL 100 MG TABLET (FP) PO SCH (23:14)
[2020-03-30] MEDS: APIXABAN 5 MG TABLET PO SCH (23:14)
[2020-03-30] MEDS: amLODIPine BESYLATE 10 MG TABLET (FP) PO SCH (23:15)
[2020-03-30] MEDS: ACETAMINOPHEN 325 MG TABLET (FP) PO SCH (23:15)
[2020-03-30] MEDS: INSULIN SLIDING SCALE (NOVOLOG) 1 VIAL SQ SCH (23:21)
[2020-03-31] MEDS: ACETAMINOPHEN 325 MG TABLET (FP) PO SCH ×4 (05:36→23:00)
[2020-03-31] MEDS: INSULIN SLIDING SCALE (NOVOLOG) 1 VIAL SQ SCH ×4 (06:16→21:58)
[2020-03-31] MEDS: APIXABAN 5 MG TABLET PO SCH (09:10)
[2020-03-31] MEDS: amLODIPine BESYLATE 10 MG TABLET (FP) PO SCH (09:12)
[2020-03-31] MEDS: LACTOBACILLUS ACIDOPHILUS 1 TABLET PO SCH (09:12)
[2020-03-31] MEDS: HYDROXYCHLOROQUINE SO4 200 MG TABLET (FP) PO SCH (09:13)
[2020-03-31] MEDS: LABETALOL HCL 100 MG TABLET (FP) PO SCH ×2 (09:13→21:58)
[2020-03-31] MEDS ORDERED: LIDOCAINE 5% TOPICAL PATCH TP SCH (10:00)
[2020-03-31] MEDS ORDERED: TRIPLE LUMEN FLUSH 4 ML ML IVPUSH PRN (14:42)
[2020-03-31] MEDS ORDERED: INSULIN (NOVOLOG) ASPART 100 UNITS/ML 10ML VIAL ONE (17:44)
[2020-03-31] MEDS: LOPERAMIDE HCL 2 MG CAPSULE PO SCH (21:58)
[2020-03-31] MEDS: LIDOCAINE PATCH REMOVAL MC SCH (21:59)
[2020-03-31] MEDS: MINERAL OIL/PET HY-PHL TOPICAL OINTMENT 454 GM JAR TP SCH (22:53)
[2020-04-01] MEDS: ACETAMINOPHEN 325 MG TABLET (FP) PO SCH ×3 (05:57→17:11)
[2020-04-01] MEDS: INSULIN SLIDING SCALE (NOVOLOG) 1 VIAL SQ SCH ×4 (06:00→21:14)
[2020-04-01] MEDS ORDERED: ALBUTEROL SO4 0.083% IH SOL 2.5 MG/3 ML VIAL.NEB. NEB PRN (08:35)
[2020-04-01 08:44] LABS: POTASSIUM 3.9 mmol/L (3.5-5.1)
[2020-04-01 08:45] LABS: CALCIUM 8.5 mg/dL (8.5-10.1)
[2020-04-01 08:46] LABS: BLOOD UREA NITROGEN 57.5 mg/dL (7-18)
[2020-04-01 08:49] LABS: CREATININE 2.4 mg/dL (0.55-1.3)
[2020-04-01] MEDS: LIDOCAINE 5% TOPICAL PATCH TP SCH (09:53)
[2020-04-01] MEDS: LACTOBACILLUS ACIDOPHILUS 1 TABLET PO SCH (09:53)
[2020-04-01] MEDS: APIXABAN 5 MG TABLET PO SCH ×2 (09:53→21:13)
[2020-04-01] MEDS: LABETALOL HCL 100 MG TABLET (FP) PO SCH ×2 (09:54→21:13)
[2020-04-01] MEDS: amLODIPine BESYLATE 10 MG TABLET (FP) PO SCH (09:54)
[2020-04-01] MEDS: MINERAL OIL/PET HY-PHL TOPICAL OINTMENT 454 GM JAR TP SCH ×2 (09:54→21:18)
[2020-04-01] MEDS: HYDROXYCHLOROQUINE SO4 200 MG TABLET (FP) PO SCH (09:54)
[2020-04-01] MEDS: LOPERAMIDE HCL 2 MG CAPSULE PO SCH ×2 (09:54→21:13)
[2020-04-01] MEDS ORDERED: oxyCODONE HCL 5 MG TABLET PO PRN (10:16)
[2020-04-01] MEDS ORDERED: traMADol HCL 50 MG TABLET PO ONE (10:19)
[2020-04-01] MEDS ORDERED: ACETAMINOPHEN 325 MG TABLET (FP) PO ONE (10:20)
[2020-04-01] MEDS: SODIUM CHLORIDE 0.45% 1,000 ML IV SCH ×2 (10:56→21:32)
[2020-04-01] MEDS: predniSONE 5 MG TABLET (UD) PO SCH (10:57)
[2020-04-01] MEDS ORDERED: CEFTAZIDIME PENTAHYDRATE 1 GM in DEXTROSE 5%-WATER - 50 ML IVPB ONE (11:00)
[2020-04-01] MEDS ORDERED: INSULIN (NOVOLOG) ASPART 100 UNITS/ML 10ML VIAL ONE (20:49)
[2020-04-01] MEDS: MULTIVITAMINS (DAILY MVI) TABLET (FP) PO SCH (21:13)
[2020-04-01] MEDS: CEFTAZIDIME PENTAHYDRATE 1 GM in DEXTROSE 5%-WATER - 100 ML IVPB SCH (21:14)
[2020-04-01] MEDS: LIDOCAINE PATCH REMOVAL MC SCH (21:14)
[2020-04-01] MEDS: traMADol HCL 50 MG TABLET PO SCH (21:16)
[2020-04-02] MEDS: ACETAMINOPHEN 325 MG TABLET (FP) PO SCH ×5 (00:51→23:19)
[2020-04-02] MEDS: INSULIN SLIDING SCALE (NOVOLOG) 1 VIAL SQ SCH ×4 (06:07→21:25)
[2020-04-02 07:57] LABS: BASO % 0.5 % (0-2.0); EOS % 0.4 % (0-4.5); HEMATOCRIT 33.2 % (32.4-45.2); HEMOGLOBIN 10.7 GM/dL (10.7-15.3); LYMPH % 26.8 % (8-40); MCH 25.5 pg (25.7-33.7); MCHC 32.1 g/dl (32.0-36.0); MEAN CELL VOLUME 79.4 fl (80-96); MEAN PLT VOLUME 8.5 fl (7.5-11.1); MONO % 9.4 % (3.8-10.2); NEUT % 62.9 % (42.8-82.8); PLATELET COUNT 168 K/MM3 (134-434); RBC 4.19 M/mm3 (3.60-5.2); RDW 20.2 % (11.6-15.6)
[2020-04-02 08:06] LABS: CALCIUM 8.2 mg/dL (8.5-10.1)
[2020-04-02 08:07] LABS: ALBUMIN 2.6 g/dl (3.4-5.0); BLOOD UREA NITROGEN 47.9 mg/dL (7-18)
[2020-04-02 08:09] LABS: URIC ACID 8.1 mg/dL (2.6-7.2)
[2020-04-02 08:10] LABS: CREATININE 1.9 mg/dL (0.55-1.3)
[2020-04-02 08:11] LABS: BILIRUBIN,TOTAL 0.6 mg/dL (0.2-1); TOT PROT 5.6 g/dl (6.4-8.2)
[2020-04-02] MEDS: LIDOCAINE 5% TOPICAL PATCH TP SCH (09:27)
[2020-04-02] MEDS: CEFTAZIDIME PENTAHYDRATE 1 GM in DEXTROSE 5%-WATER - 100 ML IVPB SCH ×2 (09:28→21:26)
[2020-04-02] MEDS: LOPERAMIDE HCL 2 MG CAPSULE PO SCH ×2 (09:30→21:22)
[2020-04-02] MEDS: APIXABAN 5 MG TABLET PO SCH ×2 (09:30→21:22)
[2020-04-02] MEDS: amLODIPine BESYLATE 10 MG TABLET (FP) PO SCH (09:30)
[2020-04-02] MEDS: LACTOBACILLUS ACIDOPHILUS 1 TABLET PO SCH (09:30)
[2020-04-02] MEDS: MULTIVITAMINS (DAILY MVI) TABLET (FP) PO SCH (09:30)
[2020-04-02] MEDS: predniSONE 5 MG TABLET (UD) PO SCH (09:31)
[2020-04-02] MEDS: LABETALOL HCL 100 MG TABLET (FP) PO SCH ×2 (09:31→21:22)
[2020-04-02] MEDS: traMADol HCL 50 MG TABLET PO SCH ×2 (09:31→21:21)
[2020-04-02] MEDS: HYDROXYCHLOROQUINE SO4 200 MG TABLET (FP) PO SCH (09:32)
[2020-04-02] MEDS: MINERAL OIL/PET HY-PHL TOPICAL OINTMENT 454 GM JAR TP SCH ×2 (09:35→21:23)
[2020-04-02] MEDS ORDERED: INSULIN (NOVOLOG) ASPART 100 UNITS/ML 10ML VIAL ONE (11:58)
[2020-04-02] MEDS ORDERED: PT OWN MED DRAWER 7, Y5N ONE (21:13)
[2020-04-02] MEDS: LIDOCAINE PATCH REMOVAL MC SCH (21:24)
[2020-04-03] MEDS: ACETAMINOPHEN 325 MG TABLET (FP) PO SCH ×3 (05:45→17:26)
[2020-04-03] MEDS: INSULIN SLIDING SCALE (NOVOLOG) 1 VIAL SQ SCH ×4 (06:09→22:21)
[2020-04-03] MEDS ORDERED: PT OWN MED DRAWER 7, Y5N ONE (09:45)
[2020-04-03] MEDS: LIDOCAINE 5% TOPICAL PATCH TP SCH (09:49)
[2020-04-03] MEDS: LABETALOL HCL 100 MG TABLET (FP) PO SCH ×2 (09:50→21:58)
[2020-04-03] MEDS: traMADol HCL 50 MG TABLET PO SCH ×2 (09:50→21:58)
[2020-04-03] MEDS: LACTOBACILLUS ACIDOPHILUS 1 TABLET PO SCH (09:50)
[2020-04-03] MEDS: LOPERAMIDE HCL 2 MG CAPSULE PO SCH ×2 (09:52→21:58)
[2020-04-03] MEDS: APIXABAN 5 MG TABLET PO SCH (09:52)
[2020-04-03] MEDS: amLODIPine BESYLATE 10 MG TABLET (FP) PO SCH (09:52)
[2020-04-03] MEDS: MULTIVITAMINS (DAILY MVI) TABLET (FP) PO SCH (09:52)
[2020-04-03] MEDS: predniSONE 5 MG TABLET (UD) PO SCH (09:52)
[2020-04-03] MEDS: CEFTAZIDIME PENTAHYDRATE 1 GM in DEXTROSE 5%-WATER - 100 ML IVPB SCH ×2 (09:53→21:58)
[2020-04-03] MEDS: MINERAL OIL/PET HY-PHL TOPICAL OINTMENT 454 GM JAR TP SCH ×2 (09:55→21:58)
[2020-04-03] MEDS: HYDROXYCHLOROQUINE SO4 200 MG TABLET (FP) PO SCH (09:56)
[2020-04-03] MEDS ORDERED: INSULIN (NOVOLOG) ASPART 100 UNITS/ML 10ML VIAL ONE (16:17)
[2020-04-03] MEDS: LIDOCAINE PATCH REMOVAL MC SCH (22:00)
[2020-04-04] MEDS: ACETAMINOPHEN 325 MG TABLET (FP) PO SCH ×5 (00:08→23:55)
[2020-04-04] MEDS: INSULIN SLIDING SCALE (NOVOLOG) 1 VIAL SQ SCH ×4 (06:03→21:52)
[2020-04-04] MEDS ORDERED: PT OWN MED DRAWER 7, Y5N ONE ×2 (09:11→09:54)
[2020-04-04] MEDS: LABETALOL HCL 100 MG TABLET (FP) PO SCH ×2 (09:41→21:01)
[2020-04-04] MEDS: traMADol HCL 50 MG TABLET PO SCH ×2 (09:42→21:00)
[2020-04-04] MEDS: MULTIVITAMINS (DAILY MVI) TABLET (FP) PO SCH (09:43)
[2020-04-04] MEDS: amLODIPine BESYLATE 10 MG TABLET (FP) PO SCH (09:43)
[2020-04-04] MEDS: predniSONE 5 MG TABLET (UD) PO SCH (09:43)
[2020-04-04] MEDS: LOPERAMIDE HCL 2 MG CAPSULE PO SCH ×2 (09:43→21:01)
[2020-04-04] MEDS: LACTOBACILLUS ACIDOPHILUS 1 TABLET PO SCH (09:45)
[2020-04-04] MEDS: MINERAL OIL/PET HY-PHL TOPICAL OINTMENT 454 GM JAR TP SCH ×2 (09:47→21:00)
[2020-04-04] MEDS: CEFTAZIDIME PENTAHYDRATE 1 GM in DEXTROSE 5%-WATER - 100 ML IVPB SCH ×2 (09:56→21:00)
[2020-04-04] MEDS: LIDOCAINE 5% TOPICAL PATCH TP SCH (09:57)
[2020-04-04 11:05] LABS: POTASSIUM 4.6 mmol/L (3.5-5.1)
[2020-04-04 11:07] LABS: BLOOD UREA NITROGEN 25.3 mg/dL (7-18); CALCIUM 9.3 mg/dL (8.5-10.1)
[2020-04-04 11:10] LABS: CREATININE 1.5 mg/dL (0.55-1.3)
[2020-04-04 11:12] LABS: BASO % 0.5 % (0-2.0); BILIRUBIN,TOTAL 0.6 mg/dL (0.2-1); EOS % 0.1 % (0-4.5); HEMATOCRIT 40.5 % (32.4-45.2); LYMPH % 27.8 % (8-40); MCH 26.3 pg (25.7-33.7); MEAN CELL VOLUME 82.1 fl (80-96); NEUT % 65.6 % (42.8-82.8); PLATELET COUNT 164 K/MM3 (134-434); RBC 4.94 M/mm3 (3.60-5.2); RDW 19.2 % (11.6-15.6); TOT PROT 6.7 g/dl (6.4-8.2); WHITE BLOOD COUNT 8.8 K/mm3 (4.0-10.0)
[2020-04-04] MEDS: HYDROXYCHLOROQUINE SO4 200 MG TABLET (FP) PO SCH (11:39)
[2020-04-04] MEDS ORDERED: TRIPLE LUMEN FLUSH 4 ML ML IVPUSH PRN (19:13)
[2020-04-04] MEDS: LIDOCAINE PATCH REMOVAL MC SCH (21:53)
[2020-04-05] MEDS ORDERED: DEXTROSE 5%-0.45% SALINE 1,000 ML IV SCH ×2 (06:00→15:28)
[2020-04-05] MEDS: ACETAMINOPHEN 325 MG TABLET (FP) PO SCH ×3 (06:57→17:06)
[2020-04-05] MEDS: INSULIN SLIDING SCALE (NOVOLOG) 1 VIAL SQ SCH ×4 (06:59→22:20)
[2020-04-05] MEDS ORDERED: PT OWN MED DRAWER 7, Y5N ONE ×2 (09:37→21:29)
[2020-04-05] MEDS: LACTOBACILLUS ACIDOPHILUS 1 TABLET PO SCH (09:40)
[2020-04-05] MEDS: predniSONE 5 MG TABLET (UD) PO SCH (09:40)
[2020-04-05] MEDS: CEFTAZIDIME PENTAHYDRATE 1 GM in DEXTROSE 5%-WATER - 100 ML IVPB SCH (09:40)
[2020-04-05] MEDS: LOPERAMIDE HCL 2 MG CAPSULE PO SCH ×2 (09:41→22:19)
[2020-04-05] MEDS: LIDOCAINE 5% TOPICAL PATCH TP SCH (09:41)
[2020-04-05] MEDS: amLODIPine BESYLATE 10 MG TABLET (FP) PO SCH (09:42)
[2020-04-05] MEDS: MULTIVITAMINS (DAILY MVI) TABLET (FP) PO SCH (09:42)
[2020-04-05] MEDS: traMADol HCL 50 MG TABLET PO SCH ×2 (09:42→22:17)
[2020-04-05] MEDS: LABETALOL HCL 100 MG TABLET (FP) PO SCH ×2 (09:42→22:19)
[2020-04-05] MEDS: HYDROXYCHLOROQUINE SO4 200 MG TABLET (FP) PO SCH (09:42)
[2020-04-05] MEDS ORDERED: TORSEMIDE 20 MG TABLET (FP) PO SCH (10:00)
[2020-04-05] MEDS: MINERAL OIL/PET HY-PHL TOPICAL OINTMENT 454 GM JAR TP SCH ×2 (10:23→22:23)
[2020-04-05] MEDS ORDERED: ONDANSETRON 4 MG/2 ML VIAL IVPUSH PRN ×2 (10:41→15:28)
[2020-04-05] MEDS ORDERED: LACTATED RINGERS SOLUTION 1,000 ML IV SCH ×2 (10:45→15:28)
[2020-04-05 11:52] LABS: INR 1.02 (0.83-1.09); PROTHROMBIN TIME (PATIENT) 12.3 SEC (9.7-13.0)
[2020-04-05] MEDS ORDERED: HEPARIN NA (PORCINE) 5,000 UNITS/ML 1ML VIAL ONE (13:08)
[2020-04-05] MEDS ORDERED: MIDAZOLAM HCL 2 MG/2 ML SINGLE DOSE VIAL ONE ×2 (13:59→14:14)
[2020-04-05] MEDS ORDERED: ceFAZolin SODIUM 1 GM VIAL IVPB ONE (14:17)
[2020-04-05] MEDS ORDERED: LIDOCAINE HCL 1%, 10 MG/ML (20ML VIAL) NR ONE ×2 (14:18)
[2020-04-05] MEDS ORDERED: PROPOFOL 20 ML ONE ×2 (14:20)
[2020-04-05] MEDS ORDERED: TRIPLE LUMEN FLUSH 4 ML ML IVPUSH PRN ×2 (15:28)
[2020-04-05] MEDS ORDERED: ALBUTEROL SO4 0.083% IH SOL 2.5 MG/3 ML VIAL.NEB. NEB PRN (15:28)
[2020-04-05] MEDS: CLOPIDOGREL BISULFATE 75 MG TABLET (FP) PO SCH ×2 (15:30→16:49)
[2020-04-05] MEDS ORDERED: CLOPIDOGREL BISULFATE 75 MG TABLET (FP) ONE (15:37)
[2020-04-05] MEDS ORDERED: INSULIN (NOVOLOG) ASPART 100 UNITS/ML 10ML VIAL ONE (17:00)
[2020-04-05] MEDS ORDERED: cefTAZidime PENTAHYDRATE 1 GM VIAL (RESTRICTED TO ID) IM SCH (22:00)
[2020-04-05] MEDS ORDERED: CEFTAZIDIME PENTAHYDRATE 1 GM in DEXTROSE 5%-WATER - 100 ML IVPB SCH (22:00)
[2020-04-05] MEDS: LIDOCAINE PATCH REMOVAL MC SCH (23:19)
[2020-04-06] MEDS: ACETAMINOPHEN 325 MG TABLET (FP) PO SCH ×4 (01:49→17:48)
[2020-04-06] MEDS: INSULIN SLIDING SCALE (NOVOLOG) 1 VIAL SQ SCH ×4 (06:48→21:47)
[2020-04-06] MEDS ORDERED: PT OWN MED DRAWER 7, Y5N ONE (09:11)
[2020-04-06] MEDS: predniSONE 5 MG TABLET (UD) PO SCH (09:19)
[2020-04-06] MEDS: LOPERAMIDE HCL 2 MG CAPSULE PO SCH ×2 (09:19→21:28)
[2020-04-06] MEDS: amLODIPine BESYLATE 10 MG TABLET (FP) PO SCH (09:19)
[2020-04-06] MEDS: MULTIVITAMINS (DAILY MVI) TABLET (FP) PO SCH (09:19)
[2020-04-06] MEDS: TORSEMIDE 20 MG TABLET (FP) PO SCH (09:20)
[2020-04-06] MEDS: traMADol HCL 50 MG TABLET PO SCH ×2 (09:20→21:32)
[2020-04-06] MEDS: CLOPIDOGREL BISULFATE 75 MG TABLET (FP) PO SCH (09:20)
[2020-04-06] MEDS: LACTOBACILLUS ACIDOPHILUS 1 TABLET PO SCH (09:20)
[2020-04-06] MEDS: LIDOCAINE 5% TOPICAL PATCH TP SCH (09:20)
[2020-04-06] MEDS: LABETALOL HCL 100 MG TABLET (FP) PO SCH ×2 (09:21→21:29)
[2020-04-06] MEDS ORDERED: HYDROXYCHLOROQUINE SO4 200 MG TABLET (FP) PO SCH (10:00)
[2020-04-06 12:09] VITALS: BMI 27.8
[2020-04-06] MEDS: MINERAL OIL/PET HY-PHL TOPICAL OINTMENT 454 GM JAR TP SCH ×2 (13:54→21:29)
[2020-04-06] MEDS ORDERED: INSULIN (NOVOLOG) ASPART 100 UNITS/ML 10ML VIAL ONE (19:55)
[2020-04-06] MEDS: LIDOCAINE PATCH REMOVAL MC SCH (21:29)
[2020-04-07] MEDS: ACETAMINOPHEN 325 MG TABLET (FP) PO SCH ×4 (06:09→17:09)
[2020-04-07] MEDS: glipiZIDE 10 MG TABLET (FP) PO SCH ×2 (06:15→16:59)
[2020-04-07] MEDS: INSULIN SLIDING SCALE (NOVOLOG) 1 VIAL SQ SCH ×3 (06:15→16:53)
[2020-04-07] MEDS: LIDOCAINE 5% TOPICAL PATCH TP SCH (09:38)
[2020-04-07] MEDS: MULTIVITAMINS (DAILY MVI) TABLET (FP) PO SCH (09:39)
[2020-04-07] MEDS: predniSONE 5 MG TABLET (UD) PO SCH (09:39)
[2020-04-07] MEDS: TORSEMIDE 20 MG TABLET (FP) PO SCH (09:39)
[2020-04-07] MEDS: CLOPIDOGREL BISULFATE 75 MG TABLET (FP) PO SCH (09:39)
[2020-04-07] MEDS: traMADol HCL 50 MG TABLET PO SCH (09:39)
[2020-04-07] MEDS: LOPERAMIDE HCL 2 MG CAPSULE PO SCH (09:39)
[2020-04-07] MEDS: LACTOBACILLUS ACIDOPHILUS 1 TABLET PO SCH (09:39)
[2020-04-07] MEDS: amLODIPine BESYLATE 10 MG TABLET (FP) PO SCH (09:39)
[2020-04-07] MEDS: LABETALOL HCL 100 MG TABLET (FP) PO SCH (09:41)
[2020-04-07] MEDS: MINERAL OIL/PET HY-PHL TOPICAL OINTMENT 454 GM JAR TP SCH (09:42)
[2020-04-07] MEDS ORDERED: HYDROXYCHLOROQUINE SO4 200 MG TABLET (FP) PO SCH (10:00)
[2020-04-07] MEDS ORDERED: PROCHLORPERAZINE INJECTION 10 MG/2 ML VIAL IM ONE (13:55)
[2020-04-07] MEDS ORDERED: POLYETHYLENE GLYCOL 3350 119 GM BTL PO ONE (13:55)
[2020-04-07] MEDS ORDERED: BISACODYL 10 MG SUPP.RECT PR ONE (13:56)
[2020-04-07 16:45] VITALS: BP 150/66; PULSE 68; TEMP 97.8
[2020-04-07] MEDS ORDERED: glipiZIDE 5 MG TABLET (FP) ONE (16:55)
== END 2020-04-07 18:11 | disposition home or self-care (01) | DRG 253 ==
LOC: FER 14:01 → J7W 22:18
PROVIDERS: ADMIT Internal Medicine; ATTEND Internal Medicine
PROC: B40DYZZ Plain Radiography of Aorta and Bilateral Lower Extremity Arteries using Other Contrast (ICD-10-PCS; 2020-04-05)
PROC: 047L3ZZ Dilation of Left Femoral Artery, Percutaneous Approach (ICD-10-PCS; principal; 2020-04-05 14:00)
DX: E11.51 Type 2 diabetes mellitus with diabetic peripheral angiopathy without gangrene (principal); I50.42 Chronic combined systolic (congestive) and diastolic (congestive) heart failure; N39.0 Urinary tract infection, site not specified; N17.9 Acute kidney failure, unspecified; I82.432 Acute embolism and thrombosis of left popliteal vein; E11.65 Type 2 diabetes mellitus with hyperglycemia; I10 Essential (primary) hypertension; I25.10 Atherosclerotic heart disease of native coronary artery without angina pectoris; M06.9 Rheumatoid arthritis, unspecified; E11.22 Type 2 diabetes mellitus with diabetic chronic kidney disease; I27.20 Pulmonary hypertension, unspecified
CPT/HCPCS: 36415; 71045-TC-FY; 73630-TC-LT; 76000-TC-FY; 80048; 80053; 81003; 81015; 82550; 82962; 84484; 84550; 85025; 85610; 87070; 87086; 87186; 87205; 93005; 93926-TC; 93971-TC; 94760; 99285-25; C9803; J0131; J1644; U0003

== ENCOUNTER 2020-04-21 11:01 | Inpatient (IN) | payer OTHER ==
[2020-04-21 14:12] LABS: BASO % 0.4 % (0-2.0); EOS % 0.1 % (0-4.5); HEMATOCRIT 44.8 % (32.4-45.2); HEMOGLOBIN 13.7 GM/dL (10.7-15.3); MCH 25.7 pg (25.7-33.7); MCHC 30.5 g/dl (32.0-36.0); MEAN CELL VOLUME 84.2 fl (80-96); MEAN PLT VOLUME 8.9 fl (7.5-11.1); MONO % 5.3 % (3.8-10.2); NEUT % 79.2 % (42.8-82.8); PLATELET COUNT 119 K/MM3 (134-434); RBC 5.32 M/mm3 (3.60-5.2); RDW 21.9 % (11.6-15.6); WHITE BLOOD COUNT 7.7 K/mm3 (4.0-10.0)
[2020-04-21 14:21] LABS: ALBUMIN 2.7 g/dl (3.4-5.0); BLOOD UREA NITROGEN 61.8 mg/dL (7-18); CALCIUM 8.6 mg/dL (8.5-10.1)
[2020-04-21 14:24] LABS: CREATININE 1.8 mg/dL (0.55-1.3)
[2020-04-21 14:25] LABS: BILIRUBIN,TOTAL 0.4 mg/dL (0.2-1)
[2020-04-21 14:26] LABS: TOT PROT 5.9 g/dl (6.4-8.2)
[2020-04-21] MEDS ORDERED: VANCOMYCIN 1 GM in D5W (PRE-DOCKED) 1,000 MG/250 ML IVPB ONE (14:38)
[2020-04-21] MEDS ORDERED: CEFTRIAXONE 1,000 MG in DEXTROSE 5%-WATER - 50 ML IVPB ONE (14:39)
[2020-04-21 15:09] LABS: ANISOCYTOSIS 1+; MACROCYTOSIS 0; PLATELET ESTIMATE DECREASED
[2020-04-21] MEDS ORDERED: CEFTRIAXONE 1 GM/50 ML BAG ONE (16:03)
[2020-04-21] MEDS ORDERED: VANCOMYCIN 1 GRAM (PRE-DOCKED) 1,000 MG/250 ML BAG IVPB ONE (16:23)
[2020-04-21] MEDS ORDERED: traMADol HCL 50 MG TABLET ONE (19:23)
[2020-04-21] MEDS: traMADol HCL 50 MG TABLET PO SCH (21:25)
[2020-04-22] MEDS: INSULIN SLIDING SCALE (NOVOLOG) 1 VIAL SQ SCH ×5 (00:26→21:29)
[2020-04-22 01:37] VITALS: BMI 26.8
[2020-04-22] MEDS ORDERED: LABETALOL HCL 100 MG TABLET (FP) PO ONE (03:15)
[2020-04-22] MEDS: traMADol HCL 50 MG TABLET PO SCH ×2 (08:05→21:21)
[2020-04-22] MEDS ORDERED: ALBUTEROL SO4 0.083% IH SOL 2.5 MG/3 ML VIAL.NEB. NEB PRN (11:25)
[2020-04-22] MEDS ORDERED: TRIPLE LUMEN FLUSH 4 ML ML IVPUSH PRN (11:27)
[2020-04-22] MEDS ORDERED: ENOXAPARIN NA (PORCINE) 60 MG/0.6 ML DISP.SYRIN SQ SCH ×2 (11:30→12:45)
[2020-04-22] MEDS ORDERED: CLOPIDOGREL BISULFATE 75 MG TABLET (FP) PO SCH (11:30)
[2020-04-22] MEDS: amLODIPine BESYLATE 10 MG TABLET (FP) PO SCH (12:31)
[2020-04-22] MEDS: LABETALOL HCL 100 MG TABLET (FP) PO SCH ×2 (12:31→21:21)
[2020-04-22] MEDS: predniSONE 5 MG TABLET (UD) PO SCH (12:31)
[2020-04-22] MEDS ORDERED: VANCOMYCIN 1 GRAM (PRE-DOCKED) 1,000 MG/250 ML BAG IVPB SCH (14:30)
[2020-04-22] MEDS ORDERED: PIPERACILLIN/TAZOBACTAM 2.25 GM VIAL IVPB ONE ×2 (15:40→20:56)
[2020-04-22] MEDS ORDERED: DEXTROSE 5%-WATER - 50 ML IVPB ONE ×2 (15:40→20:56)
[2020-04-22] MEDS: PIPERACILLIN/TAZOB 2.25 GM 2.25 GM in DEXTROSE 5%-WATER - 50 ML IVPB SCH ×2 (15:43→21:22)
[2020-04-22] MEDS ORDERED: INSULIN (NOVOLOG) ASPART 100 UNITS/ML 10ML VIAL ONE (17:05)
[2020-04-22] MEDS: DONEPEZIL HCL 10 MG TABLET (FP) PO SCH (17:10)
[2020-04-22] MEDS: levETIRAcetam 250 MG TABLET PO SCH (21:22)
[2020-04-22] MEDS ORDERED: CEFEPIME HCL/D5W 1 GM/50 ML BAG IVPB SCH (22:00)
[2020-04-23] MEDS ORDERED: PIPERACILLIN/TAZOBACTAM 2.25 GM VIAL IVPB ONE ×3 (01:13→18:00)
[2020-04-23] MEDS ORDERED: DEXTROSE 5%-WATER - 50 ML IVPB ONE ×2 (01:13→08:49)
[2020-04-23] MEDS: PIPERACILLIN/TAZOB 2.25 GM 2.25 GM in DEXTROSE 5%-WATER - 50 ML IVPB SCH ×3 (01:17→19:04)
[2020-04-23] MEDS: INSULIN SLIDING SCALE (NOVOLOG) 1 VIAL SQ SCH ×4 (06:01→23:16)
[2020-04-23] MEDS: traMADol HCL 50 MG TABLET PO SCH ×2 (08:56→23:14)
[2020-04-23] MEDS: LABETALOL HCL 100 MG TABLET (FP) PO SCH ×2 (11:05→23:11)
[2020-04-23] MEDS: amLODIPine BESYLATE 10 MG TABLET (FP) PO SCH (11:06)
[2020-04-23] MEDS: levETIRAcetam 250 MG TABLET PO SCH ×2 (11:06→23:11)
[2020-04-23] MEDS: predniSONE 5 MG TABLET (UD) PO SCH (11:06)
[2020-04-23] MEDS ORDERED: LIDOCAINE HCL 1%, 10 MG/ML (20ML VIAL) ONE (16:15)
[2020-04-23] MEDS ORDERED: HEPARIN NA (PORCINE) 5,000 UNITS/ML 1ML VIAL ONE ×2 (16:15→17:51)
[2020-04-23] MEDS ORDERED: MIDAZOLAM HCL 2 MG/2 ML SINGLE DOSE VIAL ONE ×2 (16:39→17:34)
[2020-04-23] MEDS ORDERED: LIDOCAINE HCL 1%, 10 MG/ML (20ML VIAL) NR ONE (17:37)
[2020-04-23] MEDS ORDERED: PIPERACILLIN/TAZOBACTAM 3.375 GM VIAL IVPB ONE (17:40)
[2020-04-23] MEDS: DONEPEZIL HCL 10 MG TABLET (FP) PO SCH (19:04)
[2020-04-23] MEDS ORDERED: TRIPLE LUMEN FLUSH 4 ML ML IVPUSH PRN (19:23)
[2020-04-23] MEDS ORDERED: ALBUTEROL SO4 0.083% IH SOL 2.5 MG/3 ML VIAL.NEB. NEB PRN (19:23)
[2020-04-24] MEDS ORDERED: PIPERACILLIN/TAZOBACTAM 2.25 GM VIAL IVPB ONE ×4 (02:41→22:40)
[2020-04-24] MEDS ORDERED: DEXTROSE 5%-WATER - 50 ML IVPB ONE ×4 (02:42→22:40)
[2020-04-24] MEDS: PIPERACILLIN/TAZOB 2.25 GM 2.25 GM in DEXTROSE 5%-WATER - 50 ML IVPB SCH ×3 (02:45→18:35)
[2020-04-24] MEDS: INSULIN SLIDING SCALE (NOVOLOG) 1 VIAL SQ SCH ×4 (07:19→21:39)
[2020-04-24] MEDS: predniSONE 5 MG TABLET (UD) PO SCH (09:23)
[2020-04-24] MEDS: traMADol HCL 50 MG TABLET PO SCH ×2 (09:24→21:23)
[2020-04-24] MEDS: levETIRAcetam 250 MG TABLET PO SCH ×2 (09:24→21:22)
[2020-04-24] MEDS: amLODIPine BESYLATE 10 MG TABLET (FP) PO SCH (09:24)
[2020-04-24] MEDS: LABETALOL HCL 100 MG TABLET (FP) PO SCH ×2 (09:24→21:22)
[2020-04-24] MEDS: HYDROXYCHLOROQUINE SO4 200 MG TABLET (FP) PO SCH (09:25)
[2020-04-24] MEDS ORDERED: CLOPIDOGREL BISULFATE 75 MG TABLET (FP) PO SCH (10:00)
[2020-04-24] MEDS ORDERED: HYDROXYCHLOROQUINE SO4 200 MG TABLET (FP) PO SCH (10:00)
[2020-04-24] MEDS ORDERED: APIXABAN 5 MG TABLET PO SCH (10:00)
[2020-04-24] MEDS: DONEPEZIL HCL 10 MG TABLET (FP) PO SCH (18:35)
[2020-04-24] MEDS ORDERED: INSULIN (NOVOLOG) ASPART 100 UNITS/ML 10ML VIAL ONE (19:47)
[2020-04-24] MEDS: APIXABAN 2.5 MG TABLET PO SCH (21:30)
[2020-04-25] MEDS: PIPERACILLIN/TAZOB 2.25 GM 2.25 GM in DEXTROSE 5%-WATER - 50 ML IVPB SCH ×2 (01:38→09:24)
[2020-04-25] MEDS: REPAGLINIDE 1 MG TABLET PO SCH ×3 (06:00→17:31)
[2020-04-25] MEDS: INSULIN SLIDING SCALE (NOVOLOG) 1 VIAL SQ SCH ×4 (06:00→20:14)
[2020-04-25] MEDS ORDERED: PIPERACILLIN/TAZOBACTAM 2.25 GM VIAL IVPB ONE (08:40)
[2020-04-25] MEDS ORDERED: DEXTROSE 5%-WATER - 50 ML IVPB ONE (08:40)
[2020-04-25] MEDS ORDERED: PT OWN MED DRAWER 7, Y5N ONE (08:40)
[2020-04-25] MEDS: traMADol HCL 50 MG TABLET PO SCH (09:23)
[2020-04-25] MEDS: predniSONE 5 MG TABLET (UD) PO SCH (09:25)
[2020-04-25] MEDS: levETIRAcetam 250 MG TABLET PO SCH ×2 (09:25→20:59)
[2020-04-25] MEDS: amLODIPine BESYLATE 10 MG TABLET (FP) PO SCH (09:25)
[2020-04-25] MEDS: LABETALOL HCL 100 MG TABLET (FP) PO SCH ×2 (09:25→20:59)
[2020-04-25] MEDS: APIXABAN 2.5 MG TABLET PO SCH ×2 (09:25→20:59)
[2020-04-25] MEDS ORDERED: HYDROXYCHLOROQUINE SO4 200 MG TABLET (FP) PO SCH ×2 (10:00)
[2020-04-25] MEDS: TORSEMIDE 20 MG TABLET (FP) PO SCH (12:38)
[2020-04-25] MEDS ORDERED: traMADol HCL 50 MG TABLET PO SCH (15:51)
[2020-04-25] MEDS: DONEPEZIL HCL 10 MG TABLET (FP) PO SCH (17:31)
[2020-04-26] MEDS: INSULIN SLIDING SCALE (NOVOLOG) 1 VIAL SQ SCH ×4 (00:07→17:14)
[2020-04-26] MEDS: REPAGLINIDE 1 MG TABLET PO SCH ×3 (06:43→17:14)
[2020-04-26] MEDS: traMADol HCL 50 MG TABLET PO SCH (08:37)
[2020-04-26] MEDS: levETIRAcetam 250 MG TABLET PO SCH (10:24)
[2020-04-26] MEDS: APIXABAN 2.5 MG TABLET PO SCH (10:24)
[2020-04-26] MEDS: predniSONE 5 MG TABLET (UD) PO SCH (10:24)
[2020-04-26] MEDS: TORSEMIDE 20 MG TABLET (FP) PO SCH (10:24)
[2020-04-26] MEDS: HYDROXYCHLOROQUINE SO4 200 MG TABLET (FP) PO SCH (10:25)
[2020-04-26] MEDS: amLODIPine BESYLATE 10 MG TABLET (FP) PO SCH (10:28)
[2020-04-26] MEDS: LABETALOL HCL 100 MG TABLET (FP) PO SCH (10:28)
[2020-04-26 13:49] VITALS: PULSE 65
[2020-04-26] MEDS ORDERED: ACETAMINOPHEN 325 MG TABLET (FP) PO PRN (14:10)
[2020-04-26 15:31] VITALS: BP 138/65; TEMP 97.7
[2020-04-26] MEDS: DONEPEZIL HCL 10 MG TABLET (FP) PO SCH (17:18)
== END 2020-04-26 18:57 | disposition home health service (06) | DRG 300 ==
LOC: JER 11:01 → SUPCPDRO 11:01 → JERBED 14:39 → J7W 23:10
PROVIDERS: ADMIT Internal Medicine; ATTEND Internal Medicine
PROC: B40DYZZ Plain Radiography of Aorta and Bilateral Lower Extremity Arteries using Other Contrast (ICD-10-PCS; principal; 2020-04-23)
PROC: B40GYZZ Plain Radiography of Left Lower Extremity Arteries using Other Contrast (ICD-10-PCS; 2020-04-23)
DX: E11.51 Type 2 diabetes mellitus with diabetic peripheral angiopathy without gangrene (principal); I13.0 Hypertensive heart and chronic kidney disease with heart failure and stage 1 through stage 4 chronic kidney disease, or unspecified chronic kidney disease; I50.32 Chronic diastolic (congestive) heart failure; L97.528 Non-pressure chronic ulcer of other part of left foot with other specified severity; I25.10 Atherosclerotic heart disease of native coronary artery without angina pectoris; I25.2 Old myocardial infarction; I48.91 Unspecified atrial fibrillation; E78.00 Pure hypercholesterolemia, unspecified; E11.22 Type 2 diabetes mellitus with diabetic chronic kidney disease; N18.9 Chronic kidney disease, unspecified; E11.621 Type 2 diabetes mellitus with foot ulcer; L97.523 Non-pressure chronic ulcer of other part of left foot with necrosis of muscle; M06.9 Rheumatoid arthritis, unspecified; E11.65 Type 2 diabetes mellitus with hyperglycemia; E66.9 Obesity, unspecified; Z68.26 Body mass index [BMI] 26.0-26.9, adult; Z86.718 Personal history of other venous thrombosis and embolism; Z96.653 Presence of artificial knee joint, bilateral
CPT/HCPCS: 36415; 73630-TC-LT; 76000-TC-FY; 80053; 82962; 85025; 86140; 86850; 86900; 86901; 87070; 87186; 87205; 93005; 93010; 93925-TC; 93971-TC; 94760; 97116-GP; 97162-GP; 99285-25; C9803; J1644; U0003

== ENCOUNTER 2020-07-30 13:21 | Inpatient (IN) | payer OTHER ==
[2020-07-30] MEDS ORDERED: SODIUM CHLORIDE IV ONE (14:26)
[2020-07-30] MEDS ORDERED: ACETAMINOPHEN 1000 MG/100 ML VIAL (NON FORMULARY) IVPB ONE (14:29)
[2020-07-30] MEDS ORDERED: ACETAMINOPHEN INJECTION 100 ML IVPB ONE (16:15)
[2020-07-30 16:23] LABS: BASO % 0.4 % (0-2.0); HEMATOCRIT 22.5 % (32.4-45.2); LYMPH % 12.3 % (8-40); MCH 22.4 pg (25.7-33.7); MCHC 30.1 g/dl (32.0-36.0); MEAN CELL VOLUME 74.2 fl (80-96); MEAN PLT VOLUME 7.7 fl (7.5-11.1); MONO % 5.3 % (3.8-10.2); PLATELET COUNT 319 K/MM3 (134-434); RBC 3.03 M/mm3 (3.60-5.2); RDW 20.3 % (11.6-15.6); WHITE BLOOD COUNT 9.5 K/mm3 (4.0-10.0)
[2020-07-30 16:24] LABS: HEMOGLOBIN 6.8 GM/dL (10.7-15.3)
[2020-07-30 16:28] LABS: INR 1.42 (0.83-1.09)
[2020-07-30 16:31] LABS: ACTIVATED PTT 28.6 SECONDS (25.2-36.5)
[2020-07-30 16:49] LABS: ALBUMIN 2.8 g/dl (3.4-5.0); CALCIUM 8.4 mg/dL (8.5-10.1)
[2020-07-30 16:52] LABS: CREATININE 2.1 mg/dL (0.55-1.3)
[2020-07-30 16:54] LABS: BILIRUBIN,TOTAL 0.4 mg/dL (0.2-1); TOT PROT 6.6 g/dl (6.4-8.2)
[2020-07-30 17:06] LABS: POTASSIUM 6.3 mmol/L (3.5-5.1)
[2020-07-30] MEDS ORDERED: VANCOMYCIN 1 GM in D5W (PRE-DOCKED) 1,000 MG/250 ML IVPB ONE (17:07)
[2020-07-30] MEDS ORDERED: PIPERACILLIN/TAZOB 3.375 GM 3.375 GM in DEXTROSE 5%-WATER - 50 ML IVPB ONE (17:07)
[2020-07-30] MEDS ORDERED: VANCOMYCIN 1 GRAM (PRE-DOCKED) 1,000 MG/250 ML BAG IVPB ONE (17:27)
[2020-07-30] MEDS ORDERED: PIPERACILLIN/TAZOB 3.375 GM 3.375 GM/50 ML BAG IVPB ONE (17:57)
[2020-07-30 18:10] LABS: BILIRUBIN,DIRECT 0.1 mg/dL (0.0-0.2)
[2020-07-30 19:21] LABS: EPI CELLS 8 /uL (0-25.1); HYALINE CASTS 3 /uL (0-3.1); URINE APPEARANCE CLOUDY; URINE BACTERIA 1370 /uL (0-1359); URINE BILIRUBIN NEGATIVE (NEGATIVE); URINE COLOR YELLOW; URINE GLUCOSE (UA) NEGATIVE (NEGATIVE); URINE KETONE NEGATIVE (NEGATIVE); URINE LEUK ESTERASE 3+ (NEGATIVE); URINE NITRITE NEGATIVE (NEGATIVE); URINE PROTEIN TRACE (NEGATIVE); URINE RBC 17 /uL (0-23.9); URINE UROBILINOGEN 0.2 mg/dL (0.2-1.0); URINE WBC 698 /uL (0-25.8)
[2020-07-30] MEDS ORDERED: INSULIN (NOVOLOG) ASPART 100 UNITS/ML 10ML VIAL ONE (22:42)
[2020-07-30] MEDS: APIXABAN 2.5 MG TABLET PO SCH (23:06)
[2020-07-30] MEDS: INSULIN SLIDING SCALE (NOVOLOG) 1 VIAL SQ SCH (23:06)
[2020-07-30] MEDS: LABETALOL HCL 100 MG TABLET (FP) PO SCH (23:09)
[2020-07-31] MEDS: HYDROmorphone HCL 2 MG TABLET PO PRN ×2 (00:02→09:36)
[2020-07-31 00:24] VITALS: BMI 28.5
[2020-07-31] MEDS: REPAGLINIDE 1 MG TABLET PO SCH ×3 (06:09→16:28)
[2020-07-31] MEDS: INSULIN SLIDING SCALE (NOVOLOG) 1 VIAL SQ SCH ×4 (06:10→22:54)
[2020-07-31] MEDS ORDERED: FUROSEMIDE 40 MG/4 ML INJECTABLE VIAL IVPUSH ONE (08:35)
[2020-07-31] MEDS: APIXABAN 2.5 MG TABLET PO SCH (09:35)
[2020-07-31] MEDS: predniSONE 5 MG TABLET (UD) PO SCH (09:35)
[2020-07-31] MEDS: amLODIPine BESYLATE 10 MG TABLET (FP) PO SCH (09:35)
[2020-07-31] MEDS: LABETALOL HCL 100 MG TABLET (FP) PO SCH ×2 (09:35→22:48)
[2020-07-31] MEDS: levETIRAcetam 250 MG TABLET PO SCH ×2 (09:35→22:49)
[2020-07-31] MEDS ORDERED: PNEUMOC 13-VAL CONJ-DIP CRM/PF 0.5 ML DISP.SYRIN IM ONE (10:00)
[2020-07-31] MEDS ORDERED: CEFTRIAXONE 1,000 MG in DEXTROSE 5%-WATER - 50 ML IVPB SCH (10:45)
[2020-07-31 12:18] LABS: BASO % 0.6 % (0-2.0); EOS % 0.1 % (0-4.5); HEMOGLOBIN 7.5 GM/dL (10.7-15.3); LYMPH % 15.8 % (8-40); MCH 23.8 pg (25.7-33.7); MCHC 31.2 g/dl (32.0-36.0); MEAN CELL VOLUME 76.3 fl (80-96); MEAN PLT VOLUME 7.7 fl (7.5-11.1); MONO % 6.5 % (3.8-10.2); PLATELET COUNT 229 K/MM3 (134-434); RBC 3.14 M/mm3 (3.60-5.2); RDW 19.4 % (11.6-15.6); WHITE BLOOD COUNT 9.3 K/mm3 (4.0-10.0)
[2020-07-31 12:32] LABS: POTASSIUM 5.5 mmol/L (3.5-5.1)
[2020-07-31 12:35] LABS: ALBUMIN 2.4 g/dl (3.4-5.0)
[2020-07-31 12:36] LABS: BLOOD UREA NITROGEN 65.2 mg/dL (7-18)
[2020-07-31 12:39] LABS: BILIRUBIN,TOTAL 0.5 mg/dL (0.2-1); CREATININE 1.7 mg/dL (0.55-1.3)
[2020-07-31 12:40] LABS: TOT PROT 5.7 g/dl (6.4-8.2)
[2020-07-31 12:41] LABS: N-TERMINAL BNP 3897.4 pg/ml (5-450)
[2020-07-31] MEDS ORDERED: PT OWN MED DRAWER 7, Y5N ONE ×2 (14:19)
[2020-07-31] MEDS: PANTOPRAZOLE 40 MG TABLET PO SCH (14:23)
[2020-07-31] MEDS: HYDROXYCHLOROQUINE SO4 200 MG TABLET (FP) PO SCH (14:23)
[2020-07-31] MEDS ORDERED: FUROSEMIDE 40 MG/4 ML INJECTABLE VIAL IM ONE (15:30)
[2020-07-31] MEDS: SODIUM ZIRCONIUM CYCLOSILICATE (LOKELMA) 10 GM PACKET PO SCH (17:51)
[2020-07-31] MEDS ORDERED: cefTRIAXone SODIUM 1 GM VIAL ONE (18:47)
[2020-07-31] MEDS ORDERED: DEXTROSE 5%-WATER - 50 ML IVPB ONE (18:47)
[2020-07-31] MEDS: CEFTRIAXONE 1 GM in DEXTROSE 5%-WATER - 50 ML IVPB SCH (18:55)
[2020-07-31] MEDS ORDERED: INSULIN (LEVEMIR) 100 UNITS/ML UNITS SQ SCH (22:00)
[2020-07-31] MEDS: DONEPEZIL HCL 10 MG TABLET (FP) PO SCH (22:49)
[2020-08-01] MEDS ORDERED: PT OWN MED DRAWER 7, Y5N ONE ×2 (05:39→10:23)
[2020-08-01] MEDS ORDERED: REPAGLINIDE 0.5 MG TABLET (FP) PO SCH (07:02)
[2020-08-01] MEDS: INSULIN SLIDING SCALE (NOVOLOG) 1 VIAL SQ SCH ×5 (07:04→22:08)
[2020-08-01] MEDS: REPAGLINIDE 1 MG TABLET PO SCH (08:16)
[2020-08-01 09:06] LABS: BASO % 0.3 % (0-2.0); HEMATOCRIT 24.5 % (32.4-45.2); HEMOGLOBIN 7.7 GM/dL (10.7-15.3); MCH 23.7 pg (25.7-33.7); MCHC 31.6 g/dl (32.0-36.0); MEAN CELL VOLUME 74.8 fl (80-96); MEAN PLT VOLUME 7.5 fl (7.5-11.1); MONO % 6.5 % (3.8-10.2); NEUT % 80.2 % (42.8-82.8); PLATELET COUNT 284 K/MM3 (134-434); RBC 3.27 M/mm3 (3.60-5.2); RDW 19.9 % (11.6-15.6); WHITE BLOOD COUNT 11.2 K/mm3 (4.0-10.0)
[2020-08-01 09:50] LABS: BLOOD UREA NITROGEN 50.8 mg/dL (7-18); CALCIUM 8.3 mg/dL (8.5-10.1); MAGNESIUM 2.1 mg/dL (1.8-2.4)
[2020-08-01 09:51] LABS: ALBUMIN 2.4 g/dl (3.4-5.0)
[2020-08-01 09:53] LABS: CREATININE 1.5 mg/dL (0.55-1.3)
[2020-08-01 09:55] LABS: BILIRUBIN,TOTAL 0.6 mg/dL (0.2-1); TOT PROT 5.9 g/dl (6.4-8.2)
[2020-08-01] MEDS ORDERED: SODIUM ZIRCONIUM CYCLOSILICATE (LOKELMA) 10 GM PACKET PO SCH (10:00)
[2020-08-01] MEDS ORDERED: cefTRIAXone SODIUM 1 GM VIAL ONE (10:23)
[2020-08-01] MEDS ORDERED: DEXTROSE 5%-WATER - 50 ML IVPB ONE (10:23)
[2020-08-01] MEDS: LABETALOL HCL 100 MG TABLET (FP) PO SCH ×2 (11:44→22:05)
[2020-08-01] MEDS: PANTOPRAZOLE 40 MG TABLET PO SCH (11:46)
[2020-08-01] MEDS: levETIRAcetam 250 MG TABLET PO SCH ×2 (11:46→22:04)
[2020-08-01] MEDS: amLODIPine BESYLATE 10 MG TABLET (FP) PO SCH (11:47)
[2020-08-01] MEDS: predniSONE 5 MG TABLET (UD) PO SCH (11:47)
[2020-08-01] MEDS: FUROSEMIDE 40 MG/4 ML INJECTABLE VIAL IVPUSH SCH (11:48)
[2020-08-01] MEDS: INSULIN (LEVEMIR) 100 UNITS/ML UNITS SQ SCH (11:48)
[2020-08-01] MEDS: SODIUM ZIRCONIUM CYCLOSILICATE (LOKELMA) 10 GM PACKET PO SCH (11:49)
[2020-08-01] MEDS: CEFTRIAXONE 1 GM in DEXTROSE 5%-WATER - 50 ML IVPB SCH (11:50)
[2020-08-01] MEDS: HYDROmorphone HCL 2 MG TABLET PO PRN (14:37)
[2020-08-01] MEDS: HYDROXYCHLOROQUINE SO4 200 MG TABLET (FP) PO SCH (17:09)
[2020-08-01] MEDS ORDERED: MAGNESIUM HYDROX 2400MG/30ML ORAL SUSPENSION 30 ML CUP PO PRN (18:53)
[2020-08-01 21:34] LABS: BASO % 0.2 % (0-2.0); HEMATOCRIT 28.3 % (32.4-45.2); HEMOGLOBIN 9.1 GM/dL (10.7-15.3); LYMPH % 13.8 % (8-40); MCH 24.8 pg (25.7-33.7); MCHC 32.3 g/dl (32.0-36.0); MEAN CELL VOLUME 76.9 fl (80-96); MEAN PLT VOLUME 7.8 fl (7.5-11.1); MONO % 6.4 % (3.8-10.2); NEUT % 79.6 % (42.8-82.8); PLATELET COUNT 266 K/MM3 (134-434); RBC 3.68 M/mm3 (3.60-5.2); WHITE BLOOD COUNT 10.9 K/mm3 (4.0-10.0)
[2020-08-01] MEDS ORDERED: HYDROmorphone HCL 2 MG TABLET PO SCH (22:00)
[2020-08-01] MEDS: HYDROmorphone HCL 2 MG TABLET PO SCH (22:03)
[2020-08-01] MEDS: hydrALAZINE HCL 25 MG TABLET (FP) PO SCH (22:04)
[2020-08-01] MEDS: APIXABAN 2.5 MG TABLET PO SCH (22:04)
[2020-08-01] MEDS: DONEPEZIL HCL 10 MG TABLET (FP) PO SCH (22:05)
[2020-08-01] MEDS: POVIDONE-IODINE 10% SOLN 118 ML BOTTLE TP SCH (22:08)
[2020-08-01] MEDS: NYSTATIN 100,000 UNIT/GM TOPICAL CREAM 15 GM TUBE TP SCH (22:08)
[2020-08-02] MEDS: INSULIN SLIDING SCALE (NOVOLOG) 1 VIAL SQ SCH ×4 (06:00→21:38)
[2020-08-02 07:20] LABS: POTASSIUM 4.3 mmol/L (3.5-5.1)
[2020-08-02 07:24] LABS: CALCIUM 8.4 mg/dL (8.5-10.1)
[2020-08-02 07:25] LABS: ALBUMIN 2.3 g/dl (3.4-5.0); BLOOD UREA NITROGEN 40.2 mg/dL (7-18)
[2020-08-02 07:28] LABS: CREATININE 1.5 mg/dL (0.55-1.3)
[2020-08-02 07:30] LABS: BILIRUBIN,TOTAL 0.8 mg/dL (0.2-1); TOT PROT 5.6 g/dl (6.4-8.2)
[2020-08-02] MEDS ORDERED: DEXTROSE 5%-WATER - 50 ML IVPB ONE (09:57)
[2020-08-02] MEDS ORDERED: cefTRIAXone SODIUM 1 GM VIAL ONE (09:57)
[2020-08-02] MEDS: hydrALAZINE HCL 25 MG TABLET (FP) PO SCH ×2 (10:24→21:39)
[2020-08-02] MEDS: LABETALOL HCL 100 MG TABLET (FP) PO SCH ×2 (10:24→21:38)
[2020-08-02] MEDS: CEFTRIAXONE 1 GM in DEXTROSE 5%-WATER - 50 ML IVPB SCH (10:24)
[2020-08-02] MEDS: predniSONE 5 MG TABLET (UD) PO SCH (10:24)
[2020-08-02] MEDS: amLODIPine BESYLATE 10 MG TABLET (FP) PO SCH (10:24)
[2020-08-02] MEDS: HYDROmorphone HCL 2 MG TABLET PO SCH ×2 (10:25→21:54)
[2020-08-02] MEDS: levETIRAcetam 250 MG TABLET PO SCH ×2 (10:25→21:38)
[2020-08-02] MEDS: NYSTATIN 100,000 UNIT/GM TOPICAL CREAM 15 GM TUBE TP SCH ×2 (10:26→21:40)
[2020-08-02] MEDS: APIXABAN 2.5 MG TABLET PO SCH ×2 (10:26→21:38)
[2020-08-02] MEDS: PANTOPRAZOLE 40 MG TABLET PO SCH (10:26)
[2020-08-02] MEDS: FUROSEMIDE 40 MG/4 ML INJECTABLE VIAL IVPUSH SCH (10:27)
[2020-08-02] MEDS: INSULIN (LEVEMIR) 100 UNITS/ML UNITS SQ SCH (11:23)
[2020-08-02] MEDS: SODIUM ZIRCONIUM CYCLOSILICATE (LOKELMA) 10 GM PACKET PO SCH (12:21)
[2020-08-02] MEDS: HYDROmorphone HCL 2 MG TABLET PO PRN (13:40)
[2020-08-02] MEDS: HYDROXYCHLOROQUINE SO4 200 MG TABLET (FP) PO SCH (13:51)
[2020-08-02] MEDS: AMINO ACIDS/PROTEIN HYDROLYS 30 ML LIQUID.PKT PO SCH (17:18)
[2020-08-02] MEDS ORDERED: PT OWN MED DRAWER 7, Y5N ONE (21:02)
[2020-08-02] MEDS: DONEPEZIL HCL 10 MG TABLET (FP) PO SCH (21:39)
[2020-08-02] MEDS: POVIDONE-IODINE 10% SOLN 118 ML BOTTLE TP SCH (21:40)
[2020-08-03] MEDS: INSULIN SLIDING SCALE (NOVOLOG) 1 VIAL SQ SCH ×4 (06:00→22:10)
[2020-08-03] MEDS: ACETAMINOPHEN 500 MG TABLET (FP) PO PRN ×2 (06:43→12:52)
[2020-08-03] MEDS: AMINO ACIDS/PROTEIN HYDROLYS 30 ML LIQUID.PKT PO SCH ×2 (09:30→16:40)
[2020-08-03] MEDS: FUROSEMIDE 40 MG/4 ML INJECTABLE VIAL IVPUSH SCH (09:31)
[2020-08-03] MEDS: HYDROmorphone HCL 2 MG TABLET PO SCH ×2 (09:32→22:08)
[2020-08-03] MEDS: predniSONE 5 MG TABLET (UD) PO SCH (09:32)
[2020-08-03] MEDS: PANTOPRAZOLE 40 MG TABLET PO SCH (09:33)
[2020-08-03] MEDS: hydrALAZINE HCL 25 MG TABLET (FP) PO SCH ×2 (09:33→22:09)
[2020-08-03] MEDS: LABETALOL HCL 100 MG TABLET (FP) PO SCH ×2 (09:34→22:07)
[2020-08-03] MEDS: levETIRAcetam 250 MG TABLET PO SCH ×2 (09:34→22:09)
[2020-08-03] MEDS: APIXABAN 2.5 MG TABLET PO SCH ×2 (09:34→22:09)
[2020-08-03] MEDS: amLODIPine BESYLATE 10 MG TABLET (FP) PO SCH (09:34)
[2020-08-03] MEDS: SODIUM ZIRCONIUM CYCLOSILICATE (LOKELMA) 10 GM PACKET PO SCH (09:35)
[2020-08-03] MEDS: HYDROXYCHLOROQUINE SO4 200 MG TABLET (FP) PO SCH (09:40)
[2020-08-03] MEDS: NYSTATIN 100,000 UNIT/GM TOPICAL CREAM 15 GM TUBE TP SCH ×2 (09:41→22:10)
[2020-08-03] MEDS: INSULIN (LEVEMIR) 100 UNITS/ML UNITS SQ SCH (09:43)
[2020-08-03] MEDS: HYDROmorphone HCL 2 MG TABLET PO PRN (15:43)
[2020-08-03] MEDS ORDERED: HYDROmorphone HCL 2 MG TABLET PO ONE (16:37)
[2020-08-03] MEDS: AMOX TR/POT CLAV 500MG/125MG TABLETS (FP) PO SCH (17:43)
[2020-08-03] MEDS: LIDOCAINE 5% TOPICAL PATCH TP SCH (18:28)
[2020-08-03] MEDS ORDERED: INSULIN (NOVOLOG) ASPART 100 UNITS/ML 10ML VIAL ONE (22:03)
[2020-08-03] MEDS ORDERED: PT OWN MED DRAWER 7, Y5N ONE (22:04)
[2020-08-03] MEDS: DONEPEZIL HCL 10 MG TABLET (FP) PO SCH (22:08)
[2020-08-03] MEDS: POVIDONE-IODINE 10% SOLN 118 ML BOTTLE TP SCH (22:09)
[2020-08-03] MEDS: LIDOCAINE PATCH REMOVAL MC SCH (22:11)
[2020-08-03] MEDS: SILVER SULFADIAZINE 1% TOP CREAM 50 GM JAR TP SCH (22:39)
[2020-08-04] MEDS: INSULIN SLIDING SCALE (NOVOLOG) 1 VIAL SQ SCH ×4 (06:09→21:14)
[2020-08-04 07:53] LABS: POTASSIUM 3.9 mmol/L (3.5-5.1)
[2020-08-04 07:57] LABS: BLOOD UREA NITROGEN 46.4 mg/dL (7-18); CALCIUM 8.1 mg/dL (8.5-10.1)
[2020-08-04 08:00] LABS: CREATININE 1.6 mg/dL (0.55-1.3)
[2020-08-04] MEDS: ONDANSETRON 4 MG/2 ML VIAL IVPB PRN (09:35)
[2020-08-04] MEDS: LIDOCAINE 5% TOPICAL PATCH TP SCH (09:49)
[2020-08-04] MEDS: AMINO ACIDS/PROTEIN HYDROLYS 30 ML LIQUID.PKT PO SCH ×2 (09:49→16:33)
[2020-08-04] MEDS: AMOX TR/POT CLAV 500MG/125MG TABLETS (FP) PO SCH ×2 (09:50→16:33)
[2020-08-04] MEDS: HYDROXYCHLOROQUINE SO4 200 MG TABLET (FP) PO SCH (09:51)
[2020-08-04] MEDS: levETIRAcetam 250 MG TABLET PO SCH ×2 (09:51→21:16)
[2020-08-04] MEDS: PANTOPRAZOLE 40 MG TABLET PO SCH (09:52)
[2020-08-04] MEDS: APIXABAN 2.5 MG TABLET PO SCH ×2 (09:52→21:16)
[2020-08-04] MEDS: amLODIPine BESYLATE 10 MG TABLET (FP) PO SCH (09:52)
[2020-08-04] MEDS: LABETALOL HCL 100 MG TABLET (FP) PO SCH ×2 (09:53→21:16)
[2020-08-04] MEDS: FUROSEMIDE 40 MG/4 ML INJECTABLE VIAL IVPUSH SCH ×2 (09:53→14:27)
[2020-08-04] MEDS: hydrALAZINE HCL 25 MG TABLET (FP) PO SCH ×2 (09:53→21:15)
[2020-08-04] MEDS: predniSONE 5 MG TABLET (UD) PO SCH (09:53)
[2020-08-04] MEDS: HYDROmorphone HCL 2 MG TABLET PO SCH ×2 (09:55→21:15)
[2020-08-04] MEDS: INSULIN (LEVEMIR) 100 UNITS/ML UNITS SQ SCH (09:58)
[2020-08-04] MEDS: SILVER SULFADIAZINE 1% TOP CREAM 50 GM JAR TP SCH ×2 (10:01→21:14)
[2020-08-04] MEDS: SODIUM ZIRCONIUM CYCLOSILICATE (LOKELMA) 10 GM PACKET PO SCH (10:01)
[2020-08-04] MEDS: NYSTATIN 100,000 UNIT/GM TOPICAL CREAM 15 GM TUBE TP SCH ×2 (10:02→21:17)
[2020-08-04] MEDS: HYDROmorphone HCL 2 MG TABLET PO PRN (15:46)
[2020-08-04] MEDS ORDERED: INSULIN (NOVOLOG) ASPART 100 UNITS/ML 10ML VIAL ONE (21:12)
[2020-08-04] MEDS: LIDOCAINE PATCH REMOVAL MC SCH (21:16)
[2020-08-04] MEDS: DONEPEZIL HCL 10 MG TABLET (FP) PO SCH (21:16)
[2020-08-04] MEDS: POVIDONE-IODINE 10% SOLN 118 ML BOTTLE TP SCH (22:13)
[2020-08-05] MEDS: ACETAMINOPHEN 500 MG TABLET (FP) PO PRN ×2 (05:06→18:10)
[2020-08-05] MEDS: FUROSEMIDE 40 MG/4 ML INJECTABLE VIAL IVPUSH SCH ×2 (05:07→13:08)
[2020-08-05] MEDS: INSULIN SLIDING SCALE (NOVOLOG) 1 VIAL SQ SCH ×4 (06:05→21:20)
[2020-08-05] MEDS ORDERED: INSULIN (NOVOLOG) ASPART 100 UNITS/ML 10ML VIAL ONE (06:25)
[2020-08-05] MEDS ORDERED: INSULIN (LEVEMIR) 100 UNITS/ML UNITS SQ ONE (06:25)
[2020-08-05] MEDS: HYDROmorphone HCL 2 MG TABLET PO PRN (06:27)
[2020-08-05 08:57] LABS: BILIRUBIN,TOTAL 0.7 mg/dL (0.2-1); BLOOD UREA NITROGEN 57.4 mg/dL (7-18); CALCIUM 7.9 mg/dL (8.5-10.1); CREATININE 1.9 mg/dL (0.55-1.3); POTASSIUM 4.2 mmol/L (3.5-5.1); TOT PROT 5.2 g/dl (6.4-8.2)
[2020-08-05] MEDS ORDERED: DULoxetine HCL 20 MG CAPSULE.DR PO SCH (10:00)
[2020-08-05] MEDS: levETIRAcetam 250 MG TABLET PO SCH ×2 (10:48→21:18)
[2020-08-05] MEDS: LABETALOL HCL 100 MG TABLET (FP) PO SCH ×2 (10:48→21:18)
[2020-08-05] MEDS: AMINO ACIDS/PROTEIN HYDROLYS 30 ML LIQUID.PKT PO SCH ×2 (10:48→17:27)
[2020-08-05] MEDS: LIDOCAINE 5% TOPICAL PATCH TP SCH (10:48)
[2020-08-05] MEDS: AMOX TR/POT CLAV 500MG/125MG TABLETS (FP) PO SCH ×2 (10:49→17:28)
[2020-08-05] MEDS: predniSONE 5 MG TABLET (UD) PO SCH (10:49)
[2020-08-05] MEDS: APIXABAN 2.5 MG TABLET PO SCH ×2 (10:50→21:18)
[2020-08-05] MEDS: HYDROmorphone HCL 2 MG TABLET PO SCH ×2 (10:50→21:18)
[2020-08-05] MEDS: hydrALAZINE HCL 25 MG TABLET (FP) PO SCH ×2 (10:50→21:17)
[2020-08-05] MEDS: amLODIPine BESYLATE 10 MG TABLET (FP) PO SCH (10:50)
[2020-08-05] MEDS: PANTOPRAZOLE 40 MG TABLET PO SCH (10:50)
[2020-08-05] MEDS: SILVER SULFADIAZINE 1% TOP CREAM 50 GM JAR TP SCH ×2 (10:51→21:21)
[2020-08-05] MEDS: HYDROXYCHLOROQUINE SO4 200 MG TABLET (FP) PO SCH (10:51)
[2020-08-05] MEDS: NYSTATIN 100,000 UNIT/GM TOPICAL CREAM 15 GM TUBE TP SCH ×2 (10:51→21:19)
[2020-08-05] MEDS: INSULIN (LEVEMIR) 100 UNITS/ML UNITS SQ SCH (10:51)
[2020-08-05] MEDS: ONDANSETRON 4 MG/2 ML VIAL IVPB PRN (13:15)
[2020-08-05] MEDS: DONEPEZIL HCL 10 MG TABLET (FP) PO SCH (21:19)
[2020-08-05] MEDS: POVIDONE-IODINE 10% SOLN 118 ML BOTTLE TP SCH (21:19)
[2020-08-05] MEDS: LIDOCAINE PATCH REMOVAL MC SCH (21:19)
[2020-08-05 21:41] VITALS: BP 151/49; PULSE 74; TEMP 98.9
[2020-08-06] MEDS ORDERED: FUROSEMIDE 40 MG TABLET (FP) PO SCH (10:00)
== END 2020-08-05 21:40 | disposition home or self-care (01) | DRG 811 ==
LOC: JER 13:21 → JERBED 18:30 → J7W 22:19
PROVIDERS: ADMIT Internal Medicine; ATTEND Internal Medicine
PROC: 30233N1 Transfusion of Nonautologous Red Blood Cells into Peripheral Vein, Percutaneous Approach (ICD-10-PCS; 2020-07-30)
PROC: 05HM33Z Insertion of Infusion Device into Right Internal Jugular Vein, Percutaneous Approach (ICD-10-PCS; principal; 2020-07-31)
PROC: B543ZZA Ultrasonography of Right Jugular Veins, Guidance (ICD-10-PCS; 2020-07-31)
DX: D50.9 Iron deficiency anemia, unspecified (principal); I50.33 Acute on chronic diastolic (congestive) heart failure; I13.0 Hypertensive heart and chronic kidney disease with heart failure and stage 1 through stage 4 chronic kidney disease, or unspecified chronic kidney disease; N17.9 Acute kidney failure, unspecified; N39.0 Urinary tract infection, site not specified; E11.52 Type 2 diabetes mellitus with diabetic peripheral angiopathy with gangrene; I96 Gangrene, not elsewhere classified; I48.91 Unspecified atrial fibrillation; F03.90 Unspecified dementia, unspecified severity, without behavioral disturbance, psychotic disturbance, mood disturbance, and anxiety; E11.51 Type 2 diabetes mellitus with diabetic peripheral angiopathy without gangrene; E87.5 Hyperkalemia; N18.9 Chronic kidney disease, unspecified; L89.322 Pressure ulcer of left buttock, stage 2; L89.312 Pressure ulcer of right buttock, stage 2; L97.523 Non-pressure chronic ulcer of other part of left foot with necrosis of muscle; N28.1 Cyst of kidney, acquired; F32.9 Major depressive disorder, single episode, unspecified
CPT/HCPCS: 36415; 36430; 71045-TC-FY; 74230-TC-FY; 76775-TC; 76856-TC; 80048; 80053; 81003; 82248; 82272; 82550; 82553; 82565; 82607; 82728; 82746; 82962; 83010; 83540; 83550; 83605; 83615; 83735; 83880; 84132; 84155; 84165; 84300; 84443; 84484; 84550; 85025; 85045; 85610; 85730; 86850; 86900; 86901; 86922; 87040; 87086; 87186; 92611-GN; 93005; 93010; 93971-TC; 97116-GP; 97162-GP; 99285-25; C9803; E0186; G0277; G0480; J0131; P9058; U0003

== ENCOUNTER 2020-10-28 04:15 | Day surgery (SDC) | payer OTHER ==
[2020-10-27 11:52] VITALS: BMI 28.3
[2020-10-28] MEDS ORDERED: LIDOCAINE HCL 1%, 10 MG/ML (20ML VIAL) ONE (12:54)
[2020-10-28] MEDS ORDERED: HEPARIN NA (PORCINE) 5,000 UNITS/ML 1ML VIAL ONE (12:54)
[2020-10-28] MEDS ORDERED: PROPOFOL 20 ML ONE (14:32)
[2020-10-28] MEDS ORDERED: SUCCINYLCHOLINE CHLORIDE 200 MG/10 ML SYRINGE ONE (14:33)
[2020-10-28] MEDS ORDERED: MIDAZOLAM HCL 2 MG/2 ML SINGLE DOSE VIAL ONE (14:33)
[2020-10-28] MEDS ORDERED: ceFAZolin SODIUM 1 GM VIAL ONE (14:39)
[2020-10-28] MEDS ORDERED: ceFAZolin SODIUM 1 GM VIAL IVPB ONE (14:40)
[2020-10-28] MEDS ORDERED: LIDOCAINE HCL 1%, 10 MG/ML (20ML VIAL) INF ONE (14:50)
[2020-10-28] MEDS ORDERED: oxyCODONE HCL 5 MG TABLET PO PRN (15:56)
[2020-10-28] MEDS ORDERED: ONDANSETRON 4 MG/2 ML VIAL IVPUSH PRN (15:56)
[2020-10-28] MEDS ORDERED: HYDROmorphone HCl 2 MG/ML VIAL IVPUSH ONE ×2 (15:59→16:00)
[2020-10-28] MEDS ORDERED: HYDROmorphone HCL 2 MG TABLET PO ONE ×2 (15:59→16:15)
[2020-10-28] MEDS ORDERED: HYDROmorphone HCl 2 MG/ML VIAL ONE (15:59)
[2020-10-28 18:22] VITALS: BP 161/72; PULSE 60; TEMP 97.8
== END 2020-10-28 18:20 | disposition home or self-care (01) ==
LOC: JASU-SURG 04:15
PROVIDERS: ATTEND Surgery Vascular Surgery
PROC: B41DZZZ Fluoroscopy of Aorta and Bilateral Lower Extremity Arteries (ICD-10-PCS; principal; 2020-10-28 12:00)
DX: E11.52 Type 2 diabetes mellitus with diabetic peripheral angiopathy with gangrene (principal); Z79.4 Long term (current) use of insulin; I73.9 Peripheral vascular disease, unspecified
CPT/HCPCS: 75716-TC-FY; 76000-TC-FY; 82962; 94760; J1644

== ENCOUNTER 2020-12-04 17:38 | Inpatient (IN) | payer OTHER ==
[2020-12-04 17:47] VITALS: BMI 28.3
[2020-12-04 19:11] LABS: HEMOGLOBIN 7.6 GM/dL (10.7-15.3); LYMPH % 17.9 % (8-40); MCH 25.8 pg (25.7-33.7); MCHC 31.7 g/dl (32.0-36.0); MEAN CELL VOLUME 81.4 fl (80-96); MEAN PLT VOLUME 6.7 fl (7.5-11.1); MONO % 5.5 % (3.8-10.2); NEUT % 75.6 % (42.8-82.8); PLATELET COUNT 403 10^3/uL (134-434); RBC 2.95 M/mm3 (3.60-5.2); RDW 17.6 % (11.6-15.6); WHITE BLOOD COUNT 9.4 K/mm3 (4.0-10.0)
[2020-12-04 19:12] LABS: BASO % 0.5 % (0-2.0); EOS % 0.5 % (0-4.5)
[2020-12-04 19:19] LABS: INR 1.48 (0.83-1.09); PROTHROMBIN TIME (PATIENT) 17.7 SEC (9.7-13.0)
[2020-12-04] MEDS ORDERED: HYDROmorphone HCL CARPU-JECT 2 MG/1 ML DISP.SYRIN IVPUSH ONE ×2 (19:20→22:52)
[2020-12-04 19:21] LABS: ACTIVATED PTT 29.7 SECONDS (25.2-36.5)
[2020-12-04] MEDS ORDERED: VANCOMYCIN 1 GM in D5W (PRE-DOCKED) 1,000 MG/250 ML IVPB ONE (19:21)
[2020-12-04] MEDS ORDERED: PIPERACILLIN/TAZOB 3.375 GM 3.375 GM in DEXTROSE 5%-WATER - 50 ML IVPB ONE (19:22)
[2020-12-04] MEDS ORDERED: HYDROmorphone HCl 2 MG/ML VIAL ONE ×2 (19:23→22:54)
[2020-12-04 19:37] LABS: CHLORIDE 105 mmol/L (98-107); SODIUM 134 mmol/L (136-145)
[2020-12-04 19:39] LABS: ALBUMIN 2.6 g/dl (3.4-5.0); CALCIUM 8.5 mg/dL (8.5-10.1); CO2 21 mmol/L (21-32)
[2020-12-04 19:40] LABS: GLUCOSE,RANDOM 109 mg/dL (74-106)
[2020-12-04 19:42] LABS: SGPT/ALT 21 U/L (13-61)
[2020-12-04 19:43] LABS: CREATININE 1.8 mg/dL (0.55-1.3); SGOT/AST 17 U/L (15-37)
[2020-12-04 19:44] LABS: BILIRUBIN,TOTAL 0.2 mg/dL (0.2-1); TOT PROT 6.5 g/dl (6.4-8.2)
[2020-12-04 19:45] LABS: ALK PHOS 117 U/L (45-117)
[2020-12-04] MEDS ORDERED: PIPERACILLIN/TAZOB 3.375 GM 3.375 GM/50 ML BAG IVPB ONE (19:56)
[2020-12-04] MEDS ORDERED: VANCOMYCIN 1 GRAM (PRE-DOCKED) 1,000 MG/250 ML BAG IVPB ONE (19:57)
[2020-12-04 20:18] LABS: ANION GAP 8 MMOL/L (8-16)
[2020-12-04] MEDS ORDERED: CLINDAMYCIN IVPB 300 MG in DEXTROSE 5%-WATER - 48 ML IVPB ONE (21:22)
[2020-12-04 22:48] LABS: VENOUS BASE EXCESS -6.9 mmol/L (-2-2); VENOUS O2 SATURATION 20.7 % (70-80); VENOUS PCO2 42.9 mmHg (38-52); VENOUS PH 7.275 (7.310-7.410)
[2020-12-04 23:16] LABS: CHLORIDE 105 mmol/L (98-107); SODIUM 134 mmol/L (136-145)
[2020-12-04 23:17] LABS: CALCIUM 8.8 mg/dL (8.5-10.1)
[2020-12-04 23:18] LABS: BLOOD UREA NITROGEN 58.1 mg/dL (7-18); CO2 21 mmol/L (21-32); GLUCOSE,RANDOM 121 mg/dL (74-106)
[2020-12-04 23:21] LABS: ANION GAP 8 MMOL/L (8-16); CREATININE 1.7 mg/dL (0.55-1.3)
[2020-12-04] MEDS ORDERED: INSULIN REGULAR HUMAN 100 UNITS/ML *VIAL IVPUSH ONE (23:52)
[2020-12-04] MEDS ORDERED: DEXTROSE 50%-WATER - 25 GM/50 ML VIAL IVPUSH ONE (23:54)
[2020-12-05] MEDS ORDERED: SODIUM ZIRCONIUM CYCLOSILICATE (LOKELMA) 5 GM PACKET PO SCH ×2 (00:37→12:45)
[2020-12-05] MEDS ORDERED: DEXTROSE 50%-WATER 25 GM/50 ML DISP.SYRIN ONE ×2 (01:31→05:43)
[2020-12-05] MEDS ORDERED: SODIUM ZIRCONIUM CYCLOSILICATE (LOKELMA) 5 GM PACKET ONE ×2 (01:31→03:29)
[2020-12-05] MEDS ORDERED: VANCOMYCIN 1 GRAM (PRE-DOCKED) 1,000 MG/250 ML BAG IVPB ONE (01:32)
[2020-12-05] MEDS ORDERED: SODIUM ZIRCONIUM CYCLOSILICATE (LOKELMA) 5 GM PACKET PO ONE (01:39)
[2020-12-05] MEDS ORDERED: DOCUSATE SODIUM 100 MG CAPSULE (FP) PO PRN (01:42)
[2020-12-05] MEDS ORDERED: ACETAMINOPHEN 1000 MG/100 ML VIAL (NON FORMULARY) IVPB PRN (01:50)
[2020-12-05] MEDS ORDERED: MELATONIN 5 MG TABLETS ONE (03:29)
[2020-12-05] MEDS: levETIRAcetam 250 MG TABLET PO SCH ×3 (03:30→22:39)
[2020-12-05] MEDS: MELATONIN 5 MG TABLETS PO SCH ×2 (04:08→22:40)
[2020-12-05] MEDS ORDERED: HYDROmorphone HCl 2 MG/ML VIAL SQ ONE (07:01)
[2020-12-05 07:04] LABS: BASO % 0.3 % (0-2.0); EOS % 0.2 % (0-4.5); HEMOGLOBIN 8.8 GM/dL (10.7-15.3); LYMPH % 24.4 % (8-40); MCH 26.2 pg (25.7-33.7); MCHC 31.5 g/dl (32.0-36.0); MEAN CELL VOLUME 83.2 fl (80-96); MEAN PLT VOLUME 6.6 fl (7.5-11.1); MONO % 6.5 % (3.8-10.2); NEUT % 68.6 % (42.8-82.8); PLATELET COUNT 385 10^3/uL (134-434); RBC 3.36 M/mm3 (3.60-5.2); RDW 17.1 % (11.6-15.6); WHITE BLOOD COUNT 10.8 K/mm3 (4.0-10.0)
[2020-12-05] MEDS: INSULIN SLIDING SCALE (NOVOLOG) 1 VIAL SQ SCH ×4 (07:14→22:35)
[2020-12-05 07:30] LABS: BLOOD UREA NITROGEN 58.1 mg/dL (7-18)
[2020-12-05 07:31] LABS: ALBUMIN 2.4 g/dl (3.4-5.0); CALCIUM 8.1 mg/dL (8.5-10.1)
[2020-12-05 07:32] LABS: MAGNESIUM 2.2 mg/dL (1.8-2.4)
[2020-12-05 07:34] LABS: CREATININE 1.5 mg/dL (0.55-1.3); PHOSPHOROUS 4.5 mg/dL (2.5-4.9)
[2020-12-05 07:36] LABS: BILIRUBIN,TOTAL 0.4 mg/dL (0.2-1)
[2020-12-05 08:54] LABS: EPI CELLS 3 /uL (0-25.1); HYALINE CASTS 0 /uL (0-3.1); PH,URINE 5.5 (5.0-8.0); URINE APPEARANCE CLEAR; URINE BACTERIA 6 /uL (0-1359); URINE BILIRUBIN NEGATIVE (NEGATIVE); URINE COLOR YELLOW; URINE GLUCOSE (UA) NEGATIVE (NEGATIVE); URINE KETONE NEGATIVE (NEGATIVE); URINE LEUK ESTERASE TRACE (NEGATIVE); URINE NITRITE NEGATIVE (NEGATIVE); URINE PROTEIN NEGATIVE (NEGATIVE); URINE RBC 40 /uL (0-23.9); URINE UROBILINOGEN 0.2 mg/dL (0.2-1.0); URINE WBC 16 /uL (0-25.8)
[2020-12-05] MEDS: LIDOCAINE 5% TOPICAL PATCH TP SCH (09:36)
[2020-12-05] MEDS ORDERED: levETIRAcetam XR 750 MG TAB PO SCH (10:00)
[2020-12-05] MEDS ORDERED: APIXABAN 2.5 MG TABLET PO SCH (10:00)
[2020-12-05] MEDS: HYDROXYCHLOROQUINE SO4 200 MG TABLET (FP) PO SCH (11:34)
[2020-12-05] MEDS: HYDROmorphone HCL 2 MG TABLET PO PRN (18:29)
[2020-12-05] MEDS: DONEPEZIL HCL 10 MG TABLET (FP) PO SCH (22:39)
[2020-12-05] MEDS: LIDOCAINE PATCH REMOVAL MC SCH (22:39)
[2020-12-06] MEDS: INSULIN SLIDING SCALE (NOVOLOG) 1 VIAL SQ SCH ×4 (06:03→22:22)
[2020-12-06] MEDS: HYDROmorphone HCL 2 MG TABLET PO PRN ×3 (06:03→19:47)
[2020-12-06] MEDS: INSULIN (LEVEMIR) 100 UNITS/ML UNITS SQ SCH (06:09)
[2020-12-06] MEDS ORDERED: INSULIN SLIDING SCALE (NOVOLOG) 1 VIAL SQ ONE (07:33)
[2020-12-06] MEDS ORDERED: INSULIN (LEVEMIR) 100 UNITS/ML UNITS SQ ONE (07:33)
[2020-12-06] MEDS: CHOLECALCIFEROL (VIT D3) 1,000 UNIT (25 MCG) TABLET PO SCH (09:12)
[2020-12-06] MEDS: predniSONE 5 MG TABLET (UD) PO SCH (09:13)
[2020-12-06] MEDS: levETIRAcetam 250 MG TABLET PO SCH ×2 (09:13→22:22)
[2020-12-06] MEDS: FUROSEMIDE 40 MG TABLET (FP) PO SCH (09:13)
[2020-12-06] MEDS: MULTIVITAMINS (DAILY MVI) TABLET (FP) PO SCH (09:13)
[2020-12-06] MEDS: LIDOCAINE 5% TOPICAL PATCH TP SCH (09:13)
[2020-12-06] MEDS: HYDROXYCHLOROQUINE SO4 200 MG TABLET (FP) PO SCH (09:14)
[2020-12-06] MEDS: SODIUM ZIRCONIUM CYCLOSILICATE (LOKELMA) 5 GM PACKET PO SCH (09:14)
[2020-12-06] MEDS ORDERED: PANTOPRAZOLE 40 MG TABLET PO SCH (10:00)
[2020-12-06 10:21] LABS: BASO % 0.4 % (0-2.0); EOS % 0.1 % (0-4.5); HEMOGLOBIN 7.9 GM/dL (10.7-15.3); LYMPH % 25.9 % (8-40); MCH 25.8 pg (25.7-33.7); MCHC 31.4 g/dl (32.0-36.0); MEAN CELL VOLUME 82.1 fl (80-96); MEAN PLT VOLUME 6.8 fl (7.5-11.1); MONO % 5.7 % (3.8-10.2); NEUT % 67.9 % (42.8-82.8); PLATELET COUNT 403 10^3/uL (134-434); RBC 3.05 M/mm3 (3.60-5.2); RDW 16.9 % (11.6-15.6); WHITE BLOOD COUNT 11.9 K/mm3 (4.0-10.0)
[2020-12-06 10:44] LABS: ALBUMIN 2.3 g/dl (3.4-5.0); BLOOD UREA NITROGEN 44.8 mg/dL (7-18); CALCIUM 8.4 mg/dL (8.5-10.1)
[2020-12-06 10:49] LABS: CREATININE 1.1 mg/dL (0.55-1.3)
[2020-12-06 10:50] LABS: BILIRUBIN,TOTAL 0.3 mg/dL (0.2-1); TOT PROT 5.7 g/dl (6.4-8.2)
[2020-12-06] MEDS ORDERED: BISACODYL 5 MG TABLET.DR (FP) PO ONE (12:20)
[2020-12-06] MEDS ORDERED: TRIPLE LUMEN FLUSH 4 ML ML IVPUSH PRN (14:11)
[2020-12-06] MEDS: POLYETHYLENE GLYCOL (HEALTHYLAX) 3350 17 GM PACKET PO SCH ×2 (14:41→22:22)
[2020-12-06] MEDS: HYDROmorphone HCl 2 MG/ML VIAL IVPUSH PRN (15:55)
[2020-12-06] MEDS ORDERED: SODIUM PHOSPHATE/NA BIPHOS 133 ML ENEMA RC PRN (17:00)
[2020-12-06] MEDS: FERROUS SO4 325 MG TABLET (FP) PO SCH (17:02)
[2020-12-06] MEDS: LIDOCAINE PATCH REMOVAL MC SCH (22:22)
[2020-12-06] MEDS: DOCUSATE SODIUM 100 MG CAPSULE (FP) PO SCH (22:22)
[2020-12-06] MEDS: PANTOPRAZOLE 40 MG TABLET PO SCH (22:22)
[2020-12-06] MEDS: DONEPEZIL HCL 10 MG TABLET (FP) PO SCH (22:22)
[2020-12-06] MEDS: MELATONIN 5 MG TABLETS PO SCH (22:24)
[2020-12-07] MEDS: HYDROmorphone HCL 2 MG TABLET PO PRN ×4 (00:04→21:31)
[2020-12-07] MEDS: POLYETHYLENE GLYCOL (HEALTHYLAX) 3350 17 GM PACKET PO SCH ×3 (06:44→21:31)
[2020-12-07] MEDS: INSULIN (LEVEMIR) 100 UNITS/ML UNITS SQ SCH (06:44)
[2020-12-07] MEDS: INSULIN SLIDING SCALE (NOVOLOG) 1 VIAL SQ SCH ×4 (06:44→21:30)
[2020-12-07] MEDS: DOCUSATE SODIUM 100 MG CAPSULE (FP) PO SCH ×3 (06:44→21:31)
[2020-12-07] MEDS: IRON SUCROSE INJECTION 200 MG in SODIUM CHLORIDE 90 ML IVPB ONE ×2 (09:07→17:01)
[2020-12-07] MEDS ORDERED: PT OWN MED DRAWER 7, Y5N ONE (11:09)
[2020-12-07] MEDS: HYDROmorphone HCl 2 MG/ML VIAL IVPUSH PRN (13:15)
[2020-12-07] MEDS: LIDOCAINE 5% TOPICAL PATCH TP SCH (13:20)
[2020-12-07] MEDS: CHOLECALCIFEROL (VIT D3) 1,000 UNIT (25 MCG) TABLET PO SCH (13:21)
[2020-12-07] MEDS: PANTOPRAZOLE 40 MG TABLET PO SCH ×2 (13:21→21:31)
[2020-12-07] MEDS: FUROSEMIDE 40 MG TABLET (FP) PO SCH (13:21)
[2020-12-07] MEDS: MULTIVITAMINS (DAILY MVI) TABLET (FP) PO SCH (13:21)
[2020-12-07] MEDS: levETIRAcetam 250 MG TABLET PO SCH ×2 (13:21→21:31)
[2020-12-07] MEDS: FERROUS SO4 325 MG TABLET (FP) PO SCH ×2 (13:21→17:16)
[2020-12-07] MEDS: predniSONE 5 MG TABLET (UD) PO SCH (13:21)
[2020-12-07] MEDS: DILTIAZEM CD PO SCH (13:21)
[2020-12-07] MEDS: SODIUM ZIRCONIUM CYCLOSILICATE (LOKELMA) 5 GM PACKET PO SCH (13:22)
[2020-12-07] MEDS: HYDROXYCHLOROQUINE SO4 200 MG TABLET (FP) PO SCH (13:22)
[2020-12-07] MEDS: DONEPEZIL HCL 10 MG TABLET (FP) PO SCH (21:31)
[2020-12-07] MEDS: MELATONIN 5 MG TABLETS PO SCH (21:31)
[2020-12-07] MEDS: LIDOCAINE PATCH REMOVAL MC SCH (21:35)
[2020-12-08] MEDS: POLYETHYLENE GLYCOL (HEALTHYLAX) 3350 17 GM PACKET PO SCH ×3 (06:11→21:14)
[2020-12-08] MEDS: HYDROmorphone HCL 2 MG TABLET PO PRN ×4 (06:11→21:20)
[2020-12-08] MEDS: DOCUSATE SODIUM 100 MG CAPSULE (FP) PO SCH ×3 (06:11→21:14)
[2020-12-08] MEDS: INSULIN (LEVEMIR) 100 UNITS/ML UNITS SQ SCH (06:16)
[2020-12-08] MEDS: INSULIN SLIDING SCALE (NOVOLOG) 1 VIAL SQ SCH ×4 (06:17→21:20)
[2020-12-08 07:40] LABS: HEMATOCRIT 29.3 % (32.4-45.2); HEMOGLOBIN 9.6 GM/dL (10.7-15.3); MCH 26.9 pg (25.7-33.7); MCHC 32.9 g/dl (32.0-36.0); MEAN CELL VOLUME 81.8 fl (80-96); MEAN PLT VOLUME 6.3 fl (7.5-11.1); PLATELET COUNT 393 10^3/uL (134-434); RBC 3.58 M/mm3 (3.60-5.2); RDW 16.5 % (11.6-15.6); WHITE BLOOD COUNT 12.4 K/mm3 (4.0-10.0)
[2020-12-08 08:14] LABS: ALBUMIN 2.4 g/dl (3.4-5.0); BLOOD UREA NITROGEN 41.7 mg/dL (7-18); CALCIUM 8.7 mg/dL (8.5-10.1)
[2020-12-08 08:16] LABS: CREATININE 1.1 mg/dL (0.55-1.3)
[2020-12-08 08:17] LABS: BILIRUBIN,TOTAL 0.4 mg/dL (0.2-1); TOT PROT 5.6 g/dl (6.4-8.2)
[2020-12-08] MEDS: FERROUS SO4 325 MG TABLET (FP) PO SCH ×2 (09:19→16:48)
[2020-12-08] MEDS: DILTIAZEM CD PO SCH (09:19)
[2020-12-08] MEDS: CHOLECALCIFEROL (VIT D3) 1,000 UNIT (25 MCG) TABLET PO SCH (09:20)
[2020-12-08] MEDS: MULTIVITAMINS (DAILY MVI) TABLET (FP) PO SCH (09:21)
[2020-12-08] MEDS: predniSONE 5 MG TABLET (UD) PO SCH (09:21)
[2020-12-08] MEDS: FUROSEMIDE 40 MG TABLET (FP) PO SCH (09:21)
[2020-12-08] MEDS: PANTOPRAZOLE 40 MG TABLET PO SCH ×2 (09:21→11:37)
[2020-12-08] MEDS: LIDOCAINE 5% TOPICAL PATCH TP SCH (09:22)
[2020-12-08] MEDS: levETIRAcetam 250 MG TABLET PO SCH ×2 (09:22→21:20)
[2020-12-08] MEDS ORDERED: PT OWN MED DRAWER 7, Y5N ONE (10:10)
[2020-12-08] MEDS: HYDROXYCHLOROQUINE SO4 200 MG TABLET (FP) PO SCH (10:14)
[2020-12-08] MEDS: SODIUM ZIRCONIUM CYCLOSILICATE (LOKELMA) 5 GM PACKET PO SCH (10:14)
[2020-12-08] MEDS ORDERED: metoPROLOL SUCCINATE 25 MG TAB.SR.24H (FP) PO SCH (11:45)
[2020-12-08] MEDS ORDERED: GABAPENTIN 100 MG CAPSULE PO SCH (14:00)
[2020-12-08] MEDS: DONEPEZIL HCL 10 MG TABLET (FP) PO SCH (21:19)
[2020-12-08] MEDS: LABETALOL HCL 200 MG TABLET (FP) PO SCH (21:20)
[2020-12-08] MEDS: MELATONIN 5 MG TABLETS PO SCH (21:20)
[2020-12-08] MEDS: LIDOCAINE PATCH REMOVAL MC SCH (21:20)
[2020-12-09] MEDS: POLYETHYLENE GLYCOL (HEALTHYLAX) 3350 17 GM PACKET PO SCH ×2 (05:58→21:47)
[2020-12-09] MEDS: DOCUSATE SODIUM 100 MG CAPSULE (FP) PO SCH ×3 (05:58→21:47)
[2020-12-09] MEDS: INSULIN (LEVEMIR) 100 UNITS/ML UNITS SQ SCH (06:19)
[2020-12-09] MEDS: INSULIN SLIDING SCALE (NOVOLOG) 1 VIAL SQ SCH ×4 (06:19→21:53)
[2020-12-09] MEDS: HYDROmorphone HCL 2 MG TABLET PO PRN ×4 (06:20→21:45)
[2020-12-09] MEDS: FERROUS SO4 325 MG TABLET (FP) PO SCH ×2 (08:55→17:26)
[2020-12-09] MEDS: predniSONE 5 MG TABLET (UD) PO SCH (10:30)
[2020-12-09] MEDS: DILTIAZEM CD PO SCH (10:30)
[2020-12-09] MEDS: CHOLECALCIFEROL (VIT D3) 1,000 UNIT (25 MCG) TABLET PO SCH (10:30)
[2020-12-09] MEDS: levETIRAcetam 250 MG TABLET PO SCH ×2 (10:30→21:45)
[2020-12-09] MEDS: LIDOCAINE 5% TOPICAL PATCH TP SCH (10:30)
[2020-12-09] MEDS: MULTIVITAMINS (DAILY MVI) TABLET (FP) PO SCH (10:30)
[2020-12-09] MEDS: FUROSEMIDE 40 MG TABLET (FP) PO SCH (10:31)
[2020-12-09] MEDS: PANTOPRAZOLE 40 MG TABLET PO SCH (10:31)
[2020-12-09] MEDS: HYDROXYCHLOROQUINE SO4 200 MG TABLET (FP) PO SCH (10:31)
[2020-12-09] MEDS: LABETALOL HCL 200 MG TABLET (FP) PO SCH ×2 (10:31→21:45)
[2020-12-09] MEDS ORDERED: FENTANYL PATCH WASTE TD PRN (12:04)
[2020-12-09] MEDS ORDERED: fentaNYL 12mcg/hr PATCH.TD72 TD SCH (12:15)
[2020-12-09] MEDS: DONEPEZIL HCL 10 MG TABLET (FP) PO SCH (21:45)
[2020-12-09] MEDS: MELATONIN 5 MG TABLETS PO SCH (21:45)
[2020-12-09] MEDS: LIDOCAINE PATCH REMOVAL MC SCH (21:51)
[2020-12-10] MEDS: DOCUSATE SODIUM 100 MG CAPSULE (FP) PO SCH ×3 (05:45→21:51)
[2020-12-10] MEDS: INSULIN (LEVEMIR) 100 UNITS/ML UNITS SQ SCH (06:34)
[2020-12-10] MEDS: INSULIN SLIDING SCALE (NOVOLOG) 1 VIAL SQ SCH ×4 (06:34→21:50)
[2020-12-10] MEDS: FERROUS SO4 325 MG TABLET (FP) PO SCH ×2 (08:18→17:23)
[2020-12-10] MEDS: HYDROmorphone HCL 2 MG TABLET PO PRN ×4 (08:18→22:00)
[2020-12-10] MEDS: LABETALOL HCL 200 MG TABLET (FP) PO SCH ×2 (09:52→21:50)
[2020-12-10] MEDS: CHOLECALCIFEROL (VIT D3) 1,000 UNIT (25 MCG) TABLET PO SCH (09:52)
[2020-12-10] MEDS: FUROSEMIDE 40 MG TABLET (FP) PO SCH (09:52)
[2020-12-10] MEDS: levETIRAcetam 250 MG TABLET PO SCH ×2 (09:52→21:50)
[2020-12-10] MEDS: PANTOPRAZOLE 40 MG TABLET PO SCH (09:52)
[2020-12-10] MEDS: MULTIVITAMINS (DAILY MVI) TABLET (FP) PO SCH (09:52)
[2020-12-10] MEDS: predniSONE 5 MG TABLET (UD) PO SCH (09:52)
[2020-12-10] MEDS: POLYETHYLENE GLYCOL (HEALTHYLAX) 3350 17 GM PACKET PO SCH ×2 (09:52→21:51)
[2020-12-10] MEDS: LIDOCAINE 5% TOPICAL PATCH TP SCH (09:52)
[2020-12-10] MEDS: DILTIAZEM CD PO SCH (09:52)
[2020-12-10] MEDS: HYDROXYCHLOROQUINE SO4 200 MG TABLET (FP) PO SCH (09:54)
[2020-12-10] MEDS: DONEPEZIL HCL 10 MG TABLET (FP) PO SCH (21:50)
[2020-12-10] MEDS: MELATONIN 5 MG TABLETS PO SCH (21:50)
[2020-12-10] MEDS: LIDOCAINE PATCH REMOVAL MC SCH (21:51)
[2020-12-11] MEDS: DOCUSATE SODIUM 100 MG CAPSULE (FP) PO SCH ×2 (06:35→14:00)
[2020-12-11] MEDS: INSULIN (LEVEMIR) 100 UNITS/ML UNITS SQ SCH (06:41)
[2020-12-11] MEDS: INSULIN SLIDING SCALE (NOVOLOG) 1 VIAL SQ SCH ×2 (06:41→11:55)
[2020-12-11] MEDS: HYDROmorphone HCL 2 MG TABLET PO PRN ×2 (06:42→10:57)
[2020-12-11 08:28] LABS: CALCIUM 8.6 mg/dL (8.5-10.1)
[2020-12-11 08:29] LABS: ALBUMIN 2.6 g/dl (3.4-5.0); BLOOD UREA NITROGEN 46.8 mg/dL (7-18)
[2020-12-11 08:32] LABS: CREATININE 1.7 mg/dL (0.55-1.3)
[2020-12-11 08:34] LABS: BILIRUBIN,TOTAL 0.4 mg/dL (0.2-1); TOT PROT 6.2 g/dl (6.4-8.2)
[2020-12-11] MEDS: FERROUS SO4 325 MG TABLET (FP) PO SCH (08:57)
[2020-12-11] MEDS ORDERED: PT OWN MED DRAWER 7, Y5N ONE ×2 (09:01→09:44)
[2020-12-11] MEDS ORDERED: ACETAMINOPHEN 1000 MG/100 ML VIAL (NON FORMULARY) IVPB PRN (09:04)
[2020-12-11] MEDS: LABETALOL HCL 200 MG TABLET (FP) PO SCH (09:09)
[2020-12-11] MEDS: PANTOPRAZOLE 40 MG TABLET PO SCH (09:09)
[2020-12-11] MEDS: DILTIAZEM CD PO SCH (09:09)
[2020-12-11] MEDS: predniSONE 5 MG TABLET (UD) PO SCH (09:09)
[2020-12-11] MEDS: CHOLECALCIFEROL (VIT D3) 1,000 UNIT (25 MCG) TABLET PO SCH (09:09)
[2020-12-11] MEDS: MULTIVITAMINS (DAILY MVI) TABLET (FP) PO SCH (09:09)
[2020-12-11] MEDS: FUROSEMIDE 40 MG TABLET (FP) PO SCH (09:09)
[2020-12-11] MEDS: levETIRAcetam 250 MG TABLET PO SCH (09:09)
[2020-12-11] MEDS: LIDOCAINE 5% TOPICAL PATCH TP SCH (09:10)
[2020-12-11] MEDS: POLYETHYLENE GLYCOL (HEALTHYLAX) 3350 17 GM PACKET PO SCH (09:10)
[2020-12-11] MEDS: HYDROXYCHLOROQUINE SO4 200 MG TABLET (FP) PO SCH (10:55)
[2020-12-11 11:50] VITALS: BP 134/82; PULSE 118; TEMP 98.4
== END 2020-12-11 16:17 | disposition home or self-care (01) | DRG 392 ==
LOC: JER 17:38 → JERBED 23:56 → J4S 12-05 06:17 → UNDODISIN 12-11 10:00
PROVIDERS: ADMIT Internal Medicine; ATTEND Internal Medicine
PROC: 30233N1 Transfusion of Nonautologous Red Blood Cells into Peripheral Vein, Percutaneous Approach (ICD-10-PCS; principal; 2020-12-04)
DX: K59.03 Drug induced constipation (principal); L97.508 Non-pressure chronic ulcer of other part of unspecified foot with other specified severity; N17.9 Acute kidney failure, unspecified; I13.0 Hypertensive heart and chronic kidney disease with heart failure and stage 1 through stage 4 chronic kidney disease, or unspecified chronic kidney disease; I50.32 Chronic diastolic (congestive) heart failure; E11.52 Type 2 diabetes mellitus with diabetic peripheral angiopathy with gangrene; I96 Gangrene, not elsewhere classified; K86.2 Cyst of pancreas; K62.89 Other specified diseases of anus and rectum; E11.51 Type 2 diabetes mellitus with diabetic peripheral angiopathy without gangrene; I25.10 Atherosclerotic heart disease of native coronary artery without angina pectoris; E11.621 Type 2 diabetes mellitus with foot ulcer; F03.90 Unspecified dementia, unspecified severity, without behavioral disturbance, psychotic disturbance, mood disturbance, and anxiety; D64.9 Anemia, unspecified; I48.91 Unspecified atrial fibrillation; K82.8 Other specified diseases of gallbladder; M79.7 Fibromyalgia; E78.00 Pure hypercholesterolemia, unspecified; G89.29 Other chronic pain; E66.9 Obesity, unspecified; T40.2X5A Adverse effect of other opioids, initial encounter; I25.2 Old myocardial infarction; E87.5 Hyperkalemia; I27.20 Pulmonary hypertension, unspecified; M06.9 Rheumatoid arthritis, unspecified; E11.22 Type 2 diabetes mellitus with diabetic chronic kidney disease; N18.9 Chronic kidney disease, unspecified; R10.32 Left lower quadrant pain; Z86.718 Personal history of other venous thrombosis and embolism; Z96.653 Presence of artificial knee joint, bilateral; Z68.28 Body mass index [BMI] 28.0-28.9, adult
CPT/HCPCS: 36415; 36430; 71045-TC-FY; 73523-TC-FY; 73552-TC-LT-FY; 73562-TC-LT-FY; 73590-TC-LT-FY; 74176-TC; 76700-TC; 78226-TC; 80048; 80053; 81003; 82272; 82550; 82728; 82803; 82962; 83540; 83550; 83605; 83735; 84100; 84484; 85025; 85027; 85610; 85730; 86140; 86850; 86900; 86901; 86922; 87040; 87086; 93005; 93010; 93971-TC; 97161-GP; 99285-25; A9537; C9803; J1756; P9058; U0003; U0005

== ENCOUNTER 2020-12-23 12:11 | Inpatient (IN) | payer OTHER ==
[2020-12-23] MEDS ORDERED: HYDROmorphone HCL CARPU-JECT 2 MG/1 ML DISP.SYRIN IVPUSH ONE (13:16)
[2020-12-23] MEDS ORDERED: HYDROmorphone HCL 2 MG TABLET PO ONE (14:12)
[2020-12-23] MEDS ORDERED: HYDROmorphone HCL 2 MG TABLET ONE ×2 (14:36→21:15)
[2020-12-23 14:48] LABS: HEMATOCRIT 26.5 % (32.4-45.2); HEMOGLOBIN 8.7 GM/dL (10.7-15.3); LYMPH % 9.9 % (8-40); MCH 27.1 pg (25.7-33.7); MCHC 32.6 g/dl (32.0-36.0); MEAN PLT VOLUME 7.2 fl (7.5-11.1); MONO % 3.9 % (3.8-10.2); NEUT % 86.2 % (42.8-82.8); PLATELET COUNT 284 10^3/uL (134-434); RDW 18.2 % (11.6-15.6); WHITE BLOOD COUNT 16.6 K/mm3 (4.0-10.0)
[2020-12-23 14:55] LABS: INR 1.72 (0.83-1.09); PROTHROMBIN TIME (PATIENT) 20.8 SEC (9.7-13.0)
[2020-12-23 14:58] LABS: ACTIVATED PTT 31.7 SECONDS (25.2-36.5)
[2020-12-23 15:04] LABS: URINE APPEARANCE CLEAR; URINE BILIRUBIN NEGATIVE (NEGATIVE); URINE COLOR YELLOW; URINE GLUCOSE (UA) NEGATIVE (NEGATIVE); URINE KETONE NEGATIVE (NEGATIVE); URINE LEUK ESTERASE NEGATIVE (NEGATIVE); URINE NITRITE NEGATIVE (NEGATIVE); URINE PROTEIN NEGATIVE (NEGATIVE); URINE UROBILINOGEN 0.2 mg/dL (0.2-1.0)
[2020-12-23 15:11] LABS: CHLORIDE 101 mmol/L (98-107); SODIUM 131 mmol/L (136-145)
[2020-12-23 15:13] LABS: ANION GAP 10 MMOL/L (8-16); CALCIUM 7.7 mg/dL (8.5-10.1); CO2 20 mmol/L (21-32); GLUCOSE,RANDOM 91 mg/dL (74-106)
[2020-12-23 15:16] LABS: CREATININE 2.4 mg/dL (0.55-1.3); SGOT/AST 10 U/L (15-37); SGPT/ALT 13 U/L (13-61)
[2020-12-23 15:18] LABS: BILIRUBIN,TOTAL 0.5 mg/dL (0.2-1); TOT PROT 5.2 g/dl (6.4-8.2)
[2020-12-23 15:19] LABS: ALK PHOS 99 U/L (45-117)
[2020-12-23] MEDS ORDERED: SODIUM ZIRCONIUM CYCLOSILICATE (LOKELMA) 5 GM PACKET PO ONE (16:09)
[2020-12-23] MEDS ORDERED: SODIUM CHLORIDE 0.9% 500 ML INFUS.BAG IV ONE (16:12)
[2020-12-23] MEDS ORDERED: CALCIUM GLUCONATE 10% - 1,000 MG/10 ML VIAL IVPUSH ONE (16:12)
[2020-12-23] MEDS ORDERED: INSULIN REGULAR HUMAN 100 UNITS/ML *VIAL IVPUSH ONE (16:15)
[2020-12-23] MEDS ORDERED: DEXTROSE 50%-WATER - 25 GM/50 ML VIAL IVPUSH ONE (16:16)
[2020-12-23 16:31] LABS: N-TERMINAL BNP 9443.5 pg/ml (5-450)
[2020-12-23] MEDS ORDERED: DEXTROSE 50%-WATER 25 GM/50 ML DISP.SYRIN ONE (16:33)
[2020-12-23] MEDS ORDERED: CALCIUM GLUCONATE 10% - 1,000 MG/10 ML VIAL ONE (16:33)
[2020-12-23] MEDS ORDERED: SODIUM ZIRCONIUM CYCLOSILICATE (LOKELMA) 5 GM PACKET ONE (16:33)
[2020-12-23] MEDS ORDERED: PIPERACILLIN/TAZOB 4.5 GM 4.5 GM in DEXTROSE 5%-WATER 100 ML IVPB ONE (18:28)
[2020-12-23] MEDS ORDERED: PIPERACILLIN/TAZOB 4.5 GM 4.5 GM/100 ML BAG IVPB ONE (18:33)
[2020-12-23] MEDS: HYDROmorphone HCL 2 MG TABLET PO SCH (21:29)
[2020-12-23] MEDS: INSULIN SLIDING SCALE (NOVOLOG) 1 VIAL SQ SCH (21:35)
[2020-12-23] MEDS ORDERED: LABETALOL HCL 200 MG TABLET (FP) PO SCH (22:30)
[2020-12-23] MEDS ORDERED: hydrALAZINE HCL 25 MG TABLET (FP) PO SCH (22:30)
[2020-12-23] MEDS ORDERED: DOCUSATE SODIUM 100 MG CAPSULE (FP) PO PRN (22:33)
[2020-12-23] MEDS: levETIRAcetam 250 MG TABLET PO SCH (23:39)
[2020-12-23] MEDS ORDERED: PT OWN MED DRAWER 7, Y5N ONE (23:43)
[2020-12-23] MEDS: APIXABAN 2.5 MG TABLET PO SCH (23:44)
[2020-12-24] MEDS ORDERED: PIPERACILLIN/TAZOBACTAM 2.25 GM VIAL IVPB ONE ×3 (01:26→17:19)
[2020-12-24] MEDS ORDERED: DEXTROSE 5%-WATER - 50 ML IVPB ONE ×3 (01:27→17:19)
[2020-12-24] MEDS: PIPERACILLIN/TAZOB 2.25 GM 2.25 GM in DEXTROSE 5%-WATER - 50 ML IVPB SCH ×3 (01:51→17:49)
[2020-12-24] MEDS: HYDROmorphone HCL 2 MG TABLET PO SCH ×3 (04:30→21:16)
[2020-12-24] MEDS: INSULIN SLIDING SCALE (NOVOLOG) 1 VIAL SQ SCH ×4 (06:07→21:18)
[2020-12-24] MEDS ORDERED: HYDROmorphone HCL 2 MG TABLET PO PRN (08:49)
[2020-12-24] MEDS ORDERED: LABETALOL HCL 100 MG TABLET (FP) ONE ×2 (09:38→21:05)
[2020-12-24] MEDS: levETIRAcetam 250 MG TABLET PO SCH ×2 (09:42→21:17)
[2020-12-24] MEDS: predniSONE 5 MG TABLET (UD) PO SCH (09:42)
[2020-12-24] MEDS: APIXABAN 2.5 MG TABLET PO SCH ×2 (09:43→21:15)
[2020-12-24] MEDS: PANTOPRAZOLE 40 MG TABLET PO SCH (09:43)
[2020-12-24] MEDS ORDERED: POVIDONE-IODINE 10% SOLN 118 ML BOTTLE TP SCH (10:00)
[2020-12-24] MEDS ORDERED: amLODIPine BESYLATE 10 MG TABLET (FP) PO SCH (10:00)
[2020-12-24] MEDS ORDERED: LABETALOL HCL 200 MG TABLET (FP) PO SCH (10:00)
[2020-12-24] MEDS: FUROSEMIDE 40 MG/4 ML INJECTABLE VIAL IVPUSH SCH (10:12)
[2020-12-24] MEDS ORDERED: SODIUM ZIRCONIUM CYCLOSILICATE (LOKELMA) 10 GM PACKET PO SCH (12:30)
[2020-12-24] MEDS ORDERED: PT OWN MED DRAWER 7, Y5N ONE (13:32)
[2020-12-24] MEDS ORDERED: hydrALAZINE HCL 50 MG TABLET (FP) PO SCH (14:00)
[2020-12-24] MEDS: POVIDONE-IODINE 10% SOLN 118 ML BOTTLE TP SCH (14:39)
[2020-12-24] MEDS: LABETALOL HCL 200 MG TABLET (FP) PO SCH ×2 (14:42→21:17)
[2020-12-24] MEDS: HYDROmorphone HCL 2 MG TABLET PO PRN (15:51)
[2020-12-24 17:16] LABS: BASO % 0.1 % (0-2.0); HEMATOCRIT 26.8 % (32.4-45.2); HEMOGLOBIN 8.6 GM/dL (10.7-15.3); LYMPH % 9.7 % (8-40); MCH 26.8 pg (25.7-33.7); MCHC 32.3 g/dl (32.0-36.0); MEAN PLT VOLUME 7.1 fl (7.5-11.1); MONO % 2.7 % (3.8-10.2); NEUT % 87.5 % (42.8-82.8); PLATELET COUNT 301 10^3/uL (134-434); RBC 3.23 M/mm3 (3.60-5.2); RDW 18.4 % (11.6-15.6); WHITE BLOOD COUNT 12.1 K/mm3 (4.0-10.0)
[2020-12-24 17:37] LABS: CALCIUM 7.9 mg/dL (8.5-10.1)
[2020-12-24 17:38] LABS: ALBUMIN 1.9 g/dl (3.4-5.0); BLOOD UREA NITROGEN 58.7 mg/dL (7-18)
[2020-12-24 17:41] LABS: CREATININE 2.2 mg/dL (0.55-1.3)
[2020-12-24 17:42] LABS: BILIRUBIN,TOTAL 0.5 mg/dL (0.2-1)
[2020-12-24] MEDS: DONEPEZIL HCL 10 MG TABLET (FP) PO SCH (21:15)
[2020-12-25] MEDS: PIPERACILLIN/TAZOB 2.25 GM 2.25 GM in DEXTROSE 5%-WATER - 50 ML IVPB SCH ×2 (02:00→22:00)
[2020-12-25] MEDS ORDERED: LABETALOL HCL 100 MG TABLET (FP) ONE ×3 (05:37→20:58)
[2020-12-25] MEDS: LABETALOL HCL 200 MG TABLET (FP) PO SCH ×3 (06:35→21:16)
[2020-12-25] MEDS: INSULIN SLIDING SCALE (NOVOLOG) 1 VIAL SQ SCH ×4 (06:38→21:23)
[2020-12-25] MEDS ORDERED: MAGNESIUM HYDROX 2400MG/30ML ORAL SUSPENSION 30 ML CUP PO ONE ×2 (08:13→09:30)
[2020-12-25] MEDS ORDERED: PT OWN MED DRAWER 7, Y5N ONE ×2 (08:17→10:09)
[2020-12-25] MEDS: HYDROmorphone HCL 2 MG TABLET PO SCH ×2 (08:37→21:00)
[2020-12-25 09:04] LABS: BASO % 0.3 % (0-2.0); HEMATOCRIT 24.1 % (32.4-45.2); LYMPH % 18.2 % (8-40); MCH 27.6 pg (25.7-33.7); MCHC 33.1 g/dl (32.0-36.0); MEAN CELL VOLUME 83.5 fl (80-96); MEAN PLT VOLUME 7.3 fl (7.5-11.1); NEUT % 76.5 % (42.8-82.8); PLATELET COUNT 317 10^3/uL (134-434); RBC 2.89 M/mm3 (3.60-5.2); RDW 18.3 % (11.6-15.6); WHITE BLOOD COUNT 11.8 K/mm3 (4.0-10.0)
[2020-12-25 09:12] LABS: ALBUMIN 1.8 g/dl (3.4-5.0); BLOOD UREA NITROGEN 63.8 mg/dL (7-18); CALCIUM 7.5 mg/dL (8.5-10.1)
[2020-12-25 09:16] LABS: CREATININE 2.5 mg/dL (0.55-1.3)
[2020-12-25 09:17] LABS: BILIRUBIN,TOTAL 0.4 mg/dL (0.2-1); TOT PROT 4.7 g/dl (6.4-8.2)
[2020-12-25] MEDS: FUROSEMIDE 40 MG/4 ML INJECTABLE VIAL IVPUSH SCH (09:51)
[2020-12-25] MEDS: levETIRAcetam 250 MG TABLET PO SCH ×2 (09:51→21:12)
[2020-12-25] MEDS: predniSONE 5 MG TABLET (UD) PO SCH (09:52)
[2020-12-25] MEDS: APIXABAN 2.5 MG TABLET PO SCH ×2 (09:52→21:12)
[2020-12-25] MEDS: PANTOPRAZOLE 40 MG TABLET PO SCH (09:52)
[2020-12-25] MEDS: HYDROXYCHLOROQUINE SO4 200 MG TABLET (FP) PO SCH (09:53)
[2020-12-25] MEDS: POVIDONE-IODINE 10% SOLN 118 ML BOTTLE TP SCH (09:53)
[2020-12-25] MEDS: TRIPLE LUMEN FLUSH 4 ML ML IVPUSH PRN (09:54)
[2020-12-25] MEDS ORDERED: INSULIN (NOVOLOG) ASPART 100 UNITS/ML 10ML VIAL ONE ×2 (11:07→21:22)
[2020-12-25] MEDS: HYDROmorphone HCL 2 MG TABLET PO PRN ×2 (16:45→23:38)
[2020-12-25] MEDS ORDERED: VANCOMYCIN 1 GRAM (PRE-DOCKED) 1,000 MG/250 ML BAG IVPB ONE (19:29)
[2020-12-25] MEDS ORDERED: PIPERACILLIN/TAZOBACTAM 2.25 GM VIAL IVPB ONE (20:16)
[2020-12-25] MEDS ORDERED: DEXTROSE 5%-WATER - 50 ML IVPB ONE (20:16)
[2020-12-25] MEDS: DONEPEZIL HCL 10 MG TABLET (FP) PO SCH (21:12)
[2020-12-26] MEDS ORDERED: PIPERACILLIN/TAZOBACTAM 2.25 GM VIAL IVPB ONE ×3 (01:09→17:44)
[2020-12-26] MEDS ORDERED: DEXTROSE 5%-WATER - 50 ML IVPB ONE ×3 (01:10→17:44)
[2020-12-26] MEDS: PIPERACILLIN/TAZOB 2.25 GM 2.25 GM in DEXTROSE 5%-WATER - 50 ML IVPB SCH ×3 (01:29→17:48)
[2020-12-26] MEDS ORDERED: PT OWN MED DRAWER 7, Y5N ONE ×5 (01:50→21:18)
[2020-12-26] MEDS: LABETALOL HCL 200 MG TABLET (FP) PO SCH ×3 (06:30→21:24)
[2020-12-26] MEDS: INSULIN SLIDING SCALE (NOVOLOG) 1 VIAL SQ SCH ×4 (06:42→21:27)
[2020-12-26] MEDS: HYDROmorphone HCL 2 MG TABLET PO SCH ×2 (10:38→21:25)
[2020-12-26] MEDS: MULTIVITAMINS THER W-MINERALS COMBO TABLET (FP) PO SCH (10:39)
[2020-12-26] MEDS: APIXABAN 2.5 MG TABLET PO SCH ×2 (10:40→21:25)
[2020-12-26] MEDS: predniSONE 5 MG TABLET (UD) PO SCH (10:40)
[2020-12-26] MEDS: PANTOPRAZOLE 40 MG TABLET PO SCH (10:40)
[2020-12-26] MEDS: levETIRAcetam 250 MG TABLET PO SCH ×2 (10:40→21:25)
[2020-12-26] MEDS: POVIDONE-IODINE 10% SOLN 118 ML BOTTLE TP SCH (10:41)
[2020-12-26] MEDS: HYDROXYCHLOROQUINE SO4 200 MG TABLET (FP) PO SCH (10:42)
[2020-12-26] MEDS: FUROSEMIDE 40 MG/4 ML INJECTABLE VIAL IVPUSH SCH (11:51)
[2020-12-26] MEDS ORDERED: LABETALOL HCL 100 MG TABLET (FP) ONE ×2 (13:41→21:16)
[2020-12-26] MEDS ORDERED: MAGNESIUM HYDROX 2400MG/30ML ORAL SUSPENSION 30 ML CUP PO ONE (14:14)
[2020-12-26] MEDS: TRIPLE LUMEN FLUSH 4 ML ML IVPUSH PRN (16:00)
[2020-12-26 16:12] LABS: BASO % 0.2 % (0-2.0); HEMATOCRIT 26.9 % (32.4-45.2); LYMPH % 13.5 % (8-40); MCH 27.7 pg (25.7-33.7); MCHC 33.4 g/dl (32.0-36.0); MEAN CELL VOLUME 83.1 fl (80-96); MEAN PLT VOLUME 6.9 fl (7.5-11.1); MONO % 6.1 % (3.8-10.2); NEUT % 80.2 % (42.8-82.8); PLATELET COUNT 276 10^3/uL (134-434); RBC 3.23 M/mm3 (3.60-5.2); WHITE BLOOD COUNT 11.1 K/mm3 (4.0-10.0)
[2020-12-26 16:22] LABS: ALBUMIN 1.8 g/dl (3.4-5.0); BLOOD UREA NITROGEN 69.6 mg/dL (7-18); CALCIUM 7.2 mg/dL (8.5-10.1)
[2020-12-26 16:28] LABS: BILIRUBIN,TOTAL 0.4 mg/dL (0.2-1); TOT PROT 4.9 g/dl (6.4-8.2)
[2020-12-26] MEDS ORDERED: INSULIN (NOVOLOG) ASPART 100 UNITS/ML 10ML VIAL ONE (21:17)
[2020-12-26] MEDS: DONEPEZIL HCL 10 MG TABLET (FP) PO SCH (21:25)
[2020-12-27] MEDS ORDERED: PT OWN MED DRAWER 7, Y5N ONE ×2 (00:32→10:51)
[2020-12-27] MEDS ORDERED: PIPERACILLIN/TAZOBACTAM 2.25 GM VIAL IVPB ONE ×3 (01:37→17:28)
[2020-12-27] MEDS ORDERED: DEXTROSE 5%-WATER - 50 ML IVPB ONE ×3 (01:37→17:28)
[2020-12-27] MEDS: PIPERACILLIN/TAZOB 2.25 GM 2.25 GM in DEXTROSE 5%-WATER - 50 ML IVPB SCH ×3 (01:42→18:04)
[2020-12-27] MEDS ORDERED: LABETALOL HCL 100 MG TABLET (FP) ONE ×3 (05:29→20:55)
[2020-12-27] MEDS: LABETALOL HCL 200 MG TABLET (FP) PO SCH ×3 (05:31→21:31)
[2020-12-27] MEDS: HYDROmorphone HCL 2 MG TABLET PO SCH ×2 (05:31→21:29)
[2020-12-27] MEDS: INSULIN SLIDING SCALE (NOVOLOG) 1 VIAL SQ SCH ×4 (06:05→21:39)
[2020-12-27 06:58] LABS: BASO % 0.2 % (0-2.0); HEMATOCRIT 26.8 % (32.4-45.2); HEMOGLOBIN 8.9 GM/dL (10.7-15.3); LYMPH % 23.2 % (8-40); MCHC 33.2 g/dl (32.0-36.0); MEAN CELL VOLUME 84.3 fl (80-96); MEAN PLT VOLUME 7.1 fl (7.5-11.1); MONO % 5.5 % (3.8-10.2); NEUT % 71.1 % (42.8-82.8); PLATELET COUNT 268 10^3/uL (134-434); RBC 3.17 M/mm3 (3.60-5.2); RDW 17.8 % (11.6-15.6); WHITE BLOOD COUNT 11.5 K/mm3 (4.0-10.0)
[2020-12-27 07:14] LABS: ALBUMIN 1.8 g/dl (3.4-5.0); CALCIUM 7.2 mg/dL (8.5-10.1)
[2020-12-27 07:19] LABS: BILIRUBIN,TOTAL 0.4 mg/dL (0.2-1); TOT PROT 4.9 g/dl (6.4-8.2)
[2020-12-27] MEDS: levETIRAcetam 250 MG TABLET PO SCH ×2 (10:25→21:29)
[2020-12-27] MEDS: MULTIVITAMINS THER W-MINERALS COMBO TABLET (FP) PO SCH (10:26)
[2020-12-27] MEDS: APIXABAN 2.5 MG TABLET PO SCH ×2 (10:27→21:28)
[2020-12-27] MEDS: predniSONE 5 MG TABLET (UD) PO SCH (10:27)
[2020-12-27] MEDS: PANTOPRAZOLE 40 MG TABLET PO SCH (10:27)
[2020-12-27] MEDS: POVIDONE-IODINE 10% SOLN 118 ML BOTTLE TP SCH (10:28)
[2020-12-27 10:51] LABS: BLOOD UREA NITROGEN 73.9 mg/dL (7-18)
[2020-12-27 10:53] LABS: CALCIUM 7.3 mg/dL (8.5-10.1)
[2020-12-27 10:54] LABS: CREATININE 2.9 mg/dL (0.55-1.3); MAGNESIUM 2.2 mg/dL (1.8-2.4); PHOSPHOROUS 3.7 mg/dL (2.5-4.9)
[2020-12-27 11:01] LABS: PREALBUMIN 9.6 mg/dl (20-40)
[2020-12-27] MEDS: HYDROXYCHLOROQUINE SO4 200 MG TABLET (FP) PO SCH (11:05)
[2020-12-27] MEDS ORDERED: INSULIN (NOVOLOG) ASPART 100 UNITS/ML 10ML VIAL ONE ×2 (11:52→21:35)
[2020-12-27] MEDS: DONEPEZIL HCL 10 MG TABLET (FP) PO SCH (21:29)
[2020-12-27] MEDS: ZINC SULFATE 220 MG CAPSULE (FP) PO SCH (21:37)
[2020-12-28] MEDS ORDERED: DEXTROSE 5%-WATER - 50 ML IVPB ONE ×3 (01:18→17:11)
[2020-12-28] MEDS ORDERED: PIPERACILLIN/TAZOBACTAM 2.25 GM VIAL IVPB ONE ×3 (01:18→17:11)
[2020-12-28] MEDS: PIPERACILLIN/TAZOB 2.25 GM 2.25 GM in DEXTROSE 5%-WATER - 50 ML IVPB SCH ×4 (01:20→17:19)
[2020-12-28] MEDS: INSULIN SLIDING SCALE (NOVOLOG) 1 VIAL SQ SCH ×4 (05:59→21:48)
[2020-12-28] MEDS ORDERED: LABETALOL HCL 100 MG TABLET (FP) ONE ×2 (06:00→21:39)
[2020-12-28] MEDS: HYDROmorphone HCL 2 MG TABLET PO SCH ×2 (06:09→21:46)
[2020-12-28] MEDS: LABETALOL HCL 200 MG TABLET (FP) PO SCH ×3 (06:10→21:48)
[2020-12-28] MEDS ORDERED: PT OWN MED DRAWER 7, Y5N ONE ×3 (10:37→21:41)
[2020-12-28] MEDS: APIXABAN 2.5 MG TABLET PO SCH ×2 (10:48→21:48)
[2020-12-28] MEDS: PANTOPRAZOLE 40 MG TABLET PO SCH (10:48)
[2020-12-28] MEDS: ASCORBIC ACID 250 MG TABLET (FP) PO SCH (10:48)
[2020-12-28] MEDS: MULTIVITAMINS THER W-MINERALS COMBO TABLET (FP) PO SCH (10:48)
[2020-12-28] MEDS: predniSONE 5 MG TABLET (UD) PO SCH (10:48)
[2020-12-28] MEDS: ZINC SULFATE 220 MG CAPSULE (FP) PO SCH ×2 (10:48→21:48)
[2020-12-28] MEDS: levETIRAcetam 250 MG TABLET PO SCH ×2 (10:48→21:48)
[2020-12-28] MEDS: POVIDONE-IODINE 10% SOLN 118 ML BOTTLE TP SCH (10:49)
[2020-12-28] MEDS: HYDROXYCHLOROQUINE SO4 200 MG TABLET (FP) PO SCH (10:50)
[2020-12-28 11:40] LABS: BASO % 0.4 % (0-2.0); HEMATOCRIT 26.8 % (32.4-45.2); HEMOGLOBIN 8.7 GM/dL (10.7-15.3); LYMPH % 22.2 % (8-40); MCH 27.7 pg (25.7-33.7); MCHC 32.5 g/dl (32.0-36.0); MEAN CELL VOLUME 85.3 fl (80-96); MEAN PLT VOLUME 7.2 fl (7.5-11.1); MONO % 7.1 % (3.8-10.2); NEUT % 70.3 % (42.8-82.8); PLATELET COUNT 266 10^3/uL (134-434); RBC 3.15 M/mm3 (3.60-5.2); RDW 18.2 % (11.6-15.6); WHITE BLOOD COUNT 12.2 K/mm3 (4.0-10.0)
[2020-12-28 12:01] LABS: ALBUMIN 1.9 g/dl (3.4-5.0); BLOOD UREA NITROGEN 79.2 mg/dL (7-18); CALCIUM 7.4 mg/dL (8.5-10.1)
[2020-12-28 12:05] LABS: CREATININE 2.9 mg/dL (0.55-1.3)
[2020-12-28 12:06] LABS: BILIRUBIN,TOTAL 0.4 mg/dL (0.2-1); TOT PROT 4.8 g/dl (6.4-8.2)
[2020-12-28] MEDS: TRIPLE LUMEN FLUSH 4 ML ML IVPUSH PRN (14:50)
[2020-12-28] MEDS: DONEPEZIL HCL 10 MG TABLET (FP) PO SCH (21:47)
[2020-12-28 22:10] LABS: EPI CELLS >36 /uL (0-25.1); HYALINE CASTS 12 /uL (0-3.1); URINE APPEARANCE TURBID; URINE BACTERIA 12 /uL (0-1359); URINE BILIRUBIN NEGATIVE (NEGATIVE); URINE COLOR YELLOW; URINE GLUCOSE (UA) NEGATIVE (NEGATIVE); URINE KETONE NEGATIVE (NEGATIVE); URINE LEUK ESTERASE 2+ (NEGATIVE); URINE NITRITE NEGATIVE (NEGATIVE); URINE PROTEIN 1+ (NEGATIVE); URINE RBC 20 /uL (0-23.9); URINE UROBILINOGEN 0.2 mg/dL (0.2-1.0); URINE WBC 206 /uL (0-25.8)
[2020-12-28 22:36] LABS: YEAST SEEN (NEGATIVE)
[2020-12-29] MEDS ORDERED: PIPERACILLIN/TAZOBACTAM 2.25 GM VIAL IVPB ONE ×3 (01:22→16:52)
[2020-12-29] MEDS ORDERED: DEXTROSE 5%-WATER - 50 ML IVPB ONE ×3 (01:22→16:53)
[2020-12-29] MEDS: PIPERACILLIN/TAZOB 2.25 GM 2.25 GM in DEXTROSE 5%-WATER - 50 ML IVPB SCH ×3 (01:41→17:01)
[2020-12-29] MEDS: LABETALOL HCL 200 MG TABLET (FP) PO SCH ×3 (06:00→21:40)
[2020-12-29] MEDS ORDERED: LABETALOL HCL 100 MG TABLET (FP) ONE ×3 (06:08→21:33)
[2020-12-29] MEDS: INSULIN SLIDING SCALE (NOVOLOG) 1 VIAL SQ SCH ×4 (06:18→22:55)
[2020-12-29] MEDS: HYDROmorphone HCL 2 MG TABLET PO SCH ×2 (06:18→21:40)
[2020-12-29 09:14] LABS: BASO % 0.2 % (0-2.0); HEMATOCRIT 26.1 % (32.4-45.2); HEMOGLOBIN 8.6 GM/dL (10.7-15.3); LYMPH % 18.5 % (8-40); MCH 28.1 pg (25.7-33.7); MCHC 33.1 g/dl (32.0-36.0); MEAN CELL VOLUME 84.9 fl (80-96); MEAN PLT VOLUME 7.3 fl (7.5-11.1); MONO % 6.7 % (3.8-10.2); NEUT % 74.6 % (42.8-82.8); PLATELET COUNT 249 10^3/uL (134-434); RBC 3.07 M/mm3 (3.60-5.2); RDW 17.8 % (11.6-15.6); WHITE BLOOD COUNT 11.8 K/mm3 (4.0-10.0)
[2020-12-29 09:31] LABS: ALBUMIN 1.9 g/dl (3.4-5.0); BILIRUBIN,TOTAL 0.4 mg/dL (0.2-1); CALCIUM 7.4 mg/dL (8.5-10.1); TOT PROT 4.8 g/dl (6.4-8.2)
[2020-12-29] MEDS ORDERED: PT OWN MED DRAWER 7, Y5N ONE ×3 (10:16→21:35)
[2020-12-29] MEDS: predniSONE 5 MG TABLET (UD) PO SCH (10:27)
[2020-12-29] MEDS: POVIDONE-IODINE 10% SOLN 118 ML BOTTLE TP SCH (10:27)
[2020-12-29] MEDS: levETIRAcetam 250 MG TABLET PO SCH ×2 (10:27→21:42)
[2020-12-29] MEDS: ASCORBIC ACID 250 MG TABLET (FP) PO SCH (10:27)
[2020-12-29] MEDS: MULTIVITAMINS THER W-MINERALS COMBO TABLET (FP) PO SCH (10:27)
[2020-12-29] MEDS: PANTOPRAZOLE 40 MG TABLET PO SCH (10:27)
[2020-12-29] MEDS: APIXABAN 2.5 MG TABLET PO SCH ×2 (10:28→21:42)
[2020-12-29] MEDS: ZINC SULFATE 220 MG CAPSULE (FP) PO SCH ×2 (10:28→21:42)
[2020-12-29] MEDS: HYDROXYCHLOROQUINE SO4 200 MG TABLET (FP) PO SCH (11:20)
[2020-12-29] MEDS ORDERED: INSULIN (NOVOLOG) ASPART 100 UNITS/ML 10ML VIAL ONE (12:00)
[2020-12-29] MEDS ORDERED: HYDROXYCHLOROQUINE SO4 200 MG TABLET (FP) PO ONE (13:30)
[2020-12-29] MEDS: DONEPEZIL HCL 10 MG TABLET (FP) PO SCH (21:42)
[2020-12-30] MEDS ORDERED: DEXTROSE 5%-WATER - 50 ML IVPB ONE ×3 (01:21→19:08)
[2020-12-30] MEDS ORDERED: PIPERACILLIN/TAZOBACTAM 2.25 GM VIAL IVPB ONE ×3 (01:21→19:08)
[2020-12-30] MEDS: PIPERACILLIN/TAZOB 2.25 GM 2.25 GM in DEXTROSE 5%-WATER - 50 ML IVPB SCH ×3 (01:33→19:55)
[2020-12-30] MEDS ORDERED: LABETALOL HCL 100 MG TABLET (FP) ONE ×3 (06:17→22:26)
[2020-12-30] MEDS: HYDROmorphone HCL 2 MG TABLET PO SCH ×2 (06:19→22:01)
[2020-12-30] MEDS: LABETALOL HCL 200 MG TABLET (FP) PO SCH ×3 (06:19→23:11)
[2020-12-30] MEDS ORDERED: FUROSEMIDE 40 MG/4 ML INJECTABLE VIAL IVPUSH ONE ×3 (06:44→16:00)
[2020-12-30] MEDS: INSULIN SLIDING SCALE (NOVOLOG) 1 VIAL SQ SCH ×4 (07:03→23:16)
[2020-12-30] MEDS: AMINO ACIDS/PROTEIN HYDROLYS 30 ML LIQUID.PKT PO SCH ×2 (07:43→17:04)
[2020-12-30 09:35] LABS: BASO % 0.2 % (0-2.0); HEMOGLOBIN 7.2 GM/dL (10.7-15.3); MCH 27.9 pg (25.7-33.7); MCHC 32.7 g/dl (32.0-36.0); MEAN CELL VOLUME 85.4 fl (80-96); MEAN PLT VOLUME 7.4 fl (7.5-11.1); MONO % 6.9 % (3.8-10.2); NEUT % 71.9 % (42.8-82.8); PLATELET COUNT 222 10^3/uL (134-434); RBC 2.58 M/mm3 (3.60-5.2); RDW 18.1 % (11.6-15.6); WHITE BLOOD COUNT 11.1 K/mm3 (4.0-10.0)
[2020-12-30 09:59] LABS: ALBUMIN 1.9 g/dl (3.4-5.0); CALCIUM 7.6 mg/dL (8.5-10.1)
[2020-12-30 10:02] LABS: CREATININE 3.1 mg/dL (0.55-1.3)
[2020-12-30 10:04] LABS: BILIRUBIN,TOTAL 0.4 mg/dL (0.2-1); TOT PROT 4.9 g/dl (6.4-8.2)
[2020-12-30] MEDS: APIXABAN 2.5 MG TABLET PO SCH ×2 (10:41→22:30)
[2020-12-30] MEDS: levETIRAcetam 250 MG TABLET PO SCH ×2 (10:41→22:30)
[2020-12-30] MEDS: ZINC SULFATE 220 MG CAPSULE (FP) PO SCH ×2 (10:41→22:30)
[2020-12-30] MEDS: predniSONE 5 MG TABLET (UD) PO SCH (10:41)
[2020-12-30] MEDS: MULTIVITAMINS THER W-MINERALS COMBO TABLET (FP) PO SCH (10:41)
[2020-12-30] MEDS: DOCUSATE SODIUM 100 MG CAPSULE (FP) PO SCH ×2 (10:41→22:30)
[2020-12-30] MEDS: PANTOPRAZOLE 40 MG TABLET PO SCH (10:41)
[2020-12-30] MEDS: ASCORBIC ACID 250 MG TABLET (FP) PO SCH (10:42)
[2020-12-30] MEDS: POVIDONE-IODINE 10% SOLN 118 ML BOTTLE TP SCH (10:42)
[2020-12-30] MEDS: HYDROXYCHLOROQUINE SO4 200 MG TABLET (FP) PO SCH (10:43)
[2020-12-30] MEDS ORDERED: INSULIN (NOVOLOG) ASPART 100 UNITS/ML 10ML VIAL ONE (12:11)
[2020-12-30] MEDS ORDERED: FUROSEMIDE 40 MG/4 ML INJECTABLE VIAL IVPUSH SCH ×2 (15:00→16:00)
[2020-12-30] MEDS: ALBUMIN HUMAN 25% 12.5 GM/50 ML VIAL IVPB SCH ×2 (16:15→22:15)
[2020-12-30 22:01] LABS: N-TERMINAL BNP 12714.3 pg/ml (5-450)
[2020-12-30] MEDS: DONEPEZIL HCL 10 MG TABLET (FP) PO SCH (22:30)
[2020-12-30] MEDS: hydrALAZINE HCL 50 MG TABLET (FP) PO SCH (22:30)
[2020-12-31] MEDS ORDERED: PIPERACILLIN/TAZOBACTAM 2.25 GM VIAL IVPB ONE ×3 (02:53→17:08)
[2020-12-31] MEDS ORDERED: DEXTROSE 5%-WATER - 50 ML IVPB ONE ×3 (02:53→17:09)
[2020-12-31] MEDS: PIPERACILLIN/TAZOB 2.25 GM 2.25 GM in DEXTROSE 5%-WATER - 50 ML IVPB SCH ×3 (02:55→17:27)
[2020-12-31] MEDS: HYDROmorphone HCL 2 MG TABLET PO SCH ×2 (06:23→21:12)
[2020-12-31] MEDS: INSULIN SLIDING SCALE (NOVOLOG) 1 VIAL SQ SCH ×4 (06:48→21:50)
[2020-12-31] MEDS: LABETALOL HCL 200 MG TABLET (FP) PO SCH ×4 (07:10→21:14)
[2020-12-31] MEDS: FUROSEMIDE 40 MG/4 ML INJECTABLE VIAL IVPUSH SCH ×2 (07:13→09:25)
[2020-12-31] MEDS ORDERED: PT OWN MED DRAWER 7, Y5N ONE ×2 (09:11→20:53)
[2020-12-31] MEDS: AMINO ACIDS/PROTEIN HYDROLYS 30 ML LIQUID.PKT PO SCH ×2 (09:20→17:26)
[2020-12-31] MEDS: APIXABAN 2.5 MG TABLET PO SCH ×2 (09:22→21:12)
[2020-12-31] MEDS: ZINC SULFATE 220 MG CAPSULE (FP) PO SCH ×2 (09:24→21:13)
[2020-12-31] MEDS: predniSONE 5 MG TABLET (UD) PO SCH (09:24)
[2020-12-31] MEDS: MULTIVITAMINS THER W-MINERALS COMBO TABLET (FP) PO SCH (09:24)
[2020-12-31] MEDS: PANTOPRAZOLE 40 MG TABLET PO SCH (09:24)
[2020-12-31] MEDS: DOCUSATE SODIUM 100 MG CAPSULE (FP) PO SCH ×2 (09:24→21:12)
[2020-12-31] MEDS: hydrALAZINE HCL 50 MG TABLET (FP) PO SCH ×2 (09:24→21:12)
[2020-12-31] MEDS: POVIDONE-IODINE 10% SOLN 118 ML BOTTLE TP SCH (09:25)
[2020-12-31] MEDS: levETIRAcetam 250 MG TABLET PO SCH ×2 (09:25→21:12)
[2020-12-31] MEDS: ASCORBIC ACID 250 MG TABLET (FP) PO SCH (09:27)
[2020-12-31] MEDS: HYDROXYCHLOROQUINE SO4 200 MG TABLET (FP) PO SCH (09:27)
[2020-12-31 11:28] LABS: CALCIUM 7.3 mg/dL (8.5-10.1)
[2020-12-31 11:29] LABS: BLOOD UREA NITROGEN 87.1 mg/dL (7-18)
[2020-12-31 11:32] LABS: CREATININE 3.5 mg/dL (0.55-1.3)
[2020-12-31 11:34] LABS: BILIRUBIN,TOTAL 0.5 mg/dL (0.2-1); TOT PROT 5.2 g/dl (6.4-8.2)
[2020-12-31 11:36] LABS: ALBUMIN 2.3 g/dl (3.4-5.0)
[2020-12-31] MEDS ORDERED: LABETALOL HCL 100 MG TABLET (FP) ONE ×2 (13:57→20:51)
[2020-12-31] MEDS: DONEPEZIL HCL 10 MG TABLET (FP) PO SCH (21:13)
[2021-01-01] MEDS ORDERED: PIPERACILLIN/TAZOBACTAM 2.25 GM VIAL IVPB ONE ×3 (01:02→18:27)
[2021-01-01] MEDS ORDERED: DEXTROSE 5%-WATER - 50 ML IVPB ONE ×3 (01:02→18:27)
[2021-01-01] MEDS: PIPERACILLIN/TAZOB 2.25 GM 2.25 GM in DEXTROSE 5%-WATER - 50 ML IVPB SCH ×3 (01:51→18:29)
[2021-01-01] MEDS ORDERED: HYDROmorphone HCL 2 MG TABLET PO SCH (06:10)
[2021-01-01] MEDS ORDERED: LABETALOL HCL 100 MG TABLET (FP) ONE ×4 (06:29→21:01)
[2021-01-01] MEDS: LABETALOL HCL 200 MG TABLET (FP) PO SCH ×3 (06:30→21:14)
[2021-01-01] MEDS: INSULIN SLIDING SCALE (NOVOLOG) 1 VIAL SQ SCH ×4 (06:35→21:26)
[2021-01-01 07:56] LABS: BASO % 0.2 % (0-2.0); HEMATOCRIT 29.3 % (32.4-45.2); HEMOGLOBIN 9.8 GM/dL (10.7-15.3); LYMPH % 17.8 % (8-40); MCH 28.1 pg (25.7-33.7); MCHC 33.3 g/dl (32.0-36.0); MEAN CELL VOLUME 84.3 fl (80-96); MEAN PLT VOLUME 7.4 fl (7.5-11.1); PLATELET COUNT 235 10^3/uL (134-434); RBC 3.48 M/mm3 (3.60-5.2); RDW 17.6 % (11.6-15.6); WHITE BLOOD COUNT 13.3 K/mm3 (4.0-10.0)
[2021-01-01 08:22] LABS: ALBUMIN 2.1 g/dl (3.4-5.0); BLOOD UREA NITROGEN 101.9 mg/dL (7-18); CALCIUM 7.5 mg/dL (8.5-10.1)
[2021-01-01 08:27] LABS: BILIRUBIN,TOTAL 0.5 mg/dL (0.2-1)
[2021-01-01] MEDS: APIXABAN 2.5 MG TABLET PO SCH ×2 (11:05→21:17)
[2021-01-01] MEDS: ZINC SULFATE 220 MG CAPSULE (FP) PO SCH ×2 (11:05→21:16)
[2021-01-01] MEDS: predniSONE 5 MG TABLET (UD) PO SCH (11:05)
[2021-01-01] MEDS: hydrALAZINE HCL 50 MG TABLET (FP) PO SCH ×2 (11:05→21:16)
[2021-01-01] MEDS: POVIDONE-IODINE 10% SOLN 118 ML BOTTLE TP SCH (11:05)
[2021-01-01] MEDS: PANTOPRAZOLE 40 MG TABLET PO SCH (11:05)
[2021-01-01] MEDS: levETIRAcetam 250 MG TABLET PO SCH ×2 (11:05→21:18)
[2021-01-01] MEDS: MULTIVITAMINS THER W-MINERALS COMBO TABLET (FP) PO SCH (11:05)
[2021-01-01] MEDS: AMINO ACIDS/PROTEIN HYDROLYS 30 ML LIQUID.PKT PO SCH ×2 (11:05→18:29)
[2021-01-01] MEDS ORDERED: PT OWN MED DRAWER 7, Y5N ONE ×3 (11:07→21:03)
[2021-01-01] MEDS: ASCORBIC ACID 250 MG TABLET (FP) PO SCH (11:08)
[2021-01-01] MEDS: HYDROXYCHLOROQUINE SO4 200 MG TABLET (FP) PO SCH (11:09)
[2021-01-01] MEDS: DOCUSATE SODIUM 100 MG CAPSULE (FP) PO SCH ×2 (11:15→21:16)
[2021-01-01] MEDS: FLUOCINONIDE 0.05% CREAM (15 GM TUBE) TP SCH ×2 (15:23→21:18)
[2021-01-01] MEDS: NYSTATIN 100,000 UNIT/GM TOPICAL CREAM 15 GM TUBE TP SCH (18:29)
[2021-01-01] MEDS: MAG HYDROX/ALH/SMC/DPHA/LIDO 240 ML MOUTHWASH MM SCH (18:29)
[2021-01-01] MEDS: DONEPEZIL HCL 10 MG TABLET (FP) PO SCH (21:16)
[2021-01-01] MEDS: HYDROmorphone HCL 2 MG TABLET PO SCH (21:17)
[2021-01-02] MEDS: MAG HYDROX/ALH/SMC/DPHA/LIDO 240 ML MOUTHWASH MM SCH ×4 (00:28→17:43)
[2021-01-02] MEDS: NYSTATIN 100,000 UNIT/GM TOPICAL CREAM 15 GM TUBE TP SCH ×4 (00:29→17:48)
[2021-01-02] MEDS ORDERED: PIPERACILLIN/TAZOBACTAM 2.25 GM VIAL IVPB ONE ×3 (01:54→16:55)
[2021-01-02] MEDS ORDERED: DEXTROSE 5%-WATER - 50 ML IVPB ONE ×3 (01:54→16:55)
[2021-01-02] MEDS: PIPERACILLIN/TAZOB 2.25 GM 2.25 GM in DEXTROSE 5%-WATER - 50 ML IVPB SCH ×3 (02:02→17:49)
[2021-01-02] MEDS: HYDROmorphone HCL 2 MG TABLET PO SCH ×2 (05:59→22:06)
[2021-01-02] MEDS: FLUOCINONIDE 0.05% CREAM (15 GM TUBE) TP SCH ×3 (06:00→22:22)
[2021-01-02] MEDS: LABETALOL HCL 200 MG TABLET (FP) PO SCH ×3 (06:01→22:07)
[2021-01-02] MEDS: INSULIN SLIDING SCALE (NOVOLOG) 1 VIAL SQ SCH ×4 (06:02→22:23)
[2021-01-02 08:38] LABS: CHLORIDE 99 mmol/L (98-107); SODIUM 130 mmol/L (136-145)
[2021-01-02 08:40] LABS: CALCIUM 7.3 mg/dL (8.5-10.1)
[2021-01-02 08:41] LABS: ANION GAP 15 MMOL/L (8-16); CO2 16 mmol/L (21-32); GLUCOSE,RANDOM 168 mg/dL (74-106)
[2021-01-02 08:44] LABS: CREATININE 4.6 mg/dL (0.55-1.3); SGOT/AST 9 U/L (15-37); SGPT/ALT 13 U/L (13-61)
[2021-01-02 08:45] LABS: BILIRUBIN,TOTAL 0.4 mg/dL (0.2-1); TOT PROT 4.9 g/dl (6.4-8.2)
[2021-01-02 08:47] LABS: ALK PHOS 61 U/L (45-117)
[2021-01-02 08:52] LABS: BLOOD UREA NITROGEN 111.4 mg/dL (7-18)
[2021-01-02] MEDS ORDERED: PT OWN MED DRAWER 7, Y5N ONE ×7 (09:58→21:47)
[2021-01-02] MEDS: MULTIVITAMINS THER W-MINERALS COMBO TABLET (FP) PO SCH (10:37)
[2021-01-02] MEDS: DOCUSATE SODIUM 100 MG CAPSULE (FP) PO SCH ×2 (10:37→22:07)
[2021-01-02] MEDS: ZINC SULFATE 220 MG CAPSULE (FP) PO SCH ×2 (10:37→22:07)
[2021-01-02] MEDS: hydrALAZINE HCL 50 MG TABLET (FP) PO SCH ×2 (10:37→22:07)
[2021-01-02] MEDS: PANTOPRAZOLE 40 MG TABLET PO SCH (10:37)
[2021-01-02] MEDS: predniSONE 5 MG TABLET (UD) PO SCH (10:37)
[2021-01-02] MEDS: APIXABAN 2.5 MG TABLET PO SCH ×2 (10:37→22:07)
[2021-01-02] MEDS: levETIRAcetam 250 MG TABLET PO SCH ×2 (10:37→22:06)
[2021-01-02] MEDS: POVIDONE-IODINE 10% SOLN 118 ML BOTTLE TP SCH (10:38)
[2021-01-02] MEDS: AMINO ACIDS/PROTEIN HYDROLYS 30 ML LIQUID.PKT PO SCH ×2 (10:38→17:48)
[2021-01-02] MEDS: HYDROXYCHLOROQUINE SO4 200 MG TABLET (FP) PO SCH (10:41)
[2021-01-02] MEDS: ASCORBIC ACID 250 MG TABLET (FP) PO SCH (10:42)
[2021-01-02] MEDS: TRIPLE LUMEN FLUSH 4 ML ML IVPUSH PRN (10:44)
[2021-01-02] MEDS ORDERED: INSULIN (NOVOLOG) ASPART 100 UNITS/ML 10ML VIAL ONE (11:15)
[2021-01-02] MEDS ORDERED: FUROSEMIDE 40 MG/4 ML INJECTABLE VIAL IVPUSH ONE (11:21)
[2021-01-02] MEDS: NITROGLYCERIN 2% OINTMENT - 1GM PACKET TD SCH ×2 (12:22→18:20)
[2021-01-02] MEDS ORDERED: LABETALOL HCL 100 MG TABLET (FP) ONE ×2 (14:18→21:45)
[2021-01-02] MEDS: DONEPEZIL HCL 10 MG TABLET (FP) PO SCH (22:07)
[2021-01-03] MEDS: NYSTATIN 100,000 UNIT/GM TOPICAL CREAM 15 GM TUBE TP SCH ×4 (00:03→19:07)
[2021-01-03] MEDS ORDERED: PT OWN MED DRAWER 7, Y5N ONE ×6 (00:16→21:46)
[2021-01-03] MEDS: MAG HYDROX/ALH/SMC/DPHA/LIDO 240 ML MOUTHWASH MM SCH ×4 (00:35→18:54)
[2021-01-03] MEDS: NITROGLYCERIN 2% OINTMENT - 1GM PACKET TD SCH ×4 (01:00→18:54)
[2021-01-03] MEDS ORDERED: PIPERACILLIN/TAZOBACTAM 2.25 GM VIAL IVPB ONE ×3 (01:04→18:35)
[2021-01-03] MEDS ORDERED: DEXTROSE 5%-WATER - 50 ML IVPB ONE ×3 (01:05→18:35)
[2021-01-03] MEDS: PIPERACILLIN/TAZOB 2.25 GM 2.25 GM in DEXTROSE 5%-WATER - 50 ML IVPB SCH ×3 (01:28→18:50)
[2021-01-03] MEDS ORDERED: LABETALOL HCL 100 MG TABLET (FP) ONE ×3 (06:15→21:44)
[2021-01-03] MEDS ORDERED: INSULIN (NOVOLOG) ASPART 100 UNITS/ML 10ML VIAL ONE (06:16)
[2021-01-03] MEDS: HYDROmorphone HCL 2 MG TABLET PO SCH ×2 (06:30→22:13)
[2021-01-03] MEDS: FLUOCINONIDE 0.05% CREAM (15 GM TUBE) TP SCH ×3 (06:31→22:16)
[2021-01-03] MEDS: LABETALOL HCL 200 MG TABLET (FP) PO SCH ×3 (06:31→22:16)
[2021-01-03] MEDS: INSULIN SLIDING SCALE (NOVOLOG) 1 VIAL SQ SCH ×4 (06:44→22:43)
[2021-01-03 08:58] LABS: HEMATOCRIT 29.3 % (32.4-45.2); MCH 28.8 pg (25.7-33.7); MEAN CELL VOLUME 84.6 fl (80-96); MEAN PLT VOLUME 7.7 fl (7.5-11.1); PLATELET COUNT 230 10^3/uL (134-434); RBC 3.46 M/mm3 (3.60-5.2); WHITE BLOOD COUNT 14.8 K/mm3 (4.0-10.0)
[2021-01-03 09:57] LABS: ANISOCYTOSIS 1+; MACROCYTOSIS 1+; PLATELET ESTIMATE NORMAL
[2021-01-03 10:15] LABS: CHLORIDE 99 mmol/L (98-107); SODIUM 130 mmol/L (136-145)
[2021-01-03] MEDS: APIXABAN 2.5 MG TABLET PO SCH ×2 (10:22→22:15)
[2021-01-03] MEDS: hydrALAZINE HCL 50 MG TABLET (FP) PO SCH ×2 (10:22→22:12)
[2021-01-03] MEDS: ZINC SULFATE 220 MG CAPSULE (FP) PO SCH ×2 (10:22→22:43)
[2021-01-03] MEDS: PANTOPRAZOLE 40 MG TABLET PO SCH (10:22)
[2021-01-03] MEDS: levETIRAcetam 250 MG TABLET PO SCH ×2 (10:22→22:15)
[2021-01-03] MEDS: predniSONE 5 MG TABLET (UD) PO SCH (10:22)
[2021-01-03] MEDS: DOCUSATE SODIUM 100 MG CAPSULE (FP) PO SCH ×2 (10:22→22:13)
[2021-01-03] MEDS: ASCORBIC ACID 250 MG TABLET (FP) PO SCH (10:23)
[2021-01-03] MEDS: MULTIVITAMINS THER W-MINERALS COMBO TABLET (FP) PO SCH (10:24)
[2021-01-03] MEDS: AMINO ACIDS/PROTEIN HYDROLYS 30 ML LIQUID.PKT PO SCH ×2 (10:37→18:51)
[2021-01-03] MEDS: HYDROXYCHLOROQUINE SO4 200 MG TABLET (FP) PO SCH (10:39)
[2021-01-03 10:58] LABS: ANION GAP 19 MMOL/L (8-16); CALCIUM 7.5 mg/dL (8.5-10.1); CO2 12 mmol/L (21-32)
[2021-01-03 10:59] LABS: GLUCOSE,RANDOM 200 mg/dL (74-106)
[2021-01-03 11:02] LABS: BLOOD UREA NITROGEN 124.6 mg/dL (7-18); CREATININE 5.1 mg/dL (0.55-1.3)
[2021-01-03] MEDS: NYSTATIN 500,000 UNITS/5 ML SUSPENSION PO SCH ×2 (12:00→18:50)
[2021-01-03] MEDS: POVIDONE-IODINE 10% SOLN 118 ML BOTTLE TP SCH (12:21)
[2021-01-03] MEDS ORDERED: SODIUM CHLORIDE 250 ML IV PRN (14:26)
[2021-01-03] MEDS: DONEPEZIL HCL 10 MG TABLET (FP) PO SCH (22:13)
[2021-01-04] MEDS: NYSTATIN 100,000 UNIT/GM TOPICAL CREAM 15 GM TUBE TP SCH ×4 (00:40→17:34)
[2021-01-04] MEDS: MAG HYDROX/ALH/SMC/DPHA/LIDO 240 ML MOUTHWASH MM SCH ×4 (00:40→17:35)
[2021-01-04] MEDS: NITROGLYCERIN 2% OINTMENT - 1GM PACKET TD SCH ×4 (00:50→17:00)
[2021-01-04] MEDS ORDERED: DEXTROSE 5%-WATER - 50 ML IVPB ONE ×3 (01:19→17:31)
[2021-01-04] MEDS ORDERED: PIPERACILLIN/TAZOBACTAM 2.25 GM VIAL IVPB ONE ×3 (01:19→17:31)
[2021-01-04] MEDS: NYSTATIN 500,000 UNITS/5 ML SUSPENSION PO SCH ×4 (01:51→17:34)
[2021-01-04] MEDS: PIPERACILLIN/TAZOB 2.25 GM 2.25 GM in DEXTROSE 5%-WATER - 50 ML IVPB SCH ×3 (01:54→17:34)
[2021-01-04] MEDS ORDERED: LABETALOL HCL 100 MG TABLET (FP) ONE ×2 (06:01→21:16)
[2021-01-04] MEDS: HYDROmorphone HCL 2 MG TABLET PO SCH ×2 (06:25→21:48)
[2021-01-04] MEDS: FLUOCINONIDE 0.05% CREAM (15 GM TUBE) TP SCH ×3 (06:26→21:49)
[2021-01-04] MEDS: LABETALOL HCL 200 MG TABLET (FP) PO SCH ×3 (06:28→21:52)
[2021-01-04] MEDS: INSULIN SLIDING SCALE (NOVOLOG) 1 VIAL SQ SCH ×4 (06:55→21:56)
[2021-01-04 08:40] LABS: HEMATOCRIT 26.4 % (32.4-45.2); MCH 28.1 pg (25.7-33.7); MCHC 33.9 g/dl (32.0-36.0); MEAN CELL VOLUME 82.9 fl (80-96); MEAN PLT VOLUME 7.7 fl (7.5-11.1); PLATELET COUNT 189 10^3/uL (134-434); RBC 3.19 M/mm3 (3.60-5.2); RDW 18.3 % (11.6-15.6); WHITE BLOOD COUNT 13.7 K/mm3 (4.0-10.0)
[2021-01-04] MEDS: AMINO ACIDS/PROTEIN HYDROLYS 30 ML LIQUID.PKT PO SCH ×2 (08:48→16:39)
[2021-01-04 09:00] LABS: CALCIUM 7.1 mg/dL (8.5-10.1)
[2021-01-04 09:01] LABS: ALBUMIN 1.9 g/dl (3.4-5.0); MAGNESIUM 2.2 mg/dL (1.8-2.4)
[2021-01-04 09:04] LABS: CREATININE 4.1 mg/dL (0.55-1.3)
[2021-01-04 09:05] LABS: BILIRUBIN,TOTAL 0.4 mg/dL (0.2-1); TOT PROT 4.7 g/dl (6.4-8.2)
[2021-01-04 09:26] LABS: BLOOD UREA NITROGEN 87.8 mg/dL (7-18)
[2021-01-04] MEDS: MULTIVITAMINS THER W-MINERALS COMBO TABLET (FP) PO SCH (10:35)
[2021-01-04] MEDS: PANTOPRAZOLE 40 MG TABLET PO SCH (10:35)
[2021-01-04] MEDS: DOCUSATE SODIUM 100 MG CAPSULE (FP) PO SCH ×2 (10:36→21:47)
[2021-01-04] MEDS: ZINC SULFATE 220 MG CAPSULE (FP) PO SCH ×2 (10:36→21:49)
[2021-01-04] MEDS: predniSONE 5 MG TABLET (UD) PO SCH (10:36)
[2021-01-04] MEDS: levETIRAcetam 250 MG TABLET PO SCH ×2 (10:37→21:48)
[2021-01-04] MEDS: APIXABAN 2.5 MG TABLET PO SCH ×2 (10:38→21:49)
[2021-01-04] MEDS: hydrALAZINE HCL 50 MG TABLET (FP) PO SCH ×2 (10:39→21:52)
[2021-01-04] MEDS: POVIDONE-IODINE 10% SOLN 118 ML BOTTLE TP SCH (10:39)
[2021-01-04] MEDS ORDERED: PT OWN MED DRAWER 7, Y5N ONE (10:41)
[2021-01-04] MEDS: ASCORBIC ACID 250 MG TABLET (FP) PO SCH (10:42)
[2021-01-04] MEDS: HYDROXYCHLOROQUINE SO4 200 MG TABLET (FP) PO SCH (10:42)
[2021-01-04] MEDS ORDERED: SODIUM CHLORIDE 250 ML IV PRN (11:06)
[2021-01-04 11:17] LABS: ANISOCYTOSIS 1+; MACROCYTOSIS 0; PLATELET ESTIMATE NORMAL
[2021-01-04] MEDS ORDERED: INSULIN (NOVOLOG) ASPART 100 UNITS/ML 10ML VIAL ONE (11:28)
[2021-01-04] MEDS: TRIPLE LUMEN FLUSH 4 ML ML IVPUSH PRN (17:00)
[2021-01-04] MEDS: DONEPEZIL HCL 10 MG TABLET (FP) PO SCH (21:49)
[2021-01-05] MEDS ORDERED: PT OWN MED DRAWER 7, Y5N ONE ×6 (00:39→23:27)
[2021-01-05] MEDS ORDERED: DEXTROSE 5%-WATER - 50 ML IVPB ONE ×3 (00:43→17:10)
[2021-01-05] MEDS ORDERED: PIPERACILLIN/TAZOBACTAM 2.25 GM VIAL IVPB ONE ×3 (00:43→17:10)
[2021-01-05] MEDS: MAG HYDROX/ALH/SMC/DPHA/LIDO 240 ML MOUTHWASH MM SCH ×4 (00:49→17:29)
[2021-01-05] MEDS: NYSTATIN 100,000 UNIT/GM TOPICAL CREAM 15 GM TUBE TP SCH ×4 (00:49→18:03)
[2021-01-05] MEDS: NYSTATIN 500,000 UNITS/5 ML SUSPENSION PO SCH ×5 (00:49→23:10)
[2021-01-05] MEDS: NITROGLYCERIN 2% OINTMENT - 1GM PACKET TD SCH ×4 (00:55→18:03)
[2021-01-05] MEDS: PIPERACILLIN/TAZOB 2.25 GM 2.25 GM in DEXTROSE 5%-WATER - 50 ML IVPB SCH ×3 (01:01→17:14)
[2021-01-05] MEDS ORDERED: LABETALOL HCL 100 MG TABLET (FP) ONE ×3 (05:24→21:04)
[2021-01-05] MEDS: HYDROmorphone HCL 2 MG TABLET PO SCH ×2 (05:30→21:09)
[2021-01-05] MEDS: FLUOCINONIDE 0.05% CREAM (15 GM TUBE) TP SCH ×3 (05:31→21:16)
[2021-01-05] MEDS: LABETALOL HCL 200 MG TABLET (FP) PO SCH ×3 (05:32→21:08)
[2021-01-05] MEDS: INSULIN SLIDING SCALE (NOVOLOG) 1 VIAL SQ SCH ×4 (06:05→21:16)
[2021-01-05 08:55] LABS: BASO % 0.4 % (0-2.0); HEMATOCRIT 23.8 % (32.4-45.2); LYMPH % 14.2 % (8-40); MCH 27.9 pg (25.7-33.7); MCHC 33.7 g/dl (32.0-36.0); MEAN CELL VOLUME 82.8 fl (80-96); MEAN PLT VOLUME 7.5 fl (7.5-11.1); MONO % 7.9 % (3.8-10.2); NEUT % 77.5 % (42.8-82.8); PLATELET COUNT 147 10^3/uL (134-434); RBC 2.88 M/mm3 (3.60-5.2); RDW 18.4 % (11.6-15.6); WHITE BLOOD COUNT 14.2 K/mm3 (4.0-10.0)
[2021-01-05 09:25] LABS: ALBUMIN 1.8 g/dl (3.4-5.0)
[2021-01-05 09:26] LABS: MAGNESIUM 2.2 mg/dL (1.8-2.4)
[2021-01-05 09:27] LABS: BILIRUBIN,TOTAL 0.3 mg/dL (0.2-1); TOT PROT 4.4 g/dl (6.4-8.2)
[2021-01-05 09:28] LABS: CREATININE 3.1 mg/dL (0.55-1.3)
[2021-01-05 09:29] LABS: BLOOD UREA NITROGEN 59.3 mg/dL (7-18)
[2021-01-05] MEDS: MULTIVITAMINS THER W-MINERALS COMBO TABLET (FP) PO SCH (10:12)
[2021-01-05] MEDS: AMINO ACIDS/PROTEIN HYDROLYS 30 ML LIQUID.PKT PO SCH ×2 (10:12→17:14)
[2021-01-05] MEDS: levETIRAcetam 250 MG TABLET PO SCH ×2 (10:12→21:10)
[2021-01-05] MEDS: predniSONE 5 MG TABLET (UD) PO SCH (10:12)
[2021-01-05] MEDS: DOCUSATE SODIUM 100 MG CAPSULE (FP) PO SCH ×2 (10:12→21:10)
[2021-01-05] MEDS: hydrALAZINE HCL 50 MG TABLET (FP) PO SCH ×2 (10:13→21:10)
[2021-01-05] MEDS: ZINC SULFATE 220 MG CAPSULE (FP) PO SCH ×2 (10:13→21:08)
[2021-01-05] MEDS: APIXABAN 2.5 MG TABLET PO SCH ×2 (10:13→21:10)
[2021-01-05] MEDS: PANTOPRAZOLE 40 MG TABLET PO SCH (10:13)
[2021-01-05] MEDS: HYDROXYCHLOROQUINE SO4 200 MG TABLET (FP) PO SCH (10:14)
[2021-01-05] MEDS: ASCORBIC ACID 250 MG TABLET (FP) PO SCH (10:14)
[2021-01-05] MEDS: POVIDONE-IODINE 10% SOLN 118 ML BOTTLE TP SCH (10:30)
[2021-01-05] MEDS: TRIPLE LUMEN FLUSH 4 ML ML IVPUSH PRN (10:30)
[2021-01-05] MEDS ORDERED: FUROSEMIDE 40 MG/4 ML INJECTABLE VIAL IVPUSH ONE (12:20)
[2021-01-05] MEDS: DONEPEZIL HCL 10 MG TABLET (FP) PO SCH (21:10)
[2021-01-06] MEDS ORDERED: PIPERACILLIN/TAZOBACTAM 2.25 GM VIAL IVPB ONE ×2 (00:54→18:31)
[2021-01-06] MEDS ORDERED: DEXTROSE 5%-WATER - 50 ML IVPB ONE ×2 (00:54→18:31)
[2021-01-06] MEDS: MAG HYDROX/ALH/SMC/DPHA/LIDO 240 ML MOUTHWASH MM SCH ×4 (01:08→18:25)
[2021-01-06] MEDS: NYSTATIN 100,000 UNIT/GM TOPICAL CREAM 15 GM TUBE TP SCH ×4 (01:09→18:23)
[2021-01-06] MEDS: NITROGLYCERIN 2% OINTMENT - 1GM PACKET TD SCH ×4 (01:09→18:23)
[2021-01-06] MEDS: PIPERACILLIN/TAZOB 2.25 GM 2.25 GM in DEXTROSE 5%-WATER - 50 ML IVPB SCH ×3 (01:10→18:43)
[2021-01-06] MEDS ORDERED: LABETALOL HCL 100 MG TABLET (FP) ONE ×3 (05:59→21:02)
[2021-01-06] MEDS ORDERED: PT OWN MED DRAWER 7, Y5N ONE ×3 (05:59→21:04)
[2021-01-06] MEDS: HYDROmorphone HCL 2 MG TABLET PO SCH ×2 (06:03→22:06)
[2021-01-06] MEDS: NYSTATIN 500,000 UNITS/5 ML SUSPENSION PO SCH ×2 (06:03→18:23)
[2021-01-06] MEDS: LABETALOL HCL 200 MG TABLET (FP) PO SCH ×3 (06:05→22:05)
[2021-01-06] MEDS: FLUOCINONIDE 0.05% CREAM (15 GM TUBE) TP SCH ×3 (06:05→22:07)
[2021-01-06] MEDS: INSULIN SLIDING SCALE (NOVOLOG) 1 VIAL SQ SCH ×4 (06:18→22:22)
[2021-01-06 08:14] LABS: BASO % 0.3 % (0-2.0); HEMATOCRIT 23.6 % (32.4-45.2); HEMOGLOBIN 7.8 GM/dL (10.7-15.3); MCH 27.8 pg (25.7-33.7); MCHC 33.2 g/dl (32.0-36.0); MEAN CELL VOLUME 83.6 fl (80-96); MEAN PLT VOLUME 7.9 fl (7.5-11.1); MONO % 6.6 % (3.8-10.2); NEUT % 77.1 % (42.8-82.8); PLATELET COUNT 142 10^3/uL (134-434); RBC 2.82 M/mm3 (3.60-5.2); RDW 17.9 % (11.6-15.6); WHITE BLOOD COUNT 15.2 K/mm3 (4.0-10.0)
[2021-01-06 08:43] LABS: ALBUMIN 1.8 g/dl (3.4-5.0); MAGNESIUM 2.4 mg/dL (1.8-2.4)
[2021-01-06 08:46] LABS: CREATININE 3.6 mg/dL (0.55-1.3)
[2021-01-06 08:47] LABS: TOT PROT 4.4 g/dl (6.4-8.2)
[2021-01-06 08:53] LABS: BILIRUBIN,TOTAL 0.4 mg/dL (0.2-1)
[2021-01-06] MEDS: AMINO ACIDS/PROTEIN HYDROLYS 30 ML LIQUID.PKT PO SCH ×2 (09:00→18:24)
[2021-01-06] MEDS ORDERED: SODIUM CHLORIDE 250 ML IV PRN (10:08)
[2021-01-06] MEDS: ALBUMIN HUMAN 25% 12.5 GM/50 ML VIAL IVPB SCH ×4 (10:20→13:00)
[2021-01-06] MEDS: hydrALAZINE HCL 50 MG TABLET (FP) PO SCH ×2 (10:33→22:08)
[2021-01-06] MEDS: DOCUSATE SODIUM 100 MG CAPSULE (FP) PO SCH ×2 (10:34→22:06)
[2021-01-06] MEDS: levETIRAcetam 250 MG TABLET PO SCH ×2 (10:35→22:06)
[2021-01-06] MEDS: predniSONE 5 MG TABLET (UD) PO SCH (10:35)
[2021-01-06] MEDS: APIXABAN 2.5 MG TABLET PO SCH (10:35)
[2021-01-06] MEDS: PANTOPRAZOLE 40 MG TABLET PO SCH (10:37)
[2021-01-06] MEDS: ZINC SULFATE 220 MG CAPSULE (FP) PO SCH ×2 (10:37→22:06)
[2021-01-06] MEDS: HYDROXYCHLOROQUINE SO4 200 MG TABLET (FP) PO SCH (10:37)
[2021-01-06] MEDS: ASCORBIC ACID 250 MG TABLET (FP) PO SCH (10:38)
[2021-01-06] MEDS: MULTIVITAMINS THER W-MINERALS COMBO TABLET (FP) PO SCH (10:38)
[2021-01-06] MEDS ORDERED: INSULIN (NOVOLOG) ASPART 100 UNITS/ML 10ML VIAL ONE (18:33)
[2021-01-06] MEDS: DONEPEZIL HCL 10 MG TABLET (FP) PO SCH (22:07)
[2021-01-07] MEDS ORDERED: PIPERACILLIN/TAZOBACTAM 2.25 GM VIAL IVPB ONE ×3 (00:37→16:53)
[2021-01-07] MEDS ORDERED: DEXTROSE 5%-WATER - 50 ML IVPB ONE ×3 (00:38→16:54)
[2021-01-07] MEDS: MAG HYDROX/ALH/SMC/DPHA/LIDO 240 ML MOUTHWASH MM SCH ×4 (00:46→18:02)
[2021-01-07] MEDS: NYSTATIN 500,000 UNITS/5 ML SUSPENSION PO SCH ×4 (00:46→17:03)
[2021-01-07] MEDS: NYSTATIN 100,000 UNIT/GM TOPICAL CREAM 15 GM TUBE TP SCH ×4 (00:46→18:03)
[2021-01-07] MEDS: PIPERACILLIN/TAZOB 2.25 GM 2.25 GM in DEXTROSE 5%-WATER - 50 ML IVPB SCH ×3 (01:00→17:59)
[2021-01-07] MEDS: NITROGLYCERIN 2% OINTMENT - 1GM PACKET TD SCH ×4 (01:01→18:01)
[2021-01-07] MEDS ORDERED: LABETALOL HCL 100 MG TABLET (FP) ONE ×3 (06:12→20:54)
[2021-01-07] MEDS: HYDROmorphone HCL 2 MG TABLET PO SCH ×2 (06:25→21:20)
[2021-01-07] MEDS: FLUOCINONIDE 0.05% CREAM (15 GM TUBE) TP SCH ×3 (06:25→21:22)
[2021-01-07] MEDS: LABETALOL HCL 200 MG TABLET (FP) PO SCH ×3 (06:27→21:21)
[2021-01-07] MEDS: INSULIN SLIDING SCALE (NOVOLOG) 1 VIAL SQ SCH ×4 (06:29→21:29)
[2021-01-07] MEDS ORDERED: PT OWN MED DRAWER 7, Y5N ONE ×3 (09:36→20:56)
[2021-01-07] MEDS: PANTOPRAZOLE 40 MG TABLET PO SCH (09:53)
[2021-01-07] MEDS: levETIRAcetam 250 MG TABLET PO SCH ×2 (09:53→21:22)
[2021-01-07] MEDS: AMINO ACIDS/PROTEIN HYDROLYS 30 ML LIQUID.PKT PO SCH ×2 (09:53→17:03)
[2021-01-07] MEDS: MULTIVITAMINS THER W-MINERALS COMBO TABLET (FP) PO SCH (09:53)
[2021-01-07] MEDS: ZINC SULFATE 220 MG CAPSULE (FP) PO SCH ×2 (09:53→21:21)
[2021-01-07] MEDS: predniSONE 5 MG TABLET (UD) PO SCH (09:53)
[2021-01-07] MEDS: hydrALAZINE HCL 50 MG TABLET (FP) PO SCH ×2 (09:53→21:21)
[2021-01-07] MEDS: DOCUSATE SODIUM 100 MG CAPSULE (FP) PO SCH ×2 (09:53→21:21)
[2021-01-07] MEDS: ASCORBIC ACID 250 MG TABLET (FP) PO SCH (09:54)
[2021-01-07] MEDS: HYDROXYCHLOROQUINE SO4 200 MG TABLET (FP) PO SCH (09:57)
[2021-01-07] MEDS: POVIDONE-IODINE 10% SOLN 118 ML BOTTLE TP SCH (10:03)
[2021-01-07 10:11] LABS: BASO % 0.3 % (0-2.0); HEMATOCRIT 24.2 % (32.4-45.2); HEMOGLOBIN 7.9 GM/dL (10.7-15.3); LYMPH % 12.9 % (8-40); MCH 27.6 pg (25.7-33.7); MCHC 32.7 g/dl (32.0-36.0); MEAN CELL VOLUME 84.5 fl (80-96); MEAN PLT VOLUME 8.3 fl (7.5-11.1); NEUT % 81.8 % (42.8-82.8); PLATELET COUNT 143 10^3/uL (134-434); RBC 2.86 M/mm3 (3.60-5.2); RDW 18.2 % (11.6-15.6); WHITE BLOOD COUNT 15.8 K/mm3 (4.0-10.0)
[2021-01-07 10:37] LABS: CALCIUM 7.5 mg/dL (8.5-10.1)
[2021-01-07 10:45] LABS: BLOOD UREA NITROGEN 39.1 mg/dL (7-18); CREATININE 2.8 mg/dL (0.55-1.3)
[2021-01-07] MEDS ORDERED: FUROSEMIDE 40 MG/4 ML INJECTABLE VIAL IVPUSH ONE (14:09)
[2021-01-07] MEDS ORDERED: SODIUM CHLORIDE 250 ML IV PRN (14:11)
[2021-01-07] MEDS: DONEPEZIL HCL 10 MG TABLET (FP) PO SCH (21:21)
[2021-01-07] MEDS: HEPARIN NA (PORCINE) 5,000 UNITS/ML 1ML VIAL SQ SCH (21:22)
[2021-01-08] MEDS ORDERED: DEXTROSE 5%-WATER - 50 ML IVPB ONE ×3 (00:40→16:37)
[2021-01-08] MEDS ORDERED: PIPERACILLIN/TAZOBACTAM 2.25 GM VIAL IVPB ONE ×3 (00:40→16:36)
[2021-01-08] MEDS: NYSTATIN 500,000 UNITS/5 ML SUSPENSION PO SCH ×5 (00:58→18:36)
[2021-01-08] MEDS: NITROGLYCERIN 2% OINTMENT - 1GM PACKET TD SCH ×4 (00:59→18:34)
[2021-01-08] MEDS: MAG HYDROX/ALH/SMC/DPHA/LIDO 240 ML MOUTHWASH MM SCH ×4 (00:59→18:33)
[2021-01-08] MEDS: NYSTATIN 100,000 UNIT/GM TOPICAL CREAM 15 GM TUBE TP SCH ×4 (00:59→18:34)
[2021-01-08] MEDS: PIPERACILLIN/TAZOB 2.25 GM 2.25 GM in DEXTROSE 5%-WATER - 50 ML IVPB SCH ×3 (00:59→18:38)
[2021-01-08] MEDS ORDERED: LABETALOL HCL 100 MG TABLET (FP) ONE ×2 (05:58→21:54)
[2021-01-08] MEDS: HYDROmorphone HCL 2 MG TABLET PO SCH ×2 (06:20→22:01)
[2021-01-08] MEDS: FLUOCINONIDE 0.05% CREAM (15 GM TUBE) TP SCH ×3 (06:21→22:20)
[2021-01-08] MEDS: LABETALOL HCL 200 MG TABLET (FP) PO SCH ×3 (06:21→22:00)
[2021-01-08] MEDS: INSULIN SLIDING SCALE (NOVOLOG) 1 VIAL SQ SCH ×4 (06:22→22:03)
[2021-01-08] MEDS ORDERED: PT OWN MED DRAWER 7, Y5N ONE ×2 (08:59→21:57)
[2021-01-08] MEDS: levETIRAcetam 250 MG TABLET PO SCH ×2 (09:15→22:00)
[2021-01-08] MEDS: PANTOPRAZOLE 40 MG TABLET PO SCH (09:15)
[2021-01-08] MEDS: AMINO ACIDS/PROTEIN HYDROLYS 30 ML LIQUID.PKT PO SCH ×2 (09:15→16:42)
[2021-01-08] MEDS: ZINC SULFATE 220 MG CAPSULE (FP) PO SCH ×2 (09:15→22:01)
[2021-01-08] MEDS: predniSONE 5 MG TABLET (UD) PO SCH (09:15)
[2021-01-08] MEDS: hydrALAZINE HCL 50 MG TABLET (FP) PO SCH ×2 (09:15→22:02)
[2021-01-08] MEDS: MULTIVITAMINS THER W-MINERALS COMBO TABLET (FP) PO SCH (09:15)
[2021-01-08] MEDS: HEPARIN NA (PORCINE) 5,000 UNITS/ML 1ML VIAL SQ SCH ×2 (09:15→22:00)
[2021-01-08] MEDS: DOCUSATE SODIUM 100 MG CAPSULE (FP) PO SCH ×2 (09:16→22:01)
[2021-01-08] MEDS: HYDROXYCHLOROQUINE SO4 200 MG TABLET (FP) PO SCH (09:16)
[2021-01-08] MEDS: POVIDONE-IODINE 10% SOLN 118 ML BOTTLE TP SCH (09:17)
[2021-01-08] MEDS: ASCORBIC ACID 250 MG TABLET (FP) PO SCH (09:17)
[2021-01-08 10:09] LABS: BASO % 0.6 % (0-2.0); HEMATOCRIT 22.3 % (32.4-45.2); HEMOGLOBIN 7.3 GM/dL (10.7-15.3); LYMPH % 18.9 % (8-40); MCH 27.9 pg (25.7-33.7); MCHC 32.9 g/dl (32.0-36.0); MEAN CELL VOLUME 84.9 fl (80-96); MEAN PLT VOLUME 8.5 fl (7.5-11.1); MONO % 5.9 % (3.8-10.2); NEUT % 74.6 % (42.8-82.8); PLATELET COUNT 134 10^3/uL (134-434); RBC 2.63 M/mm3 (3.60-5.2); RDW 18.4 % (11.6-15.6); WHITE BLOOD COUNT 12.1 K/mm3 (4.0-10.0)
[2021-01-08 10:25] LABS: CALCIUM 7.4 mg/dL (8.5-10.1)
[2021-01-08 10:26] LABS: ALBUMIN 1.8 g/dl (3.4-5.0); BLOOD UREA NITROGEN 45.9 mg/dL (7-18)
[2021-01-08 10:27] LABS: MAGNESIUM 2.2 mg/dL (1.8-2.4)
[2021-01-08 10:29] LABS: CREATININE 3.1 mg/dL (0.55-1.3)
[2021-01-08 10:31] LABS: BILIRUBIN,TOTAL 0.4 mg/dL (0.2-1); TOT PROT 4.7 g/dl (6.4-8.2)
[2021-01-08] MEDS: ALBUMIN HUMAN 25% 12.5 GM/50 ML VIAL IVPB SCH ×4 (12:00→14:41)
[2021-01-08] MEDS ORDERED: INSULIN (NOVOLOG) ASPART 100 UNITS/ML 10ML VIAL ONE ×2 (17:20→20:51)
[2021-01-08] MEDS: DONEPEZIL HCL 10 MG TABLET (FP) PO SCH (22:01)
[2021-01-09] MEDS: NYSTATIN 500,000 UNITS/5 ML SUSPENSION PO SCH ×4 (00:37→17:28)
[2021-01-09] MEDS: MAG HYDROX/ALH/SMC/DPHA/LIDO 240 ML MOUTHWASH MM SCH ×4 (00:37→18:35)
[2021-01-09] MEDS: NITROGLYCERIN 2% OINTMENT - 1GM PACKET TD SCH ×2 (00:38→06:11)
[2021-01-09] MEDS: NYSTATIN 100,000 UNIT/GM TOPICAL CREAM 15 GM TUBE TP SCH ×4 (00:47→18:35)
[2021-01-09] MEDS ORDERED: PIPERACILLIN/TAZOBACTAM 2.25 GM VIAL IVPB ONE ×3 (01:39→17:22)
[2021-01-09] MEDS ORDERED: DEXTROSE 5%-WATER - 50 ML IVPB ONE ×3 (01:39→17:23)
[2021-01-09] MEDS: PIPERACILLIN/TAZOB 2.25 GM 2.25 GM in DEXTROSE 5%-WATER - 50 ML IVPB SCH ×3 (01:48→17:27)
[2021-01-09] MEDS ORDERED: LABETALOL HCL 100 MG TABLET (FP) ONE ×3 (06:03→20:54)
[2021-01-09] MEDS: HYDROmorphone HCL 2 MG TABLET PO SCH ×2 (06:08→21:08)
[2021-01-09] MEDS: LABETALOL HCL 200 MG TABLET (FP) PO SCH ×3 (06:08→21:08)
[2021-01-09] MEDS: FLUOCINONIDE 0.05% CREAM (15 GM TUBE) TP SCH ×3 (06:09→21:16)
[2021-01-09] MEDS: INSULIN SLIDING SCALE (NOVOLOG) 1 VIAL SQ SCH ×4 (06:19→21:16)
[2021-01-09 07:56] LABS: BASO % 0.5 % (0-2.0); HEMATOCRIT 21.8 % (32.4-45.2); HEMOGLOBIN 7.2 GM/dL (10.7-15.3); LYMPH % 15.7 % (8-40); MCH 28.3 pg (25.7-33.7); MCHC 33.1 g/dl (32.0-36.0); MEAN CELL VOLUME 85.5 fl (80-96); MEAN PLT VOLUME 8.8 fl (7.5-11.1); MONO % 5.4 % (3.8-10.2); NEUT % 78.4 % (42.8-82.8); PLATELET COUNT 137 10^3/uL (134-434); RBC 2.54 M/mm3 (3.60-5.2); RDW 18.4 % (11.6-15.6); WHITE BLOOD COUNT 11.4 K/mm3 (4.0-10.0)
[2021-01-09 08:16] LABS: BLOOD UREA NITROGEN 31.8 mg/dL (7-18); CALCIUM 7.6 mg/dL (8.5-10.1); MAGNESIUM 2.1 mg/dL (1.8-2.4)
[2021-01-09 08:20] LABS: CREATININE 2.2 mg/dL (0.55-1.3)
[2021-01-09 08:21] LABS: BILIRUBIN,TOTAL 0.5 mg/dL (0.2-1); TOT PROT 4.8 g/dl (6.4-8.2)
[2021-01-09 08:26] LABS: ALBUMIN 2.2 g/dl (3.4-5.0)
[2021-01-09] MEDS ORDERED: PT OWN MED DRAWER 7, Y5N ONE ×3 (09:17→21:13)
[2021-01-09] MEDS: hydrALAZINE HCL 50 MG TABLET (FP) PO SCH (09:27)
[2021-01-09] MEDS: ZINC SULFATE 220 MG CAPSULE (FP) PO SCH ×2 (09:27→21:08)
[2021-01-09] MEDS: MULTIVITAMINS THER W-MINERALS COMBO TABLET (FP) PO SCH (09:27)
[2021-01-09] MEDS: HEPARIN NA (PORCINE) 5,000 UNITS/ML 1ML VIAL SQ SCH ×2 (09:27→21:09)
[2021-01-09] MEDS: predniSONE 5 MG TABLET (UD) PO SCH (09:27)
[2021-01-09] MEDS: DOCUSATE SODIUM 100 MG CAPSULE (FP) PO SCH ×2 (09:27→21:08)
[2021-01-09] MEDS: PANTOPRAZOLE 40 MG TABLET PO SCH (09:28)
[2021-01-09] MEDS: levETIRAcetam 250 MG TABLET PO SCH ×2 (09:28→21:08)
[2021-01-09] MEDS: HYDROXYCHLOROQUINE SO4 200 MG TABLET (FP) PO SCH (09:28)
[2021-01-09] MEDS: ASCORBIC ACID 250 MG TABLET (FP) PO SCH (09:29)
[2021-01-09] MEDS: POVIDONE-IODINE 10% SOLN 118 ML BOTTLE TP SCH (09:29)
[2021-01-09] MEDS: AMINO ACIDS/PROTEIN HYDROLYS 30 ML LIQUID.PKT PO SCH ×2 (09:30→17:28)
[2021-01-09] MEDS: DONEPEZIL HCL 10 MG TABLET (FP) PO SCH (21:08)
[2021-01-10] MEDS ORDERED: PIPERACILLIN/TAZOBACTAM 2.25 GM VIAL IVPB ONE ×3 (01:30→17:12)
[2021-01-10] MEDS ORDERED: DEXTROSE 5%-WATER - 50 ML IVPB ONE ×3 (01:30→17:12)
[2021-01-10] MEDS: MAG HYDROX/ALH/SMC/DPHA/LIDO 240 ML MOUTHWASH MM SCH ×4 (01:34→17:59)
[2021-01-10] MEDS: PIPERACILLIN/TAZOB 2.25 GM 2.25 GM in DEXTROSE 5%-WATER - 50 ML IVPB SCH ×3 (01:34→17:19)
[2021-01-10] MEDS: NYSTATIN 500,000 UNITS/5 ML SUSPENSION PO SCH ×4 (01:34→17:18)
[2021-01-10] MEDS: NYSTATIN 100,000 UNIT/GM TOPICAL CREAM 15 GM TUBE TP SCH ×4 (01:34→18:00)
[2021-01-10] MEDS ORDERED: LABETALOL HCL 100 MG TABLET (FP) ONE ×3 (04:52→22:11)
[2021-01-10] MEDS: HYDROmorphone HCL 2 MG TABLET PO SCH ×2 (05:17→22:26)
[2021-01-10] MEDS: FLUOCINONIDE 0.05% CREAM (15 GM TUBE) TP SCH ×3 (05:18→22:27)
[2021-01-10] MEDS: LABETALOL HCL 200 MG TABLET (FP) PO SCH ×3 (05:49→22:26)
[2021-01-10 06:12] LABS: BASO % 0.4 % (0-2.0); HEMATOCRIT 21.5 % (32.4-45.2); HEMOGLOBIN 7.2 GM/dL (10.7-15.3); LYMPH % 17.7 % (8-40); MCH 28.9 pg (25.7-33.7); MCHC 33.5 g/dl (32.0-36.0); MEAN PLT VOLUME 8.4 fl (7.5-11.1); MONO % 7.2 % (3.8-10.2); NEUT % 74.7 % (42.8-82.8); PLATELET COUNT 137 10^3/uL (134-434); RDW 18.5 % (11.6-15.6); WHITE BLOOD COUNT 10.6 K/mm3 (4.0-10.0)
[2021-01-10 06:33] LABS: CALCIUM 7.2 mg/dL (8.5-10.1)
[2021-01-10 06:34] LABS: BLOOD UREA NITROGEN 43.1 mg/dL (7-18); MAGNESIUM 2.1 mg/dL (1.8-2.4)
[2021-01-10] MEDS: INSULIN SLIDING SCALE (NOVOLOG) 1 VIAL SQ SCH ×4 (06:36→22:28)
[2021-01-10 06:37] LABS: CREATININE 3.1 mg/dL (0.55-1.3)
[2021-01-10 06:38] LABS: BILIRUBIN,TOTAL 0.5 mg/dL (0.2-1); TOT PROT 4.6 g/dl (6.4-8.2)
[2021-01-10] MEDS ORDERED: PT OWN MED DRAWER 7, Y5N ONE ×4 (07:31→17:59)
[2021-01-10] MEDS ORDERED: POTASSIUM CHLORIDE TABS 20 MEQ TABLET.ER (FP) PO ONE (09:30)
[2021-01-10] MEDS: MULTIVITAMINS THER W-MINERALS COMBO TABLET (FP) PO SCH (09:41)
[2021-01-10] MEDS: levETIRAcetam 250 MG TABLET PO SCH ×2 (09:41→22:27)
[2021-01-10] MEDS: PANTOPRAZOLE 40 MG TABLET PO SCH (09:41)
[2021-01-10] MEDS: ZINC SULFATE 220 MG CAPSULE (FP) PO SCH ×2 (09:41→22:26)
[2021-01-10] MEDS: DOCUSATE SODIUM 100 MG CAPSULE (FP) PO SCH ×2 (09:42→22:26)
[2021-01-10] MEDS: predniSONE 5 MG TABLET (UD) PO SCH (09:42)
[2021-01-10] MEDS: HYDROXYCHLOROQUINE SO4 200 MG TABLET (FP) PO SCH (09:44)
[2021-01-10] MEDS: ASCORBIC ACID 250 MG TABLET (FP) PO SCH (09:49)
[2021-01-10] MEDS: POVIDONE-IODINE 10% SOLN 118 ML BOTTLE TP SCH (09:49)
[2021-01-10] MEDS: AMINO ACIDS/PROTEIN HYDROLYS 30 ML LIQUID.PKT PO SCH ×2 (09:55→17:21)
[2021-01-10] MEDS ORDERED: LIDOCAINE HCL 1%, 10 MG/ML (20ML VIAL) ONE (10:38)
[2021-01-10] MEDS ORDERED: HEPARIN NA (PORCINE) 5,000 UNITS/ML 1ML VIAL ONE (10:38)
[2021-01-10] MEDS ORDERED: MIDAZOLAM HCL 2 MG/2 ML SINGLE DOSE VIAL ONE (11:57)
[2021-01-10 12:11] LABS: ANTIGLOMERULAR BASEMENT MEN.AB 3 units (0-20)
[2021-01-10] MEDS: HEPARIN NA (PORCINE) 5,000 UNITS/ML 1ML VIAL SQ SCH ×2 (12:15→22:27)
[2021-01-10] MEDS ORDERED: LIDOCAINE HCL 1%, 10 MG/ML (20ML VIAL) INF ONE (12:21)
[2021-01-10] MEDS ORDERED: SODIUM CHLORIDE 250 ML IV PRN ×2 (13:41→14:34)
[2021-01-10] MEDS ORDERED: TRIPLE LUMEN FLUSH 4 ML ML IVPUSH PRN (14:34)
[2021-01-10 16:08] LABS: ATYPICAL pANCA <1:20 titer (Neg:<1:20); C-ANCA <1:20 titer (Neg:<1:20)
[2021-01-10] MEDS ORDERED: INSULIN (NOVOLOG) ASPART 100 UNITS/ML 10ML VIAL ONE (17:12)
[2021-01-10] MEDS: DONEPEZIL HCL 10 MG TABLET (FP) PO SCH (22:27)
[2021-01-11] MEDS ORDERED: PIPERACILLIN/TAZOBACTAM 2.25 GM VIAL IVPB ONE ×2 (01:18→09:10)
[2021-01-11] MEDS ORDERED: DEXTROSE 5%-WATER - 50 ML IVPB ONE ×2 (01:18→09:11)
[2021-01-11] MEDS: NYSTATIN 500,000 UNITS/5 ML SUSPENSION PO SCH ×4 (01:20→17:57)
[2021-01-11] MEDS: NYSTATIN 100,000 UNIT/GM TOPICAL CREAM 15 GM TUBE TP SCH ×4 (01:20→18:08)
[2021-01-11] MEDS: MAG HYDROX/ALH/SMC/DPHA/LIDO 240 ML MOUTHWASH MM SCH ×4 (01:20→18:06)
[2021-01-11] MEDS: PIPERACILLIN/TAZOB 2.25 GM 2.25 GM in DEXTROSE 5%-WATER - 50 ML IVPB SCH ×2 (01:43→09:24)
[2021-01-11] MEDS ORDERED: LABETALOL HCL 100 MG TABLET (FP) ONE ×3 (05:43→21:03)
[2021-01-11] MEDS: HYDROmorphone HCL 2 MG TABLET PO SCH ×2 (05:46→21:46)
[2021-01-11] MEDS: FLUOCINONIDE 0.05% CREAM (15 GM TUBE) TP SCH ×3 (05:47→21:48)
[2021-01-11] MEDS: LABETALOL HCL 200 MG TABLET (FP) PO SCH ×3 (05:48→21:46)
[2021-01-11] MEDS: INSULIN SLIDING SCALE (NOVOLOG) 1 VIAL SQ SCH ×4 (06:01→21:53)
[2021-01-11] MEDS: AMINO ACIDS/PROTEIN HYDROLYS 30 ML LIQUID.PKT PO SCH ×2 (08:06→17:57)
[2021-01-11] MEDS: ZINC SULFATE 220 MG CAPSULE (FP) PO SCH ×2 (09:17→21:46)
[2021-01-11] MEDS: levETIRAcetam 250 MG TABLET PO SCH ×2 (09:18→21:47)
[2021-01-11] MEDS: PANTOPRAZOLE 40 MG TABLET PO SCH (09:18)
[2021-01-11] MEDS: MULTIVITAMINS THER W-MINERALS COMBO TABLET (FP) PO SCH (09:18)
[2021-01-11] MEDS: predniSONE 5 MG TABLET (UD) PO SCH (09:18)
[2021-01-11] MEDS: ASCORBIC ACID 250 MG TABLET (FP) PO SCH (09:19)
[2021-01-11] MEDS: HEPARIN NA (PORCINE) 5,000 UNITS/ML 1ML VIAL SQ SCH ×2 (09:22→21:47)
[2021-01-11] MEDS: HYDROXYCHLOROQUINE SO4 200 MG TABLET (FP) PO SCH (09:25)
[2021-01-11] MEDS: DOCUSATE SODIUM 100 MG CAPSULE (FP) PO SCH ×2 (09:36→21:47)
[2021-01-11] MEDS: POVIDONE-IODINE 10% SOLN 118 ML BOTTLE TP SCH (10:01)
[2021-01-11 11:56] LABS: BASO % 0.4 % (0-2.0); HEMATOCRIT 21.8 % (32.4-45.2); HEMOGLOBIN 7.1 GM/dL (10.7-15.3); LYMPH % 17.4 % (8-40); MCH 28.1 pg (25.7-33.7); MCHC 32.7 g/dl (32.0-36.0); MEAN CELL VOLUME 85.7 fl (80-96); MEAN PLT VOLUME 8.5 fl (7.5-11.1); MONO % 7.1 % (3.8-10.2); NEUT % 75.1 % (42.8-82.8); PLATELET COUNT 146 10^3/uL (134-434); RBC 2.55 M/mm3 (3.60-5.2); RDW 18.9 % (11.6-15.6); WHITE BLOOD COUNT 11.2 K/mm3 (4.0-10.0)
[2021-01-11 12:19] LABS: CALCIUM 7.5 mg/dL (8.5-10.1)
[2021-01-11 12:20] LABS: BLOOD UREA NITROGEN 55.3 mg/dL (7-18)
[2021-01-11 12:22] LABS: CREATININE 3.6 mg/dL (0.55-1.3)
[2021-01-11 12:24] LABS: BILIRUBIN,TOTAL 0.6 mg/dL (0.2-1); TOT PROT 5.1 g/dl (6.4-8.2)
[2021-01-11] MEDS ORDERED: ALBUMIN HUMAN 25% 12.5 GM/50 ML VIAL IVPB SCH (13:45)
[2021-01-11] MEDS: ALBUMIN HUMAN 25% 12.5 GM/50 ML VIAL IVPB SCH ×4 (14:57→15:00)
[2021-01-11] MEDS: DONEPEZIL HCL 10 MG TABLET (FP) PO SCH (21:47)
[2021-01-12] MEDS: MAG HYDROX/ALH/SMC/DPHA/LIDO 240 ML MOUTHWASH MM SCH ×4 (01:00→17:12)
[2021-01-12] MEDS: NYSTATIN 100,000 UNIT/GM TOPICAL CREAM 15 GM TUBE TP SCH ×4 (01:00→17:55)
[2021-01-12] MEDS: NYSTATIN 500,000 UNITS/5 ML SUSPENSION PO SCH ×4 (01:00→17:13)
[2021-01-12] MEDS ORDERED: LABETALOL HCL 100 MG TABLET (FP) ONE ×3 (06:01→23:04)
[2021-01-12] MEDS: HYDROmorphone HCL 2 MG TABLET PO SCH ×2 (06:03→22:49)
[2021-01-12] MEDS: FLUOCINONIDE 0.05% CREAM (15 GM TUBE) TP SCH ×3 (06:04→22:55)
[2021-01-12] MEDS: LABETALOL HCL 200 MG TABLET (FP) PO SCH ×3 (06:04→23:12)
[2021-01-12] MEDS: INSULIN SLIDING SCALE (NOVOLOG) 1 VIAL SQ SCH ×4 (06:20→22:54)
[2021-01-12] MEDS: AMINO ACIDS/PROTEIN HYDROLYS 30 ML LIQUID.PKT PO SCH ×2 (08:20→17:13)
[2021-01-12] MEDS ORDERED: PT OWN MED DRAWER 7, Y5N ONE ×3 (09:00→23:07)
[2021-01-12] MEDS: ZINC SULFATE 220 MG CAPSULE (FP) PO SCH ×2 (09:05→23:12)
[2021-01-12] MEDS: levETIRAcetam 250 MG TABLET PO SCH ×2 (09:06→23:12)
[2021-01-12] MEDS: PANTOPRAZOLE 40 MG TABLET PO SCH (09:06)
[2021-01-12] MEDS: HEPARIN NA (PORCINE) 5,000 UNITS/ML 1ML VIAL SQ SCH ×2 (09:06→23:12)
[2021-01-12] MEDS: ASCORBIC ACID 250 MG TABLET (FP) PO SCH (09:06)
[2021-01-12] MEDS: MULTIVITAMINS THER W-MINERALS COMBO TABLET (FP) PO SCH (09:06)
[2021-01-12] MEDS: predniSONE 5 MG TABLET (UD) PO SCH (09:06)
[2021-01-12] MEDS: DOCUSATE SODIUM 100 MG CAPSULE (FP) PO SCH ×2 (09:07→23:12)
[2021-01-12] MEDS: HYDROXYCHLOROQUINE SO4 200 MG TABLET (FP) PO SCH (09:17)
[2021-01-12] MEDS: POVIDONE-IODINE 10% SOLN 118 ML BOTTLE TP SCH (10:27)
[2021-01-12] MEDS ORDERED: FUROSEMIDE 40 MG/4 ML INJECTABLE VIAL IVPB ONE (11:52)
[2021-01-12] MEDS: DONEPEZIL HCL 10 MG TABLET (FP) PO SCH (23:12)
[2021-01-13] MEDS ORDERED: PT OWN MED DRAWER 7, Y5N ONE ×4 (01:09→23:36)
[2021-01-13] MEDS: NYSTATIN 500,000 UNITS/5 ML SUSPENSION PO SCH ×4 (01:12→17:30)
[2021-01-13] MEDS: MAG HYDROX/ALH/SMC/DPHA/LIDO 240 ML MOUTHWASH MM SCH ×5 (01:12→23:42)
[2021-01-13] MEDS: NYSTATIN 100,000 UNIT/GM TOPICAL CREAM 15 GM TUBE TP SCH ×4 (01:13→17:38)
[2021-01-13] MEDS: HYDROmorphone HCL 2 MG TABLET PO SCH ×2 (05:33→22:04)
[2021-01-13] MEDS: LABETALOL HCL 200 MG TABLET (FP) PO SCH ×3 (05:34→22:08)
[2021-01-13] MEDS: FLUOCINONIDE 0.05% CREAM (15 GM TUBE) TP SCH ×2 (05:36→22:07)
[2021-01-13] MEDS: INSULIN SLIDING SCALE (NOVOLOG) 1 VIAL SQ SCH ×4 (06:00→22:11)
[2021-01-13] MEDS: AMINO ACIDS/PROTEIN HYDROLYS 30 ML LIQUID.PKT PO SCH ×2 (10:14→17:30)
[2021-01-13] MEDS: predniSONE 5 MG TABLET (UD) PO SCH (10:14)
[2021-01-13] MEDS: DOCUSATE SODIUM 100 MG CAPSULE (FP) PO SCH ×2 (10:14→22:07)
[2021-01-13] MEDS: HEPARIN NA (PORCINE) 5,000 UNITS/ML 1ML VIAL SQ SCH ×2 (10:20→22:05)
[2021-01-13] MEDS: levETIRAcetam 250 MG TABLET PO SCH ×2 (10:21→22:04)
[2021-01-13] MEDS: PANTOPRAZOLE 40 MG TABLET PO SCH (10:21)
[2021-01-13] MEDS: HYDROXYCHLOROQUINE SO4 200 MG TABLET (FP) PO SCH (10:21)
[2021-01-13] MEDS: ZINC SULFATE 220 MG CAPSULE (FP) PO SCH ×2 (10:21→22:04)
[2021-01-13] MEDS: ASCORBIC ACID 250 MG TABLET (FP) PO SCH (10:23)
[2021-01-13] MEDS: MULTIVITAMINS THER W-MINERALS COMBO TABLET (FP) PO SCH (10:23)
[2021-01-13] MEDS ORDERED: SODIUM CHLORIDE 250 ML IV PRN (10:24)
[2021-01-13 10:58] LABS: BASO % 0.4 % (0-2.0); HEMATOCRIT 20.9 % (32.4-45.2); LYMPH % 20.6 % (8-40); MCH 28.9 pg (25.7-33.7); MCHC 33.8 g/dl (32.0-36.0); MEAN CELL VOLUME 85.6 fl (80-96); MEAN PLT VOLUME 8.4 fl (7.5-11.1); MONO % 7.2 % (3.8-10.2); NEUT % 71.8 % (42.8-82.8); PLATELET COUNT 144 10^3/uL (134-434); RBC 2.44 M/mm3 (3.60-5.2); RDW 18.9 % (11.6-15.6); WHITE BLOOD COUNT 9.2 K/mm3 (4.0-10.0)
[2021-01-13 11:18] LABS: CALCIUM 7.5 mg/dL (8.5-10.1)
[2021-01-13 11:19] LABS: BLOOD UREA NITROGEN 44.8 mg/dL (7-18)
[2021-01-13 11:22] LABS: CREATININE 3.2 mg/dL (0.55-1.3)
[2021-01-13 11:23] LABS: BILIRUBIN,TOTAL 0.5 mg/dL (0.2-1); TOT PROT 5.4 g/dl (6.4-8.2)
[2021-01-13 11:25] LABS: INR 1.11 (0.83-1.09); PROTHROMBIN TIME (PATIENT) 13.4 SEC (9.7-13.0)
[2021-01-13] MEDS ORDERED: HEPARIN NA (PORCINE) 5,000 UNITS/ML 1ML VIAL IVPUSH ONE (11:53)
[2021-01-13] MEDS: ALBUMIN HUMAN 25% 12.5 GM/50 ML VIAL IVPB SCH ×2 (13:30→13:31)
[2021-01-13] MEDS ORDERED: LABETALOL HCL 100 MG TABLET (FP) ONE ×2 (13:44→21:47)
[2021-01-13] MEDS ORDERED: INSULIN (NOVOLOG) ASPART 100 UNITS/ML 10ML VIAL ONE (21:19)
[2021-01-13] MEDS: DONEPEZIL HCL 10 MG TABLET (FP) PO SCH (22:04)
[2021-01-14] MEDS: NYSTATIN 500,000 UNITS/5 ML SUSPENSION PO SCH ×4 (00:05→18:18)
[2021-01-14] MEDS ORDERED: LABETALOL HCL 100 MG TABLET (FP) ONE ×2 (05:42→21:05)
[2021-01-14] MEDS: HYDROmorphone HCL 2 MG TABLET PO SCH ×2 (05:51→21:10)
[2021-01-14] MEDS: FLUOCINONIDE 0.05% CREAM (15 GM TUBE) TP SCH ×3 (05:52→21:16)
[2021-01-14] MEDS: NYSTATIN 100,000 UNIT/GM TOPICAL CREAM 15 GM TUBE TP SCH ×4 (05:53→18:18)
[2021-01-14] MEDS: MAG HYDROX/ALH/SMC/DPHA/LIDO 240 ML MOUTHWASH MM SCH ×3 (05:54→18:17)
[2021-01-14] MEDS: LABETALOL HCL 200 MG TABLET (FP) PO SCH ×3 (05:54→21:12)
[2021-01-14] MEDS: INSULIN SLIDING SCALE (NOVOLOG) 1 VIAL SQ SCH ×4 (05:59→21:15)
[2021-01-14] MEDS: HEPARIN NA (PORCINE) 5,000 UNITS/ML 1ML VIAL SQ SCH ×2 (09:35→21:13)
[2021-01-14] MEDS: MULTIVITAMINS THER W-MINERALS COMBO TABLET (FP) PO SCH (09:36)
[2021-01-14] MEDS: HYDROXYCHLOROQUINE SO4 200 MG TABLET (FP) PO SCH (09:36)
[2021-01-14] MEDS: ASCORBIC ACID 250 MG TABLET (FP) PO SCH (09:36)
[2021-01-14] MEDS: levETIRAcetam 250 MG TABLET PO SCH ×2 (09:36→21:11)
[2021-01-14] MEDS: predniSONE 5 MG TABLET (UD) PO SCH (09:36)
[2021-01-14] MEDS: ZINC SULFATE 220 MG CAPSULE (FP) PO SCH ×2 (09:36→21:11)
[2021-01-14] MEDS: PANTOPRAZOLE 40 MG TABLET PO SCH (09:36)
[2021-01-14] MEDS: AMINO ACIDS/PROTEIN HYDROLYS 30 ML LIQUID.PKT PO SCH ×2 (09:36→18:17)
[2021-01-14] MEDS: DOCUSATE SODIUM 100 MG CAPSULE (FP) PO SCH ×2 (09:36→21:11)
[2021-01-14] MEDS: POVIDONE-IODINE 10% SOLN 118 ML BOTTLE TP SCH (10:08)
[2021-01-14] MEDS ORDERED: PT OWN MED DRAWER 7, Y5N ONE ×2 (14:07→21:07)
[2021-01-14] MEDS ORDERED: traMADol HCL 50 MG TABLET PO PRN (15:27)
[2021-01-14] MEDS: ACETAMINOPHEN 1000 MG/100 ML VIAL (NON FORMULARY) IVPB PRN (15:51)
[2021-01-14] MEDS: DONEPEZIL HCL 10 MG TABLET (FP) PO SCH (21:11)
[2021-01-15] MEDS: MAG HYDROX/ALH/SMC/DPHA/LIDO 240 ML MOUTHWASH MM SCH ×5 (00:49→23:06)
[2021-01-15] MEDS: NYSTATIN 100,000 UNIT/GM TOPICAL CREAM 15 GM TUBE TP SCH ×4 (00:50→22:06)
[2021-01-15] MEDS: NYSTATIN 500,000 UNITS/5 ML SUSPENSION PO SCH ×4 (00:50→18:26)
[2021-01-15] MEDS: ACETAMINOPHEN 1000 MG/100 ML VIAL (NON FORMULARY) IVPB PRN (01:49)
[2021-01-15] MEDS ORDERED: LABETALOL HCL 100 MG TABLET (FP) ONE ×2 (06:36→21:24)
[2021-01-15] MEDS: FLUOCINONIDE 0.05% CREAM (15 GM TUBE) TP SCH ×3 (06:44→21:59)
[2021-01-15] MEDS: LABETALOL HCL 200 MG TABLET (FP) PO SCH ×3 (06:45→21:59)
[2021-01-15] MEDS: INSULIN SLIDING SCALE (NOVOLOG) 1 VIAL SQ SCH ×4 (06:45→22:05)
[2021-01-15] MEDS: HYDROmorphone HCL 2 MG TABLET PO SCH ×2 (06:59→21:58)
[2021-01-15] MEDS ORDERED: SODIUM CHLORIDE 250 ML IV PRN (08:36)
[2021-01-15] MEDS ORDERED: HEPARIN NA (PORCINE) 5,000 UNITS/ML 1ML VIAL IVPUSH ONE (08:45)
[2021-01-15] MEDS: ALBUMIN HUMAN 25% 12.5 GM/50 ML VIAL IVPB SCH ×4 (09:00→10:48)
[2021-01-15 09:43] LABS: HEMATOCRIT 21.2 % (32.4-45.2); HEMOGLOBIN 7.1 GM/dL (10.7-15.3); MCH 28.9 pg (25.7-33.7); MCHC 33.3 g/dl (32.0-36.0); MEAN CELL VOLUME 86.9 fl (80-96); MEAN PLT VOLUME 8.2 fl (7.5-11.1); PLATELET COUNT 177 10^3/uL (134-434); RBC 2.44 M/mm3 (3.60-5.2); RDW 19.3 % (11.6-15.6); WHITE BLOOD COUNT 9.9 K/mm3 (4.0-10.0)
[2021-01-15 10:12] LABS: CALCIUM 7.5 mg/dL (8.5-10.1)
[2021-01-15 10:14] LABS: BLOOD UREA NITROGEN 37.3 mg/dL (7-18)
[2021-01-15 10:17] LABS: CREATININE 2.9 mg/dL (0.55-1.3)
[2021-01-15] MEDS: DOCUSATE SODIUM 100 MG CAPSULE (FP) PO SCH ×2 (12:15→21:59)
[2021-01-15] MEDS: POVIDONE-IODINE 10% SOLN 118 ML BOTTLE TP SCH (12:15)
[2021-01-15] MEDS: levETIRAcetam 250 MG TABLET PO SCH ×2 (12:16→21:59)
[2021-01-15] MEDS: ASCORBIC ACID 250 MG TABLET (FP) PO SCH (12:16)
[2021-01-15] MEDS: ZINC SULFATE 220 MG CAPSULE (FP) PO SCH ×2 (12:16→21:59)
[2021-01-15] MEDS: HYDROXYCHLOROQUINE SO4 200 MG TABLET (FP) PO SCH (12:16)
[2021-01-15] MEDS: HEPARIN NA (PORCINE) 5,000 UNITS/ML 1ML VIAL SQ SCH ×2 (12:16→21:58)
[2021-01-15] MEDS: PANTOPRAZOLE 40 MG TABLET PO SCH (12:16)
[2021-01-15] MEDS: AMINO ACIDS/PROTEIN HYDROLYS 30 ML LIQUID.PKT PO SCH ×2 (12:16→18:26)
[2021-01-15] MEDS: MULTIVITAMINS THER W-MINERALS COMBO TABLET (FP) PO SCH (12:17)
[2021-01-15] MEDS: predniSONE 5 MG TABLET (UD) PO SCH (12:17)
[2021-01-15] MEDS ORDERED: TRIMETHOBENZAMIDE HCL 200MG/2ML INJ IM ONE (13:00)
[2021-01-15] MEDS ORDERED: PT OWN MED DRAWER 7, Y5N ONE (21:26)
[2021-01-15] MEDS: DONEPEZIL HCL 10 MG TABLET (FP) PO SCH (21:58)
[2021-01-16] MEDS: NYSTATIN 100,000 UNIT/GM TOPICAL CREAM 15 GM TUBE TP SCH ×4 (00:35→17:50)
[2021-01-16] MEDS: MAG HYDROX/ALH/SMC/DPHA/LIDO 240 ML MOUTHWASH MM SCH ×4 (01:09→17:50)
[2021-01-16] MEDS: NYSTATIN 500,000 UNITS/5 ML SUSPENSION PO SCH ×4 (01:09→17:51)
[2021-01-16] MEDS: HYDROmorphone HCL 2 MG TABLET PO SCH ×2 (05:27→22:05)
[2021-01-16] MEDS: FLUOCINONIDE 0.05% CREAM (15 GM TUBE) TP SCH ×3 (05:28→22:11)
[2021-01-16] MEDS: LABETALOL HCL 200 MG TABLET (FP) PO SCH ×3 (05:29→22:08)
[2021-01-16] MEDS: INSULIN SLIDING SCALE (NOVOLOG) 1 VIAL SQ SCH ×4 (06:05→22:17)
[2021-01-16 08:27] LABS: HEMATOCRIT 22.8 % (32.4-45.2); HEMOGLOBIN 7.8 GM/dL (10.7-15.3); MCH 29.5 pg (25.7-33.7); MCHC 34.1 g/dl (32.0-36.0); MEAN CELL VOLUME 86.5 fl (80-96); MEAN PLT VOLUME 8.4 fl (7.5-11.1); PLATELET COUNT 182 10^3/uL (134-434); RBC 2.64 M/mm3 (3.60-5.2); RDW 19.1 % (11.6-15.6); WHITE BLOOD COUNT 9.2 K/mm3 (4.0-10.0)
[2021-01-16 08:29] LABS: INR 1.06 (0.83-1.09)
[2021-01-16 08:46] LABS: CALCIUM 7.8 mg/dL (8.5-10.1)
[2021-01-16 08:50] LABS: CREATININE 2.2 mg/dL (0.55-1.3)
[2021-01-16] MEDS ORDERED: PT OWN MED DRAWER 7, Y5N ONE ×3 (09:37→22:11)
[2021-01-16] MEDS: MULTIVITAMINS THER W-MINERALS COMBO TABLET (FP) PO SCH (09:39)
[2021-01-16] MEDS: predniSONE 5 MG TABLET (UD) PO SCH (09:39)
[2021-01-16] MEDS: DOCUSATE SODIUM 100 MG CAPSULE (FP) PO SCH ×2 (09:39→22:05)
[2021-01-16] MEDS: levETIRAcetam 250 MG TABLET PO SCH ×2 (09:39→22:08)
[2021-01-16] MEDS: HEPARIN NA (PORCINE) 5,000 UNITS/ML 1ML VIAL SQ SCH ×2 (09:39→22:08)
[2021-01-16] MEDS: PANTOPRAZOLE 40 MG TABLET PO SCH (09:39)
[2021-01-16] MEDS: AMINO ACIDS/PROTEIN HYDROLYS 30 ML LIQUID.PKT PO SCH ×2 (09:39→17:09)
[2021-01-16] MEDS: ASCORBIC ACID 250 MG TABLET (FP) PO SCH (09:39)
[2021-01-16] MEDS: ZINC SULFATE 220 MG CAPSULE (FP) PO SCH ×2 (09:39→22:08)
[2021-01-16] MEDS: HYDROXYCHLOROQUINE SO4 200 MG TABLET (FP) PO SCH (09:40)
[2021-01-16] MEDS: POVIDONE-IODINE 10% SOLN 118 ML BOTTLE TP SCH (11:12)
[2021-01-16] MEDS ORDERED: LABETALOL HCL 100 MG TABLET (FP) ONE (21:58)
[2021-01-16] MEDS: DONEPEZIL HCL 10 MG TABLET (FP) PO SCH (22:05)
[2021-01-17] MEDS: NYSTATIN 100,000 UNIT/GM TOPICAL CREAM 15 GM TUBE TP SCH ×4 (00:12→17:10)
[2021-01-17] MEDS: MAG HYDROX/ALH/SMC/DPHA/LIDO 240 ML MOUTHWASH MM SCH ×4 (00:20→17:10)
[2021-01-17] MEDS: NYSTATIN 500,000 UNITS/5 ML SUSPENSION PO SCH ×4 (00:21→17:10)
[2021-01-17] MEDS: LABETALOL HCL 200 MG TABLET (FP) PO SCH ×3 (06:04→22:01)
[2021-01-17] MEDS: FLUOCINONIDE 0.05% CREAM (15 GM TUBE) TP SCH ×3 (06:18→22:03)
[2021-01-17] MEDS: HYDROmorphone HCL 2 MG TABLET PO SCH ×2 (06:18→22:00)
[2021-01-17] MEDS: INSULIN SLIDING SCALE (NOVOLOG) 1 VIAL SQ SCH ×4 (06:23→22:16)
[2021-01-17] MEDS ORDERED: BUPIVACAINE HCL/PF 0.5% (5MG/ML) 10 ML VIAL ONE (07:28)
[2021-01-17] MEDS ORDERED: LIDOCAINE HCL 1%, 10 MG/ML (20ML VIAL) ONE (07:28)
[2021-01-17] MEDS: AMINO ACIDS/PROTEIN HYDROLYS 30 ML LIQUID.PKT PO SCH ×2 (07:50→17:09)
[2021-01-17] MEDS ORDERED: MIDAZOLAM HCL 2 MG/2 ML SINGLE DOSE VIAL ONE ×2 (07:55)
[2021-01-17] MEDS ORDERED: ceFAZolin SODIUM 1 GM VIAL IVPB ONE ×2 (08:10→08:17)
[2021-01-17] MEDS ORDERED: PROPOFOL 20 ML ONE ×2 (08:22)
[2021-01-17] MEDS ORDERED: LIDOCAINE HCL 1%, 10 MG/ML (50 mL VIAL) NR ONE (09:00)
[2021-01-17] MEDS ORDERED: BUPIVACAINE HCL/PF 0.5% (5MG/ML) 10 ML VIAL IJ ONE (09:00)
[2021-01-17] MEDS ORDERED: ONDANSETRON 4 MG/2 ML VIAL IVPUSH PRN (09:20)
[2021-01-17] MEDS ORDERED: TRIPLE LUMEN FLUSH 4 ML ML IVPUSH PRN (09:26)
[2021-01-17 10:53] LABS: BASO % 0.4 % (0-2.0); HEMATOCRIT 22.6 % (32.4-45.2); HEMOGLOBIN 7.5 GM/dL (10.7-15.3); LYMPH % 23.8 % (8-40); MCHC 33.3 g/dl (32.0-36.0); MEAN CELL VOLUME 87.1 fl (80-96); MEAN PLT VOLUME 8.3 fl (7.5-11.1); MONO % 6.6 % (3.8-10.2); NEUT % 69.2 % (42.8-82.8); PLATELET COUNT 169 10^3/uL (134-434); RBC 2.59 M/mm3 (3.60-5.2); RDW 19.6 % (11.6-15.6); WHITE BLOOD COUNT 8.9 K/mm3 (4.0-10.0)
[2021-01-17] MEDS: HEPARIN NA (PORCINE) 5,000 UNITS/ML 1ML VIAL SQ SCH ×2 (10:53→22:01)
[2021-01-17] MEDS: levETIRAcetam 250 MG TABLET PO SCH ×2 (10:54→22:02)
[2021-01-17] MEDS: MULTIVITAMINS THER W-MINERALS COMBO TABLET (FP) PO SCH (10:54)
[2021-01-17] MEDS: predniSONE 5 MG TABLET (UD) PO SCH (10:54)
[2021-01-17] MEDS: PANTOPRAZOLE 40 MG TABLET PO SCH (10:54)
[2021-01-17] MEDS: ZINC SULFATE 220 MG CAPSULE (FP) PO SCH ×2 (10:54→22:02)
[2021-01-17] MEDS: DOCUSATE SODIUM 100 MG CAPSULE (FP) PO SCH ×2 (10:55→22:01)
[2021-01-17] MEDS: HYDROXYCHLOROQUINE SO4 200 MG TABLET (FP) PO SCH (10:55)
[2021-01-17] MEDS: ASCORBIC ACID 250 MG TABLET (FP) PO SCH (11:08)
[2021-01-17] MEDS ORDERED: PT OWN MED DRAWER 7, Y5N ONE ×2 (14:05→21:56)
[2021-01-17] MEDS ORDERED: SODIUM CHLORIDE 250 ML IV PRN (15:22)
[2021-01-17] MEDS ORDERED: LABETALOL HCL 100 MG TABLET (FP) ONE (21:54)
[2021-01-17] MEDS: DONEPEZIL HCL 10 MG TABLET (FP) PO SCH (22:02)
[2021-01-18] MEDS: NYSTATIN 500,000 UNITS/5 ML SUSPENSION PO SCH ×4 (00:10→18:06)
[2021-01-18] MEDS: MAG HYDROX/ALH/SMC/DPHA/LIDO 240 ML MOUTHWASH MM SCH ×3 (00:10→11:48)
[2021-01-18] MEDS: NYSTATIN 100,000 UNIT/GM TOPICAL CREAM 15 GM TUBE TP SCH ×4 (00:10→18:06)
[2021-01-18] MEDS ORDERED: PT OWN MED DRAWER 7, Y5N ONE ×3 (06:09→22:35)
[2021-01-18] MEDS: HYDROmorphone HCL 2 MG TABLET PO SCH ×2 (06:15→22:41)
[2021-01-18] MEDS: LABETALOL HCL 200 MG, LABETALOL HCL 100 MG PO SCH ×3 (06:16→22:42)
[2021-01-18] MEDS: FLUOCINONIDE 0.05% CREAM (15 GM TUBE) TP SCH ×3 (06:17→22:58)
[2021-01-18] MEDS: INSULIN SLIDING SCALE (NOVOLOG) 1 VIAL SQ SCH ×4 (06:35→23:02)
[2021-01-18 08:48] LABS: BASO % 0.3 % (0-2.0); HEMATOCRIT 22.7 % (32.4-45.2); HEMOGLOBIN 7.5 GM/dL (10.7-15.3); LYMPH % 15.4 % (8-40); MCH 28.8 pg (25.7-33.7); MCHC 33.1 g/dl (32.0-36.0); MEAN CELL VOLUME 86.9 fl (80-96); MEAN PLT VOLUME 7.9 fl (7.5-11.1); NEUT % 79.3 % (42.8-82.8); PLATELET COUNT 177 10^3/uL (134-434); RBC 2.62 M/mm3 (3.60-5.2); RDW 19.6 % (11.6-15.6); WHITE BLOOD COUNT 8.2 K/mm3 (4.0-10.0)
[2021-01-18 09:33] LABS: CALCIUM 7.7 mg/dL (8.5-10.1)
[2021-01-18 09:34] LABS: ALBUMIN 2.3 g/dl (3.4-5.0)
[2021-01-18 09:37] LABS: BLOOD UREA NITROGEN 40.2 mg/dL (7-18)
[2021-01-18 09:40] LABS: CREATININE 3.4 mg/dL (0.55-1.3)
[2021-01-18 09:41] LABS: BILIRUBIN,TOTAL 0.7 mg/dL (0.2-1)
[2021-01-18] MEDS: DOCUSATE SODIUM 100 MG CAPSULE (FP) PO SCH (11:47)
[2021-01-18] MEDS: AMINO ACIDS/PROTEIN HYDROLYS 30 ML LIQUID.PKT PO SCH ×2 (11:48→16:54)
[2021-01-18] MEDS: MULTIVITAMINS THER W-MINERALS COMBO TABLET (FP) PO SCH (11:51)
[2021-01-18] MEDS: PANTOPRAZOLE 40 MG TABLET PO SCH (11:52)
[2021-01-18] MEDS: HYDROXYCHLOROQUINE SO4 200 MG TABLET (FP) PO SCH (11:52)
[2021-01-18] MEDS: ZINC SULFATE 220 MG CAPSULE (FP) PO SCH ×2 (11:52→23:03)
[2021-01-18] MEDS: levETIRAcetam 250 MG TABLET PO SCH ×2 (11:52→22:43)
[2021-01-18] MEDS: predniSONE 5 MG TABLET (UD) PO SCH (11:52)
[2021-01-18] MEDS: HEPARIN NA (PORCINE) 5,000 UNITS/ML 1ML VIAL SQ SCH ×2 (11:53→22:41)
[2021-01-18] MEDS: ASCORBIC ACID 250 MG TABLET (FP) PO SCH (11:54)
[2021-01-18] MEDS ORDERED: POTASSIUM CHLORIDE TABS 20 MEQ TABLET.ER (FP) PO ONE (15:10)
[2021-01-18] MEDS: DONEPEZIL HCL 10 MG TABLET (FP) PO SCH (22:43)
[2021-01-19] MEDS: NYSTATIN 500,000 UNITS/5 ML SUSPENSION PO SCH ×5 (01:11→23:31)
[2021-01-19] MEDS: NYSTATIN 100,000 UNIT/GM TOPICAL CREAM 15 GM TUBE TP SCH ×5 (01:30→23:31)
[2021-01-19] MEDS ORDERED: PT OWN MED DRAWER 7, Y5N ONE ×2 (05:47→16:46)
[2021-01-19] MEDS: FLUOCINONIDE 0.05% CREAM (15 GM TUBE) TP SCH ×3 (05:51→21:57)
[2021-01-19] MEDS: HYDROmorphone HCL 2 MG TABLET PO SCH ×2 (05:58→21:56)
[2021-01-19] MEDS: LABETALOL HCL 200 MG, LABETALOL HCL 100 MG PO SCH ×3 (06:08→21:57)
[2021-01-19] MEDS: INSULIN SLIDING SCALE (NOVOLOG) 1 VIAL SQ SCH ×4 (06:11→22:06)
[2021-01-19] MEDS: AMINO ACIDS/PROTEIN HYDROLYS 30 ML LIQUID.PKT PO SCH ×2 (08:27→16:44)
[2021-01-19] MEDS: PANTOPRAZOLE 40 MG TABLET PO SCH (09:14)
[2021-01-19] MEDS: MULTIVITAMINS THER W-MINERALS COMBO TABLET (FP) PO SCH (09:14)
[2021-01-19] MEDS: predniSONE 5 MG TABLET (UD) PO SCH (09:14)
[2021-01-19] MEDS: HEPARIN NA (PORCINE) 5,000 UNITS/ML 1ML VIAL SQ SCH ×2 (09:14→21:55)
[2021-01-19] MEDS: ZINC SULFATE 220 MG CAPSULE (FP) PO SCH ×2 (09:14→21:56)
[2021-01-19] MEDS: levETIRAcetam 250 MG TABLET PO SCH ×2 (09:14→21:57)
[2021-01-19] MEDS: HYDROXYCHLOROQUINE SO4 200 MG TABLET (FP) PO SCH (09:21)
[2021-01-19] MEDS: ASCORBIC ACID 250 MG TABLET (FP) PO SCH (09:22)
[2021-01-19] MEDS ORDERED: INSULIN (NOVOLOG) ASPART 100 UNITS/ML 10ML VIAL ONE (10:48)
[2021-01-19] MEDS ORDERED: SILVER SULFADIAZINE 1% TOP CREAM 50 GM JAR TP SCH (12:45)
[2021-01-19] MEDS: SILVER SULFADIAZINE 1% TOP CREAM 50 GM JAR TP SCH (16:47)
[2021-01-19] MEDS: DONEPEZIL HCL 10 MG TABLET (FP) PO SCH (21:56)
[2021-01-20] MEDS: FLUOCINONIDE 0.05% CREAM (15 GM TUBE) TP SCH ×2 (06:07→15:33)
[2021-01-20] MEDS: NYSTATIN 100,000 UNIT/GM TOPICAL CREAM 15 GM TUBE TP SCH ×3 (06:07→18:25)
[2021-01-20] MEDS: HYDROmorphone HCL 2 MG TABLET PO SCH ×2 (06:07→22:34)
[2021-01-20] MEDS: LABETALOL HCL 200 MG, LABETALOL HCL 100 MG PO SCH ×2 (06:08→15:32)
[2021-01-20] MEDS: NYSTATIN 500,000 UNITS/5 ML SUSPENSION PO SCH ×3 (06:08→18:26)
[2021-01-20] MEDS: INSULIN SLIDING SCALE (NOVOLOG) 1 VIAL SQ SCH ×3 (06:12→18:25)
[2021-01-20] MEDS ORDERED: SODIUM CHLORIDE 250 ML IV PRN (06:30)
[2021-01-20] MEDS ORDERED: EPOETIN ALFA-EPBX 10,000 UNIT/ML VIAL SQ ONE (08:00)
[2021-01-20] MEDS: AMINO ACIDS/PROTEIN HYDROLYS 30 ML LIQUID.PKT PO SCH ×2 (08:52→17:34)
[2021-01-20] MEDS: levETIRAcetam 250 MG TABLET PO SCH ×3 (09:05→23:54)
[2021-01-20] MEDS: HYDROXYCHLOROQUINE SO4 200 MG TABLET (FP) PO SCH (09:05)
[2021-01-20] MEDS: ZINC SULFATE 220 MG CAPSULE (FP) PO SCH ×2 (09:05→23:53)
[2021-01-20] MEDS: ASCORBIC ACID 250 MG TABLET (FP) PO SCH (09:06)
[2021-01-20 09:14] LABS: HEMATOCRIT 19.6 % (32.4-45.2); MCH 29.2 pg (25.7-33.7); MCHC 33.7 g/dl (32.0-36.0); MEAN CELL VOLUME 86.7 fl (80-96); PLATELET COUNT 142 10^3/uL (134-434); RBC 2.26 M/mm3 (3.60-5.2); RDW 19.9 % (11.6-15.6); WHITE BLOOD COUNT 9.2 K/mm3 (4.0-10.0)
[2021-01-20 09:23] LABS: HEMOGLOBIN 6.6 GM/dL (10.7-15.3)
[2021-01-20 09:25] LABS: INR 1.08 (0.83-1.09); PROTHROMBIN TIME (PATIENT) 13.3 SEC (9.7-13.0)
[2021-01-20 09:41] LABS: BLOOD UREA NITROGEN 27.3 mg/dL (7-18); CALCIUM 7.8 mg/dL (8.5-10.1)
[2021-01-20] MEDS: HEPARIN NA (PORCINE) 5,000 UNITS/ML 1ML VIAL SQ SCH (10:00)
[2021-01-20] MEDS: MULTIVITAMINS THER W-MINERALS COMBO TABLET (FP) PO SCH (10:13)
[2021-01-20] MEDS ORDERED: HEPARIN NA (PORCINE) 5,000 UNITS/ML 1ML VIAL IVPUSH ONE (12:04)
[2021-01-20] MEDS: PANTOPRAZOLE 40 MG TABLET PO SCH (12:07)
[2021-01-20] MEDS: predniSONE 5 MG TABLET (UD) PO SCH (12:07)
[2021-01-20] MEDS: COLLAGENASE CLOSTRIDIUM HIST. 30 GRAMS TUBE TP SCH (15:33)
[2021-01-20] MEDS: SILVER SULFADIAZINE 1% TOP CREAM 50 GM JAR TP SCH (15:33)
[2021-01-20] MEDS ORDERED: PT OWN MED DRAWER 7, Y5N ONE (16:37)
[2021-01-20] MEDS: DONEPEZIL HCL 10 MG TABLET (FP) PO SCH (23:53)
[2021-01-21] MEDS: LABETALOL HCL 200 MG, LABETALOL HCL 100 MG PO SCH ×4 (00:42→22:15)
[2021-01-21] MEDS: INSULIN SLIDING SCALE (NOVOLOG) 1 VIAL SQ SCH ×5 (00:43→22:16)
[2021-01-21] MEDS: NYSTATIN 500,000 UNITS/5 ML SUSPENSION PO SCH ×2 (00:44→06:21)
[2021-01-21] MEDS: NYSTATIN 100,000 UNIT/GM TOPICAL CREAM 15 GM TUBE TP SCH ×4 (00:46→18:02)
[2021-01-21] MEDS: FLUOCINONIDE 0.05% CREAM (15 GM TUBE) TP SCH ×4 (00:48→22:24)
[2021-01-21] MEDS ORDERED: PT OWN MED DRAWER 7, Y5N ONE ×2 (06:24→22:06)
[2021-01-21] MEDS: HYDROmorphone HCL 2 MG TABLET PO SCH (06:26)
[2021-01-21] MEDS ORDERED: LIDOCAINE HCL/PF 2% SDV 5ML VIAL ONE (07:39)
[2021-01-21] MEDS ORDERED: BUPIVACAINE HCL/PF 0.25% (2.5MG/ML) 10 ML VIAL ONE (07:43)
[2021-01-21] MEDS ORDERED: LIDOCAINE HCL 1%, 10 MG/ML (20ML VIAL) ONE (07:43)
[2021-01-21] MEDS ORDERED: LIDOCAINE HCL 2% (20ML MULTI-DOSE VIAL) ONE (07:43)
[2021-01-21] MEDS ORDERED: BUPIVACAINE HCL/PF 0.5% (5MG/ML) 10 ML VIAL ONE (07:43)
[2021-01-21] MEDS ORDERED: PROPOFOL 20 ML ONE ×3 (07:49)
[2021-01-21] MEDS ORDERED: ROCURONIUM BROMIDE 50 MG/5 ML SYRINGE ONE (07:50)
[2021-01-21] MEDS ORDERED: ACETAMINOPHEN INJECTION 200 ML IVPB ONE ×2 (07:52→07:57)
[2021-01-21] MEDS ORDERED: DEXMEDETOMIDINE HCL 200 MCG/2 ML IVPB ONE (07:52)
[2021-01-21] MEDS ORDERED: LIDOCAINE HCL 1%, 10 MG/ML (20ML VIAL) SQ ONE (09:40)
[2021-01-21] MEDS ORDERED: KETAMINE HCL 200 MG/20 ML VIAL ONE (09:45)
[2021-01-21] MEDS ORDERED: ceFAZolin SODIUM 1 GM VIAL IVPB ONE (10:00)
[2021-01-21] MEDS: levETIRAcetam 250 MG TABLET PO SCH ×2 (10:01→22:15)
[2021-01-21] MEDS: AMINO ACIDS/PROTEIN HYDROLYS 30 ML LIQUID.PKT PO SCH ×2 (10:01→18:07)
[2021-01-21] MEDS: predniSONE 5 MG TABLET (UD) PO SCH (10:01)
[2021-01-21] MEDS: PANTOPRAZOLE 40 MG TABLET PO SCH (10:02)
[2021-01-21] MEDS: COLLAGENASE CLOSTRIDIUM HIST. 30 GRAMS TUBE TP SCH (10:02)
[2021-01-21] MEDS: HYDROXYCHLOROQUINE SO4 200 MG TABLET (FP) PO SCH (10:02)
[2021-01-21] MEDS: ZINC SULFATE 220 MG CAPSULE (FP) PO SCH ×2 (10:02→22:15)
[2021-01-21] MEDS: SILVER SULFADIAZINE 1% TOP CREAM 50 GM JAR TP SCH (10:03)
[2021-01-21] MEDS: MULTIVITAMINS THER W-MINERALS COMBO TABLET (FP) PO SCH (10:03)
[2021-01-21] MEDS: ASCORBIC ACID 250 MG TABLET (FP) PO SCH (10:03)
[2021-01-21] MEDS ORDERED: METOPROLOL TARTRATE 5 MG/5 ML VIAL ONE (10:31)
[2021-01-21] MEDS ORDERED: SODIUM CHLORIDE 250 ML IV PRN (12:35)
[2021-01-21] MEDS: DONEPEZIL HCL 10 MG TABLET (FP) PO SCH (22:16)
[2021-01-22] MEDS: NYSTATIN 100,000 UNIT/GM TOPICAL CREAM 15 GM TUBE TP SCH ×4 (01:06→17:32)
[2021-01-22] MEDS ORDERED: PT OWN MED DRAWER 7, Y5N ONE ×3 (06:47→21:03)
[2021-01-22] MEDS: LABETALOL HCL 200 MG, LABETALOL HCL 100 MG PO SCH ×3 (06:50→22:05)
[2021-01-22] MEDS: FLUOCINONIDE 0.05% CREAM (15 GM TUBE) TP SCH ×3 (06:50→22:04)
[2021-01-22] MEDS: INSULIN SLIDING SCALE (NOVOLOG) 1 VIAL SQ SCH ×4 (06:56→22:01)
[2021-01-22] MEDS: AMINO ACIDS/PROTEIN HYDROLYS 30 ML LIQUID.PKT PO SCH ×3 (08:13→22:20)
[2021-01-22] MEDS ORDERED: EPOETIN ALFA-EPBX 10,000 UNIT/ML VIAL IVPUSH ONE (09:30)
[2021-01-22 10:00] LABS: HEMATOCRIT 27.1 % (32.4-45.2); HEMOGLOBIN 9.3 GM/dL (10.7-15.3); MCH 29.6 pg (25.7-33.7); MCHC 34.2 g/dl (32.0-36.0); MEAN CELL VOLUME 86.5 fl (80-96); MEAN PLT VOLUME 7.4 fl (7.5-11.1); PLATELET COUNT 143 10^3/uL (134-434); RBC 3.13 M/mm3 (3.60-5.2); RDW 17.5 % (11.6-15.6); WHITE BLOOD COUNT 11.8 K/mm3 (4.0-10.0)
[2021-01-22] MEDS: PANTOPRAZOLE 40 MG TABLET PO SCH ×2 (10:00→13:31)
[2021-01-22] MEDS: ASCORBIC ACID 250 MG TABLET (FP) PO SCH (10:00)
[2021-01-22] MEDS: ZINC SULFATE 220 MG CAPSULE (FP) PO SCH ×2 (10:00→22:03)
[2021-01-22] MEDS: predniSONE 5 MG TABLET (UD) PO SCH ×2 (10:00→13:30)
[2021-01-22] MEDS ORDERED: HYDROXYCHLOROQUINE SO4 200 MG TABLET (FP) PO SCH (10:00)
[2021-01-22] MEDS: MULTIVITAMINS THER W-MINERALS COMBO TABLET (FP) PO SCH (10:00)
[2021-01-22] MEDS: levETIRAcetam 250 MG TABLET PO SCH ×3 (10:00→22:01)
[2021-01-22 10:11] LABS: CHLORIDE 102 mmol/L (98-107); SODIUM 139 mmol/L (136-145)
[2021-01-22 10:14] LABS: ANION GAP 7 MMOL/L (8-16); CALCIUM 7.6 mg/dL (8.5-10.1); CO2 30 mmol/L (21-32)
[2021-01-22 10:15] LABS: BLOOD UREA NITROGEN 26.4 mg/dL (7-18); GLUCOSE,RANDOM 168 mg/dL (74-106)
[2021-01-22 10:18] LABS: CREATININE 2.7 mg/dL (0.55-1.3); SGOT/AST 17 U/L (15-37)
[2021-01-22 10:19] LABS: BILIRUBIN,TOTAL 0.5 mg/dL (0.2-1); TOT PROT 4.6 g/dl (6.4-8.2)
[2021-01-22 10:20] LABS: ALK PHOS 92 U/L (45-117)
[2021-01-22 10:21] LABS: ALBUMIN 1.6 g/dl (3.4-5.0); SGPT/ALT < 6 U/L (13-61)
[2021-01-22] MEDS ORDERED: HEPARIN NA (PORCINE) 5,000 UNITS/ML 1ML VIAL IVPUSH ONE (12:35)
[2021-01-22] MEDS: SILVER SULFADIAZINE 1% TOP CREAM 50 GM JAR TP SCH (13:15)
[2021-01-22] MEDS: COLLAGENASE CLOSTRIDIUM HIST. 30 GRAMS TUBE TP SCH (13:15)
[2021-01-22 19:59] VITALS: BMI 26.6
[2021-01-22] MEDS: LACTOBACILLUS ACIDOPHILUS 1 TABLET PO SCH (22:02)
[2021-01-22] MEDS: DONEPEZIL HCL 10 MG TABLET (FP) PO SCH (22:03)
[2021-01-23] MEDS: NYSTATIN 100,000 UNIT/GM TOPICAL CREAM 15 GM TUBE TP SCH ×4 (00:15→17:59)
[2021-01-23] MEDS: FLUOCINONIDE 0.05% CREAM (15 GM TUBE) TP SCH ×3 (06:35→21:36)
[2021-01-23] MEDS: INSULIN SLIDING SCALE (NOVOLOG) 1 VIAL SQ SCH ×4 (06:37→21:38)
[2021-01-23] MEDS ORDERED: PT OWN MED DRAWER 7, Y5N ONE ×4 (06:39→21:29)
[2021-01-23] MEDS: LABETALOL HCL 200 MG, LABETALOL HCL 100 MG PO SCH ×3 (06:40→21:34)
[2021-01-23] MEDS: AMINO ACIDS/PROTEIN HYDROLYS 30 ML LIQUID.PKT PO SCH (08:29)
[2021-01-23] MEDS: PANTOPRAZOLE 40 MG TABLET PO SCH (09:15)
[2021-01-23] MEDS: COLLAGENASE CLOSTRIDIUM HIST. 30 GRAMS TUBE TP SCH (09:17)
[2021-01-23] MEDS: MULTIVITAMINS THER W-MINERALS COMBO TABLET (FP) PO SCH (09:17)
[2021-01-23] MEDS: ASCORBIC ACID 250 MG TABLET (FP) PO SCH (09:17)
[2021-01-23] MEDS: ZINC SULFATE 220 MG CAPSULE (FP) PO SCH ×2 (09:17→21:34)
[2021-01-23] MEDS: SILVER SULFADIAZINE 1% TOP CREAM 50 GM JAR TP SCH (09:17)
[2021-01-23] MEDS: levETIRAcetam 250 MG TABLET PO SCH ×2 (09:17→21:34)
[2021-01-23] MEDS: LACTOBACILLUS ACIDOPHILUS 1 TABLET PO SCH ×2 (09:17→21:34)
[2021-01-23] MEDS: predniSONE 5 MG TABLET (UD) PO SCH (09:17)
[2021-01-23 09:57] LABS: BASO % 0.3 % (0-2.0); HEMATOCRIT 32.4 % (32.4-45.2); HEMOGLOBIN 10.6 GM/dL (10.7-15.3); LYMPH % 19.4 % (8-40); MCHC 32.7 g/dl (32.0-36.0); MEAN CELL VOLUME 88.8 fl (80-96); MEAN PLT VOLUME 8.2 fl (7.5-11.1); MONO % 10.7 % (3.8-10.2); NEUT % 69.6 % (42.8-82.8); PLATELET COUNT 134 10^3/uL (134-434); RBC 3.65 M/mm3 (3.60-5.2); RDW 18.1 % (11.6-15.6); WHITE BLOOD COUNT 15.8 K/mm3 (4.0-10.0)
[2021-01-23] MEDS: DONEPEZIL HCL 10 MG TABLET (FP) PO SCH (21:36)
[2021-01-23] MEDS ORDERED: APIXABAN 2.5 MG TABLET PO SCH (22:00)
[2021-01-24 02:40] VITALS: TEMP 98.4
[2021-01-24 03:59] VITALS: BP 144/72; PULSE 134
== END 2021-01-24 05:11 | disposition expired | DRG 239 ==
LOC: JER 12:11 → JERBED 18:24 → J6S 23:21
PROVIDERS: ADMIT Internal Medicine; ATTEND Internal Medicine
PROC: 05HM33Z Insertion of Infusion Device into Right Internal Jugular Vein, Percutaneous Approach (ICD-10-PCS; 2020-12-24)
PROC: B543ZZA Ultrasonography of Right Jugular Veins, Guidance (ICD-10-PCS; 2020-12-24)
PROC: 30233N1 Transfusion of Nonautologous Red Blood Cells into Peripheral Vein, Percutaneous Approach (ICD-10-PCS; 2020-12-25)
PROC: 05HM33Z Insertion of Infusion Device into Right Internal Jugular Vein, Percutaneous Approach (ICD-10-PCS; 2021-01-03)
PROC: B543ZZA Ultrasonography of Right Jugular Veins, Guidance (ICD-10-PCS; 2021-01-03)
PROC: 5A1D70Z Performance of Urinary Filtration, Intermittent, Less than 6 Hours Per Day (ICD-10-PCS; 2021-01-08)
PROC: 05HY33Z Insertion of Infusion Device into Upper Vein, Percutaneous Approach (ICD-10-PCS; 2021-01-10)
PROC: 0Y6N0Z9 Detachment at Left Foot, Partial 1st Ray, Open Approach (ICD-10-PCS; 2021-01-17)
PROC: 0Y6N0Z9 Detachment at Left Foot, Partial 1st Ray, Open Approach (ICD-10-PCS; 2021-01-17)
PROC: 0Y6N0ZB Detachment at Left Foot, Partial 2nd Ray, Open Approach (ICD-10-PCS; 2021-01-17)
PROC: 0Y6M0ZB Detachment at Right Foot, Partial 2nd Ray, Open Approach (ICD-10-PCS; 2021-01-21)
PROC: 0Y6M0Z9 Detachment at Right Foot, Partial 1st Ray, Open Approach (ICD-10-PCS; principal; 2021-01-21 09:30)
PROC: 5A1945Z Respiratory Ventilation, 24-96 Consecutive Hours (ICD-10-PCS; 2021-01-24)
PROC: 0BH17EZ Insertion of Endotracheal Airway into Trachea, Via Natural or Artificial Opening (ICD-10-PCS; 2021-01-24)
PROC: 5A12012 Performance of Cardiac Output, Single, Manual (ICD-10-PCS; 2021-01-24)
DX: E11.52 Type 2 diabetes mellitus with diabetic peripheral angiopathy with gangrene (principal); J69.0 Pneumonitis due to inhalation of food and vomit; I50.33 Acute on chronic diastolic (congestive) heart failure; N18.6 End stage renal disease; J96.00 Acute respiratory failure, unspecified whether with hypoxia or hypercapnia; I13.2 Hypertensive heart and chronic kidney disease with heart failure and with stage 5 chronic kidney disease, or end stage renal disease; M86.171 Other acute osteomyelitis, right ankle and foot; I96 Gangrene, not elsewhere classified; N17.9 Acute kidney failure, unspecified; I42.9 Cardiomyopathy, unspecified; J90 Pleural effusion, not elsewhere classified; E87.1 Hypo-osmolality and hyponatremia; E11.69 Type 2 diabetes mellitus with other specified complication; I25.10 Atherosclerotic heart disease of native coronary artery without angina pectoris; I10 Essential (primary) hypertension; I48.0 Paroxysmal atrial fibrillation; E78.5 Hyperlipidemia, unspecified; N18.30 Chronic kidney disease, stage 3 unspecified; D64.9 Anemia, unspecified; E87.5 Hyperkalemia; D72.829 Elevated white blood cell count, unspecified; M06.9 Rheumatoid arthritis, unspecified; F03.90 Unspecified dementia, unspecified severity, without behavioral disturbance, psychotic disturbance, mood disturbance, and anxiety; E11.65 Type 2 diabetes mellitus with hyperglycemia
CPT/HCPCS: 36415; 36430; 36511; 71045-TC-FY; 71250-TC; 73630-TC-LT; 73630-TC-RT-FY; 74176-TC; 76000-TC-FY; 76775-TC; 76856-TC; 80048; 80053; 81003; 82272; 82436; 82550; 82570; 82962; 83516; 83520; 83605; 83735; 83880; 84100; 84133; 84134; 84155; 84165; 84300; 84484; 85025; 85027; 85610; 85730; 86038; 86225; 86256; 86705; 86706; 86708; 86803; 86850; 86900; 86901; 86922; 87040; 87070; 87077; 87086; 87186; 87205; 87340; 87350; 87517; 87804; 93005; 93010; 94760; 99285-25; C9803; E0186; G0463-25; G0480; J0131; J1644; P9038; P9047; P9058; Q5106; U0003; U0005